=== PATIENT | male | born 1960 | race Caucasian/White ===

== ENCOUNTER 2023-04-22 11:00 | Outpatient (OUT) | payer OTHER, SELFPAY ==
--- NOTE | 2023-04-22 11:12 | XR_ITS ---
[address] [address] Patient Name: DILLON SMILEY MRN: [id number] date: 1960 Sex: M Assigned Patient Location: [facility] Current Patient Location: [facility] Accession/Order Number: [id number] Exam Date: 04/22/2023 11:54 Report Date: 04/22/2023 12:23 At the request of: XIN PARKS Procedure: XR chest 2V EXAM: XR chest 2V HISTORY: PRE OP EXAM COMPARISON: None. TECHNIQUE: PA and lateral views of the chest. FINDINGS: The cardiomediastinal silhouette is normal. No focal consolidation is identified. There is no pneumothorax. No pleural effusion is noted. The osseous structures are intact. IMPRESSION: No acute cardiopulmonary process. Electronically authenticated by: JOCELYN DAMON Date: 04/22/2023 12:23
--- NOTE | 2023-04-22 11:12 | ECG_ITS ---
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
--- NOTE | 2023-04-22 12:01 | P.GSHP_ITS ---
History of Present Illness History of Present Illness Chief complaint: BLADDER MASS Narrative: Patient presents for preadmission testing. Please see HPI from Dr. Garcia dated 04/19/2023. Review of Systems ROS Narrative Please see ROS from Dr. Garcia dated 04/19/2023. 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 Highest level of school completed/degree received: Associate degree: academic program Meds Home Medications and Allergies Home Medications Medication Instructions Recorded Confirmed Type ezetimibe 10 mg tablet 10 mg PO QDAY 04/22/23 04/22/23 History mirabegron 25 mg tablet,extended 25 mg PO QDAY 04/22/23 04/22/23 History release 24 hr (Myrbetriq) tamsulosin 0.4 mg capsule 0.4 mg PO Q24H 04/22/23 04/22/23 History valsartan 160 mg tablet 160 mg PO QDAY 04/22/23 04/22/23 History Allergies Allergy/AdvReac Type Severity Reaction Status Date / Time No Known Drug Allergies Allergy Verified 04/22/23 11:39 Exam Narrative Exam Narrative: Constitutional: Awake, alert, comfortable, well-appearing, nontoxic, in teractive, vital signs as charted Head: Normocephalic, atraumatic Neck: Supple, normal appearance, normal range of motion, no meningeal signs, no lymphadenopathy Respiratory: No respiratory distress, breath sounds clear Cardiovascular: Regular rate, Irregular rhythm, strong heart tones Abdomen: Nontender, normal bowel sounds, soft, no CVA tenderness Musculoskeletal: Normal gait, no swelling or edema Skin: No rashes or induration, no lesions, only visible skin inspected Neuro: No neurological deficits, normal sensation Psychiatric: Oriented ?3, normal affect Assessment and Plan Assessment and Plan (1) Bladder mass: Plan TURBT possible TURP Scheduled with Dr. Garcia 04/19/2023.
[2023-04-22 12:44] LABS: Basophils Percent Auto 0.5 % (0.2-2.0); Eosinophils Absolute Auto 0.2 10^3/uL (0.0-0.7); Eosinophils Percent Auto 2.3 % (0.9-7.0); Hematocrit 41.2 % (42.0-54.0); Immature Granulocytes Abs Auto 0.02 10^3/uL (0.00-0.03); Immature Granulocytes Pct Auto 0.3 % (0.0-0.5); Lymphocytes Absolute Auto 1.2 10^3/uL (1.2-3.8); Lymphocytes Percent Auto 18.4 % (20.5-60.0); Mean Corpuscular Hemoglobin 32.7 pg (25.9-34.0); Mean Corpuscular Volume 96.3 fL (80.0-94.0); Mean Platelet Volume 10.5 fL (9.5-13.5); Monocytes Absolute Auto 0.6 10^3/uL (0.3-0.8); Monocytes Percent Auto 8.4 % (1.7-12.0); Neutrophils Absolute Auto 4.6 10^3/uL (1.4-6.5); Neutrophils Percent Auto 70.1 % (43.0-75.0); Platelet Count 224 10^3/uL (150-450); Red Blood Count 4.28 10^6/uL (4.70-6.10); Red Cell Distribution Width 12.8 % (11.0-15.0); White Blood Count 6.5 10^3/uL (4.0-11.0)
[2023-04-22 12:54] LABS: Anion Gap 8.1; Calcium 8.8 mg/dL (8.5-10.1); Carbon Dioxide 31.3 mmol/L (21.0-32.0); Chloride 103 mmol/L (98-107); Estimated GFR (African America >60 (>=60); Estimated GFR (Non-African Ame >60 (>=60); Glucose 92 mg/dL (74-106); Potassium 4.4 mmol/L (3.5-5.1); Sodium 138 mmol/L (136-145)
[2023-04-22 12:55] LABS: INR 0.93; Partial Thromboplastin Time 25.9 sec (22.3-36.2); Prothrombin Time 9.9 sec (9.0-11.6)
== END 2023-04-22 11:01 | disposition home or self-care (01) ==
PROVIDERS: Urology; PCP Family Medicine
DX: Z01.812 Encounter for preprocedural laboratory examination (principal); Z01.818 Encounter for other preprocedural examination; Z01.810 Encounter for preprocedural cardiovascular examination; Z01.811 Encounter for preprocedural respiratory examination; N32.9 Bladder disorder, unspecified; I10 Essential (primary) hypertension
CPT/HCPCS: 36415; 71046; 80048; 85025; 85610; 85730; 93005; G0463

== ENCOUNTER 2023-04-27 11:32 | Day surgery (SDC) | payer OTHER, SELFPAY ==
[2023-04-22 11:41] VITALS: BP 143/85; PULSE 75; RESP 16; TEMP 36.5; O2SAT 97; BMI 34.4
[2023-04-27] VITALS (14 sets, daily range): BP systolic 121–166; BP diastolic 56–104; PULSE 62–77; RESP 14–17; TEMP 35.8–36.2; O2SAT 94–99; BMI 32.2
[2023-04-27] MEDS: LACTATED RINGER'S SOLUTION 1,000 ML 50 ML IV ×2 (11:56→13:35)
[2023-04-27] MEDS: CEFAZOLIN SODIUM/DEXTROSE,ISO 2 GM/50 ML PIGGYBACK IV (12:38)
[2023-04-27] MEDS: HYDROMORPHONE HCL 0.5 MG/0.5 ML SYRINGE IV ×2 (15:11→15:35)
--- NOTE | 2023-04-27 15:35 | PM.URSON ---
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 Cystoscopy, transurethral resection of bladder tumor ( >5 cm) 2. Bladder neck resection 3. Prostatic urethral biopsy Anesthesia: GETA (LMA, Renetta Ivory, SABRINA) Primary Surgeon: Shazia Garcia Complications: none Estimated blood loss (mL): 3 Findings: -Papillary tumors on right prostatic urethra just next to verumontaneum (biopsied). Mod-severe trilobar hypertrophy with elevated bladder neck. -Anterior/right lateral bladder neck with irregular mucosa, friable (resected). -Diffuse flat, friable papillary tumors circumferentially involving the posterior, lateral, and anterior bladder wall, scattered areas of dome not involved. About 75% of bladder involved. Inferior portion of bladder mostly spared. Trigone/UOs not involved. - 2+ trabeculations. Smaller bladder capacity. Specimens: 1. Bladder tumor 2. Anterior bladder neck 3. Prostatic urethral biopsy Drains: 22Fr 2-way adair catheter Incision: none Indications for Procedures: 62 year old male with history of irritative voiding symptoms underwent diagnostic cystoscopy noting diffuse papillary carpeting throughout bladder. 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 CT Urogram is pending. After discussion of risks and benefits of management options, patient elected to proceed to the OR for cystoscopy, transurethral resection of bladder tumors. Risks were discussed including but not limited to bleeding, pain, infection, damage to surrounding structures, perforation, recurrence, and need for additional procedures. Detailed description of Procedure: Prior to the operating room, informed consent was obtained for the procedures described above. The patient was then taken to the operating suite, transferred to the operating table and received the appropriate dose of preoperative IV antibiotics. Gen. anesthesia LMA was administered and the patient was positioned in the lithotomy position, sterilely prepped and draped in the usual sterile fashion for this procedure. A final timeout was performed confirming the patient's identity, procedure and all present were in agreement to proceed. I began by inserting a 22 Austrian rigid cystoscope into the patient's bladder and performed a thorough cystoscopy with both the 30 and 70 degree lens with the findings as above. Bilateral ureters were seen in orthotopic position effluxing urine. The cystoscope was removed and the meatus was dilated to 30 Austrian with [place] sounds. A 26 Austrian resectoscope was inserted. Bipolar loop electrocautery was used to fully resect the tumor, taking care to obtain muscle in the specimen. Specimens were sent for pathology. Hemostasis was obtained with electrocautery. The anterior bladder neck was also resected, sent for pathology. Careful resection to biopsy the prostatic urethra was also obtained of the irregular area, taking care given the location of the verumontanum. The bladder was drained and inspected. Hemostasis was achieved of any prostatic bleeding. There was no evidence of any bleeding from the resection beds. A 22-Austrian two way Adair catheter (silicone) was inserted without difficulty, irrigated until clear. A bimanual exam was performed which demonstrated normal external genitalia and LIZZIE without firm nodules. The bladder was mobile without palpable mass. The abdomen was soft and nondistended. A belladonna suppository was administered per rectum. The patient tolerated the procedure well without complication. Patient was extubated and sent to PACU for recovery. Plan: He will follow up in 5 days for adair removal and voiding trial. Review pathology and CTU at that time if available, otherwise follow up in 1-2 weeks in the office for pathology review and the next steps. Other Provider present: No Attending Doc Confirm Attending Attestation: Yes
--- NOTE | 2023-04-27 17:01 | PC.NURSE ---
Prior to discharge catheter car and leg bag teaching was provided to patient and spouse. Both voiced understanding.
== END 2023-04-27 16:50 | disposition home or self-care (01) ==
LOC: SURGOUT 04-28 09:53
PROVIDERS: PCP Family Medicine; Visit Provider Urology
PROC: (CPT 52240; principal; 2023-04-27 12:30)
DX: C67.9 Malignant neoplasm of bladder, unspecified (principal); R97.20 Elevated prostate specific antigen [PSA]; N40.1 Benign prostatic hyperplasia with lower urinary tract symptoms; I10 Essential (primary) hypertension; Z87.440 Personal history of urinary (tract) infections; N41.9 Inflammatory disease of prostate, unspecified; E78.2 Mixed hyperlipidemia; Z79.899 Other long term (current) drug therapy; Z87.891 Personal history of nicotine dependence; N32.81 Overactive bladder
CPT/HCPCS: 52240; 36415; 88305; 88307; J1170; J2704

== ENCOUNTER 2024-09-12 14:23 | Outpatient (OUT) | payer MEDICARE, SELFPAY ==
--- NOTE | 2024-09-12 14:32 | ECG_ITS ---
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
--- NOTE | 2024-09-12 15:12 | PM.PRESUREVA ---
History of Present Illness History of Present Illness Chief complaint: elevated PSA Narrative: Presents for presurgical testing. Please see HPI from Dr. Garcia dated September 07, 2024. Review of Systems ROS Narrative Please see ROS from Dr. Garcia dated September 07, 2024. [facility] Medical History (Updated 09/12/24 @ 15:14 by Mulu Maher NP) Prostatitis ?N41.9 - Inflammatory disease of prostate, unspecified (ICD-10) Bladder tumor ?D49.4 - Neoplasm of unspecified behavior of bladder (ICD-10) Bladder cancer ?C67.9 - Malignant neoplasm of bladder, unspecified (ICD-10) Snores ?R06.83 - Snoring (ICD-10) Elevated PSA ?R97.20 - Elevated prostate specific antigen [PSA] (ICD-10) Arthritis ?M19.90 - Unspecified osteoarthritis, unspecified site (ICD-10) Neck pain ?M54.2 - Cervicalgia (ICD-10) High cholesterol ?E78.00 - Pure hypercholesterolemia, unspecified (ICD-10) Hypertension ?I10 - Essential (primary) hypertension (ICD-10) Bladder mass ?N32.89 - Other specified disorders of bladder (ICD-10) Multiple sclerosis ?G35 - Multiple sclerosis (ICD-10) Surgical History (Updated 09/12/24 @ 15:10 by Mulu Maher NP) H/O transurethral resection of bladder tumor (TURBT) (~2023) ?Z98.890 - Other specified postprocedural states (ICD-10) ?Z86.03 - Personal history of neoplasm of uncertain behavior (ICD-10) H/O transurethral resection of bladder tumor (TURBT) (04/27/23) ?Z98.890 - Other specified postprocedural states (ICD-10) ?Z86.03 - Personal history of neoplasm of uncertain behavior (ICD-10) S/P epidural steroid injection ?Z92.241 - Personal history of systemic steroid therapy (ICD-10) History of arthroscopy of knee ?Z98.890 - Other specified postprocedural states (ICD-10) History of colonoscopy ?Z98.890 - Other specified postprocedural states (ICD-10) S/P cystoscopy ?Z98.890 - Other specified postprocedural states (ICD-10) Family History (Updated 04/22/23 @ 11:46 by Mulu Maher NP) Other Family history of hypertension Family history of myocardial infarction Social History (Updated 09/12/24 @ 14:51 by Mulu Maher NP) Within the past year, how often did you have a drink containing alcohol: 4 or more times a week Smoking status: Former smoker Non-prescribed substance use: denies use 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 Highest level of school completed/degree received: Associate degree: academic program Meds Home Medications and Allergies Home Medications ?Medication ?Instructions ?Recorded ?Confirmed ?Type ezetimibe 10 mg tablet 10 mg PO QDAY 04/22/23 09/12/24 History tamsulosin 0.4 mg capsule 0.4 mg PO Q24H 04/22/23 09/12/24 History valsartan 160 mg tablet 160 mg PO QDAY 04/22/23 09/12/24 History isoniazid 300 mg tablet 300 mg PO DAILY 09/12/24 09/12/24 History pyridoxine (vitamin B6) 50 mg 50 mg PO DAILY 09/12/24 09/12/24 History tablet Allergies Allergy/AdvReac Type Severity Reaction Status Date / Time No Known Drug Allergies Allergy Verified 09/12/24 14:47 Exam Narrative Exam Narrative: Constitutional: Awake, alert, comfortable, well-appearing, nontoxic, interactive, vital signs as charted Head: Normocephalic, atraumatic Neck: Supple, normal appearance, normal range of motion, no meningeal signs, no lymphadenopathy Respiratory: No respiratory distress, breath sounds clear Cardiovascular: Regular rate, irregular rhythm, strong heart tones Abdomen: Nontender, normal bowel sounds, soft, no CVA tenderness Musculoskeletal: Normal gait, no swelling or edema Skin: No rashes or induration, no lesions, only visible skin inspected Neuro: No neurological deficits, normal sensation Psychiatric: Oriented ?3, normal affect Assessment and Plan Assessment and Plan (1) Elevated PSA: (2) Bladder tumor: (3) Bladder cancer: Plan Cystoscopy/TURP scheduled with Dr. Garcia 09/19/2024.
[2024-09-12 15:21] LABS: Basophils Absolute Auto 0.1 10^3/uL (0.0-0.1); Basophils Percent Auto 0.5 % (0.2-2.0); Eosinophils Absolute Auto 0.4 10^3/uL (0.0-0.7); Eosinophils Percent Auto 3.7 % (0.9-7.0); Hematocrit 43.8 % (42.0-54.0); Hemoglobin 14.7 g/dL (14.0-18.0); Immature Granulocytes Abs Auto 0.02 10^3/uL (0.00-0.03); Immature Granulocytes Pct Auto 0.2 % (0.0-0.5); Lymphocytes Absolute Auto 1.6 10^3/uL (1.2-3.8); Lymphocytes Percent Auto 16.6 % (20.5-60.0); Mean Corpuscular HGB Conc 33.6 g/dL (29.9-35.2); Mean Corpuscular Hemoglobin 32.7 pg (25.9-34.0); Mean Corpuscular Volume 97.3 fL (80.0-94.0); Mean Platelet Volume 10.7 fL (9.5-13.5); Monocytes Absolute Auto 0.7 10^3/uL (0.3-0.8); Monocytes Percent Auto 7.7 % (1.7-12.0); Neutrophils Absolute Auto 6.7 10^3/uL (1.4-6.5); Neutrophils Percent Auto 71.3 % (43.0-75.0); Platelet Count 195 10^3/uL (150-450); Red Cell Distribution Width 12.8 % (11.0-15.0); White Blood Count 9.4 10^3/uL (4.0-11.0)
[2024-09-12 15:25] LABS: Bilirubin Urine NEGATIVE (NEGATIVE); Blood Urine SMALL (NEGATIVE); Clarity Urine CLEAR (CLEAR); Color Urine LT. YELLOW (YELLOW); Glucose Urine UA NEGATIVE (NEGATIVE); Ketones Urine NEGATIVE (NEGATIVE); Leukocyte Esterase Urine NEGATIVE (NEGATIVE); Nitrite Urine NEGATIVE (NEGATIVE); Protein Urine NEGATIVE (NEG/TRACE); Urobilinogen Urine 0.2 EU/dL (0.2-1.0)
[2024-09-12 15:26] LABS: Urine Microscopic Indicated YES
[2024-09-12 15:27] LABS: Anion Gap 9.9; Calcium 8.9 mg/dL (8.5-10.1); Carbon Dioxide 29.1 mmol/L (21.0-32.0); Chloride 105 mmol/L (98-107); Estimated GFR (African America >60 (>=60 mL/min/1.73m^2); Estimated GFR (Non-African Ame >60 (>=60 mL/min/1.73m^2); Glucose 109 mg/dL (74-106); Sodium 140 mmol/L (136-145)
[2024-09-12 15:37] LABS: INR 0.99; Partial Thromboplastin Time 26.3 sec (22.3-36.2); Prothrombin Time 10.5 sec (9.0-11.6)
[2024-09-12 15:40] LABS: Bacteria Urine TRACE #/HPF (NONE SEEN); Cast Seen? NONE SEEN #/LPF (NONE SEEN); Crystals Seen? None Seen #/HPF (None Seen); Mucus Urine SMALL (NONE SEEN); Squamous Epithelial Cell Urine RARE #/LPF (NONE/RARE); Urine Culture Indicated NO
== END 2024-09-12 14:24 | disposition home or self-care (01) ==
LOC: PST 14:27
PROVIDERS: PCP Family Medicine; Visit Provider Urology
DX: Z01.810 Encounter for preprocedural cardiovascular examination (principal); Z01.812 Encounter for preprocedural laboratory examination; R97.20 Elevated prostate specific antigen [PSA]; C67.9 Malignant neoplasm of bladder, unspecified; I10 Essential (primary) hypertension; E78.5 Hyperlipidemia, unspecified; N40.1 Benign prostatic hyperplasia with lower urinary tract symptoms; D49.4 Neoplasm of unspecified behavior of bladder; R31.9 Hematuria, unspecified
CPT/HCPCS: 36415; 80048; 81001; 85025; 85610; 85730; 93005; G0463

== ENCOUNTER 2024-09-19 12:40 | Day surgery (SDC) | payer MEDICARE, SELFPAY ==
[2024-09-12 15:05] VITALS: BP 143/83; PULSE 76; TEMP 36.3; O2SAT 99; BMI 33.0
[2024-09-19] VITALS (12 sets, daily range): BP systolic 142–176; BP diastolic 80–102; PULSE 60–79; TEMP 36.3–36.8; O2SAT 93–99; BMI 33.0
--- OUTSIDE RECORDS SUMMARY | 2024-09-19 12:51 | XMS_ITS | CCD ---
Author Organization [facility] Care Team Providers Care Manager Fine Name Role Phone Chaz Styles Unavailable Jil Keenan Unavailable DO Isamar Jenkins Primary Care Provider MD Mandeep Andersen Emergency Provider MD Jil Keenan Attending Provider ISAMAR JENKINS Primary Care Physician Unavailable Primary Care Provider Unavailabl e DO Isamar Jenkins Primary Care Provider MD Jil Keenan Attending Provider MD Shazia Garcia Attending Provider DO Isamar Jenkins Primary Care Provider SASKIA Kelly Emergency Provider DO Michael Yadav Admit Provider DO Michael Yadav Attending Provider [phone] Isamar Jenkins DO Primary Care Provid er Fide Hopkins Unavailable Unavailable Isamar Jenkins DO Primary Care Provid er DO Isamar Jenkins Primary Care Provider [phone] MD Chaz Styles Attending Provider [phone] Isamar Jenkins Primary Care Unavailable Chaz Styles Admitting Unavailable Chaz Styles Attending Unavailable Isamar Jenkins Primary Care Unavailable Shazia Garcia Consulting Unavailable Michael Yadav Admitting Unavailable Michael Yadav Attending Unavailable ISAMAR JENKINS Primary Care Unavai lable ALMASSI, RIGO Attending Unavailable LUE, SHAZIA M Referring Unavailable DOMINGO REED Attending Unavailable PETZNICK, ISAMAR JOHNSON Primary Care Unavai lable ALMASSI, RIGO Referring Unavailable PETZNICK, ISAMAR JOHNSON Primary Care Unavai lable ALMASSI, RIGO Attending Unavailable ALMASSI, RIGO Attending Unavailable ALMASSI, RIGO Admitting Unavailable BANDYOPADHYAY, ANASUA Attending Unavailabl e ALMASSI, RIGO Referring Unavailable PETZNICK, ISAMAR JOHNSON Primary Care Unavai lable ALMASSI, RIGO Referring Unavailable PETZNICK, ISAMAR JOHNSON Primary Care Unavai lable PETZNICK, ISAMAR ELIZABETH Primary Care Unavai lable ALMASSI, RIGO Referring Unavailable ALMASSI, RIGO Referring Unavailable PETZNICK, ISAMAR JOHNSON Primary Care Unavai lable PETZNICK, ISAMAR JOHNSON Primary Care Unavai lable PETZNICK, ISAMAR JOHNSON Primary Care Unavai lable ALMASSI, RIGO Attending Unavailable PETZNICK, ISAMAR Britton Attending Unavailable Petznick DO, Isamar Britton Primary Care Provider Shazia Garcia Attending Unavailable OrzeRoslyn carmona Attending Unavailable Lue, Shazia M. Admitting Unavailable Lue, Shazia M. Attending Unavailable Lue, Shazia M. Attending Unavailable Lue, Shazia M. Referring Unavailable Lue, Shazia M. Attending Unavailable Lue, Shazia M. Admitting Unavailable Lue, Shazia M. Attending Unavailable Lue, Shazia M. Admitting Unavailable Lue, Shazia M. Attending Unavailable Lue, Shazia M. Attending Unavailable Allergies Allergy Classification Reported Allergen(s) Allergy Type Date of Onset Reaction(s) Facility (6 sources) Allergic rhinitis due to pollen Propensity to adverse reactions Unknown [employer] Other (6 sources) [facility] [employer] Other (6 sources) Pollen Propensity to adverse reactions Unknown [employer] Other (2 sources) atorvastatin Drug Allergy 1 Hives, Rash [facility] (2 sources) Lisinopril Propensity to adverse reactions 1 Hives, Rash [facility] (2 sources) Pollen Allergy to substance 3 Unknown [facility] (2 sources) No Known Medication Allergies; Translations: [No Known Medication Allergies] Propensity to adverse reactions (disorder) [place] [facility] Medications Current Medications Medication Drug Class(es) Dates Sig (Normalized) Sig (Original) acetaminophen 325 mg oral tablet (20 sources) Start: 06-16-2023 take 2 tablets by mouth every four hours as needed acetaminophen (Tylenol) 325 MG tablet Take 650 mg by mouth every 4 (four) hours if needed. 06/16/2023 Active Comment on above: Take 2 tablets by mo ut every 4 hours as needed for pain. bcg 50 mg in NaCl (PF) 0.9% 50 mL (1 source) Start: 08-01-2024 End: 08-02-2024 bcg 50 mg in NaCl (PF) 0.9% 50 mL cyclobenzaprine hydrochloride 10 mg oral tablet (17 sources) Muscle Relaxant Start: 08-18-2023 take 1 tablet by mouth at bedtime cyclobenzaprine (Flexeril) 10 MG tablet Indications: Cervical arthritis Take 1 tablet (10 mg) by mouth at bedtime. 90 tablet 1 08/18/2023 Active Start: 01-30-2023 End: 11-16-2023 Cyclobenzaprine Discontinued MG TABLET January 30, 2023 12:00am November 16, 2023 2:42am take 1 tablet by beverly every twenty-four hours Cyclobenzaprine HCl 10 MG 1 tablet at bedtime as needed Orally Once a day Active ezetimibe 10 mg oral tablet (20 sources) Dietary Cholesterol Absorption Inhibitor Start: 01-30-2023 Ezetimibe Active MG TABLET January 30, 2023 12:00am Start: 03-20-2020 Start: 03-20-2020 take 10 mg by mouth once daily Ezetimibe Active 10 MG PO Daily January 30, 2023 12:00am Comment on above: q 24 HR. hydrOXYzine hydrochloride 25 mg oral tablet (2 sources) Antihistamine Start: 2023 End: 2023 take 1 tablet by mouth every eight hours hydrOXYzine HCl (Atarax) 25 MG tablet Indications: Plant dermatitis Take 1 tablet (25 mg) by mouth every 8 (eight) hours if needed for itching for up to 10 days 30 tablet 1 08/30/2024 09/09/2024 Active isoniazid 300 mg oral tablet (2 sources) Antimycobacterial Start: 2023 End: 2024 isoniazid 300 mg Tab 300 mg = 1 tab(s), Oral, Daily, Take with 50 mg B6 vitamin daily, X 3 months, # 90 tab(s), Refills(s) 0, Pharmacy: [facility], 179, cm, 09/07/24 7:53:00 EST, Height/Length Dosing, 101, kg, 09/07/24 7:53:00 EST, Weight Dosing Start Date: 09/07/24 Stop Date: 12/06/24 Status: Ordered iv contrast (will be provided with radiology test) (1 source) Start: 2023 End: 2023 iv contrast (will be provided with radiology test) MRI BLADDER Inject, intravenously, once for 1 dose. No IV access, insert saline lock prior to the beginning of sedation, infusion, injection of imaging exam. Discontinue saline lock post exam. If Pt has a central line or IVAD, may access for administration according to line specific nursing protocol. Once exam is complete flush line and de-access according to line specific nursing protocol in the MR contrast administration guidelines link. 1 Each 0 02/15/2024 02/16/2024 Active Comment on above: MRI BLADDER Inject, intravenously, once for 1 dose. No IV access, insert saline lock prior to the beginning of sedation, infusion, injection of imaging exam. Discontinue saline lock post exam. If Pt has a central line or IVAD, may access for administration according to line specific nursing protocol. Once exam is complete flush line and de-access according to line specific nursing protocol in the MR contrast administration guidelines link. oxybutynin chloride 5 mg oral tablet (20 sources) Cholinergic Muscarinic Antagonist Start: 2022 End: 2023 take 1 tablet by mouth three times daily as needed oxybutynin 5 mg Tab 5 mg = 1 tab(s), Oral, TID, PRN for urinary discomfort, # 30 tab(s), Refills(s) 0 Start Date: 05/06/23 Status: Ordered Comment on above: Take 5 mg by mouth. Take 1 tablet by beverly th three times daily. Do not take within 12 hours of catheter removal pantoprazole 40 mg delayed release oral tablet (2 sources) Proton Pump Inhibitor Start: 2019 take 1 tablet by mouth every twenty-four hours phenazopyridine hydrochloride 100 mg oral tablet (20 sources) Start: 2023 End: 2023 take 1 tablet by mouth every eight hours Phenazopyridine (Pyridium) 100 mg tablet Active 100 MG PO Q8H 18 6 November 18, 2023 4:02pm Start: 11-10-2023 take 1 tablet by beverly th every eight hours as needed phenazopyridine (PYRIDIUM) 100 mg tablet Take 1 tablet by mouth three times a day as needed for up to 9 doses. 9 tablet 11/10/2023 Active Start: 05-18-2023 End: 08-30-2023 take 1 tablet by mouth every eight hours as needed phenazopyridine (PYRIDIUM) 200 mg tablet Take 1 tablet by mouth three times daily as needed. 15 tablet 0 06/16/2023 08/30/2023 Discontinued (Course of therapy completed) Comment on above: Take 1 tablet by beverly th three times daily as needed. Take 1 tablet by beverly th three times a day as needed for up to 9 doses. predniSONE 20 mg oral tablet (2 sources) Start: 08-30-2024 End: 09-08-2024 take 2 tablets by mouth once daily, then take 1 tablet by mouth once daily, then take 0.5 tablet by mouth once daily predniSONE (Deltasone) 20 MG tablet Indications: Plant dermatitis Take 2 tablets (40 mg) by mouth Daily for 3 days, THEN 1 tablet (20 mg) Daily for 3 days, THEN 0.5 tablets (10 mg) Daily for 4 days. 11 tablet 08/30/2024 09/08/2024 Active tamsulosin hydrochloride 0.4 mg oral capsule (20 sources) alpha-Adrenergic Christopher Start: 01-30-2023 Tamsulosin Active MG PO January 30, 2023 12:00am Start: 09-30-2022 End: 05-09-2025 take 1 capsule by mouth once daily tamsulosin 0.4 mg Cap 0.4 mg = 1 cap(s), Oral, Daily, X 90 day(s), # 90 cap(s), Refills(s) 3, Pharmacy: [facility], 179, cm, 05/14/24 11:19:00 EDT, Height/Length Dosing, 101, kg, 05/14/24 11:19:00 EDT, Weight Dosing Start Date: 05/14/24 Stop Date: 05/09/25 Status: Ordered take 1 capsule by mo [facility] every twenty-four hours in the morning tamsulosin (Flomax) 0.4 MG 24 hr capsule Take 0.4 mg by mouth in the morning. Active Comment on above: Take 0.4 mg by mouth . Take 1 capsule by mo [facility] every afternoon. triamcinolone acetonide 5 mg/ml topical cream (2 sources) Corticosteroid Start: 08-30-20 End: 09-09-20 triamcinolone (Kenalog) 0.5 % cream Indications: Plant dermatitis Apply topically 2 (two) times a day for 10 days 45 g 1 08/30/2024 09/09/2024 Active valsartan 160 mg oral tablet (20 sources) Angiotensin 2 Receptor Christopher Start: 01-19-20 take 0.5 tablet by mouth once daily Valsartan Active 160 MG PO Daily January 19, 2020 12:00am 1/2 tab for first 4 days, full tab starting tomorrow Start: 01-19-2020 take 0.5 tablet by m out once daily Valsartan Active 80 MG PO Daily January 19, 2020 12:00am 1/2 tab for first 4 days, full tab starting tomorrow Start: 01-15-2020 valsartan 160 mg Tab Oral, Refills(s) 0 Start Date: 09/30/22 Status: Ordered Comment on above: Take by mouth. Vitamin B6 50 mg Tab (2 sources) Start: 09-07-2024 End: 12-06-2024 take 1 tablet by mouth once daily Vitamin B6 50 mg Tab 50 mg = 1 tab(s), Oral, Daily, While taking isoniazid, X 3 months, # 90 tab(s), Refills(s) 0, Pharmacy: [facility], 179, cm, 09/07/24 7:53:00 EST, Height/Length Dosing, 101, kg, 09/07/24 7:53:00 EST, Weight Dosing Start Date: 09/07/24 Stop Date: 12/06/24 Status: Ordered Completed/Discontinued Medications Medication Drug Class(es) Dates Sig (Normalized) Sig (Original) acetaminophen 325 mg / HYDROcodone bitartrate 5 mg oral tablet (20 sources) Opioid Agonist Start: 01-30-2023 End: 11-16-2023 take 1 tablet by mouth every four to six hours Hydrocodone-Acetami nophen Discontinued 1 - 2 TAB PO EVERY 4-6 HOURS 30 4 January 31, 2023 November 16, 2023 2:42am take 1-2 tablets by mouth every four to six hours as needed [place] 5-325 MG 1-2 tablet as needed Orally every 4-6 hrs Active amoxicillin 500 mg oral capsule (9 sources) Penicillin-class Antibacterial Start: 09-27-2018 End: 01-19-2020 take 500 mg by mouth once daily Amoxicillin Discontinued 500 MG PO Daily September 27, 2018 1:00am January 19, 2020 6:57pm bcg 50 mg in NaCl 0.9% 50 mL (6 sources) Start: 12-16-2023 End: 12-16-2023 bcg 50 mg in NaCl 0.9% 50 mL Start: 12-09-2023 End: 12-09-2023 bcg 50 mg in NaCl 0.9% 50 mL Start: 12-02-2023 End: 12-02-2023 bcg 50 mg in NaCl 0.9% 50 mL Start: 08-30-2023 End: 08-30-2023 bcg 50 mg in NaCl 0.9% 50 mL Start: 08-23-2023 End: 08-23-2023 bcg 50 mg in NaCl 0.9% 50 mL Start: 08-16-2023 End: 08-16-2023 bcg 50 mg in NaCl 0.9% 50 mL cephalexin 500 mg oral capsule (13 sources) Cephalosporin Antibacterial Start: 01-30-2023 End: 11-16-2023 take 1000 mg by mouth every twelve hours Cephalexin Discontinued 1000 MG PO Q12H 40 January 30, 2023 12:00am November 16, 2023 2:42am take 1 tablet by mouth every eig ht hours Cephalexin 500 MG 1 tablet Orally TID Active ciprofloxacin 500 mg oral tablet (2 sources) Quinolone Antimicrobial Start: 02-15-2024 End: 02-15-2024 ciprofloxacin HCl 500 mg tab(s) (CIPRO) Start: 06-16-2023 End: 06-24-2023 take 1 tablet by mouth twice daily ciprofloxacin HCl (CIPRO) 500 mg tablet Take 1 tablet by mouth twice daily for 8 days. 16 tablet 0 06/16/2023 06/24/2023 Comment on above: Take 1 tablet by beverly twice daily for 8 days. lidocaine hydrochloride 0.02 mg/mg topical gel (10 sources) Antiarrhythmic, Amide Local Anesthetic Start: 08-01-2024 End: 08-01-2024 lidocaine urojet 2 % 11 mL topical gel (GLYDO) Start: 08-01-2024 End: 08-01-2024 11 mL, OTHER, ONCE, 1 dose, On Tue08/01/24 at 1330, FOR EXTERNAL USE ONLY Intravesical administration, AMB MED ORDERS Start: 05-22-2024 End: 05-23-2024 lidocaine urojet 2 % 11 mL t opical gel (GLYDO) Start: 12-16-2023 End: 12-16-2023 lidocaine urojet 2 % 11 mL t opical gel (GLYDO) Start: 12-09-2023 End: 12-09-2023 lidocaine urojet 2 % 11 mL t opical gel (GLYDO) Start: 12-02-2023 End: 12-02-2023 lidocaine urojet 2 % 11 mL t opical gel (GLYDO) Start: 08-30-2023 End: 08-30-2023 lidocaine urojet 2 % 11 mL t opical gel (GLYDO) Start: 08-23-2023 End: 08-23-2023 lidocaine urojet 2 % 11 mL t opical gel (GLYDO) Start: 08-16-2023 End: 08-16-2023 lidocaine urojet 2 % 11 mL t opical gel (GLYDO) lisinopril 5 mg oral tablet (9 sources) Angiotensin Converting Enzyme Inhibitor Start: 09-27-2018 End: 01-19-2020 take 5 mg by mouth once daily Lisinopril Discontinued 5 MG PO Daily September 27, 2018 1:00am January 19, 2020 6:57pm meloxicam 7.5 mg oral tablet (13 sources) Nonsteroidal Anti-inflammatory Drug Start: 01-30-2023 End: 11-16-2023 Meloxicam Discontinued MG TABLET January 30, 2023 12:00am November 16, 2023 2:42am Start: 01-13-2023 take 1 tablet by beverly th once daily meloxicam 7.5 mg Tab 7.5 mg = 1 tab(s), Oral, Daily, # 30 tab(s), Refills(s) 0, Pharmacy: [facility], 179, cm, 01/13/23 13:46:00 EDT, Height/Length Dosing, 101, kg, 01/13/23 13:46:00 EDT, Weight Dosing Start Date: 01/13/23 Status: Ordered Meloxicam Active 24 hr mirabegron 25 mg extended release oral tablet (20 sources) beta3-Adrenergic Agonist Start: 04-07-2023 End: 08-30-2024 mirabegron ER (Myrbetriq) 25 MG 24 hr tablet Take 25 mg by mouth. 04/07/2023 08/30/2024 Discontinued (Therapy completed) Start: 04-07-2023 End: 05-09-2025 take 1 tablet by mouth once daily Myrbetriq 25 mg oral tablet, extended release 25 mg = 1 tab(s), Oral, Daily, X 90 day(s), # 90 tab(s), Refills(s) 3, Pharmacy: [facility], 179, cm, 05/14/24 11:19:00 EDT, Height/Length Dosing, 101, kg, 05/14/24 11:19:00 EDT, Weight Dosing Start Date: 05/14/24 Stop Date: 05/09/25 Status: Ordered Comment on above: Take 25 mg by mouth. pumpkin seed extract/soy germ (AZO BLADDER CONTROL ORAL) (3 sources) End: 06-15-2023 pumpkin seed extract/soy germ (AZO BLADDER CONTROL ORAL) Take by mouth twice daily. 0 06/15/2023 Discontinued pumpkin seed ext ract/soy germ (AZO BLADDER CONTROL ORAL) Take by mouth twice daily. 0 Active Comment on above: Take by mouth twice daily. sulfamethoxazole 800 mg / trimethoprim 160 mg oral tablet (13 sources) Dihydrofolate Reductase Inhibitor Antibacterial, Sulfonamide Antimicrobial Start: 01-30-2023 End: 11-16-2023 Sulfamethoxazole-Trime thoprim Discontinued TAB TABLET January 30, 2023 12:00am November 16, 2023 2:42am take 1 tablet by beverly th every twelve hours Bactrim DS 800-160 MG 1 tablet Orally Tw ice a day prostatitis Active Problems Active Problems Problem Classification Problem Date Documented Date Episodic/Chronic Allergic reactions (2 sources) Contact dermatitis due to plants; Translations: [Unspecified contact dermatitis due to plants, except food] 08-30-2024 Episodic Cancer of bladder (20 sources) Malignant tumor of urinary bladder; Translations: [Malignant neoplasm of bladder, unspecified] Onset: 05-06-2023 Chronic Complications of surgical procedures or medical care (6 sources) Postprocedural hemorrhage of a genitourinary system organ or structure following a genitourinary system procedure; Translations: [Postoperative hemorrhage after transurethral resection of prostate (TURP)] Onset: 11-18-2023 11-18-2023 Episodic Disorders of lipid metabolism (20 sources) Mixed hyperlipidemia; Translations: [Mixed hyperlipidemia] Onset: 08-18-2023 Resolved: 08-18-2023 09-30-2022 Chronic Esophageal disorders (20 sources) Gastroesophageal reflux disease; Translations: [Gastro-esophageal reflux disease without esophagitis] Onset: 08-18-2023 11-10-2023 Chronic Essential hypertension (20 sources) Essential hypertension; Translations: [Essential (primary) hypertension] Onset: 08-18-2023 Resolved: 08-18-2023 09-30-2022 Chronic Fracture of upper limb (12 sources) Displaced fracture of distal phalanx of left index finger, initial encounter for open fracture; Translations: [Displaced fracture of distal phalanx of left middle finger, initial encounter for open fracture] Episodic Genitourinary symptoms and ill-defined conditions (20 sources) Microscopic hematuria; Translations: [Other microscopic hematuria] Onset: 02-24-2023 Resolved: 08-18-2023 Episodic Hyperplasia of prostate (20 sources) Benign prostatic hypertrophy with outflow obstruction; Translations: [Benign prostatic hyperplasia with lower urinary tract symptoms] Onset: 02-24-2023 Chronic Inflammatory conditions of male genital organs (15 sources) Chronic prostatitis; Translations: [Chronic prostatitis] Onset: 02-24-2023 Resolved: 08-18-2023 Chronic Inflammatory conditions of male genital organs (3 sources) Granulomatous prostatitis; Translations: [Granulomatous prostatitis] Onset: 09-07-2024 Episodic Neoplasms of unspecified nature or uncertain behavior (12 sources) Neoplasm of bladder; Translations: [Neoplasm of unspecified behavior of bladder] Onset: 04-19-2023 Resolved: 08-18-2023 Episodic Nonspecific chest pain (11 sources) Atypical chest pain; Translations: [Other chest pain] Onset: 08-30-2024 01-19-2020 Episodic Open wounds of extremities (15 sources) Laceration without foreign body of unspecified finger with damage to nail, initial encounter; Translations: [Laceration of finger] Onset: 08-30-2024 Episodic Other aftercare (1 source) History of bladder neoplasm; Translations: [Encounter for follow-up examination after completed treatment for malignant neoplasm] 08-30-2023 Episodic Other diseases of bladder and urethra (5 sources) Detrusor overactivity; Translations: [Overactive bladder] Onset: 04-19-2023 Chronic Other diseases of bladder and urethra (11 sources) Overactive bladder; Translations: [Overactive bladder] Onset: 08-18-2023 Resolved: 08-18-2023 04-19-2023 Chronic Other lower respiratory disease (6 sources) H/O: respiratory disease; Translations: [Personal history of other diseases of the respiratory system] Episodic Other male genital disorders (12 sources) Male erectile dysfunction, unspecified; Translations: [Erectile dysfunction] Onset: 02-24-2023 Chronic Other nervous system disorders (20 sources) Chronic pain; Translations: [Other chronic pain] Onset: 11-10-2023 11-10-2023 Chronic Other nervous system disorders (3 sources) Other chronic pain; Translations: [Other chronic pain] Chronic Other nutritional; endocrine; and metabolic disorders (20 sources) Body mass index 30+ - obesity; Translations: [Obesity, unspecified] Onset: 08-18-2023 11-10-2023 Chronic Other screening for suspected conditions (not mental disorders or infectious disease) (20 sources) Raised prostate specific antigen; Translations: [Elevated prostate specific antigen [PSA]] Onset: 02-24-2023 Resolved: 08-18-2023 Episodic Other upper respiratory infections (10 sources) Chronic frontal sinusitis; Translations: [Chronic frontal sinusitis] Onset: 08-18-2023 Resolved: 08-18-2023 08-18-2023 Chronic Residual codes; unclassified (5 sources) History of transurethral resection of bladder tumor; Translations: [Other specified postprocedural states] Onset: 08-30-2024 11-17-2023 Episodic Residual codes; unclassified (2 sources) Contact with and (suspected) exposure to other hazardous substances; Translations: [Contact with and (suspected) exposure to other potentially hazardous substances] Onset: 08-30-2024 08-30-2024 Episodic Spondylosis; intervertebral disc disorders; other back problems (20 sources) Cervical spondylosis; Translations: [Spondylosis without myelopathy or radiculopathy, cervical region] Onset: 08-18-2023 Chronic Spondylosis; intervertebral disc disorders; other back problems (12 sources) Radiculopathy, cervical region; Translations: [Backache] Onset: 05-31-2024 Episodic Unclassified (9 sources) Disorder of digit; Translations: [Open fracture of distal phalanx] 01-30-2023 Urinary tract infections (13 sources) Urinary tract infectious disease; Translations: [Urinary tract infection, site not specified] Onset: 08-18-2023 Resolved: 08-18-2023 09-30-2022 Episodic Past or Other Problems Problem Classification Problem Date Documented Date Episodic/Chronic Cancer; other and unspecified primary (1 source) Personal history of neoplasm of uncertain behavior; Translations: [Personal history of neoplasm of uncertain behavior] Onset: 11-18-2023 Episodic Other circulatory disease (2 sources) Elevated blood-pressure reading without diagnosis of hypertension; Translations: [Elevated blood-pressure reading, without diagnosis of hypertension] Onset: 08-18-2023 Resolved: 08-18-2023 08-18-2023 Episodic Other upper respiratory disease (8 sources) Cyst of maxillary sinus; Translations: [Cyst and mucocele of nose and nasal sinus] Onset: 08-18-2023 Resolved: 08-18-2023 08-18-2023 Episodic Residual codes; unclassified (5 sources) Other specified postprocedural states; Translations: [Personal history of surgery to other organs] Onset: 11-18-2023 Episodic Residual codes; unclassified (2 sources) Uses moist tobacco daily; Translations: [Tobacco use] Onset: 08-18-2023 Resolved: 08-18-2023 3 Episodic Results Test Name Value Interpretation Reference Range Facility Urine Cytology ([facility])on 11-11-2023 Microscopic exam Cytology (U) [Interp] Diagnosis Info Invalid Interpretation Code [facility] Comment on above: Result Comment: A:Ur ine,Urine:Voided Interpretation - Singled and clustered atypical urothelial cells with degenerative changes. As voided urine, suspicious for papillary urothelial neoplasm. CPT 58655 MicroScopic Description - Adequacy - Gross Description Site ID:A color Yellow fixative Alcohol Specimen designated Urine received in alcohol preservative and labeled with the patient???s name, consists of 60ml clear yellow fluid. Electronically signed by : on: 09/11/2024 12:38:55 Performed By: #### 1 [id number] #### [facility] [address] [place] [address] Urine Cytology ([facility])on 11-07-2023 Method of Extraction Voided Normal [facility] Comment on above: Performed By: #### 1 [id number] #### [facility] [address] Number of Jars 1 Invalid Interpretation Code [facility] Comment on above: Performed By: #### 1 [id number] #### [facility] [address] [place], [place] [id number] Specimen Urine Normal [facility] Comment on above: Performed By: #### 1 [id number] #### [facility] [address] [place] [address] Type of Service Technical Only Normal [facility] Comment on above: Performed By: #### 1 [id number] #### [facility] [address] [place] [id number] Urology Office/Clinic Noteon 09-07-2024 Urology Office/Clinic Note Urology Office/Clinic Note Chief Complaint Cysto HPI Staff Pt here for 3 mo surveillance cysto and cytology due to urothelial carcinoma of bladder. Last seen IO 05/14 by AO due to elevated PSA. PSA: 05/28/24 - 10.9 & 15.6% - Last cysto by Dr. Jacobsen [facility] 05/23/24 - Persistent mass in the posterior bladder which was similar in appearance to that seen 11/10/23 which was benign, therefore the residual mass was not resected. - Last onc note 07/23/24 - Arrange for maintenance BCG x 3 doses to start next week then f/u 2 wks after next cysto to arrange additional BCG as indicated. - Pt was scheduled for his first BCG instillation at [facility] on 08/01/24, but the nurses were unable to pass caths through his prostate and were unable to instill BCG. Pt was not interested in returning for BCG txs given this traumatic experience. History of Present Illness Tests reviewed: reviewed PSAs, pathology, cytology I have reviewed the previous health record information and history for this patient from external providers and Rolsyn Meade NP. I have reviewed and verified the staff HPI to be accurate for this encounter. Review of Systems PHQ Score Initial Depression Screen Score: 0 SCORE ROS - Provider Constitutional: denies weight loss, denies hot flashes. Eyes: denies eye problems. Gastrointestinal: denies nausea, denies vomiting. Cardiovascular: denies chest pain or angina. Integumentary: no dryness Musculoskeletal: denies musculoskeletal symptoms. ENMT: denies otolaryngeal symptoms. Respiratory: no shortness of breath. Heme/Lymph: denies easy bleeding tendency, denies easy bruising tendency. Psychiatric: no confusion, no anxiety. Genitourinary: See HPI. Physical Exam Vitals & Measurements HR: 70(Peripheral) RR: 16 BP: 150/88 HT: 70 in HT: 179 cm WT: 101 kg WT: 222.2 lb BMI: 31.52 General Appearance: alert, no distress, well nourished, well developed male. Procedure Operative Information Anesthesia Type: Local Procedure: Local Cystoscopy Complications: None Surgical risks, benefits, details of the procedure have been explained to the patient. Full informed consent has been obtained. Intraoperative Information Prepped: Patient is brought back to the endoscopy suite. Patient is placed in supine position. Patient prepped in the usual fashion with Betadine solution. 2% Xylocaine Jelly is placed per Urethra. After waiting several minutes, the Cystoscope is introduced. The Urethra is: Normal The Prostatic Urethra is: Severe bilobar hyperplasia with fusion of lateral lobes in middle. The Bladder: Mild irritation at posterior bladder wall. No bladder tumors. Well healed resection scars. , Trabeculated: Mild (1) The Ureteral orifices: Show efflux of clear urine Specimens Removed: Voided specimen sent for Cytology Removal: Cystoscope is removed. The patient tolerated it well. Postoperative Information Patient is discharged home with antibiotic coverage. Follow up arranged. 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 Here for surveillance cysto 1. BPH with urinary obstruction (N40.1: Benign prostatic hyperplasia with lower urinary tract symptoms) Cysto 04/19/23 - Moderate to severe trilobar hypertrophy with elevated bladder neck. Few inflammatory papillary projections near the verumontanum. On retroflexion there is irregular mucosal inflammation on the inferior bladder neck/intravesical prostate portion. Global mass effect into bladder [1] Cysto, TURBT (>5 cm), Bladder neck resection, Prostatic urethral bx 04/27/23 - Path showed Prostate; Transurethral bx: Benign prostate tissue with chronic inflammation. Neg for malignancy. [1] 2022 - 72 g prostate volume IPSS (5) - not filled out today, pt had cysto. Taking Tamsulosin 0.4mg qd. Per cysto findings today, pt has severe bilobar hyperplasia with fusion of lateral lobes at middle of prostate. Discussed contribution to urinary sx of intermittent irritation and potentially granulomatous prostatitis. Bridge is preventing catheter placement for BCG, although 14Fr coude tip was inserted without difficulty today. Discussed risks/benefits of mgmt options. Fused prostate lobes would need to be treated surgically, would also help relieve obstruction. 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 Not a candidate for minimally invasive procedures such as Urolift or Rezum at this time. -Will further discuss TURP plan with Dr. Jacobsen given complexity in setting of asx BCG prostatitis and holding [place] [facility] [place] TURP. The procedural risks, benefits, details, and treatment alternatives have been discussed with the patient. These include bleeding, infection, need for blood transfusion, continued urinary difficulties, urinary leakage which could be permanent, need for catheter, retrograde ejaculation, scar tissue formation in t (more content not included)... Normal [facility] Comment on above: Result Comment: Elec tronically Signed By: Jose GARCÍA, Shazia Almaguer\Date and Time Signed: 09/07/24 17:35 EST CHEMISTRYOrdered By: SYSTEM SYSTEM on 08-22-2024 Prostate specific Ag [Mass/Vol] 9.6 ng/mL High 0.1 - 3.5 ng/mL [facility] Comment on above: Interpretive Data: T he concentration of PSA determined by different manufacturers can vary due to differences in assay methods and reagent specificity. Values obtained from different assay methods cannot be used interchangeably. The methodology used for this result was chemiluminescence using [employer]'s Access Hybritech PSA reagent. PSA Totalon 08-22-2024 Prostate specific Ag [Mass/Vol] 9.6 ng/mL High 0.1-3.5 [facility] Comment on above: Result Comment: The concentration of PSA determined by different manufacturers can vary due to differences in assay methods and reagent specificity. Values obtained from different assay methods cannot be used interchangeably. The methodology used for this result was chemiluminescence using [employer]'s Access Hybritech PSA reagent. Performed By: #### 1 [id number] #### [facility] [address] [place] [address] CNOVSPon 07-23-2024 CNOVSP Visit (SP) Office ([place]) ----- DILLON SMILEY ([id number]) 1960 M Date Time Provider Department 07/23/24 11:00 AM DOMINGO REED During your visit today, we recorded the following information about you: Temperature Pulse Respiration Blood pressure 97 degrees 82/minute 18/minute 151/99 Weight 113.5 kg Domingo Reed MD 07/24/2024 8:22 PM Signed PATIENT NAME: Dillon Smiley DATE: 07/23/2024 PRIMARY CARE PHYSICIAN: Isamar Jenkins, OTHER PHYSICIANS: Dr. Shazia Dr. Rigo Garcia, Dr. Styles ([facility] Pain Man) HPI: This is a 64 year old male with a history of nonmuscle invasive bladder cancer, referred for further management. The patient was initially diagnosed with high-grade nonmuscle invasive T1 bladder cancer in March 2023. Initial cystoscopy with TURBT revealed extensive involvement of the bladder (more than 50%). He was referred to [facility] urology (Dr. Jacobsen) and underwent a second TURBT 06/16/2023. Pathology revealed no evidence of residual malignancy. He subsequently received intravesicular BCG x 6 completed 09/08/2023. Repeat cystoscopy 11/10/2023 revealed a recurrent mass which was resected, pathology benign. The patient continued treatment with maintenance BCG weekly x3 12/02/2023 through 12/16/2023. Most recent follow-up cystoscopy per Dr. Jacobsen 05/23/2024 revealed a persistent mass in the posterior bladder. The mass was similar in appearance to that seen 11/10/2023 which was benign, therefore the residual mass was not resected. He was recently seen by his local urologist, and currently is referred to continue maintenance BCG. The patient also has a history of elevated PSA. Apparently his values have been up and down for the past several years. Most recent pelvic MRI suspicious but not diagnostic. He has chronic urinary symptoms including urgency and hesitancy. MEDICATIONS: Current Outpatient Medications Medication Sig oxybutynin (DITROPAN) 5 mg tablet Take 5 mg by mouth. phenazopyridine (PYRIDIUM) 100 mg tablet Take 1 tablet by mouth three times a day as needed for up to 9 doses. (Patient not taking: Reported on 02/15/2024) tamsulosin (FLOMAX) 0.4 mg Take 1 capsule by mouth every afternoon. acetaminophen (TYLENOL) 325 mg tablet Take 2 tablets by mouth every 4 hours as needed for pain. ezetimibe (ZETIA) 10 mg tablet q 24 HR. mirabegron (MYRBETRIQ) 25 mg Tb24 Take 25 mg by mouth. valsartan (DIOVAN) 160 mg tablet Take by mouth. No current facility-administered medications for this visit. ALLERGIES: ALLERGIES No Known Allergies PAST MEDICAL HISTORY: PAST MEDICAL HISTORY Diagnosis Date Benign prostatic hyperplasia Bladder cancer (HCC) BPH with urinary obstruction GERD (gastroesophageal reflux disease) Hyperlipidemia OAB (overactive bladder) PAST SURGICAL HISTORY: PAST SURGICAL HISTORY Procedure Laterality Date COLONOSCOPY SCREENING CYSTOSCOPY 04/19/2023 CYSTOURETHROSCOPY 11/10/2023 KNEE SURGERY HX FAMILY HISTORY: No family history on file. SOCIAL HISTORY: Social History Tobacco Use Smoking status: Former Types: Cigarettes Smokeless tobacco: Never Substance Use Topics Alcohol use: Yes Alcohol/week: 6.0 standard drinks of alcohol Types: 6 Shots of liquor per week Drug use: Never COMPLETE REVIEW OF SYSTEMS: CONSTITUTION: Negative for pain, fatigue, weight loss, or appetite loss. EENT: Negative for mouth soreness, antibiotics use, epistaxis, visual problems, neck or facial swelling, fever/chills, bleeding gums, or hearing loss. CV: Negative for edema, calf swelling, palpitations, or chest pain. RESPIRATORY: Negative for cough, SOB, hemoptysis, or wheezing. GI: Negative for nausea/vomiting, heartburn, vomiting blood, dysphasia, diarrhea, blood in stool, constipation, early satiety, PICA, vegetarian, poor nutrition, abdominal fullness, or abdominal pain. NEUROLOGICAL: Negative for numbness/tingling, dizziness, gait disturbance, headache, speech disturbance, tremor, hemiparesis/sensory loss, or change in mental status. MUSCULOSKELETAL: Negative for joint pain, joint swelling, or proximal muscle weakness. SKIN: Negative for hair loss, bruising, nail changes, rash, itching, pallor, or jaundice. ENDO/URO: Negative for hot flashes, cold or heat intolerance, urinary frequency, urinary hesitancy, menorrhagia, or hematuria. PSYCH: Negative for anxiety, depression, or other. PHYSICAL EXAM: BP 151/99 Pulse 82 Temp 36.1 ?C (97 ?F) (Temporal) Resp 18 Wt 113.5 kg (250 lb 3.6 oz) SpO2 97% BMI 34.90 kg/m? GENERAL EXAM: Well developed/well nourished; in no acute distress. SKIN: Negative for lesions, rashes, or ulcers on the upper and lower extremities and face. Negative for palpations/nodules, purpura, and ecchymosis. EENT: Negative for conjunctiva, mucosal pallor, JVD, LAP, thyromegaly, and glossitis. Supple AN (more content not included)... Normal [facility] CNOVon 05-23-2024 CNOV Office Visit (UROSMN ) ----- DILLON SMILEY ([id number]) 1960 M Date Time Provider Department 05/23/24 9:00 AM RIGO JACOBSEN URON During your visit today, we recorded the following information about you: Meghann Licea RN 05/23/2024 8:58 AM Signed Actual procedure/procedure scheduled: Yes Performing provider/scheduled provider: Yes Patient was roomed in: Q9- 05 Aerial Planting And Cultivation Manager offered:Patient declines Patient arrived in the room at: 0840 Patient ready for procedure: 0850 The procedure started at ( Time Only): 0854 The procedure ended at: 0856 Was the procedure delayed: No The patient left the procedure room at: 0905 Meghann Licea RN PRE PROCEDURE ASSESSMENT- Cysto Procedure Indication: Cystoscopy Latex Allergy: No Allergies reviewed and updated. Yes Heart valve replacement: No Joint replacement: No Back Office UA otained: yes PROCEDURE PREP-Cysto Patient ID with two(2)identifiers verified by: Meghann Licea RN Pre-Procedure Antibiotics: None taken at home nor prior to procedure Patient Prep: Betadine Scrub to perineum and placement of Sterile Drape. COMPLETED Anesthetic Given:10 cc 2% Lidocaine jelly Meghann Licea RN UNIVERSAL PROTOCOL / SAFETY CHECKLIST Procedure to be performed: Cystoscopy Sign in Communication: Completed Time Out: Team Confirms the Correct Patient, Correct Procedure, Correct Site and Site Marking, Correct Position (if applicable). Sign Out Discussion: Completed eMghann Licea RN POST PROCEDURE NURSE ASSESSMENT Present along with physician during procedure exam. Meghann Licea RN Instruction sheet given and reviewed and patient verbalizes understanding: yes Post Procedure Antibiotic: As Prescribed Current pain intensity is 0 on a 0-10 pain scale. Meghann Licea RN AMBULATORY PATIENT EDUCATION THE FOLLOWING WAS EVALUATED Motivation To Learn: Interested Family/Significant Other Support: None - Unavailable/disinterested Cognitive Ability: Alert/Oriented Method of Instruction: Individual instruction Written instruction/Handouts Verbal instruction The Following Influencing Factors Were Barriers To This Education Session: None The Following Physical Limitations Were Barriers To This Education Session: None Instruction Provided To: Patient Assistant Plant Control Operator Present: not applicable Discipline: Nursing Learning Topic: SURVIVAL SKILLS: Complication Prevention Symptom Management Patient Evaluation: Verbalizes understanding: Yes Supplemental Material Given: Written Material Instructed By Meghann Licea RN In Department Urology . Meghann Licea RN 05/23/2024 8:58 AM Signed UNIVERSAL PROTOCOL / SAFETY CHECKLIST Procedure to be Performed: cystoscopy Sign In: A Moment of CARE was completed. Personnel directly involved with the procedure wore the appropriate PPE (Personal Protective Equipment). Patient/Surrogate Stated/Verified: PATIENT VERIFIED(optional for EMERGENT procedures): Patient name, Date of , Relevant allergies, and The intended procedure Time Out Communication: Intended patient and procedure match the source documents. Consent documented and matches the intended procedure. Relevant labs, photos, and/or imaging studies have been reviewed. Correct side/site marked and visible. Medications required for procedure verified. Fire risk assessed and interventions discussed. No implant(s) inserted. Sign Out: SIGN OUT (optional for EMERGENT procedures): All specimen containers correctly labeled. BART Coyne Nima, MD 05/23/2024 9:10 AM Signed [place] [id number] AMBULATORY PROCEDURE NOTE NAME: Dillon Smiley AGE: [age] year old CLINIC #: [id number] DATE: May 23, 2024 SURGEON: Rigo Jacobsen MD PROCEDURE: Cystoscopy ANESTHESIA: Lidocaine gel per urethra DIAGNOSIS: Bladder cancer INDICATION: Surveillance FINDINGS: Number of tumors: 1 Size of largest tumor: 2 - 5 cm Appearance: Sessile Location: Posterior wall Urethral involvement: No Ureteral orifice involvement: No Urethra: Normal Prostate: Moderate lateral lobes Verumontanum: Open Urine cytology: Voided Swelling in the lining PROCEDURE: After informed consent was obtained, the patient was taken to the endoscopy suite. A time out was performed where the patient and the procedure were identified in the presence of the Nursing and Surgical Staff. Patient was placed in supine position, prepped and draped in the standard sterile fashion. Lidocaine gel was placed per urethra for local anesthesia. Cystoscopy was then performed using a 17 F flexible cystoscope. Sterile technique was maintained throughout. Please refer to above for specific findings during this part of the procedure. After carefully and atraumatically inspecting the urethra, prostate, and bladder, the bladder was emptied and the cystoscope was removed. (more content not included)... Normal [facility] CYTOLOGY NON-GYNon CASE REPORT Normal [facility] Comment on above: Order Comment: Speci men Type: URINE SPECIMENOrdering Facility: [facility] Address: [address] [place] [address] Result Comment: [facility] Cytology Report Case: [id number] Authorizing Provider: Rigo Jacobsen MD Collected: 05/23/2024 08:59 AM Ordering Location: Urology Received: 05/23/2024 12:02 PM Pathologist: Danny Higuera MD Specimen: Urine, Midstream Performed By: #### C YTONON ####[facility] LABCLIA [id number] [place] [address] [place] CLINICAL HISTORY h/o bladder cancer Normal [facility] Comment on above: Order Comment: Speci men Type: URINE SPECIMENOrdering Facility: [facility] Address: [address] [place] [address] Performed By: #### C YTONON ####[facility] LABCLIA [id number] [place] [address] [place] FINAL DIAGNOSIS Normal [facility] Comment on above: Order Comment: Speci men Type: URINE SPECIMENOrdering Facility: [facility] Address: [address] [place] [address] Result Comment: A - Urine, Midstream, Urine Negative for high-grade urothelial carcinoma. Acute inflammation. Performed By: #### C YTONON ####[facility] LABCLIA [id number] [place] [address] [place] FINAL PERFORMING LAB Normal [facility] Comment on above: Order Comment: Speci men Type: URINE SPECIMENOrdering Facility: [facility] Address: [address] [place] [address] Result Comment: Tech nical component, screen printing supervisor screening performed at [facility], [address] [place] [address] CLIA# [id number] Diagnostic interpretation performed at [facility], [address] [place] [address] CLIA# [id number] Associate Civil Engineer: Alejandro Mills M.D. Performed By: #### C YTONON ####[facility] LABCLIA [id number] [place] [address] [place] GROSS DESCRIPTION Normal [facility] Comment on above: Order Comment: Speci men Type: URINE SPECIMENOrdering Facility: [facility] Address: [address] [place] [address] Result Comment: A. U rine, Midstream 75 cc hazy asya fluid with scant particles. ThinPrep prepared. Performed By: #### C YTONON ####[facility] LABCLIA [id number] [place] [address] [place] UA DIP, URINE (POC)on 2023 BILIRUBIN UA (POCT) Negative Negative [facility] CLARITY UA (POCT) Clear [facility] COLOR UA (POCT) Yellow [facility] GLUCOSE UA (POCT) Negative Negative mg/dL [facility] Hemoglobin Ql (U) Large Abnormal Negative [facility] Interpretation and review of laboratory results Abnormal [facility] KETONE UA (POCT) Trace Negative mg/dL [facility] LEUKOCYTES UA (POCT) Trace Abnormal Negative [facility] NITRITE UA (POCT) Negative Negative [facility] PH UA (POCT) 5.5 4.5 - 8.0 [facility] Protein Ql (U) Trace Abnormal Negative mg/dL [facility] SPECIFIC GRAVITY UA (POCT) 1.025 1.005 - 1.030 [facility] UROBILINOGEN UA (POCT) 0.2 Ashely l E.U./dL [facility] Location:[facility], [address] [place] [address] POINT OF CARE [facility] Ambulatory Visit Summaryon 0 05-14-2024 Ambulatory Visit Summary Ambulatory Visit Summary DILLON SMILEY :1960 Visit Date:05/14/2024 Ambulatory Visit Instructions Your Diagnosis Urothelial carcinoma of bladder Elevated PSA Benign prostatic hyperplasia with outflow obstruction OAB (overactive bladder) Your Care Team Attending Physician - NATALIIA Meade APRN, Roslyn Banks Primary Care Physician - ISAMAR JENKINS DO This Is Your Medications List mirabegron (Myrbetriq 25 mg oral tablet, extended release) tamsulosin (tamsulosin 0.4 mg Cap) Contact prescribing physician if questions or concerns ezetimibe (ezetimibe 10 mg Tab) oxybutynin (oxybutynin 5 mg Tab) valsartan (valsartan 160 mg Tab) Procedures Performed Cystourethroscopy, with fulguration (including cryosurgery or laser surgery) and/or resection of; MEDIUM bladder tumor(s) (2.0 to 5.0 cm) (11/10/2023), TURBT - Transurethral resection of bladder tumor (06/16/2023), Cystoscopy (04/19/2023), Colonoscopy, Knee. Discharge Vitals Heart Rate (Peripheral) 80 Respiratory Rate 16 Blood Pressure 140/94 Height 70 in Height 179 cm Weight 222.2 lb Weight 101 kg BMI 31.52 Medications What How Much When Instructions New mirabegron (Myrbetriq 25 mg oral tablet, extended release) 1 Tablets By Mouth Every day Duration: 90 Days Refills: 3 Pickup at [facility] New tamsulosin (tamsulosin 0.4 mg Cap) 1 Capsules By Mouth Every day Duration: 90 Days Refills: 3 Pickup at [facility] Unchanged ezetimibe (ezetimibe 10 mg Tab) 10 Unknown, ORAL, 3 Refill(s) Contact prescribing physician if questions or concerns Unchanged oxybutynin (oxybutynin 5 mg Tab) 1 Tablets By Mouth 3 times a day as needed for for urinary discomfort Contact prescribing physician if questions or concerns Unchanged valsartan (valsartan 160 mg Tab) Oral Contact prescribing physician if questions or concerns Pharmacy Information [facility]: [address] [place], [place] [id number] [phone] Allergies No Known Allergies No Known Medication Allergies Problems Ongoing - Any problem that you are currently receiving treatment for. Benign prostatic hyperplasia with outflow obstruction Bladder cancer Bladder tumor BPH with urinary obstruction Elevated PSA Erectile dysfunction Gastroesophageal reflux disease Hyperlipidemia Hypertensive disorder Microscopic hematuria Mixed hyperlipidemia OAB (overactive bladder) Prostatitis Transitional cell carcinoma of urinary bladder Urinary tract infection Urothelial carcinoma of bladder Patient Survey You may receive a survey via text or e-mail asking about your office visit. Please share your experience with us by completing your survey. We appreciate your feedback and thank you for choosing us for your care. Normal [facility] Urology Office/Clinic Noteon 05-14-2024 Urology Office/Clinic Note Urology Office/Clinic Note Chief Complaint follow up HPI Staff 63 year old male patient presents today for a year follow up. Needs refill of Flomax 0.4 mg & Myrbetriq 25qd. Previous DX: BPH w/urinary obstruction, ED, elevated PSA, gross hematuria, prostatitis, UTI. *Tamsulosin 0.4mg qd. S/P TURT/Poss TURP done 04/27/23 Pt was referred to [facility] Dr. Rigo Jacobsen, started BCG 08/02/23 6 treatments. Cysto scheduled 04/23/24 and pt wants to come back to [facility] after the procedure. Has some irritation last week of March was negative [facility]. TURBT done 06/16/23 IPSS 5 Dysuria: denies Incomplete bladder emptying: denies Hematuria: denies visible blood Frequency: denies Urgency: denies Nocturia: denies Stream: denies hesitancy, denies weak stream Leaking: denies Post void dripping: denies Wearing pads/ Depends: denies Urge incontinence: denies Stress incontinence: denies Incontinence without Sensory Awareness: denies Abdominal pain: denies Flank pain: denies Sexual complaints: denies History of Present Illness I have reviewed and verified the staff HPI to be accurate for this encounter. Portions of this record may have been created with voice recognition artificial intelligence software, specifically [employer], [employer] and or [employer]. Substitutions may have occurred due to the inherent limitations of voice recognition and artificial intelligence software. Review of Systems PHQ Score Initial Depression Screen Score: 0 SCORE Physical Exam Vitals & Measurements HR: 80(Peripheral) RR: 16 BP: 140/94 HT: 70 in HT: 179 cm WT: 101 kg WT: 222.2 lb BMI: 31.52 General: Well developed, well nourished, in no acute distress. Genitourinary: Flank Pain: none. Bladder: nonpalpable. Assessment/Plan [facility] pt 1. Elevated PSA (R97.20: Elevated prostate specific antigen [PSA]) PSA: 02/19/19 - 2.80 06/24/20 - 3.10 08/04/22 - 4.49 09/28/22 - 6.30 & 24% 01/03/23 - 5.70 & 19% (post abx course for prostatitis) PSAD 0.09 03/31/23 - 4.9 & 27% (completed abx course) PSAD 0.75 Denies family history of prostate cancer. Father had an enlarged prostate. [facility] 01/13/23 - Very low risk. [1] MRI 05/17/2023 without evidence of prostate malignancy, BPH changes MRI pelvis bladder without/with IV con 04/20/2024 - Right peripheral and transition zones of prostate with changes, differential diagnoses include granulomatous BCG prostatitis or prostate carcinoma medicated prostate MRI in 3 months for further assessment. Unable to find record of PSA in the last 12 months, although patient assumed that one of his providers were checking this. -Patient provided with PSA ordered today. Will call patient with results. If abnormal, will need to further discuss with [facility]/Dr. Jacobsen regarding where patient will be following regarding this. Ordered: PSA Free & Total Urnls Dip Stick Auto w/o Microscopy POC [id number] 2. Urothelial carcinoma of bladder (C67.9: Malignant neoplasm of bladder, unspecified) HG T1 Superficial invasive papillary urothelial carcinoma, high grade, trophoblastic differentiation. Muscle present and uninvolved [2] Smoked for about 5 years in his early 20s in the [employer]. [facility] No microscopic/gross hematuria on UAs after prostatitis treatment. [3] Cysto 04/19/23 - Scattered papillary, erythematous carpeting all along posterior bladder wall concerning for malignancy/CIS, more raised and irregular on superior portion versus inferior portion (more inflammatory appearing inferiorly). Few scattered calcifications within mucosa on posterior wall. At least 50% of bladder appears involved. Trabeculated: Mild to moderate trabeculations. [1] -Urine cytology positive Chest XR 04/22/23 - No acute cardiopulmonary process. 04/22/23 - BUN 26. Crea 1.13. eGFR >60. Cysto, TURBT (>5 cm), Bladder neck resection, Prostatic urethral bx 04/27/23. About 75% bladder involved. Path showed - Superficial invasive papillary urothelial carcinoma, high grade, with trophoblastic differentiation. The tumor superficially invades into lamina propria. Thick muscle (detrusor muscle) is present and not involved by carcinoma. Lymphovascular invasion not found -Prostate: Transurethral bx: Benign prostate tissue with chronic inflammation. Neg for malignancy. -Bladder neck: High grade urothelial carcinoma. Definite tumor invasion is not seen. Thick muscles (detrusor muscle) are present. CTU 04/29/23 - No CT evidence of mets disease. Personal review: Potential pelvic node on the R 8 mm vs inflammation from surgery. [4] Referred to [facility]. s/p TURBT, urethral dilation 06/16/[address] Jacobsen -showed chronic inflammation BCG x 6 completed 09/08/2023 s/p Cystoscopy by Dr. Jacobsen 10/19/2023 for finding of 2 to 5 cm tumor on the posterior wall the bladder [facility] 11/16/2023 after TURBT with gross hematuria with clots after cath removal, clot retention. He was started on CBI and seen by Moses Corado in consult. CBI was weaned. BCG (more content not included)... Normal [place] Comment on above: Result Comment: Elec tronically Signed By: NATALIIA Meade APRN, Roslyn Banks\.br\Date and Time Signed: 05/14/24 14:13 EDT Bacteria Ur Culton 4 Bacteria identified Cx Nom (U) CULTURE, URINE: No growth (<1,000 CFU/ml) Normal [facility] Comment on above: Performed By: #### 6 30-4 ####[facility] LABCLIA [id number] [place] [address] [place] MR Pelvis WO and W contrast IVOrdered By: [facility] Provider on 04-20-2024 Interpretation and review of laboratory results Abnormal [facility] Radiology Result ACTIONABLE Abnormal [facility] Comment on above: This report contains an incidental or actionable finding. This finding may be a new finding separate from the reason your provider ordered the imaging test or it may be an already known finding that needs additional or continued follow-up. Because of this incidental or actionable finding, you may need another test (imaging or a different type of test). Please contact your provider for the next steps. [facility] MR Pelvis WO and W contrast [place] 04-20-2024 IMPRESSION: Marked bladder dome wall thickening with superficial hyperenhancement, mild restricted diffusion. Findings are nonspecific and could tax compliance representative inflammation or neoplastic involvement. RIGHT peripheral and transition zones as described. Differential diagnosis includes granulomatous BCG prostatitis or prostate carcinoma. Recommend a dedicated prostate MRI in 3 months for further assessment. No pelvic metastatic disease. ACTIONABLE RESULT: FOLLOW-UP Acuity: Actionable Findings: Male Reproductive Tract Routing Code: GU_2 Recommendation: Unlisted Recommendation (see report) Time Frame: 3-6 months COMMUNICATION: Results will be communicated with the ordering provider via [employer] staff message or phone message by Imaging Support Services within 2 business days of report finalization. --END OF FINDING-- Fur Joiner: JAIMIE Transcribe Date/Time: Apr 20 2024 12:20P Dictated by : YONATHAN SHELL MD This examination was interpreted and the report reviewed and electronically signed by: ZOEY BARRERA MD on Apr 20 2024 4:19PM [facility] DIVISION OF RADIOLOGY * * *Final Report* * * DATE OF EXAM: Apr 20 2024 10:28AM QBM 0737 - MRI PELVIS BLADDER WO/W IVCON / PROCEDURE REASON: Malignant neoplasm of urinary bladder, unspecified site (HCC) * * * * Physician Interpretation * * * * MRI OF THE PELVIS WITHOUT AND WITH CONTRAST CLINICAL HISTORY: Bladder cancer status post multiple TURBT (most recent 11/10/2023) and BCG (most recent 12/16/2023). Recurrence versus inflammation on 02/15/2024 cystoscopy. TECHNIQUE: Magnet: [employer] 3T scanner. . Multiplanar MRI of the pelvis with multiple sequences, performed before and after IV contrast following bladder protocol. Contrast: IV 20 ml of Dotarem Comparison: CT 04/29/2023 RESULT: Bladder and urinary tract: * Circumferential bladder wall thickening with marked wall thickening of the dome (12:19). Few thin linear T2 hyperintense rents/defects in the dome of the mucosa. There is associated dynamic contrast hyperenhancement superficially along the dome (26:81-86, series 990 and 991) and mild diffuse restricted diffusion * No other areas of nodular enhancement or impeded diffusion. No polypoid bladder lesions/filling defect. * No hydronephrosis. No suspicious cortical renal lesion Prostate: Peripheral zone: Wedge-shaped markedly T2 hypointense right mid peripheral zone lesion with marked restricted diffusion and intrinsic T1 hyperintensity. On DCE, there is peripheral enhancement and central nonenhancement. Location: right mid posteromedial/posterolate ral peripheral zone Greatest dimension: 1.4-cm (series:16; image:24) T2-WI: Circumscribed, homogenous moderate hypointense focus/mass DWI/ADC: Focal markedly hypointense on ADC and markedly hyperintense on high b-value DWI Transition zone: Atypical transition zone hypertrophy. Lesion #2: Location: right base transition/anterior transition zone Greatest dimension: 2.3-cm (series:13; image:None 2) T2-WI: Heterogenous signal intensity with obscured margins DWI/ADC: Focal hypointense on ADC and/or focal hyperintense on high b-value DW Lesion #3: Location: right mid transition zone Greatest dimension: 1.0-cm (series:13; image:24) T2-WI: Heterogenous signal intensity with obscured margins (score 3) DWI/ADC: Focal markedly hypointense on ADC and markedly hyperintense on high b-value DWI Pelvic bowel loops: Sigmoid diverticulosis without inflammatory changes. No dilated bowel. Pelvic lymph nodes: No ascites or collection. Prominent fat in the bilateral inguinal canals. Bones: No suspicious osseous lesion. Degenerative changes is suspected quadrant no areas Vasculature: Patent visualized iliofemoral vasculature DIVISION OF RADIOLOGY Provider, [facility] - 04/20/2024 * * *Final Report* * * DATE OF EXAM: Apr 20 2024 10:28AM QBM 0737 - MRI PELVIS BLADDER WO/W IVCON / PROCEDURE REASON: Malignant neoplasm of urinary bladder, unspecified site (HCC) * * * * Physician Interpretation * * * * MRI OF THE PELVIS WITHOUT AND WITH CONTRAST CLINICAL HISTORY: Bladder cancer status post multiple TURBT (most recent 11/10/2023) and BCG (most recent 12/16/2023). Recurrence versus inflammation on 02/15/2024 cystoscopy. TECHNIQUE: Magnet: [employer] [place] 3T scanner. . Multiplanar MRI of the pelvis with multiple sequences, performed before and after IV contrast following bladder protocol. Contrast: IV 20 ml of Dotarem Comparison: CT 04/29/2023 RESULT: Bladder and urinary tract: * Circumferential bladder wall thickening with marked wall thickening of the dome (12:19). Few thin linear T2 hyperintense rents/defects in the dome of the mucosa. There is associated dynamic contrast hyperenhancement superficially along the dome (26:81-86, series 990 and 991) and mild diffuse restricted diffusion * No other areas of nodular enhancement or impeded diffusion. No polypoid bladder lesions/filling defect. * No hydronephrosis. No suspicious cortical renal lesion Prostate: Peripheral zone: Wedge-shaped markedly T2 hypointense right mid peripheral zone lesion with marked restricted diffusion and intrinsic T1 hyperintensity. On DCE, there is peripheral enhancement and central nonenhancement. Location: right mid posteromedial/posterolate ral peripheral zone Greatest dimension: 1.4-cm (series:16; image:24) T2-WI: Circumscribed, homogenous moderate hypointense focus/mass DWI/ADC: Focal markedly hypointense on ADC and markedly hyperintense on high b-value DWI Transition zone: Atypical transition zone hypertrophy. Lesion #2: Location: right base transition/anterior transition zone Greatest dimension: 2.3-cm (series:13; image:None 2) T2-WI: Heterogenous signal intensity with obscured margins DWI/ADC: Focal hypointense on ADC and/or focal hyperintense on high b-value DW Lesion #3: Location: right mid transition zone Greatest dimension: 1.0-cm (series:13; image:24) T2-WI: Heterogenous signal intensity with obscured margins (score 3) DWI/ADC: Focal markedly hypointense on ADC and markedly hyperintense on high b-value DWI Pelvic bowel loops: Sigmoid diverticulosis without inflammatory changes. No dilated bowel. Pelvic lymph nodes: No ascites or collection. Prominent fat in the bilateral inguinal canals. Bones: No suspicious osseous lesion. Degenerative changes is suspected quadrant no areas Vasculature: Patent visualized iliofemoral vasculature IMPRESSION IMPRESSION: Marked bladder dome wall thickening with superficial hyperenhancement, mild restricted diffusion. Findings are nonspecific and could tax compliance representative inflammation or neoplastic involvement. RIGHT peripheral and transition zones as described. Differential diagnosis includes granulomatous BCG prostatitis or prostate carcinoma. Recommend a dedicated prostate MRI in 3 months for further assessment. No pelvic metastatic disease. ACTIONABLE RESULT: FOLLOW-UP Acuity: Actionable Findings: Male Reproductive Tract Routing Code: GU_2 Recommendation: Unlisted Recommendation (see report) Time Frame: 3-6 months COMMUNICATION: Results will be communicated with the ordering provider via [employer] staff message or phone message by Imaging Support Services within 2 business days of report finalization. --END OF FINDING-- Fur Joiner: JAIMIE Transcribe Date/Time: Apr 20 2024 12:20P Dictated by : YONATHAN SHELL MD This examination was interpreted and the report reviewed and electronically signed by: ZOEY BARRERA MD on Apr 20 2024 4:19PM EST [facility] Radiology Study observation (narrative) [facility] MRI PELVIS BLADDER WO/W IVCO Non 04-20-2024 MRI PELVIS BLADDER WO/W IVCON * * *Final Report* * * DATE OF EXAM: Apr 20 2024 10:28AM QBM 0737 - MRI PELVIS BLADDER WO/W IVCON / PROCEDURE REASON: Malignant neoplasm of urinary bladder, unspecified site (HCC) * * * * Physician Interpretation * * * * MRI OF THE PELVIS WITHOUT AND WITH CONTRAST CLINICAL HISTORY: Bladder cancer status post multiple TURBT (most recent 11/10/2023) and BCG (most recent 12/16/2023). Recurrence versus inflammation on 02/15/2024 cystoscopy. TECHNIQUE: Magnet: Siemens [employer] 3T scanner. . Multiplanar MRI of the pelvis with multiple sequences, performed before and after IV contrast following bladder protocol. Contrast: IV 20 ml of Dotarem Comparison: CT 04/29/2023 RESULT: Bladder and urinary tract: * Circumferential bladder wall thickening with marked wall thickening of the dome (12:19). Few thin linear T2 hyperintense rents/defects in the dome of the mucosa. There is associated dynamic contrast hyperenhancement superficially along the dome (26:81-86, series 990 and 991) and mild diffuse restricted diffusion * No other areas of nodular enhancement or impeded diffusion. No polypoid bladder lesions/filling defect. * No hydronephrosis. No suspicious cortical renal lesion Prostate: Peripheral zone: Wedge-shaped markedly T2 hypointense right mid peripheral zone lesion with marked restricted diffusion and intrinsic T1 hyperintensity. On DCE, there is peripheral enhancement and central nonenhancement. Location: right mid posteromedial/posterolate ral peripheral zone Greatest dimension: 1.4-cm (series:16; image:24) T2-WI: Circumscribed, homogenous moderate hypointense focus/mass DWI/ADC: Focal markedly hypointense on ADC and markedly hyperintense on high b-value DWI Transition zone: Atypical transition zone hypertrophy. Lesion #2: Location: right base transition/anterior transition zone Greatest dimension: 2.3-cm (series:13; image:None 2) T2-WI: Heterogenous signal intensity with obscured margins DWI/ADC: Focal hypointense on ADC and/or focal hyperintense on high b-value DW Lesion #3: Location: right mid transition zone Greatest dimension: 1.0-cm (series:13; image:24) T2-WI: Heterogenous signal intensity with obscured margins (score 3) DWI/ADC: Focal markedly hypointense on ADC and markedly hyperintense on high b-value DWI Pelvic bowel loops: Sigmoid diverticulosis without inflammatory changes. No dilated bowel. Pelvic lymph nodes: No ascites or collection. Prominent fat in the bilateral inguinal canals. Bones: No suspicious osseous lesion. Degenerative changes is suspected quadrant no areas Vasculature: Patent visualized iliofemoral vasculature IMPRESSION: Marked bladder dome wall thickening with superficial hyperenhancement, mild restricted diffusion. Findings are nonspecific and could tax compliance representative inflammation or neoplastic involvement. RIGHT peripheral and transition zones as described. Differential diagnosis includes granulomatous BCG prostatitis or prostate carcinoma. Recommend a dedicated prostate MRI in 3 months for further assessment. No pelvic metastatic disease. ACTIONABLE RESULT: FOLLOW-UP Acuity: Actionable Findings: Male Reproductive Tract Routing Code: GU_2 Recommendation: Unlisted Recommendation (see report) Time Frame: 3-6 months COMMUNICATION: Results will be communicated with the ordering provider via [employer] staff message or phone message by Imaging Support Services within 2 business days of report finalization. --END OF FINDING-- Fur Joiner: JAIMIE Transcribe Date/Time: Apr 20 2024 12:20P Dictated by : YONATHAN SHELL MD This examination was interpreted and the report reviewed and electronically signed by: ZOEY BARRERA MD on Apr 20 2024 4:19PM EST [id number] ACTIONABLE Invalid Interpretation Code [facility] Bacteria Ur Culton 4 Bacteria identified Cx Nom (U) CULTURE, URINE: No growth (<1,000 CFU/ml) Normal [facility] Comment on above: Performed By: #### 6 30-4 ####[facility] LABCLIA [id number] [place] [address] CNOVon 02-15-2024 CNOV Office Visit (UROSMN ) ----- DILLON SMILEY ([id number]) 1960 Date Time Provider Department 02/15/24 11:00 AM RIGO JACOBSEN During your visit today, we recorded the following information about you: Dejah Marshall RN 02/15/2024 11:17 AM Signed Actual procedure/procedure scheduled: Yes Performing provider/scheduled provider: Yes Patient was roomed in: [address] offered:Patient declines Patient arrived in the room at: 10:20 Patient ready for procedure: 10:38 The procedure started at ( Time Only): 11:10 The procedure ended at: 11:14 Was the procedure delayed: Yes: Provider late: Provider with other patient on Q9 The patient left the procedure room at: 11:25 Dejah Marshall RN PRE PROCEDURE ASSESSMENT- Cysto Procedure Indication: Cystoscopy Latex Allergy: No Allergies reviewed and updated. Yes Pre-Procedure Vital Signs: BP: 145/69 Pulse: 80 Heart valve replacement: No Joint replacement: No Back Office UA otained: yes- notified Dr Jacobsen of UA results. Culture ordered and one time dose of Cipro to be given- see MAR PROCEDURE PREP-Cysto Patient ID with two(2)identifiers verified by: Dejah Marshall RN Pre-Procedure Antibiotics: Cipro 500 mg- See MAR Patient Prep: Betadine Scrub to perineum and placement of Sterile Drape. COMPLETED Anesthetic Given: Lidojet given by MD Dejah Marshall RN UNIVERSAL PROTOCOL / SAFETY CHECKLIST Procedure to be performed: Cystoscopy Sign in Communication: Completed Time Out: Team Confirms the Correct Patient, Correct Procedure, Correct Site and Site Marking, Correct Position (if applicable). Sign Out Discussion: Completed Dejah Marshall RN POST PROCEDURE NURSE ASSESSMENT Present along with physician during procedure exam. Dejah Marshall RN Instruction sheet given and reviewed and patient verbalizes understanding: yes Post Procedure Antibiotic: None Current pain intensity is 0 on a 0-10 pain scale. Dejah Marshall RN AMBULATORY PATIENT EDUCATION THE FOLLOWING WAS EVALUATED Motivation To Learn: Interested Family/Significant Other Support: Unable to assess - Family not present Cognitive Ability: Alert/Oriented Method of Instruction: Individual instruction Written instruction - handouts Verbal instruction The Following Influencing Factors Were Barriers To This Education Session: None The Following Physical Limitations Were Barriers To This Education Session: None Instruction Provided To: Patient Assistant Plant Control Operator Present: not applicable Discipline: Nursing Learning Topic: SURVIVAL SKILLS: Complication Prevention Symptom Management Patient Evaluation: Verbalizes understanding: Yes Supplemental Material Given: Written Material Instructed By Dejah Marshall RN In Department Urology. Dejah Marshall RN 02/15/2024 11:18 AM Signed UNIVERSAL PROTOCOL / SAFETY CHECKLIST Procedure to be Performed: Cystoscopy Sign In: A Moment of CARE was completed. Personnel directly involved with the procedure wore the appropriate PPE (Personal Protective Equipment). No special equipment needed. Patient/Surrogate Stated/Verified: PATIENT VERIFIED(optional for EMERGENT procedures): Patient name, Date of , Relevant allergies, and The intended procedure Time Out Communication: Intended patient and procedure match the source documents. Consent documented and matches the intended procedure. Relevant labs, photos, and/or imaging studies have been reviewed. No correct side/site applicable for marking and visibility. Medications required for procedure verified. Fire risk assessed and interventions discussed. No implant(s) inserted. Sign Out: SIGN OUT (optional for EMERGENT procedures): All specimen containers correctly labeled. All instruments, equipment, possible retained foreign bodies accounted for. Post-procedure follow-up management communicated and Plan of Care Visit completed when applicable. BART Schofield Nima, MD 02/15/2024 9:16 PM Signed [place] [id number] AMBULATORY PROCEDURE NOTE NAME: Dillon Smiley AGE: [age] year old CLINIC #: [id number] DATE: February 15, 2024 SURGEON: Rigo Jacobsen MD PROCEDURE: Cystoscopy ANESTHESIA: Lidocaine gel per urethra DIAGNOSIS: Bladder cancer INDICATION: Surveillance FINDINGS: Number of tumors: 1 Size of largest tumor: 2 - 5 cm Appearance: Sessile Location: Posterior wall Urethral involvement: No Ureteral orifice involvement: No Urethra: Normal Prostate: Moderate lateral lobes Verumontanum: Open Urine cytology: Bladder wash PROCEDURE: After informed consent was obtained, the patient was taken to the endoscopy suite. A time out was performed where the patient and the procedure were identified in the presence of the Nursing and Surgical Staff. Patient was placed in supine position, prepped and draped in the sta (more content not included)... Normal [facility] CYTOLOGY NON-GYNon CASE REPORT Normal [facility] Comment on above: Order Comment: Speci men Type: URINE SPECIMENOrdering Facility: [facility] Address: [address] [place] [address] Result Comment: [facility] Cytology Report Case: [id number] Authorizing Provider: Rigo Jacobsen MD Collected: 02/15/2024 11:30 AM Ordering Location: Urology Received: 02/15/2024 04:13 PM Pathologist: Mar Lazaro MD Specimen: Urine, Other (Specify in Comments), urine wash collected during cystoscopy Performed By: #### C YTONON ####[facility] LABCLIA [id number] [place] [address] [place] CLINICAL HISTORY history of bladder cancer Normal [facility] Comment on above: Order Comment: Speci men Type: URINE SPECIMENOrdering Facility: [facility] Address: [address] [place] [address] Performed By: #### C YTONON ####[facility] LABCLIA [id number] [place] [address] [place] DIAGNOSIS COMMENT Dr. Roni Gray has al so reviewed this case and agrees with the diagnosis. Normal [facility] Comment on above: Order Comment: Speci men Type: URINE SPECIMENOrdering Facility: [facility] Address: [address] [place] [address] Performed By: #### C YTONON ####[facility] LABCLIA [id number] [place] [address] [place] FINAL DIAGNOSIS Normal [facility] Comment on above: Order Comment: Speci men Type: URINE SPECIMENOrdering Facility: [facility] Address: [address] [place] [address] Result Comment: A. U rine, Washing, Cystoscopy Collection: Negative for high-grade urothelial carcinoma. Abundant acute inflammation. Blood. Performed By: #### C YTONON ####[facility] LABCLIA [id number] [address] [place] FINAL PERFORMING LAB Normal [facility] Comment on above: Order Comment: Speci men Type: URINE SPECIMENOrdering Facility: [facility] Address: [address] [place] [address] Result Comment: Tech nical component, screen printing supervisor screening performed at [facility], [address] [place] [address] CLIA# [id number] Diagnostic interpretation performed at [facility], [address] [place] [address] CLIA# [id number] Associate Civil Engineer: Alejandro Mills M.D. Performed By: #### C YTONON ####[facility] LABCLIA [id number] [place] [address] [place] GROSS DESCRIPTION Normal [facility] Comment on above: Order Comment: Speci men Type: URINE SPECIMENOrdering Facility: [facility] Address: [address] [place] [address] Result Comment: A. U rine, Other (Specify in Comments) 50 cc cloudy yellow fluid with particles. ThinPrep prepared. Performed By: #### C YTONON ####[facility] LABCLIA [id number] [place] [address] [place] UA DIP, URINE (POC)on 2023 BILIRUBIN UA (POCT) Negative Negative [facility] CLARITY UA (POCT) Turbid [facility] COLOR UA (POCT) Yellow [facility] GLUCOSE UA (POCT) Negative Negative mg/dL [facility] Hemoglobin Ql (U) Large Abnormal [facility] KETONE UA (POCT) Trace Negative mg/dL [facility] LEUKOCYTES UA (POCT) Small Abnormal Negative [facility] NITRITE [facility] (POCT) Negative Negative [facility] PH UA (POCT) 5.5 4.5 - 8.0 [facility] Protein Ql (U) 30 mg/dL Abnormal Negative mg/dL [facility] SPECIFIC GRAVITY UA (POCT) 1.025 1.005 - 1.030 [facility] UROBILINOGEN UA (POCT) 0.2 E.U./dL Ashely l E.U./dL [facility] Bacteria Ur Culton 4 Bacteria identified Cx Nom (U) CULTURE, URINE: No growth (<1,000 CFU/ml) Normal [facility] Comment on above: Performed By: #### 6 30-4 ####[facility] LABCLIA [id number] [address] [place] Jamir 12-06-2023 CNPN Telephone (HEMTSA) ----- DILLON SMILEY ([id number]) 1960 M Date Time Provider Department 12/06/23 ADA MCCRAY During your visit today, we recorded the following information about you: Ada Mccray RN 12/06/2023 9:01 AM Signed Mr Smiley was treated 12/02/23 and stayed for the instill time with first BCG. He would like to forgo the instill time with subsequent treatments and be discharged home after BCG instilled and trevino DC. BART Jara Karlee B, RN 12/09/2023 9:27 AM Signed Per secure chat from Elder Briggs CNP. Ok to DC trevino and be discharged home after BCG instillation today and for all future treatments. No need to keep pt for instillation time. Sammie Rendon RN Allergies As of Date: 12/06/2023 (No Known Allergies) Date Reviewed: 12/02/2023 Reviewed by: Jody Meier RN - Fully Assessed Reason for Visit: Patient Question [9757] Orders [681] Prescriptions as of 01/04/2024 - phenazopyridine (PYRIDIUM) 100 mg tablet Take 1 tablet by mouth three times a day as needed for up to 9 doses. - tamsulosin (FLOMAX) 0.4 mg Take 1 capsule by mouth every afternoon. - acetaminophen (TYLENOL) 325 mg tablet Take 2 tablets by mouth every 4 hours as needed for pain. - ezetimibe (ZETIA) 10 mg tablet q 24 HR. - mirabegron (MYRBETRIQ) 25 mg Tb24 Take 25 mg by mouth. - valsartan (DIOVAN) 160 mg tablet Take by mouth. Problem List As Of Date 12/06/2023 Noted Resolved BPH with urinary obstruction [N40.1, N13.8] 08/18/2023 Chronic pain [G89.29] 11/10/2023 Gastroesophageal reflux disease [K21.9] 08/18/2023 Obesity (BMI 30-39.9) [E66.9] 08/18/2023 Encounter Status:Closed by ADA MCCRAY on 01/04/24 Normal [facility] Consultation Noteon 11-23-19 Consultation Note [id number] Normal [place] CNPGladys 11-22-2023 VASU Telephone (StatsMix) ----- DILLON SMILEY ([id number]) 1960 M Date Time Provider Department 11/22/23 NAKUL JENNINGS During your visit today, we recorded the following information about you: Nakul Jennings, [facility] 11/22/2023 4:[address] orders for BCG so we can get this patient scheduled in [place]. Thank you, Nakul Jennings, [facility] Nakul Jennings [facility] 11/23/2023 8:39 AM Signed PSS: orders placed for weekly BCG x3 - please create a referral and call and schedule. Thank you, Muna Lawson 11/23/2023 9:14 AM Signed Spoke with Jesus and he is scheduled for BCG x 3 doses on 12-02-23, 12-09-23 and 12-16-23. Referral has been made and is attached to all appointments. Allergies As of Date: 11/22/2023 (No Known Allergies) Date Reviewed: 11/10/2023 Reviewed by: Terese Palencia, RN - Fully Assessed Reason for Visit: Future Appointment [256] Prescriptions as of 11/23/2023 - phenazopyridine (PYRIDIUM) 100 mg tablet Take 1 tablet by mouth three times a day as needed for up to 9 doses. - tamsulosin (FLOMAX) 0.4 mg Take 1 capsule by mouth every afternoon. - acetaminophen (TYLENOL) 325 mg tablet Take 2 tablets by mouth every 4 hours as needed for pain. - ezetimibe (ZETIA) 10 mg tablet q 24 HR. - mirabegron (MYRBETRIQ) 25 mg Tb24 Take 25 mg by mouth. - valsartan (DIOVAN) 160 mg tablet Take by mouth. 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, N13.8] 08/18/2023 Chronic pain [G89.29] 11/10/2023 Gastroesophageal reflux disease [K21.9] 08/18/2023 Obesity (BMI 30-39.9) [E66.9] 08/18/2023 Encounter Status:Closed by MUNA COOK on 11/23/23 Normal [facility] Insurance Correspondence Off ice11-22-2023 Insurance Correspondence Office [id number] Normal [place] Complete Blood Count Auto Di ffon 11-18-2023 Basophils (Bld) [#/Vol] 0.0 10*3/uL Normal 0.0-0.2 [facility] Comment on above: Result Comment: PERF ORMED BY: [place] [address] PATHOLOGIST LOGISTICS MANAGER ANGELINE GARIBAY M.D. Performed By: #### C BC #### [address] Basophils/100 WBC (Bld) 0.6 % Normal . [facility] Comment on above: Performed By: #### C BC #### [address] Eosinophils (Bld) [#/Vol] 0.2 10*3/uL Normal 0.0-0.45 [facility] Comment on above: Performed By: #### C BC #### [address] Eosinophils/100 WBC (Bld) 2.9 % Normal . [facility] Comment on above: Performed By: #### C BC #### [address] Erythrocyte distribution width (RBC) [Ratio] 14.3 % Normal 12.0-14.8 [facility] Comment on above: Performed By: #### C BC #### [address] Hematocrit (Bld) [Volume fraction] 39.3 % Normal 38.8-50.0 [facility] Comment on above: Performed By: #### C BC #### [address] Hemoglobin (Bld) [Mass/Vol] 13.5 g/dL Normal 13.0-17.0 [facility] Comment on above: Performed By: #### C BC #### [address] Lymphocytes (Bld) [#/Vol] 1.1 10*3/uL Normal 1.00-4.8 [facility] Comment on above: Performed By: #### C BC #### [address] Lymphocytes/100 WBC (Bld) 12.8 % Normal . [facility] Comment on above: Performed By: #### C BC #### [address] MCH (RBC) [Entitic mass] 32.2 pg Normal 27.5-35.2 [facility] Comment on above: Performed By: #### C BC #### [address] MCV (RBC) [Entitic vol] 93.7 fL Normal 83.5-101 [facility] Comment on above: Performed By: #### C BC #### [address] Mean Corpuscular HGB Conc 34.4 g/dL Normal 32.5-35.6 [facility] Comment on above: Performed By: #### C BC #### [address] Monocytes (Bld) [#/Vol] 0.8 10*3/uL Normal 0.0-0.8 [facility] Comment on above: Performed By: #### C BC #### [address] Monocytes/100 WBC (Bld) 9.3 % Normal . [facility] Comment on above: Performed By: #### C BC #### [address] Neutrophils (Bld) [#/Vol] 6.2 10*3/uL Normal 1.8-7.7 [facility] Comment on above: Performed By: #### C BC #### [place] [address] [place] Neutrophils/100 WBC (Bld) 74.4 % Normal . [facility] Comment on above: Performed By: #### C BC #### [address] NRBC% 0.0 /100{WBC} Normal 0-0.5 [facility] Comment on above: Performed By: #### C BC #### [address] Platelet mean volume (Bld) [Entitic vol] 9.2 fL Normal 6.6-10.1 [facility] Comment on above: Performed By: #### C BC #### [address] Platelets (Bld) [#/Vol] 191 10*3/uL Normal 150-450 [facility] Comment on above: Performed By: #### C BC #### [address] RBC (Bld) [#/Vol] 4.20 10*6/uL Normal 3.90-5.[address] [facility] Comment on above: Performed By: #### C BC #### [address] WBC (Bld) [#/Vol] 8.3 10*3/uL Normal 4.1-10.5 [facility] Comment on above: Performed By: #### C BC #### [address] Comprehensive Metabolic Pane yahaira 11-18-2023 Albumin [Mass/Vol] 3.8 g/dL Normal 3.5-5.7 [facility] Comment on above: Performed By: #### C MP #### [address] Albumin/Globulin [Mass ratio] 1.6 {ratio} Normal [facility] Comment on above: Performed By: #### C MP #### [address] ALP [Catalytic activity/Vol] 51 U/L Normal 34-104 [facility] Comment on above: Performed By: #### C MP #### [address] ALT [Catalytic activity/Vol] 24 U/L Normal 7-52 [facility] Comment on above: Performed By: #### C MP #### [address] Anion gap [Moles/Vol] 10.1 mmol/L Normal 6.0-15.0 [facility] Comment on above: Performed By: #### C MP #### [address] AST [Catalytic activity/Vol] 21 U/L Normal 13-39 [facility] Comment on above: Performed By: #### C MP #### [address] Bilirubin [Mass/Vol] 0.7 mg/dL Normal 0.3-1.0 [facility] Comment on above: Performed By: #### C MP #### [address] Calcium [Mass/Vol] 8.8 mg/dL Normal 8.6-10.3 [facility] Comment on above: Performed By: #### C MP #### [place] [address] [place] Chloride [Moles/Vol] 103 mmol/L Normal 98-107 [facility] Comment on above: Performed By: #### C MP #### [address] CO2 [Moles/Vol] 29.1 mmol/L Normal 21.0-31.0 [facility] Comment on above: Performed By: #### C MP #### [address] [place] [address] [place] Creatinine [Mass/Vol] 1.02 mg/dL Normal 0.70-1.30 [facility] Comment on above: Performed By: #### C MP #### [address] Creatinine Clr Calc Pharmacy 92.29 Normal [facility] Comment on above: Result Comment: PERF ORMED BY: [place] [address] PATHOLOGIST LOGISTICS MANAGER ANGELINE GARIBAY M.D. Performed By: #### C MP #### [address] GFR/1.73 sq M.predicted MDRD (S/P/Bld) [Vol rate/Area] mL/min/{1.73_m2} Normal [facility] Comment on above: Performed By: #### C MP #### [address] Globulin (S) [Mass/Vol] 2.4 g/dL Normal [facility] Comment on above: Performed By: #### C MP #### [address] Glucose [Mass/Vol] 101 mg/dL High 70-100 [facility] Comment on above: Result Comment: [place] Glucose Reference Range is dependent on time and content of last meal. Glucose of more than 200 mg/dL in a nonstressed, ambulatory subject supports the diagnosis of Diabetes Mellitus. ADA recommended reference range Performed By: #### C MP #### [address] Potassium [Moles/Vol] 4.2 mmol/L Normal 3.5-5.1 [facility] Comment on above: Performed By: #### C MP #### [address] Protein [Mass/Vol] 6.2 g/dL Low 6.4-8.9 [facility] Comment on above: Performed By: #### C MP #### [address] Sodium [Moles/Vol] 138 mmol/L Normal 136-145 [facility] Comment on above: Performed By: #### C MP #### [address] Urea nitrogen [Mass/Vol] 18 mg/dL Normal 7-25 [facility] Comment on above: Performed By: #### C MP #### [address] Consultation Noteon 11-18-19 24 Consultation Note [id number] Normal [place] Complete Blood Count Auto Di ffon 11-17-2023 Basophils (Bld) [#/Vol] 0.1 10*3/uL Normal 0.0-0.2 [facility] Comment on above: Result Comment: PERF ORMED BY: [place] [address] PATHOLOGIST LOGISTICS MANAGER ANGELINE GARIBAY M.D. Performed By: #### C BC #### [address] Basophils/100 WBC (Bld) 0.7 % Normal . [facility] Comment on above: Performed By: #### C BC #### [address] Eosinophils (Bld) [#/Vol] 0.3 10*3/uL Normal 0.0-0.45 [facility] Comment on above: Performed By: #### C BC #### [address] Eosinophils/100 WBC (Bld) 3.8 % Normal . [facility] Comment on above: Performed By: #### C BC #### [address] Erythrocyte distribution width (RBC) [Ratio] 14.4 % Normal 12.0-14.8 [facility] Comment on above: Performed By: #### C BC #### [address] Hematocrit (Bld) [Volume fraction] 39.3 % Normal 38.8-50.0 [facility] Comment on above: Performed By: #### C BC #### [address] Hemoglobin (Bld) [Mass/Vol] 13.3 g/dL Normal 13.0-17.0 [facility] Comment on above: Performed By: #### C BC #### [address] Lymphocytes (Bld) [#/Vol] 1.7 10*3/uL Normal 1.00-4.8 [facility] Comment on above: Performed By: #### C BC #### [address] Lymphocytes/100 WBC (Bld) 24.0 % Normal . [facility] Comment on above: Performed By: #### C BC #### [address] MCH (RBC) [Entitic mass] 31.7 pg Normal 27.5-35.2 [facility] Comment on above: Performed By: #### C BC #### [address] MCV (RBC) [Entitic vol] 93.8 fL Normal 83.5-101 [facility] Comment on above: Performed By: #### C BC #### [address] Mean Corpuscular HGB Conc 33.8 g/dL Normal 32.5-35.6 [facility] Comment on above: Performed By: #### C BC #### [address] Monocytes (Bld) [#/Vol] 0.8 10*3/uL Normal 0.0-0.8 [facility] Comment on above: Performed By: #### C BC #### [address] [address] [place] Monocytes/100 WBC (Bld) 11.9 % Normal . [facility] Comment on above: Performed By: #### C BC #### [address] Neutrophils (Bld) [#/Vol] 4.1 10*3/uL Normal 1.8-7.7 [facility] Comment on above: Performed By: #### C BC #### [address] Neutrophils/100 WBC (Bld) 59.6 % Normal . [facility] Comment on above: Performed By: #### C BC #### [address] NRBC% 0.1 /100{WBC} Normal 0-0.5 [facility] Comment on above: Performed By: #### C BC #### [address] Platelet mean volume (Bld) [Entitic vol] 9.1 fL Normal 6.6-10.1 [facility] Comment on above: Performed By: #### C BC #### [place] [address] [place] Platelets (Bld) [#/Vol] 198 10*3/uL Normal 150-450 [facility] Comment on above: Performed By: #### C BC #### [place] [address] [place] RBC (Bld) [#/Vol] 4.19 10*6/uL Normal 3.90-5.[address] [facility] Comment on above: Performed By: #### C BC #### [place] [address] [place] WBC (Bld) [#/Vol] 6.9 10*3/uL Normal 4.1-10.5 [facility] Comment on above: Performed By: #### C BC #### [address] CNPNon 11-16-2023 CNPN Telephone (UROLMN) ----- DILLON SMILEY ([id number]) 1960 M Date Time Provider Department 11/16/23 AD LOUISE During your visit today, we recorded the following information about you: Ad Louise RN 11/16/2023 10:22 AM Signed Called patient to discuss his pathology. Informed patient that TURBT showed inflammation only, no cancer. Dr. Jacobsen has recommended maintenance BCG if he's willing to pursue it, which patient agrees to. Informed him that we will set him up to begin about one month and cysto with Dr. Jacobsen 3 months from now. At this time patient informed me that he agrees with this plan however, he is currently in the ED [facility]. He states that he had been having some blood in his urine since Tuesday. Last night he began noticing large clots then began having difficulty voiding all together. He will be transferred here to [facility] once a bed is available for further management. I informed patient that I will make sure Dr. Jacobsen is aware and will see if there is anything we can do to expedite transfer. Allergies As of Date: 11/16/2023 (No Known Allergies) Date Reviewed: 11/10/2023 Reviewed by: Terese Palencia, BART - Fully Assessed Reason for Visit: Results [95] Prescriptions as of 11/16/2023 - phenazopyridine (PYRIDIUM) 100 mg tablet Take 1 tablet by mouth three times a day as needed for up to 9 doses. - tamsulosin (FLOMAX) 0.4 mg Take 1 capsule by mouth every afternoon. - acetaminophen (TYLENOL) 325 mg tablet Take 2 tablets by mouth every 4 hours as needed for pain. - ezetimibe (ZETIA) 10 mg tablet q 24 HR. - mirabegron (MYRBETRIQ) 25 mg Tb24 Take 25 mg by mouth. - valsartan (DIOVAN) 160 mg tablet Take by mouth. 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, N13.8] 08/18/2023 Chronic pain [G89.29] 11/10/2023 Gastroesophageal reflux disease [K21.9] 08/18/2023 Obesity (BMI 30-39.9) [E66.9] 08/18/2023 Encounter Status:Closed by AD LOUISE on 11/16/23 Normal [facility] Hemogram CBC Without Diffon 11-16-2023 Erythrocyte distribution width (RBC) [Ratio] 14.3 % Normal 12.0-14.8 [facility] Comment on above: Performed By: #### C BCNO #### [address] Hematocrit (Bld) [Volume fraction] 36.2 % Low 38.8-50.0 [facility] Comment on above: Performed By: #### C BCNO #### [address] Hemoglobin (Bld) [Mass/Vol] 12.5 g/dL Low 13.0-17.0 [facility] Comment on above: Performed By: #### C BCNO #### [address] MCH (RBC) [Entitic mass] 32.1 pg Normal 27.5-35.2 [facility] Comment on above: Performed By: #### C BCNO #### [address] MCV (RBC) [Entitic vol] 93.1 fL Normal 83.5-101 [facility] Comment on above: Performed By: #### C BCNO #### [address] Mean Corpuscular HGB Conc 34.5 g/dL Normal 32.5-35.6 [facility] Comment on above: Performed By: #### C BCNO #### [address] Platelet mean volume (Bld) [Entitic vol] 9.1 fL Normal 6.6-10.1 [facility] Comment on above: Result Comment: PERF ORMED BY: [place] [address] PATHOLOGIST LOGISTICS MANAGER ANGELINE GARIBAY M.D. Performed By: #### C BCNO #### [address] Platelets (Bld) [#/Vol] 182 10*3/uL Normal 150-450 [facility] Comment on above: Performed By: #### C BCNO #### [address] RBC (Bld) [#/Vol] 3.89 10*6/uL Low 3.90-5.[address] [facility] Comment on above: Performed By: #### C BCNO #### [address] WBC (Bld) [#/Vol] 6.9 10*3/uL Normal 4.1-10.5 [facility] Comment on above: Performed By: #### C BCNO #### [address] Activated partial thrombopla stin time (aPTT) in platelet poor plasma by coagulation aOrdered By: Ancelmo Kelly on 11-15-2023 aPTT Coag (PPP) [Time] 27.7 s 25.1-36.5 [facility] Comment on above: A hematocrit value g reater than 55% may lead to inaccurate results in coagulation testing. Patients having hematocrit values >55% require a special collection tube for coagulation studies. Please contact the laboratory at [phone] for redraw instructions. Automated basophil %Ordered By: Ancelmo Kelly on 11-15-2023 Basophils/100 WBC (Bld) 0.8 % Normal . [facility] Comment on above: Performed By: #### P TT, PT, BMP, CBC #### [address] Automated basophil countOrde red By: Ancelmo Kelly on 11-15-2023 Basophils (Bld) [#/Vol] 0.1 10*3/uL Normal 0.0-0.2 [facility] Comment on above: Result Comment: PERF ORMED BY: [place] [address] PATHOLOGIST LOGISTICS MANAGER ANGELINE GARIBAY M.D. Performed By: #### P TT, PT, BMP, CBC #### [address] Automated blood monocyte cou ntOrdered By: Ancelmo Kelly on 11-15-2023 Monocytes (Bld) [#/Vol] 0.8 10*3/uL Normal 0.0-0.8 [facility] Comment on above: Performed By: #### P TT, PT, BMP, CBC #### [address] Automated eosinophil %Ordere d By: Ancelmo Kelly on 11-15-2023 Eosinophils/100 WBC (Bld) 0.9 % Normal . [facility] Comment on above: Performed By: #### P TT, PT, BMP, CBC #### [address] Automated eosinophil countOr dered By: Ancelmo Kelly on 11-15-2023 Eosinophils (Bld) [#/Vol] 0.1 10*3/uL Normal 0.0-0.45 [facility] Comment on above: Performed By: #### P TT, PT, BMP, CBC #### [address] Automated epithelial cells c ount in urine sediment (number/area)Ordered By: Ancelmo Kelly on 11-15-2023 Epithelial cells Auto (Urine sed) [#/Area] 3-4 [HPF] 0-2 [facility] Automated erythrocytes count in urine sediment (number/area)Ordered By: Ancelmo Kelly on 11-15-2023 RBC Auto (Urine sed) [#/Area] Innumerable [HPF] 0-4 [facility] Automated leukocytes count i n urine sediment (number/area)Ordered By: Ancelmo Kelly on 11-15-2023 WBC Auto (Urine sed) [#/Area] 20-49 [HPF] 0-4 [facility] Automated monocyte %Ordered By: Ancelmo Kelly on 11-15-2023 Monocytes/100 WBC (Bld) 9.0 % Normal . [facility] Comment on above: Performed By: #### P TT, PT, BMP, CBC #### [facility] [address] Automated neutrophil %Ordere d By: Ancelmo Kelly on 11-15-2023 Neutrophils/100 WBC (Bld) 76.4 % Normal . [facility] Comment on above: Performed By: #### P TT, PT, BMP, CBC #### [facility] [address] Automated urine color determ inationOrdered By: Ancelmo Kelly on 11-15-2023 Color (U) Red Critically abnormal Yellow [facility] Comment on above: Order Comment: Unabl e to obtain accurate result due to color interference.@ Ordering doctor for UA edited from TEMP.PROV to [id number] Name Collection Type:: Clean-Voided Midstream Performed By: #### C UU, ADDONUAPLUS #### [address] Automated urine specific gra vity by refractometryOrdered By: Ancelmo Kelly on 11-15-2023 Specific gravity Refractometry automated (U) [Rel density] 1.033 1.001-1.03 0 [facility] Comment on above: Rechecked by refract ometer Basic Metabolic Panelon 10-31 Creatinine Clr Calc Pharmacy 93.80 Normal [facility] Comment on above: Result Comment: PERF ORMED BY: [place] [address] PATHOLOGIST LOGISTICS MANAGER ANGELINE GARIBAY M.D. Performed By: #### P TT, PT, BMP, CBC #### [address] GFR/1.73 sq M.predicted MDRD (S/P/Bld) [Vol rate/Area] mL/min/{1.73_m2} Normal [facility] Comment on above: Performed By: #### P TT, PT, BMP, CBC #### [facility] [address] Bilirubin Test strip Ql (U)O rdered By: Ancelmo Kelly on 11-15-2023 Bilirubin Ql (U) See comment Negative [facility] Comment on above: Unable to obtain acc urate result due to color interference. Jamir 11-15-2023 YINAN Telephone (UROLMN) ----- DILLON SMILEY ([id number]) 1960 M Date Time Provider Department 11/15/23 ELDER BRIGGS During your visit today, we recorded the following information about you: Elder Briggs APRN.YINA 11/15/2023 9:44 AM Signed Returned call to office. Patient reports 1st episode of gross hematuria yesterday, with some clots, stream was weaker throughout the day. He was up every hour, eventually passed a good sized clot in the middle of the night, and repots stream has been stronger since. He is able to empty his bladder completely. Urine is clearing. He will contact us if his stream worsens or if he is unable to urinate. Elder Briggs APRN.YINA Allergies As of Date: 11/15/2023 (No Known Allergies) Date Reviewed: 11/10/2023 Reviewed by: Terese Palencia, RN - Fully Assessed Reason for Visit: Returning Patient's Call [[id number]] Prescriptions as of 11/15/2023 - docusate sodium (COLACE) 100 mg capsule Take 1 capsule by mouth two times a day for 5 days. - phenazopyridine (PYRIDIUM) 100 mg tablet Take 1 tablet by mouth three times a day as needed for up to 9 doses. - tamsulosin (FLOMAX) 0.4 mg Take 1 capsule by mouth every afternoon. - acetaminophen (TYLENOL) 325 mg tablet Take 2 tablets by mouth every 4 hours as needed for pain. - ezetimibe (ZETIA) 10 mg tablet q 24 HR. - mirabegron (MYRBETRIQ) 25 mg Tb24 Take 25 mg by mouth. - valsartan (DIOVAN) 160 mg tablet Take by mouth. 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5 mmol/L Normal 21.0-31.0 [facility] Comment on above: Performed By: #### P TT, PT, BMP, CBC #### [facility] [address] [place] [address] [place] Chloride [Moles/volume] in S lucas or PlasmaOrdered By: Ancelmo Kelly on 11-15-2023 Chloride [Moles/Vol] 103 mmol/L Normal 98-107 [facility] Comment on above: Performed By: #### P TT, PT, BMP, CBC #### [facility] [address] [place], [place] [id number] [place] Complete Blood Count Auto Di ffon 11-15-2023 Mean Corpuscular HGB Conc 34.6 g/dL Normal 32.5-35.6 [facility] Comment on above: Performed By: #### P TT, PT, BMP, CBC #### [address] Monocytes/100 WBC (Bld) 17.84 % Normal 0.00-20.00 [facility] Comment on above: Performed By: #### P TT, PT, BMP, CBC #### [address] NRBC% 0.1 /100{WBC} Normal 0-0.5 [facility] Comment on above: Performed By: #### P TT, PT, BMP, CBC #### [address] Creatinine [Mass/volume] in Serum or PlasmaOrdered By: Ancelmo Kelly on 11-15-2023 Creatinine [Mass/Vol] 1.00 mg/dL Normal 0.70-1.30 [facility] Comment on above: Performed By: #### P TT, PT, BMP, CBC #### [address] Dipstick and Microscopicon 0 11-15-2023 Appearance (U) Cloudy Critically abnormal Clear [facility] Comment on above: Order Comment: Unabl e to obtain accurate result due to color interference.@ Ordering doctor for UA edited from TEMP.PROV to [id number] Name Collection Type:: Clean-Voided Midstream Performed By: #### C UU, ADDONUAPLUS #### [address] Bacteria,Urine 1+ High None Seen [facility] Comment on above: Order Comment: Unabl e to obtain accurate result due to color interference.@ Ordering doctor for UA edited from TEMP.PROV to [id number] Name Collection Type:: Clean-Voided Midstream Result Comment: PERF ORMED BY: [place] [address] PATHOLOGIST LOGISTICS MANAGER ANGELINE GARIBAY M.D. Performed By: #### C UU, ADDONUAPLUS #### [address] Bilirubin,Urine Normal Negative [facility] Comment on above: Order Comment: Unabl e to obtain accurate result due to color interference.@ Ordering doctor for UA edited from TEMP.PROV to [id number] Name Collection Type:: Clean-Voided Midstream Result Comment: Unab le to obtain accurate result due to color interference. Performed By: #### C UU, ADDONUAPLUS #### [facility] [address] Glucose Ql (U) Normal Normal [facility] Comment on above: Order Comment: Unabl e to obtain accurate result due to color interference.@ Ordering doctor for UA edited from TEMP.PROV to [id number] Name Collection Type:: Clean-Voided Midstream Result Comment: Unab le to obtain accurate result due to color interference. Performed By: #### C UU, ADDONUAPLUS #### [address] Ketones Ql (U) Normal Negative [facility] Comment on above: Order Comment: Unabl e to obtain accurate result due to color interference.@ Ordering doctor for UA edited from TEMP.PROV to [id number] Name Collection Type:: Clean-Voided Midstream Result Comment: Unab le to obtain accurate result due to color interference. Performed By: #### C UU, ADDONUAPLUS #### [address] Leukocyte esterase Test strip Ql (U) Normal Negative [facility] Comment on above: Order Comment: Unabl e to obtain accurate result due to color interference.@ Ordering doctor for UA edited from TEMP.PROV to [id number] Name Collection Type:: Clean-Voided Midstream Result Comment: Unab le to obtain accurate result due to color interference. Performed By: #### C UU, ADDONUAPLUS #### [facility] [address] [place] [id number] [place] Nitrite,Urine Normal Negative [facility] Comment on above: Order Comment: Unabl e to obtain accurate result due to color interference.@ Ordering doctor for UA edited from TEMP.PROV to [id number] Name Collection Type:: Clean-Voided Midstream Result Comment: Unab le to obtain accurate result due to color interference. Performed By: #### C UU, ADDONUAPLUS #### [place] [address] [place] Occult Blood,Urine Normal Negative [facility] Comment on above: Order Comment: Unabl e to obtain accurate result due to color interference.@ Ordering doctor for UA edited from TEMP.PROV to [id number] Name Collection Type:: Clean-Voided Midstream Result Comment: Unab le to obtain accurate result due to color interference. Performed By: #### C UU, ADDONUAPLUS #### [place] [address] [place] pH,Urine Normal 5.0-9.0 [facility] Comment on above: Order Comment: Unabl e to obtain accurate result due to color interference.@ Ordering doctor for UA edited from TEMP.PROV to [id number] Name Collection Type:: Clean-Voided Midstream Result Comment: Unab le to obtain accurate result due to color interference. Performed By: #### C UU, ADDONUAPLUS #### [address] Protein,Urine Normal Negative [facility] Comment on above: Order Comment: Unabl e to obtain accurate result due to color interference.@ Ordering doctor for UA edited from TEMP.PROV to [id number] Name Collection Type:: Clean-Voided Midstream Result Comment: Unab le to obtain accurate result due to color interference. Performed By: #### C UU, ADDONUAPLUS #### [address] RBC,Urine Innumerable High 0-4 [facility] Comment on above: Order Comment: Unabl e to obtain accurate result due to color interference.@ Ordering doctor for UA edited from TEMP.PROV to [id number] Name Collection Type:: Clean-Voided Midstream Performed By: #### C UU, ADDONUAPLUS #### [place] [id number] [facility] Specificy [place],Urine 1.033 High 1.001-1.03 0 [facility] Comment on above: Order Comment: Unabl e to obtain accurate result due to color interference.@ Ordering doctor for UA edited from TEMP.PROV to [id number] Name Collection Type:: Clean-Voided Midstream Result Comment: Rech ecked by refractometer Performed By: #### C UU, ADDONUAPLUS #### [address] Squamous Epithelial Cell,Urine 3-4 High 0-2 [facility] Comment on above: Order Comment: Unabl e to obtain accurate result due to color interference.@ Ordering doctor for UA edited from TEMP.PROV to [id number] Name Collection Type:: Clean-Voided Midstream Performed By: #### C UU, ADDONUAPLUS #### [address] Urobilinogen,Urine Normal Normal [facility] Comment on above: Order Comment: Unabl e to obtain accurate result due to color interference.@ Ordering doctor for UA edited from TEMP.PROV to [id number] Name Collection Type:: Clean-Voided Midstream Result Comment: Unab le to obtain accurate result due to color interference. Performed By: #### C UU, ADDONUAPLUS #### [address] WBC,Urine 20-49 High 0-4 [facility] Comment on above: Order Comment: Unabl e to obtain accurate result due to color interference.@ Ordering doctor for UA edited from TEMP.PROV to [id number] Name Collection Type:: Clean-Voided Midstream Performed By: #### C UU, ADDONUAPLUS #### [address] Erythrocyte distribution wid th [Ratio] by Automated countOrdered By: Ancelmo Kelly on 11-15-2023 Erythrocyte distribution width (RBC) [Ratio] 14.3 % Normal 12.0-14.8 [facility] Comment on above: Performed By: #### P TT, PT, BMP, CBC #### [address] Erythrocytes [#/volume] in B lood by Automated countOrdered By: Ancelmo Kelly on 11-15-2023 RBC (Bld) [#/Vol] 4.30 10*6/uL Normal 3.90-5.60 [facility] Comment on above: Performed By: #### P TT, PT, BMP, CBC #### [facility] [address] [place] [address] [place] Glucose [Mass/volume] in Ser um or PlasmaOrdered By: Ancelmo Kelly on 11-15-2023 Glucose [Mass/Vol] 111 mg/dL High 70-100 [facility] Comment on above: ADA recommended refe rence rangeRandom Glucose Reference Range is dependent on time and content of last meal. Glucose of more than 200 mg/dL in a nonstressed, ambulatory subject supports the diagnosis of Diabetes Mellitus. Result Comment: [place] om Glucose Reference Range is dependent on time and content of last meal. Glucose of more than 200 mg/dL in a nonstressed, ambulatory subject supports the diagnosis of Diabetes Mellitus. ADA recommended reference range Performed By: #### P TT, PT, BMP, CBC #### [place] [address] [place] Hematocrit [Volume Fraction] of Blood by Automated countOrdered By: Ancelmo Kelly on 11-15-2023 Hematocrit (Bld) [Volume fraction] 39.9 % Normal 38.8-50.0 [facility] Comment on above: Performed By: #### P TT, PT, BMP, CBC #### [place] [address] [place] Hemoglobin [Mass/volume] in BloodOrdered By: Ancelmo Kelly on 11-15-2023 Hemoglobin (Bld) [Mass/Vol] 13.8 g/dL Normal 13.0-17.0 [facility] Comment on above: Performed By: #### P TT, PT, BMP, CBC #### [facility] [address] [place] [address] [place] INR in Platelet poor plasma by Coagulation assayOrdered By: Ancelmo Kelly on 11-15-2023 INR Coag (PPP) [Relative time] 1.0 {INR} Normal [facility] Comment on above: INR Therapeutic Rang e A) Pre- and Peroperative OAT started two weeks before surgery. NOT HIP SURGERY: 1.5 - 2.5 HIP SURGERY: 2 - 3B) Primary and secondary prevention of venous THROMBOSIS: 2 - 3C) Active venous thrombosis, pulmonary embolismand prevention of recurrent venous thrombosis: 2 - 3D) Prevention of arterial thromboembolismincluding patients with mechanical heart valves: 3 - 4.5 Result Comment: INR Therapeutic Range A) Pre- and Peroperative OAT started two weeks before surgery. NOT HIP SURGERY: 1.5 - 2.5 HIP SURGERY: 2 - 3 B) Primary and secondary prevention of venous THROMBOSIS: 2 - 3 C) Active venous thrombosis, pulmonary embolism and prevention of recurrent venous thrombosis: 2 - 3 D) Prevention of arterial thromboembolism including patients with mechanical heart valves: 3 - 4.5 Performed By: #### P TT, PT, BMP, CBC #### [facility] [address] Ketones Auto test strip (U) [Mass/Vol]Ordered By: Ancelmo Kelly on 11-15-2023 Ketones (U) [Mass/Vol] See comment Negative [facility] Comment on above: Unable to obtain acc urate result due to color interference. Leukocytes [#/volume] correc juju for nucleated erythrocytes in Blood by Automated counOrdered By: Ancelmo Kelly on 11-15-2023 WBC corrected for nucl RBC Auto (Bld) [#/Vol] 9.3 10*3/uL 4.1-10.5 [facility] Leukocytes [#/volume] in Blo od by Automated countOrdered By: Ancelmo Kelly on 11-15-2023 WBC (Bld) [#/Vol] 9.3 10*3/uL Normal 4.1-10.5 [facility] Comment on above: Performed By: #### P TT, PT, BMP, CBC #### [facility] [address] [place] [address] Lymphocytes [#/volume] in Bl ood by Automated countOrdered By: Ancelmo Kelly on 11-15-2023 Lymphocytes (Bld) [#/Vol] 1.2 10*3/uL Normal 1.00-4.8 [facility] Comment on above: Performed By: #### P TT, PT, BMP, CBC #### [facility] [address] Lymphocytes/100 leukocytes i n Blood by Automated countOrdered By: Ancelmo Kelly on 11-15-2023 Lymphocytes/100 WBC (Bld) 12.9 % Normal . [facility] Comment on above: Performed By: #### P TT, PT, BMP, CBC #### [address] MCH [Entitic mass] by Automa juju countOrdered By: Ancelmo Kelly on 11-15-2023 MCH (RBC) [Entitic mass] 32.0 pg Normal 27.5-35.2 [facility] Comment on above: Performed By: #### P TT, PT, BMP, CBC #### [address] MCHC Auto (RBC) [Mass/Vol]Or dered By: nAcelmo Kelly on 11-15-2023 MCHC (RBC) [Mass/Vol] 34.6 g/dL 32.5-35.6 [facility] MCV [Entitic volume] by Auto mated countOrdered By: Ancelmo Kelly on 11-15-2023 MCV (RBC) [Entitic vol] 92.7 fL Normal 83.5-101 [facility] Comment on above: Performed By: #### P TT, PT, BMP, CBC #### [address] Monocyte distribution width [Entitic volume] in Blood by AutomatedOrdered By: Ancelmo Kelly on 11-15-2023 Monocyte distribution width Auto (Bld) [Entitic vol] 17.84 % 0.00-20.00 [facility] Neutrophils [#/volume] in Bl ood by Automated countOrdered By: Ancelmo Kelly on 11-15-2023 Neutrophils (Bld) [#/Vol] 7.1 10*3/uL Normal 1.8-7.7 [facility] Comment on above: Performed By: #### P TT, PT, BMP, CBC #### [address] Nitrite Test strip Ql (U)Ord ered By: Ancelmo Kelly on 11-15-2023 Nitrite Ql (U) See comment Negative [facility] Comment on above: Unable to obtain acc urate result due to color interference. No Panel InformationOrdered By: Ancelmo Kelly on 11-15-2023 Estimated GFR (CKD-EPI) > 60.0 mL/Min [facility] Creatinine Clearance (Chem 93.80 [facility] Nucleated erythrocytes [Pres ence] in Blood by Automated countOrdered By: Ancelmo Kelly on 11-15-2023 Nucleated RBC Auto Ql (Bld) 0.1 /100{WBC} 0-0.5 [facility] Partial Thromboplastin Timeo n 11-15-2023 aPTT Coag (Bld) [Time] 27.7 s Normal 25.1-36.5 [facility] Comment on above: Result Comment: A he matocrit value greater than 55% may lead to inaccurate results in coagulation testing. Patients having hematocrit values >55% require a special collection tube for coagulation studies. Please contact the laboratory at [phone] for redraw instructions. PERFORMED BY: [place] [address] PATHOLOGIST LOGISTICS MANAGER ANGELINE GARIBAY M.D. Performed By: #### P TT, PT, BMP, CBC #### [address] Platelet mean volume [Entiti c volume] in Blood by Automated countOrdered By: Ancelmo Kelly on 11-15-2023 Platelet mean volume (Bld) [Entitic vol] 9.0 fL Normal 6.6-10.1 [facility] Comment on above: Performed By: #### P TT, PT, BMP, CBC #### [facility] [address] [place] [address] Platelets [#/volume] in Bloo d by Automated countOrdered By: Ancelmo Kelly on 11-15-2023 Platelets (Bld) [#/Vol] 219 10*3/uL Normal 150-450 [facility] Comment on above: Performed By: #### P TT, PT, BMP, CBC #### [facility] [address] [place] [address] Potassium [Moles/volume] in Serum or PlasmaOrdered By: Ancelmo Kelly on 11-15-2023 Potassium [Moles/Vol] 4.1 mmol/L Normal 3.5-5.1 [facility] Comment on above: Performed By: #### P TT, PT, BMP, CBC #### [facility] [address] Protein Auto test strip (U) [Mass/Vol]Ordered By: Ancelmo Klely on 11-15-2023 Protein (U) [Mass/Vol] See comment Negative [facility] Comment on above: Unable to obtain acc urate result due to color interference. Prothrombin time (PT)Ordered By: Ancelmo Kelly on 11-15-2023 PT Coag (PPP) [Time] 11.9 s Normal 9.0-12.9 [facility] Comment on above: A hematocrit value g reater than 55% may lead to inaccurate results in coagulation testing. Patients having hematocrit values >55% require a special collection tube for coagulation studies. Please contact the laboratory at [phone] for redraw instructions. Result Comment: A he matocrit value greater than 55% may lead to inaccurate results in coagulation testing. Patients having hematocrit values >55% require a special collection tube for coagulation studies. Please contact the laboratory at [phone] for redraw instructions. Performed By: #### P TT, PT, BMP, CBC #### [facility] [address] Serum or plasma anion gap de terminationOrdered By: Ancelmo Kelly on 11-15-2023 Anion gap [Moles/Vol] 12.6 mmol/L Normal 6.0-15.0 [facility] Comment on above: Performed By: #### P TT, PT, BMP, CBC #### [facility] [address] [place] [address] [place] Sodium [Moles/volume] in Ser um or PlasmaOrdered By: Ancelmo Kelly on 11-15-2023 Sodium [Moles/Vol] 135 mmol/L Low 136-145 [facility] Comment on above: Performed By: #### P TT, PT, BMP, CBC #### [facility] [address] [place] [address] [place] Urea nitrogen [Mass/volume] in Serum or PlasmaOrdered By: Ancelmo Kelly on 11-15-2023 Urea nitrogen [Mass/Vol] 20 mg/dL Normal 7-25 [facility] Comment on above: Performed By: #### P TT, PT, BMP, CBC #### [facility] [address] [place] [address] Urine Cultureon 11-15-2023 Bacteria identified Cx Nom (U) 20,000 colonies/ml mixed bacterial skin contaminants 2 Days PERFORMED BY: [place] [address] PATHOLOGIST LOGISTICS MANAGER ANGELINE GARIBAY M.D. Normal [facility] Comment on above: Performed By: #### C UU, ADDONUAPLUS #### [facility] [address] [place] [address] Urine bacteria detection by automated methodOrdered By: Ancelmo Kelly on 11-15-2023 Bacteria Auto Ql (U) 1+ None Seen [facility] Urine clarity by refractomet ry automatedOrdered By: Ancelmo Kelly on 11-15-2023 Clarity Refractometry automated (U) Cloudy Clear [facility] Urine glucose measurement by automated test strip (mass/volume)Ordered By: Ancelmo Kelly on 11-15-2023 Glucose Auto test strip (U) [Mass/Vol] See comment Normal [facility] Comment on above: Unable to obtain acc urate result due to color interference. Urine hemoglobin detection b y automated test stripOrdered By: Ancelmo Kelly on 11-15-2023 Hemoglobin Auto test strip Ql (U) See comment Negative [facility] Comment on above: Unable to obtain acc urate result due to color interference. Urine leukocyte esterase det ection by automated test stripOrdered By: Ancelmo Kelly on 11-15-2023 Leukocyte esterase Auto test strip Ql (U) See comment Negative [facility] Comment on above: Unable to obtain acc urate result due to color interference. Urobilinogen Auto test strip (U) [Mass/Vol]Ordered By: Ancelmo Kelly on 11-15-2023 Urobilinogen (U) [Mass/Vol] See comment Normal [facility] Comment on above: Unable to obtain acc urate result due to color interference. pH Auto test strip (U)Ordere d By: Ancelmo Kelly on 11-15-2023 pH (U) See comment 5.0-9.0 [facility] Comment on above: Unable to obtain acc urate result due to color interference. ANES POSTPROC EVALon 024 ANES POSTPROC EVAL HNO ID: [id number] Author: YING CABRERA MD Service: ? Author Type: Anesthesiologist Type: Anesthesia Postprocedure Evaluation Filed: 11/10/2023 18:57 Note Text: POST ANESTHESIA EVALUATION NOTE : 1960 Procedure Summary Date: 11/10/23 Room / Location: [address] [facility] Anesthesia Start: 1731 Anesthesia Stop: 1831 Procedure: RESECTION BLADDER TUMOR TRANSURETHRAL (Bladder) Diagnosis: Malignant neoplasm of urinary bladder, unspecified site (HCC) (Malignant neoplasm of urinary bladder, unspecified site (HCC) [C67.9]) Surgeons: Rigo Jacobsen MD Responsible Provider: Ying Cabrera MD Anesthesia Type: general ASA Status: 4 Anesthesia Type: general Airway Type: ETT Last Vitals Vitals Value Taken Time BP 170/91 11/10/23 1847 Temp 36 ?C (96.8 ?F) 11/10/23 1832 Pulse 55 11/10/23 1855 Resp 17 11/10/23 1855 SpO2 99 % 11/10/23 1855 Vitals shown include unfiled device data. Post Anesthesia Patient Status Patient Evaluation: PACU. PACU/ICU Patient Condition: stable. Anticipated Disposition: phase 2 then home. Neurological Status: aware and responsive. Pulmonary Status: breathing comfortably on supplemental oxygen Airway Control: returned to baseline unsupported. Cardiovascular Status: stable. Pain Management: clinically adequate - multimodal analgesia pain management approach Postoperative Hydration: acceptable. Intraoperative Events: no significant anesthesia events Post Operative Nausea/Vomiting Status: no significant post operative nausea or vomiting Recommendation: continue current plan of care. Anesthesia Observations No Documentation SIGNATURE: Ying Cabrera MD PATIENT NAME: Dillon Smiley DATE: November 10, 2023 TIME: 6:57 PM CSN: [id number] Normal [facility] ANES PRE-OPon 11-10-2023 ANES PRE-OP HNO ID: [id number] Author: YING CABRERA MD Service: ? Author Type: Anesthesiologist Type: Anesthesia Preprocedure Evaluation Filed: 11/10/2023 17:39 Note Text: ANESTHESIOLOGY DAY OF SURGERY NOTE : 1960 Procedure Information Anesthesia Start Date/Time: 11/10/231731 Procedure: RESECTION BLADDER TUMOR TRANSURETHRAL (Bladder) Location: MAIN [address] [facility] Surgeons: Rigo Jacobsen MD Estimated body mass index is 33.67 kg/m? as calculated from the following: Height as of 11/02/23: 180.3 cm (5' 11 ). Weight as of 11/02/23: 109.5 kg (241 lb 6.5 oz). Most recent hematocrit and potassium results: Hematocrit 44.7 11/02/2023 Potassium 4.6 11/02/2023 Relevant Problems GI (+) Gastroesophageal reflux disease I - PHYSICAL EVALUATION AIRWAY Patient intubated: No. Tracheostomy tube not present Mallampati: III. TM distance: <3 FB. Neck ROM: full ROM without neurological symptoms. Mouth opening: adequate. Short neck: no. Thick neck: no Kelly present: yes II - ANESTHESIA PLAN ASA Score: 4 Anesthetic Plan: general Airway type: ETT NPO Status: adequate Anesthetic plan additional comments: snoring, ? OLAYINKA. Beta Christopher Monitoring Plan Monitoring plan: standard ASA. Post Procedure Analgesic Plan Postoperative analgesic plan: multimodal analgesia. Informed Consent Anesthetic risks, benefits, alternatives, personnel and consent discussed: yes. Patient / Responsible [employer] agrees to proceed: yes Patient / Surrogate agrees to blood products: Yes Significant changes in the patient condition since the History and Physical, not otherwise documented in primary service progress note: no. Potential Anesthesia issues that may suggest increased risk of complications or contraindication to planned procedure: other. Vitals Value Taken Time BP 170/92 11/10/23 1320 Pulse Resp 18 11/10/23 1320 Temp 36.4 ?C (97.5 ?F) 11/10/23 1320 SpO2 97 % 11/10/23 1320 No current facility-administered medications on file as of 11/10/2023. Outpatient Medications as of 11/10/2023 Medication Sig - tamsulosin (FLOMAX) 0.4 mg Take 1 capsule by mouth every afternoon. - ezetimibe (ZETIA) 10 mg tablet q 24 HR. - mirabegron (MYRBETRIQ) 25 mg Tb24 Take 25 mg by mouth. - valsartan (DIOVAN) 160 mg tablet Take by mouth. - acetaminophen (TYLENOL) 325 mg tablet Take 2 tablets by mouth every 4 hours as needed for pain. I have interviewed and examined the patient. I have reviewed the medical record and/or the pre-anesthesia evaluation, pertinent labs, and test results. This contains updated information obtained within 48 hours of Surgery/Procedure. SIGNATURE: Ying Cabrera MD PATIENT NAME: Dillon Smiley DATE: November 10, 2023 TIME: 5:38 PM CSN: [id number] Normal [facility] OPERATIVE NOon 11-10-2023 OPERATIVE NO HNO ID: [id number] Author: RIGO JACOBSEN MD Service: Urology Author Type: Physician Type: Operative Report Filed: 11/10/2023 18:10 Note Text: OPERATIVE/PROCEDURE REPORT Name: Dillon Smiley LOG ID: [id number] Surgery/Procedure Date: 11/10/2023 Incision/Procedure Start Time: 5:53 PM Incision Close/Procedure End Time: 6:10 PM Surgeon(s)/Proceduralist( s) and Manager Paid(s): Surgeon(s) and Role: * Rigo Jacobsen MD - Primary * Jose Yanez MD - Resident - Assisting Procedure(s): Transurethral resection of bladder tumor - medium (4 cm) Anesthesia: General Operative Indication: Dillon Smiley is a 63 year old male with history of ttm-flejsx-whoszcum bladder cancer who on surveillance cystoscopy was found to have findings concerning for disease recurrence. Transurethral resection of bladder tumor was recommended. After discussion of management options, including risks, benefits, and alternatives, Dillon Smiley opted and consented to proceed with the above procedure. Operative Findings: Examination under anesthesia: Unremarkable. Number of Tumors: 1 Location: Posterior wall. Tumor size: 4 cm. Morphology: flat. Procedure Details: Dillon Smiley was brought to OR 8 at [facility] where a surgical huddle was performed with all operating room personnel. The patient was then placed on the operating room table, perioperative antibiotics administered, and general anesthesia induced. Patient was placed in lithotomy position with all pressure points padded and was prepped and draped in the usual sterile manner. A surgical timeout was performed. The 24F rigid resectoscope was inserted with the visual obturator and complete cystourethroscopy was performed using the 30-degree and 70-degree lens revealing the above-mentioned findings. Using the loop electrocautery, a complete resection of all visible lesions was performed down to the deep layers of the muscularis propria. Hemostasis of all resection sites was performed using electrocautery. After confirming excellent hemostasis and evacuation of all specimen, the resectoscope was removed and a Trevino catheter was placed with return return of clear urine. The patient was then emerged from anesthesia and transferred to PACU in stable condition. Pre-Op/Pre-Procedure Diagnosis: Bladder cancer Post-Op/Post-Procedure Diagnosis: Same Estimated Blood Loss: 0 ml Specimens: ID Type Source Tests Collected by Time Destination A : Posterior Wall Tumor Tissue BLADDER BIOPSY SURGICAL PATHOLOGY Rigo Jacobsen MD 11/10/2023 6:00 PM Implantable Devices: None Drains: 18Fr Trevino catheter Complications: None Incidental Lacerations/Perforations: None I performed the procedure with the assistance of Dr. Yanez. Anatomic Site: Bladder, Laterality: N/A Approach: Endoscopic Device: None Qualifier: None SIGNATURE: Rigo Jacobsen MD PATIENT NAME: Dillon Smiley DATE: November 10, 2023 Normal [facility] SURGICAL PATHOLOGYon CASE REPORT Normal [facility] Comment on above: Order Comment: Speci men Type: TISSUE SPECIMENOrdering Facility: [facility] Address: [address] [place] [address] Result Comment: Surg [facility] Pathology Report Case: [id number] Authorizing Provider: Rigo Jacobsen MD Collected: 11/10/2023 06:00 PM Ordering Location: Admitting Received: 11/11/2023 07:37 AM Pathologist: Ron Treadwell MD Specimen: BLADDER BIOPSY, Posterior Wall Tumor Performed By: #### S ####[facility] LABCLIA [id number] [place] [address] [place] CLINICAL HISTORY Normal [facility] Comment on above: Order Comment: Speci men Type: TISSUE SPECIMENOrdering Facility: [facility] Address: [address] [place] [address] Result Comment: Pre- op diagnosis: Malignant neoplasm of urinary bladder, unspecified site (HCC) [C67.9] Performed By: #### S ####[facility] LABCLIA [id number] [place] [address] [place] FINAL DIAGNOSIS Normal [facility] Comment on above: Order Comment: Speci men Type: TISSUE SPECIMENOrdering Facility: [facility] Address: [address] [place] [address] Result Comment: A. U rinary bladder, posterior wall, biopsy: - Denuded urothelial mucosa with prior biopsy site changes, negative for neoplasm. - No definitive muscularis propria is present. JPEYTON 11/15/2023 Performed By: #### S ####[facility] LABCLIA [id number] [address] [place] FINAL PERFORMING LAB Normal [facility] Comment on above: Order Comment: Speci men Type: TISSUE SPECIMENOrdering Facility: [facility] Address: [address] [place] [address] Result Comment: Diag nostic interpretation performed at [facility], [address] [address] CLIA# [id number] Associate Civil Engineer: Alejandro Mills M.D. Performed By: #### S ####[facility] LABCLIA [id number] [place] [address] [place] GROSS DESCRIPTION Normal [facility] Comment on above: Order Comment: Speci men Type: TISSUE SPECIMENOrdering Facility: [facility] Address: [address], [place] [address] Result Comment: A. B LADDER BIOPSY Received in formalin are multiple mendoza-brown, soft and rubbery segments of tissue aggregating to 1.5 x 1.2 x 0.3 cm. Totally submitted in one cassette. EJL November 11, 2023 12:07 PM Gross examination performed at [facility], [address] [place] [address] Performed By: #### S ####[facility] LABIA [id number] [address] [place] Consultation Noteon 11-04-19 Consultation Note [id number]#1.00TIFF Normal [place] Lab Reportson 11-04-2023 Lab Reports [id number]#1.00TIFF Normal [place] Lab Reports [id number]#1.00TIFF Normal [place] Operative Reporton Operative Report [id number]#1.00TIFF Normal [place] Pathology Noteon 11-04-2023 Pathology Note [id number]#1.00TIFF Normal [place] Bacteria Ur Culton Bacteria identified Cx Nom (U) CULTURE, URINE: No growth (<1,000 CFU/ml) Normal [facility] Comment on above: Performed By: #### 6 30-4 ####[facility] LABIA [id number] [place] [id number] [place] Basic metabolic 2000 panelon 11-02-2023 Anion gap [Moles/Vol] 13 mmol/L Normal 9-18 [facility] Comment on above: Order Comment: Speci men Type: BLOOD SPECIMENOrdering Facility: [facility] Address: [address] [place] [address] Performed By: #### 2 4321-2 ####[facility] LABCLIA [id number] [place] [address] [place] Calcium [Mass/Vol] 9.6 mg/dL Normal 8.5-10.2 [facility] Comment on above: Order Comment: Speci men Type: BLOOD SPECIMENOrdering Facility: [facility] Address: [address] [place] [address] Performed By: #### 2 4321-2 ####[facility] LABCLIA [id number] [place] [address] [place] Chloride [Moles/Vol] 105 mmol/L Normal 97-105 [facility] Comment on above: Order Comment: Speci men Type: BLOOD SPECIMENOrdering Facility: [facility] Address: [address] [place] [address] Performed By: #### 2 4321-2 ####[facility] LABCLIA [id number] [place] [address] [place] CO2 [Moles/Vol] 25 mmol/L Normal 22-30 [facility] Comment on above: Order Comment: Speci men Type: BLOOD SPECIMENOrdering Facility: [facility] Address: [address] [place] [address] Performed By: #### 2 4321-2 ####[facility] LABCLIA [id number] [place] [address] [place] Creatinine [Mass/Vol] 0.98 mg/dL Normal 0.73-1.22 [facility] Comment on above: Order Comment: Speci men Type: BLOOD SPECIMENOrdering Facility: [facility] Address: [address] [place] [address] Performed By: #### 2 4321-2 ####[facility] LABCLIA [id number] [place] [address] [place] Creatinine and Glomerular filtration rate.predicted panel (S/P/Bld) 86 mL/min/1.73m??? Normal >=60 [facility] Comment on above: Order Comment: Misti hollingsworth Type: BLOOD SPECIMENOrdering Facility: [facility] Address: [address] [place] [address] Result Comment: [place] mated Glomerular Filtration Rate (eGFR) is calculated using the 2020 CKD-EPI creatinine equation. This equation utilizes serum creatinine, sex, and age as parameters. The creatinine assay has traceable calibration to isotope dilution-mass spectrometry. Refer to KDIGO guidelines for clinical interpretation. In patients with unstable renal function, e.g. those with acute kidney injury, the eGFR may not accurately reflect actual GFR. Performed By: #### 2 4321-2 ####[facility] [id number] [place] [address] [place] Glucose [Mass/Vol] 104 mg/dL High 74-99 [facility] Comment on above: Order Comment: Misti hollingsworth Type: BLOOD SPECIMENOrdering Facility: [facility] Address: [address] [place] [address] Result Comment: The [place] [employer] (ADA) provides guidance for cutoff values for fasting glucose and random glucose. The ADA defines fasting as no caloric intake for at least 8 hours. Fasting plasma glucose results between 100 to 125 mg/dL indicate increased risk for diabetes (prediabetes). Fasting plasma glucose results greater than or equal to 126 mg/dL meet the criteria for diagnosis of diabetes. In the absence of unequivocal hyperglycemia, results should be confirmed by repeat testing. In a patient with classic symptoms of hyperglycemia or hyperglycemic crisis, random plasma glucose results greater than or equal to 200 mg/dL meet the criteria for diagnosis of diabetes. Reference: Standards of Medical Care in Diabetes 2016, [place] [employer]. Diabetes Care. 2016.39(Suppl 1). Performed By: #### 2 4321-2 ####[facility] [id number] [place] [address] [place] Potassium [Moles/Vol] 4.6 mmol/L Normal 3.7-5.1 [facility] Comment on above: Order Comment: Misti hollingsworth Type: BLOOD SPECIMENOrdering Facility: [facility] Address: [address] [place] [address] Performed By: #### 2 4321-2 ####[facility] LABCLIA [id number] [place] [address] [place] Sodium [Moles/Vol] 143 mmol/L Normal 136-144 [facility] Comment on above: Order Comment: Speci men Type: BLOOD SPECIMENOrdering Facility: [facility] Address: [address] [place] [address] Performed By: #### 2 4321-2 ####[facility] LABCLIA [id number] [place] [address] [place] Urea nitrogen [Mass/Vol] 22 mg/dL Normal 9-24 [facility] Comment on above: Order Comment: Speci men Type: BLOOD SPECIMENOrdering Facility: [facility] Address: [address] [place] [address] Performed By: #### 2 4321-2 ####[facility] LABIA [id number] [place] [address] [place] CBC panel Auto (Bld)on 11-02 Erythrocyte distribution width (RBC) [Ratio] 13.0 % Normal 11.5-15.0 [facility] Comment on above: Order Comment: Speci men Type: BLOOD SPECIMENOrdering Facility: [facility] Address: [address] [place] [address] Performed By: #### 5 8410-2 ####[facility] LABIA [id number] [place] [id number] [place] Hematocrit (Bld) [Volume fraction] 44.7 % Normal 39.0-51.0 [facility] Comment on above: Order Comment: Speci men Type: BLOOD SPECIMENOrdering Facility: [facility] Address: [address] [place] [address] Performed By: #### 5 8410-2 ####[facility] LABCLIA [id number] [place] [address] [place] Hemoglobin (Bld) [Mass/Vol] 15.4 g/dL Normal 13.0-17.0 [facility] Comment on above: Order Comment: Speci men Type: BLOOD SPECIMENOrdering Facility: [facility] Address: [address] [place] [address] Performed By: #### 5 8410-2 ####[facility] LABCLIA [id number] [place] [address] [place] MCH (RBC) [Entitic mass] 32.2 pg Normal 26.0-34.0 [facility] Comment on above: Order Comment: Speci men Type: BLOOD SPECIMENOrdering Facility: [facility] Address: [address] [place] [address] Performed By: #### 5 8410-2 ####[facility] LABCLIA [id number] [place] [address] [place] MCHC (RBC) [Mass/Vol] 34.5 g/dL Normal 30.5-36.0 [facility] Comment on above: Order Comment: Speci men Type: BLOOD SPECIMENOrdering Facility: [facility] Address: [address] [place] [address] Performed By: #### 5 8410-2 ####[facility] LABIA [id number] [place] [address] [place] MCV (RBC) [Entitic vol] 93.5 fL Normal 80.0-100.0 [facility] Comment on above: Order Comment: Speci men Type: BLOOD SPECIMENOrdering Facility: [facility] Address: [address] [place] [address] Performed By: #### 5 8410-2 ####[facility] LABCLIA [id number] [place] [address] [place] Nucleated RBC (Bld) [#/Vol] 10*3/uL Normal <0.01 [facility] Comment on above: Order Comment: Speci men Type: BLOOD SPECIMENOrdering Facility: [facility] Address: [address] [place] [address] Performed By: #### 5 8410-2 ####[facility] LABIA [id number] [place] [address] [place] Platelet mean volume (Bld) [Entitic vol] 10.7 fL Normal 9.0-12.7 [facility] Comment on above: Order Comment: Speci men Type: BLOOD SPECIMENOrdering Facility: [facility] Address: [address] [place] [address] Performed By: #### 5 8410-2 ####[facility] LABIA [id number] [place] [address] [place] Platelets (Bld) [#/Vol] 224 10*3/uL Normal 150-400 [facility] Comment on above: Order Comment: Speci men Type: BLOOD SPECIMENOrdering Facility: [facility] Address: [address] [place] [address] Performed By: #### 5 8410-2 ####[facility] LABIA [id number] [place] [address] [place] RBC (Bld) [#/Vol] 4.78 10*6/uL Normal 4.20-6.00 [facility] Comment on above: Order Comment: Speci men Type: BLOOD SPECIMENOrdering Facility: [facility] Address: [address] [place] [address] Performed By: #### 5 8410-2 ####[facility] LABCLIA [id number] [place] [address] [place] WBC (Bld) [#/Vol] 6.69 10*3/uL Normal 3.70-11.00 [facility] Comment on above: Order Comment: Speci men Type: BLOOD SPECIMENOrdering Facility: [facility] Address: [address] [place] [address] Performed By: #### 5 8410-2 ####[facility] TONY [id number] [address] OF [facility] CNOVon 11-02-2023 CNOV Office Visit (UROLMN ) ----- DILLON SMILEY ([id number]) 1960 M Date Time Provider Department 11/02/23 2:00 PM HUI VELA During your visit today, we recorded the following information about you: Pulse Blood pressure Weight Height 79/minute 157/87 109.5 kg 1.803 m Hui Vela PA 11/02/2023 4:53 PM Signed UROLOGY SURGICAL HANDP SERVICE DATE: 11/02/2023 SERVICE TIME: 1:31 PM REFERRING PROVIDER: No referring provider defined for this encounter. PCP: No primary care provider on file. GENDER: SUBJECTIVE CHIEF COMPLAINT: Pre-op exam HISTORY OF PRESENT ILLNESS: Mr. Smiley is a 63 year old male who presents for pre-op HANDP. He is scheduled for TURBT with Dr. Jcaobsen on 11/10/2023 FUNCTIONAL STATUS: Do moderate work around the house such as vacuuming, sweeping floors, or carrying in groceries (3.50 METs) Do yardwork, such as raking leaves, weeding,or pushing a power mower (4.50 METs) Climb a flight of stairs or walk up a hill (5.50 METs) Participate in moderate recreational activities, such as golf, bowling, dancing, doubles tennis, or throwing a baseball or football (6.00 METs) Participate in strenuous sport, such as swimming, singles tennis, football, basketball, or skiing (7.50 METs) Do heavy work around the house, such as scrubbing floors, lifting or moving heavy furniture (8.00 METs) Run a short distance (8.00 METs) Denies chest pain and SOB with above activities No past medical history on file. No past surgical history on file. No family history on file. Social History Tobacco Use Smoking status: Never Smokeless tobacco: Never Substance Use Topics Alcohol use: Yes Alcohol/week: 6.0 standard drinks of alcohol Types: 6 Shots of liquor per week Drug use: Never REVIEW OF SYSTEMS: General: General: Well developed, well nourished. No acute distress HEENT: Negative for sore throat, difficulty swallowing. Negative for frequent or significant headaches, changes in vision or hearing. Cardiovascular: No history of cardiovascular symptoms or problems. No history of angina, CHF, AR, cardiac surgery of stents. Respiratory: Negative for current cough, dyspnea. No hx of pneumonia in the past six weeks Gastrointestinal: No history of GERD, PUD, abd pain, difficulty swallowing, GI bleed. Renal: Negative for renal failure and No history of dialysis Musculoskeletal: Negative for joint pain or swelling, back pain or muscle pain. Skin: Negative for lesions, rash and itching. Psychological: No history of psychiatric symptoms or problems. Neurologic: No history of TIA's, stroke, CHILD SPECIALIST tumor, impaired sensorium, hemiplegia or paraplegia No neurological symptoms or problems. Hematology/Oncology: No history of bleeding or clotting disorder. Pt is not taking anti-coagulation or platelet medications. No history of hematological symptoms or problems. Endocrine: No history of endocrinological symptoms or problems No history of DM; has not taken steroids w/in past 30 days. Negative for excessive sweating, thirst or hunger PHYSICAL EXAM: General Appearance/ Constitutional: Well developed, well nourished, and in no apparent distress Head and Neck normal, no jugular venous extension, no thyromegaly, and no palpable mass Eyes: Pupils are equally round and reactive to light. Extraocular movements are intact. Respiratory: Clear to auscultation AND percussion Cardiovascular: Normal, Regular rate and rhythm, and No murmurs GI: Soft, Non-tender, No masses, hepatosplenomegaly, and No lymphadenopathy Extremities: Radial and pedal pulses +2, no edema, extremities WNL Back: Normal back and mobility Neurological: Normal cognition and motor skills. Skin: Color, texture, turgor normal. VITALS: There were no vitals taken for this visit. ALLERGIES: ALLERGIES No Known Allergies LABS: BUN (mg/dL) Date Value 06/15/2023 24 Creatinine (mg/dL) Date Value 06/15/2023 1.01 No results found for: PSA Glucose, Urine (no units) Date Value 06/15/2023 Negative Bilirubin, Urine (no units) Date Value 06/15/2023 Negative Ketones, Urine (no units) Date Value 06/15/2023 Negative Specific [place], Ur (no units) Date Value 06/15/2023 1.028 Hemoglobin/Blood,Ur (no units) Date Value 06/15/2023 3+ (A) pH, Urine (no units) Date Value 06/15/2023 5.5 Protein, Urine (no units) Date Value 06/15/2023 1+ (A) Nitrites (no units) Date Value 06/15/2023 Negative WBC, Urine (no units) Date Value 06/15/2023 >25 /HPF (A) Color (no units) Date Value 06/15/2023 Yellow Clarity (no units) Date Value 06/15/2023 Cloudy (A) MEDICATIONS: (Not in a hospital admission) Current Outpatient Medications Medication Sig tamsulosin (FLOMAX) 0.4 mg Take 1 capsule by mouth every afternoon. acetaminophen (TYLENOL) 325 mg tablet Take 2 tablets by mouth every 4 ho (more content not included)... Normal [facility] PT panel Coag (PPP)on 2023 INR Coag (PPP) [Relative time] 1.0 {INR} Normal 0.9-1.3 [facility] Comment on above: Order Comment: Speci men Type: BLOOD SPECIMENOrdering Facility: [facility] Address: [address] [place] [address] Result Comment: Kelli min K Antagonist (VKA) Therapeutic Range: INR 2 to 3 (Target INR of 2.5) Note: For patients treated with VKA drugs, such as warfarin, the [place] [employer] 2012 Guideline recommends a therapeutic INR range of 2 to 3 (target INR of 2.5). This recommendation includes high-risk patients with antiphospholipid syndrome with previous arterial or venous thromboembolism, current-generation mechanical or bioprosthetic aortic heart valve replacement. Note: Patients with mechanical aortic valve replacement and additional risk factors for thromboembolic events (atrial fibrillation, previous thromboembolism, LV dysfunction, hypercoagulable conditions) or an older generation mechanical AVR (i.e., ball in-Cage) or any mechanical MVR should have a INR therapeutic range of 2.5 to 3.5 (target INR of 3). Alysa GH, et al. Chest 2012, 141:7S-47S Francois CAMPOS et al. [facility] 2017, 70: 252-289 Performed By: #### 3 4528-0, 17153-3 ####[facility] LABCLIA [id number] [place] [address] [place] PT Coag (PPP) [Time] 10.6 s Normal 9.7-13.0 [facility] Comment on above: Order Comment: Speci men Type: BLOOD SPECIMENOrdering Facility: [facility] Address: [address] [place] [address] Performed By: #### 3 4528-0, 97616-6 ####[facility] LABIA [id number] [place] [address] [place] Urinalysis complete panel (U )on 11-02-2023 Bacteria LM.HPF (Urine sed) [#/Area] Negative Normal Negative [facility] Comment on above: Order Comment: Speci men Type: URINE SPECIMENOrdering Facility: [facility] Address: [address] [place] [address] Performed By: #### 2 4356-8 ####[facility] LABIA [id number] [place] [address] [place] Bilirubin Ql (U) Negative Normal Negative [facility] Comment on above: Order Comment: Speci men Type: URINE SPECIMENOrdering Facility: [facility] Address: [address] [place] [address] Performed By: #### 2 4356-8 ####[facility] LABIA [id number] [place] [address] [place] Clarity (Unsp spec) Clear Normal Clear [facility] Comment on above: Order Comment: Speci men Type: URINE SPECIMENOrdering Facility: [facility] Address: [address] [place] [address] Performed By: #### 2 4356-8 ####[facility] LABCLIA [id number] [place] [address] [place] Color (U) Yellow Normal Yellow [facility] Comment on above: Order Comment: Speci men Type: URINE SPECIMENOrdering Facility: [facility] Address: [address] [place] [address] Performed By: #### 2 4356-8 ####[facility] LABCLIA [id number] [place] [address] [place] Epithelial cells LM.HPF (Urine sed) [#/Area] None Seen Normal [facility] Comment on above: Order Comment: Speci men Type: URINE SPECIMENOrdering Facility: [facility] Address: [address] [place] [address] Performed By: #### 2 4356-8 ####[facility] LABCLIA [id number] [place] [address] [place] Glucose Test strip (U) [Mass/Vol] Negative Normal Negative [facility] Comment on above: Order Comment: Speci men Type: URINE SPECIMENOrdering Facility: [facility] Address: [address] [place] [address] Performed By: #### 2 4356-8 ####[facility] LABCLIA [id number] [place] [address] [place] Hemoglobin Ql (U) 2+ Abnormal Negative [facility] Comment on above: Order Comment: Speci men Type: URINE SPECIMENOrdering Facility: [facility] Address: [address] [place] [address] Performed By: #### 2 4356-8 ####[facility] LABCLIA [id number] [place] [address] [place] Hyaline casts (Urine sed) [#/Area] 0 /[LPF] Normal 0 /LPF [facility] Comment on above: Order Comment: Speci men Type: URINE SPECIMENOrdering Facility: [facility] Address: [address] [place] [address] Performed By: #### 2 4356-8 ####[facility] LABCLIA [id number] [place] [address] [place] Ketones Ql (U) Negative Normal Negative [facility] Comment on above: Order Comment: Speci men Type: URINE SPECIMENOrdering Facility: [facility] Address: [address] [place] [address] Performed By: #### 2 4356-8 ####[facility] LABCLIA [id number] [place] [address] [place] Leukocyte esterase Test strip Ql (U) Negative Normal Negative [facility] Comment on above: Order Comment: Speci men Type: URINE SPECIMENOrdering Facility: [facility] Address: [address] [place] [address] Performed By: #### 2 4356-8 ####[facility] LABCLIA [id number] [place] [address] [place] Nitrite Ql (U) Negative Normal Negative [facility] Comment on above: Order Comment: Speci men Type: URINE SPECIMENOrdering Facility: [facility] Address: [address] [place] [address] Performed By: #### 2 4356-8 ####[facility] LABCLIA [id number] [place] [address] [place] pH (U) 5.5 [pH] Normal <8.5 [facility] Comment on above: Order Comment: Speci men Type: URINE SPECIMENOrdering Facility: [facility] Address: [address] [place] [address] Performed By: #### 2 4356-8 ####[facility] LABCLIA [id number] [place] [address] [place] Protein (U) [Mass/Vol] 2+ Abnormal Negative Cl [facility] Comment on above: Order Comment: Speci men Type: URINE SPECIMENOrdering Facility: [facility] Address: [address] [place] [address] Performed By: #### 2 4356-8 ####[facility] LABIA [id number] [place] [address] [place] RBC LM.HPF (Urine sed) [#/Area] 0-2 /HPF Normal 0-2 /HPF [facility] Comment on above: Order Comment: Speci men Type: URINE SPECIMENOrdering Facility: [facility] Address: [address] [place] [address] Performed By: #### 2 4356-8 ####[facility] LABIA [id number] [place] [address] [place] Specific gravity (U) [Rel density] 1.025 Normal 1.005-1.03 0 [facility] Comment on above: Order Comment: Speci men Type: URINE SPECIMENOrdering Facility: [facility] Address: [address] [place] [address] Performed By: #### 2 4356-8 ####[facility] LABIA [id number] [place] [address] [place] Urobilinogen Ql (U) 0.2 EU/dL Normal 0.2-1.0 EU/dL [facility] Comment on above: Order Comment: Speci men Type: URINE SPECIMENOrdering Facility: [facility] Address: [address] [place] [address] Performed By: #### 2 4356-8 ####[facility] LABIA [id number] [place] [address] [place] WBC LM.HPF (Urine sed) [#/Area] 11-20 /HPF Abnormal 0-5 /HPF [facility] Comment on above: Order Comment: Speci men Type: URINE SPECIMENOrdering Facility: [facility] Address: [address] [place] [address] Performed By: #### 2 4356-8 ####[facility] LABIA [id number] [place] [address] [place] aPTT PPPon 11-02-2023 aPTT Coag (PPP) [Time] 27.4 s Normal 23.0-32.4 Cl [facility] Comment on above: Order Comment: Speci men Type: BLOOD SPECIMENOrdering Facility: [facility] Address: [address] [place] [address] Performed By: #### 3 4528-0, 21235-4 ####[facility] LABIA [id number] [place] [address] [place] Bacteria Ur Culton 3 Bacteria identified Cx Nom (U) CULTURE, URINE: No growth (<1,000 CFU/ml) Normal [facility] Comment on above: Performed By: #### 6 30-4 ####[facility] LABIA [id number] [address] [place] CNOVon 10-19-2023 CNOV Office Visit (UROSMN ) ----- DILLON SMILEY ([id number]) 1960 M Date Time Provider Department 10/19/23 2:45 PM RIGO JACOBSEN UROSOFIA During your visit today, we recorded the following information about you: Chiara Martinez Ma 10/20/2023 8:07 AM Signed Actual procedure/procedure scheduled: Yes Performing provider/scheduled provider: Yes Patient was roomed in: 9- 11 Aerial Planting And Cultivation Manager offered:Patient declines Patient arrived in the room at: 1415 Patient ready for procedure: 1426 The procedure started at ( Time Only): 1500 The procedure ended at: 1509 Was the procedure delayed: Yes: Provider late: Provider in clinic The patient left the procedure room at: 1520 Chiara Martinez Ma PRE PROCEDURE ASSESSMENT- Cysto Procedure Indication: Cystoscopy Latex Allergy: No Allergies reviewed and updated. Yes Heart valve replacement: No Joint replacement: No Back Office UA otained: yes PROCEDURE PREP-Cysto Patient ID with two(2)identifiers verified by: Chiara Martinez Ma Pre-Procedure Antibiotics: None taken at home nor prior to procedure Patient Prep: Betadine Scrub to perineum and placement of Sterile Drape. COMPLETED Anesthetic Given:Administered by MD - see Procedure Physician Note. Chiara Martinez Ma UNIVERSAL PROTOCOL / SAFETY CHECKLIST Procedure to be performed: Cystoscopy Sign in Communication: Completed Time Out: Team Confirms the Correct Patient, Correct Procedure, Correct Site and Site Marking, Correct Position (if applicable). Sign Out Discussion: Completed Chiara Martinez Ma POST PROCEDURE NURSE ASSESSMENT Present along with physician during procedure exam. Chiara Martinez Ma Instruction sheet given and reviewed and patient verbalizes understanding: yes Post Procedure Antibiotic: none Current pain intensity is 0 on a 0-10 pain scale. Chiara Martinez Ma AMBULATORY PATIENT EDUCATION THE FOLLOWING WAS EVALUATED Motivation To Learn: Interested Family/Significant Other Support: Unable to assess - Family not present Cognitive Ability: Alert/Oriented Method of Instruction: Individual instruction The Following Influencing Factors Were Barriers To This Education Session: None The Following Physical Limitations Were Barriers To This Education Session: None Instruction Provided To: Patient Assistant Plant Control Operator Present: not applicable Discipline: Nursing Learning Topic: SURVIVAL SKILLS: Symptom Management Patient Evaluation: Verbalizes understanding: Yes Supplemental Material Given: Written Material Instructed By Chiara Martinez Ma In Department Urology . Rigo Jacobsen MD 10/20/2023 8:07 AM Signed [place] [id number] AMBULATORY PROCEDURE NOTE NAME: Dillon Smiley AGE: [age] year old CLINIC #: [id number] DATE: October 19, 2023 SURGEON: Rigo Jacobsen MD PROCEDURE: Cystoscopy ANESTHESIA: Lidocaine gel per urethra DIAGNOSIS: Bladder cancer INDICATION: Surveillance FINDINGS: Number of tumors: 1 Size of largest tumor: 2 - 5 cm Appearance: CIS Location: Posterior wall Urethral involvement: No Ureteral orifice involvement: No Urethra: Normal Prostate: Moderate lateral lobes Verumontanum: Open Urine cytology: Voided PROCEDURE: After informed consent was obtained, the patient was taken to the endoscopy suite. A time out was performed where the patient and the procedure were identified in the presence of the Nursing and Surgical Staff. Patient was placed in supine position, prepped and draped in the standard sterile fashion. Lidocaine gel was placed per urethra for local anesthesia. Cystoscopy was then performed using a 17 F flexible cystoscope. Sterile technique was maintained throughout. Please refer to above for specific findings during this part of the procedure. After carefully and atraumatically inspecting the urethra, prostate, and bladder, the bladder was emptied and the cystoscope was removed. The patient tolerated the procedure well and there were no complications. 10/19/23 Cysto: recurrence; cytology: pending 09/08/23 BCG x 6 completed 06/16/23 TURBT: chronic inflammation 04/22/23 TURBT: cT1HG ASSESSMENT/PLAN: Findings concerning for recurrence, recommend TURBT. Discussed r/b/a and expectations for post-op recovery. He is in agreement and wishes to proceed, will schedule. By signing my name below, I, Arnoldo Avila, attest that this documentation has been prepared under the direction and in the presence of Dr. Jacobsen Electronically signed, Remy Phanibjose cruz STAFF PHYSICIAN NOTE OF PERSONAL INVOLVEMENT IN CARE The above noted history, physical, assessment and plan were reviewed with the provider and critical portions of the HANDP were confirmed. I evaluated and examined the patient and agree with the plan above and provided direct supervision of the above provider during this patient's care. MD Juan White Ma, Ma (more content not included)... Normal [facility] CYTOLOGY NON-GYNon 3 CASE REPORT Normal [facility] Comment on above: Order Comment: Speci men Type: FLUID SPECIMENOrdering Facility: [facility] Address: [address] [place] [address] Result Comment: [facility] Cytology Report Case: [id number] Authorizing Provider: Rigo Jaocbsen MD Collected: 10/19/2023 03:26 PM Ordering Location: Urology Received: 10/19/2023 06:26 PM Pathologist: Roni Gray MD Specimen: URINE VOIDED Performed By: #### C YTONON ####[facility] LABCLIA [id number] [place] [address] [place] CLINICAL HISTORY bladder cancer Normal [facility] Comment on above: Order Comment: Speci men Type: FLUID SPECIMENOrdering Facility: [facility] Address: [address] [place] [address] Performed By: #### C YTONON ####[facility] LABCLIA [id number] [place] [address] [place] FINAL DIAGNOSIS Normal [facility] Comment on above: Order Comment: Speci men Type: FLUID SPECIMENOrdering Facility: [facility] Address: [address] [place] [address] Result Comment: A - URINE, VOIDED: Atypical urothelial cells. Acute inflammation and red blood cells. Performed By: #### C YTONON ####[facility] LABCLIA [id number] [place] [address] [place] FINAL PERFORMING LAB Normal [facility] Comment on above: Order Comment: Speci men Type: FLUID SPECIMENOrdering Facility: [facility] Address: [address] [place] [address] Result Comment: Tech nical component, screen printing supervisor screening performed at [facility], [facility] [place] [id number] CLIA# [id number] Diagnostic interpretation performed at [facility], [address] [facility] [place] [address] CLIA# [id number] Associate Civil Engineer: Alejandro Mills M.D. Performed By: #### C YTONON ####[facility] LABCLIA [id number] [place] [address] [place] GROSS DESCRIPTION A. URINE VOIDED Normal [facility] Comment on above: Order Comment: Speci men Type: FLUID SPECIMENOrdering Facility: [facility] Address: [address] [place] [address] [place] [address] Result Comment: 80 c c clear yellow fluid. ThinPrep prepared. Performed By: #### C SUDHAKAR ####[facility] LABCLIA [id number] [id number] [id number] [place] CNNURSEon 09-08-2023 CNNURSE Nurse Visit (UROLLN) ----- DILLON SMILEY ([id number]) 1960 M Date Time Provider Department 09/08/23 12:00 PM NURSE UROL [facility] MAKEDA DACOSTA During your visit today, we recorded the following information about you: Elder Corona LPN 09/08/2023 12:08 PM Signed BLADDER INSTILLATION Malignant neoplasm of urinary bladder, unspecified site (hcc) Patient ID with two (2) identifiers verified by: Name and . Allergies reviewed and updated: Yes Medication ordered for bladder instillation: BCG Current pain intensity is: 0 on a 0-10 pain scale. Have you seen any blood in the last 24 hours: No Have you had a temperature greater than 101F in the last 24 hours: No Do you have foul smelling urine or severe burning/urgency that has worsened since the last bladder instillation treatment: No No, Proceed with BCG Any concerns about safety in the home/falls: Not at risk for falls Start Date: 08/02/2023 Treatment number: 6 of 6 Retention Time Last RX: 2 hours Symptoms Post Last RX: None Catheter Used: 14 fr. red karel BCG instilled at: 1158 Drained at: 1155 with 65 ml urine residual Residual TX: No 0 cc. Return to Clinic on : TBD by Dr. Jacobsen. Patient tolerated treatment well. Instructed patient to hold urine for 2 hours after bladder instillation. Patient stated understanding. Carried out orders of Dr. Jacobsen, under the supervision of Dr. Robertson. Elder Corona LPN Allergies As of Date: 09/08/2023 (No Known Allergies) Date Reviewed: 09/08/2023 Reviewed by: Elder Corona LPN - Fully Assessed Reason for Visit: Bladder Instillation Treatment [348] Cmt: BCG 04/05 Visit Diagnosis:Malignant neoplasm of urinary bladder, unspecified site (HCC) [C67.9] Order(s):[] bcg 50 mg in NaCl 0.9% 50 mLDisp: Rfl: [] lidocaine urojet 2 % 11 mL topical gel (GLYDO)Disp: Rfl: Prescriptions as of 09/08/2023 - tamsulosin (FLOMAX) 0.4 mg Take 1 capsule by mouth every afternoon. - acetaminophen (TYLENOL) 325 mg tablet Take 2 tablets by mouth every 4 hours as needed for pain. - ezetimibe (ZETIA) 10 mg tablet q 24 HR. - mirabegron (MYRBETRIQ) 25 mg Tb24 Take 25 mg by mouth. - valsartan (DIOVAN) 160 mg tablet Take by mouth. Problem List As Of Date: 09/08/2023 (None) Visit Notes: >> Elder Corona LPN [place] Sep 08, 2023 11:53 AM Status: Signed BLADDER INSTILLATION Malignant neoplasm of urinary bladder, unspecified site (hcc) Patient ID with two (2) identifiers verified by: Name and . Allergies reviewed and updated: Yes Medication ordered for bladder instillation: BCG Current pain intensity is: 0 on a 0-10 pain scale. Have you seen any blood in the last 24 hours: No Have you had a temperature greater than 101F in the last 24 hours: No Do you have foul smelling urine or severe burning/urgency that has worsened since the last bladder instillation treatment: No No, Proceed with BCG Any concerns about safety in the home/falls: Not at risk for falls Start Date: 08/02/2023 Treatment number: 6 of 6 Retention Time Last RX: 2 hours Symptoms Post Last RX: None Catheter Used: 14 fr. red karel BCG instilled at: 1158 Drained at: 1155 with 65 ml urine residual Residual TX: No 0 cc. Return to Clinic on : TBD by Dr. Jacobsen. Patient tolerated treatment well. Instructed patient to hold urine for 2 hours after bladder instillation. Patient stated understanding. Carried out orders of Dr. Jacobsen, under the supervision of Dr. Robertson. Elder Corona LPN Prescriptions ordered this encounter Disp Refills Start End BCG FOR BLADDER IRRIGATION 09/08/2023 09/08/2023 Route: INTRAVESIC LIDOCAINE 2 % MUCOSAL JELLY IN APPLI* 09/08/2023 09/08/2023 Route: OTHER Encounter Status:Closed by ELDER CORONA on 09/08/23 [facility] Nurse Visit (UROKRIS) ----- DILLON SMILEY ([id number]) 1960 M Date Time Provider Department 08/30/23 9:30 AM NURSE UROL [facility] MAKEDA DACOSTA During your visit today, we recorded the following information about you: Temperature Pulse Blood pressure Weight 97.9 degrees 77/minute 150/86 105.7 kg Elder Corona LPN 09/19/2023 8:24 AM Addendum BLADDER INSTILLATION Malignant neoplasm of urinary bladder, unspecified site (hcc) (primary encounter diagnosis) Patient ID with two (2) identifiers verified by: name and . Allergies reviewed and updated: Yes Medication ordered for bladder instillation: BCG Current pain intensity is: 0 on a 0-10 pain scale. Have you seen any blood in the last 24 hours: No Have you had a temperature greater than 101F in the last 24 hours: No Do you have foul smelling urine or severe burning/urgency that has worsened since the last bladder instillation treatment: No No, Proceed with BCG Any concerns about safety in the home/falls: Not at risk for falls Start Date: 08/02/2023 Treatment number: 5 of 6 Retention Time Last RX: 2 hours Symptoms Post Last RX: Fatigue for 24 hours. Catheter Used: 14 fr. red karel BCG instilled at: 0945 with 10ml residual. Drained at: 0944 Residual TX: No 0 cc. Return to Clinic on : 09/08/2023. Patient tolerated treatment well. Instructed patient to hold urine for 2 hours after instillation. Patient stated understanding. Carried out orders of Dr. Jacobsen, under the supervision of Dr. Whittaker. Elder Everett LPN Allergies As of Date: 08/30/2023 (No Known Allergies) Date Reviewed: 08/30/2023 Reviewed by: Elder Everett LPN - Fully Assessed Reason for Visit: Bladder Instillation Treatment [348] Cmt: BCG 03/05 Primary Visit Diagnosis:Malignant neoplasm of urinary bladder, unspecified site (HCC) [C67.9] Order(s):[] bcg 50 mg in NaCl 0.9% 50 mLDisp: Rfl: [] lidocaine urojet 2 % 11 mL topical gel (GLYDO)Disp: Rfl: Prescriptions as of 09/19/2023 - tamsulosin (FLOMAX) 0.4 mg Take 1 capsule by mouth every afternoon. - acetaminophen (TYLENOL) 325 mg tablet Take 2 tablets by mouth every 4 hours as needed for pain. - ezetimibe (ZETIA) 10 mg tablet q 24 HR. - mirabegron (MYRBETRIQ) 25 mg Tb24 Take 25 mg by mouth. - valsartan (DIOVAN) 160 mg tablet Take by mouth. Problem List As Of Date: 08/30/2023 (None) Visit Notes: >> Elder Corona LPN Tue Aug 30, 2023 9:24 AM Status: Addendum BLADDER INSTILLATION Malignant neoplasm of urinary bladder, unspecified site (hcc) (primary encounter diagnosis) Patient ID with two (2) identifiers verified by: name and . Allergies reviewed and updated: Yes Medication ordered for bladder instillation: BCG Current pain intensity is: 0 on a 0-10 pain scale. Have you seen any blood in the last 24 hours: No Have you had a temperature greater than 101F in the last 24 hours: No Do you have foul smelling urine or severe burning/urgency that has worsened since the last bladder instillation treatment: No No, Proceed with BCG Any concerns about safety in the home/falls: Not at risk for falls Start Date: 08/02/2023 Treatment number: 5 of 6 Retention Time Last RX: 2 hours Symptoms Post Last RX: Fatigue for 24 hours. Catheter Used: 14 fr. red karel BCG instilled at: 0945 with 10ml residual. Drained at: 0944 Residual TX: No 0 cc. Return to Clinic on : 09/08/2023. Patient tolerated treatment well. Instructed patient to hold urine for 2 hours after instillation. Patient stated understanding. Carried out orders of Dr. Jacobsen, under the supervision of Dr. Whittaker. Elder Everett LPN Prescriptions ordered this encounter Disp Refills Start End BCG FOR BLADDER IRRIGATION 08/30/2023 08/30/2023 Route: INTRAVESIC LIDOCAINE 2 % MUCOSAL JELLY IN APPLI* 08/30/2023 08/30/2023 Route: OTHER Medications Discontinued During This Encounter Prescriptions - oxybutynin (DITROPAN) 5 mg tablet (Discontinued) Take 1 tablet by mouth three times daily. Do not take within 12 hours of catheter removal - phenazopyridine (PYRIDIUM) 200 mg tablet (Discontinued) Take 1 tablet by mouth three times daily as needed. Encounter Status:Closed by ELDER CORONA on 08/30/23 [facility] Nurse Visit (UROLLN) ----- DILLON SMILEY ([id number]) 1960 M Date Time Provider Department 08/23/23 9:30 AM NURSE UROL [facility] MAKEDA DACOSTA During your visit today, we recorded the following information about you: Pulse Blood pressure Weight 75/minute 151/91 105.7 kg Enrrique Peacock LPN 08/23/2023 9:27 AM Signed Malignant neoplasm of urinary bladder, unspecified site (hcc) BLADDER INSTILLATION Patient ID with two (2) identifiers verified by: Enrrique Peacock LPN Allergies reviewed and updated: Yes Medication ordered for bladder instillation: BCG Current pain intensity is: 0 on a 0-10 pain scale. Have you seen any blood in the last 24 hours: No Have you had a temperature greater than 101F in the last 24 hours: No Do you have foul smelling urine or severe burning/urgency that has worsened since the last bladder instillation treatment: No No, Proceed with BCG Any concerns about safety in the home/falls: Not at risk for falls Start Date: 08/02/2023 Treatment number: 4 of 6 Retention Time Last RX: 2 hours Symptoms Post Last RX: None Catheter Used: 14 fr. red karel BCG instilled at: 0925 Drained at: 0923 Residual TX: No 0 cc. Return to Clinic on : 08/30/2023 Patient tolerated treatment well. Enrrique Peacock LPN Allergies As of Date: 08/23/2023 (No Known Allergies) Date Reviewed: 08/23/2023 Reviewed by: Enrrique Peacock LPN - Fully Assessed Reason for Visit: Bladder Instillation Treatment [348] Visit Diagnosis:Malignant neoplasm of urinary bladder, unspecified site (HCC) [C67.9] Order(s):[] bcg 50 mg in NaCl 0.9% 50 mLDisp: Rfl: [] lidocaine urojet 2 % 11 mL topical gel (GLYDO)Disp: Rfl: Prescriptions as of 08/23/2023 - oxybutynin (DITROPAN) 5 mg tablet Take 1 tablet by mouth three times daily. Do not take within 12 hours of catheter removal - phenazopyridine (PYRIDIUM) 200 mg tablet Take 1 tablet by mouth three times daily as needed. - acetaminophen (TYLENOL) 325 mg tablet Take 2 tablets by mouth every 4 hours as needed for pain. - ezetimibe (ZETIA) 10 mg tablet q 24 HR. - mirabegron (MYRBETRIQ) 25 mg Tb24 Take 25 mg by mouth. - valsartan (DIOVAN) 160 mg tablet Take by mouth. Problem List As Of Date: 08/23/2023 (None) Visit Notes: >> Enrrique Peacock LPN Tujose cruz Aug 23, 2023 9:20 AM Status: Signed Malignant neoplasm of urinary bladder, unspecified site (hcc) BLADDER INSTILLATION Patient ID with two (2) identifiers verified by: Enrrique Peacock LPN Allergies reviewed and updated: Yes Medication ordered for bladder instillation: BCG Current pain intensity is: 0 on a 0-10 pain scale. Have you seen any blood in the last 24 hours: No Have you had a temperature greater than 101F in the last 24 hours: No Do you have foul smelling urine or severe burning/urgency that has worsened since the last bladder instillation treatment: No No, Proceed with BCG Any concerns about safety in the home/falls: Not at risk for falls Start Date: 08/02/2023 Treatment number: 4 of 6 Retention Time Last RX: 2 hours Symptoms Post Last RX: None Catheter Used: 14 fr. red karel BCG instilled at: 0925 Drained at: 0923 Residual TX: No 0 cc. Return to Clinic on : 08/30/2023 Patient tolerated treatment well. Enrrique Peacock LPN Prescriptions ordered this encounter Disp Refills Start End BCG FOR BLADDER IRRIGATION 08/23/2023 08/23/2023 Route: INTRAVESIC LIDOCAINE 2 % MUCOSAL JELLY IN APPLI* 08/23/2023 08/23/2023 Route: OTHER Encounter Status:Closed by ENRRIQUE PEACOCK on 08/23/23 [facility] CNNURSEon 08-16-2023 [facility] Nurse Visit (UROLLN) ----- DILLON SMILEY ([id number]) 1960 M Date Time Provider Department 08/16/23 9:00 AM NURSE UROL [facility] MAKEDA DACOSTA During your visit today, we recorded the following information about you: Temperature Pulse Blood pressure Weight 97.8 degrees 81/minute 139/82 105.7 kg Kasia Lugo RN 08/16/2023 3:18 PM Signed BLADDER INSTILLATION Patient ID with two (2) identifiers verified by: name and Allergies reviewed and updated: Yes Medication ordered for bladder instillation: BCG Current pain intensity is: 0 on a 0-10 pain scale. Have you seen any blood in the last 24 hours: No Have you had a temperature greater than 101F in the last 24 hours: No Do you have foul smelling urine or severe burning/urgency that has worsened since the last bladder instillation treatment: No No, Proceed with BCG Any concerns about safety in the home/falls: Not at risk for falls Start Date: 08/02/23 Treatment number: 3 of 6 Retention Time Last RX: 2 hours Symptoms Post Last RX: None Catheter Used: 14 fr. red karel BCG instilled at: 0920 Drained at: 0918 Residual TX: No 0 cc. Return to Clinic on : 08/23/23 Patient tolerated treatment well. Kasia Lugo RN Malignant neoplasm of urinary bladder, unspecified site (hcc) Allergies As of Date: 08/16/2023 (No Known Allergies) Date Reviewed: 08/09/2023 Reviewed by: Enrrique Peacock LPN - Fully Assessed Visit Diagnosis:Malignant neoplasm of urinary bladder, unspecified site (HCC) [C67.9] Order(s):[] bcg 50 mg in NaCl 0.9% 50 mLDisp: Rfl: [] lidocaine urojet 2 % 11 mL topical gel (GLYDO)Disp: Rfl: Prescriptions as of 08/16/2023 - oxybutynin (DITROPAN) 5 mg tablet Take 1 tablet by mouth three times daily. Do not take within 12 hours of catheter removal - phenazopyridine (PYRIDIUM) 200 mg tablet Take 1 tablet by mouth three times daily as needed. - acetaminophen (TYLENOL) 325 mg tablet Take 2 tablets by mouth every 4 hours as needed for pain. - ezetimibe (ZETIA) 10 mg tablet q 24 HR. - mirabegron (MYRBETRIQ) 25 mg Tb24 Take 25 mg by mouth. - valsartan (DIOVAN) 160 mg tablet Take by mouth. Problem List As Of Date: 08/16/2023 (None) Visit Notes: >> Kasia Lugo RN Tue Aug 16, 2023 8:57 AM Status: Signed BLADDER INSTILLATION Patient ID with two (2) identifiers verified by: name and Allergies reviewed and updated: Yes Medication ordered for bladder instillation: BCG Current pain intensity is: 0 on a 0-10 pain scale. Have you seen any blood in the last 24 hours: No Have you had a temperature greater than 101F in the last 24 hours: No Do you have foul smelling urine or severe burning/urgency that has worsened since the last bladder instillation treatment: No No, Proceed with BCG Any concerns about safety in the home/falls: Not at risk for falls Start Date: 08/02/23 Treatment number: 3 of 6 Retention Time Last RX: 2 hours Symptoms Post Last RX: None Catheter Used: 14 fr. benigno vinson BCG instilled at: 0920 Drained at: 0918 Residual TX: No 0 cc. Return to Clinic on : 08/23/23 Patient tolerated treatment well. Kasia Lugo RN Malignant neoplasm of urinary bladder, unspecified site (hcc) Prescriptions ordered this encounter Disp Refills Start End BCG FOR BLADDER IRRIGATION 08/16/2023 08/16/2023 Route: INTRAVESIC LIDOCAINE 2 % MUCOSAL JELLY IN APPLI* 08/16/2023 08/16/2023 Route: OTHER Encounter Status:Closed by KASIA LUGO on 08/16/23 [facility] CNNURSEon 08-09-2023 [facility] ([facility]OLLN) ----- DILLON SMILEY ([id number]) 1960 M Date Time Provider Department 08/09/23 9:30 AM NURSE UROL [facility] MAKEDA DACOSTA During your visit today, we recorded the following information about you: Temperature Pulse Blood pressure 98 degrees 76/minute 154/93 Enrrique Peacock LPN 08/09/2023 9:33 AM Signed Malignant neoplasm of urinary bladder, unspecified site (hcc) BLADDER INSTILLATION Patient ID with two (2) identifiers verified by: Enrrique Peacock LPN Allergies reviewed and updated: Yes Medication ordered for bladder instillation: BCG Current pain intensity is: 0 on a 0-10 pain scale. Have you seen any blood in the last 24 hours: No Have you had a temperature greater than 101F in the last 24 hours: No Do you have foul smelling urine or severe burning/urgency that has worsened since the last bladder instillation treatment: No No, Proceed with BCG Any concerns about safety in the home/falls: Not at risk for falls Start Date: 08/02/2023 Treatment number: 2 of 6 Retention Time Last RX: 2 hours Symptoms Post Last RX: None Catheter Used: 14 fr. benigno vinson BCG instilled at: 0931 Drained at: 0928 Residual TX: No 0 cc. Return to Clinic on : 08/16/2023 Patient tolerated treatment well. Enrrique Peacock LPN Allergies As of Date: 08/09/2023 (No Known Allergies) Date Reviewed: 08/09/2023 Reviewed by: Enrrique Peacock LPN - Fully Assessed Reason for Visit: Bladder Instillation Treatment [348] Visit Diagnosis:Malignant neoplasm of urinary bladder, unspecified site (HCC) [C67.9] Order(s):[] bcg 50 mg in NaCl 0.9% 50 mLDisp: Rfl: [] lidocaine urojet 2 % 11 mL topical gel (GLYDO)Disp: Rfl: Prescriptions as of 08/09/2023 - oxybutynin (DITROPAN) 5 mg tablet Take 1 tablet by mouth three times daily. Do not take within 12 hours of catheter removal - phenazopyridine (PYRIDIUM) 200 mg tablet Take 1 tablet by mouth three times daily as needed. - acetaminophen (TYLENOL) 325 mg tablet Take 2 tablets by mouth every 4 hours as needed for pain. - ezetimibe (ZETIA) 10 mg tablet q 24 HR. - mirabegron (MYRBETRIQ) 25 mg Tb24 Take 25 mg by mouth. - valsartan (DIOVAN) 160 mg tablet Take by mouth. Problem List As Of Date: 08/09/2023 (None) Visit Notes: >> Enrrique Peacock LPN Tujose cruz Aug 09, 2023 9:25 AM Status: Signed Malignant neoplasm of urinary bladder, unspecified site (hcc) BLADDER INSTILLATION Patient ID with two (2) identifiers verified by: Enrrique Peacock LPN Allergies reviewed and updated: Yes Medication ordered for bladder instillation: BCG Current pain intensity is: 0 on a 0-10 pain scale. Have you seen any blood in the last 24 hours: No Have you had a temperature greater than 101F in the last 24 hours: No Do you have foul smelling urine or severe burning/urgency that has worsened since the last bladder instillation treatment: No No, Proceed with BCG Any concerns about safety in the home/falls: Not at risk for falls Start Date: 08/02/2023 Treatment number: 2 of 6 Retention Time Last RX: 2 hours Symptoms Post Last RX: None Catheter Used: 14 fr. red karel BCG instilled at: 0931 Drained at: 0928 Residual TX: No 0 cc. Return to Clinic on : 08/16/2023 Patient tolerated treatment well. Enrrique Peacock LPN Prescriptions ordered this encounter Disp Refills Start End BCG FOR BLADDER IRRIGATION 08/09/2023 08/09/2023 Route: INTRAVESIC LIDOCAINE 2 % MUCOSAL JELLY IN APPLI* 08/09/2023 08/09/2023 Route: OTHER Encounter Status:Closed by ENRRIQUE PEACOCK on 08/09/23 Normal [facility] URINALYSIS, REFLEX MICROSCOP ICon 06-15-2023 Bacteria LM.HPF (Urine sed) [#/Area] Few Abnormal None Seen /HPF [facility] Bilirubin Ql (U) Negative Negative [facility] Clarity (Unsp spec) Clear Clear [facility] Color (U) Yellow Yellow [facility] Epithelial cells LM.HPF (Urine sed) [#/Area] Few [facility] Glucose Test strip (U) [Mass/Vol] Negative Trace, Negative [facility] Hemoglobin Ql (U) 3+ Abnormal Negative, Trace [facility] Ketones Ql (U) Negative Negative, Trace [facility] Leukocyte esterase Test strip Ql (U) 250 Camille/uL Abnormal Negative, 25 Camille/uL [facility] Nitrite Ql (U) Negative Negative [facility] pH (U) 5.5 [pH] 5.0 - 8.0 [facility] Protein (U) [Mass/Vol] 1+ Abnormal Trace , Negative [facility] RBC LM.HPF (Urine sed) [#/Area] /[HPF] Abnormal 0-3 /HPF [facility] Specific gravity (U) [Rel density] 1.022 1.005 - 1.030 [facility] Urobilinogen Ql (U) Negative Negative [facility] WBC LM.HPF (Urine sed) [#/Area] /[HPF] Abnormal 0-5 /HPF [facility] Yeast.budding LM.HPF (Urine sed) [#/Area] Few Abnormal None Seen /HPF [facility] Creatinine (Bld) [Mass/Vol]O rdered By: Shazia Garcia on 04-29-2023 Creatinine [Mass/Vol] 1.3 mg/dL 0.6-1.3 [facility] Comment on above: ER/ESD physician is notified/shown all ISTAT results.Critical values may be confirmed by laboratory testing ifdeemed necessary by ER attending doctor. XR hand LT min 3V*on 023 XR hand LT min 3V* [facility] [employer] Other XR hand LT min 3V* [facility] [employer] Other XR hand LT min 3V* [address] [place] [address] [employer] Other XR hand LT min 3V* [place] [address] [employer] Other XR hand LT min 3V* XRay Report [employer] Other XR hand LT min 3V* Signed [employer] Other XR hand LT min 3V* Patient: Shaila Smiley MR#: [id number] [employer] Other XR hand LT min 3V* [id number] [employer] Other XR hand LT min 3V* : 1960 Acct:[id number] [employer] Other XR hand LT min 3V* Age/Sex: 62 / M ADM Date: 03/30/23 [employer] Other XR hand LT min 3V* Loc: SOXD Room: Type : [facility] [employer] Other XR hand LT min 3V* Attending Dr: Divya Keenan MD [employer] Other XR hand LT min 3V* Copies to: Jil Keenan MD [employer] Other XR hand LT min 3V* Ordering Provider: Jil Keenan MD [employer] Other XR hand LT min 3V* Date of Service: 03/30/23 [employer] Other XR hand LT min 3V* XR/XR hand LT min 3V*: Open displaced fracture of distal phalanx of left [employer] Other XR hand LT min 3V* index fing [employer] Other XR hand LT min 3V* [address] ain film [employer] Other XR hand LT min 3V* COMPARISON: 02/22/2023 [employer] Other XR hand LT min 3V* HISTORY: Status post left second and fourth digit open fractures [employer] Other XR hand LT min 3V* ACUTE FINDINGS: Heal ing fractures of the second, third and fourth the distal phalanges present. [employer] Other XR hand LT min 3V* DEGENERATIVE CHANGE: Unremarkable [employer] Other XR hand LT min 3V* SOFT TISSUE FINDINGS : Unremarkable [employer] Other XR hand LT min 3V* JOINT EFFUSION: None [employer] Other XR hand LT min 3V* POSTOP CHANGES: None [employer] Other XR hand LT min 3V* BONY MINERALIZATION: Adequate [employer] Other XR hand LT min 3V* X R/XR hand LT min 3V* [employer] Other XR hand LT min 3V* IMPRESSION: Healing fractures [employer] Other XR hand LT min 3V* Impression dictated by: Maxim Meeks M.D.03/30/2023 1:57 PM [employer] Other XR hand LT min 3V* Dictation Location: [place] [address] [employer] Other XR hand LT min 3V* Transcribed By: NATALIIA 03/30/23 1359 [facility] [employer] Other XR hand LT min 3V* Dictated By: Apolinar Meeks DO 03/30/23 1358 [facility] [employer] Other XR hand LT min 3V* Signed By: [facility] [employer] Other XR hand LT min 3V* 03/30/23 1352 [facility] [employer] Other URINALYSISOrdered By: Thomas peterson on 02-24-2023 Bacteria LM Ql (Urine sed) Trace /HPF Normal Trace/HPF [facility] UA Auto SS Bilirubin Ql (U) Negative (02/24/23 11:20 AM) Normal Negative [facility] UA Auto SS Clarity (U) Cloudy *ABN* (02/24/23 11:20 AM) Invalid Interpretation Code Clear [facility] UA Auto SS Color (U) Yellow (02/24/23 11:20 AM) Normal Yellow [facility] UA Auto SS Crystals LM Ql (Urine sed) Present (02/24/23 11:20 AM) Normal [facility] UA Auto SS Epithelial cells.squamous LM.HPF (Urine sed) [#/Area] 0-2 /HPF Normal 0-2/HPF [facility] UA Aut o SS Glucose Test strip (U) [Mass/Vol] Negative (02/24/23 11:20 AM) Normal Negative [facility] UA Auto SS Hemoglobin Ql (U) Trace *ABN* (02/24/23 11:20 AM) Invalid Interpretation Code Negative [facility] UA Auto SS Ketones (U) [Mass/Vol] Negative (02/24/23 11:20 AM) Normal Negative [facility] UA Auto SS Bailey.plasma/Bailey .RBC (Bld) [Mass ratio] 0-3 /HPF Normal 0-3/HPF [facility] UA Auto SS Nitrite Ql (U) Negative (02/24/23 11:20 AM) Normal Negative [facility] UA Auto SS pH (U) 6.0 *NA* (02/24/23 11:20 AM) Invalid Interpretation Code 5.0 - 9.0 [facility] UA Auto SS Protein (U) [Mass/Vol] Negative (02/24/23 11:20 AM) Normal Negative [facility] UA Auto SS Specific gravity (U) [Rel density] >=1.030 *NA* (02/24/23 11:20 AM) Invalid Interpretation Code 1.005 - 1.030 [facility] UA Auto SS UA Spec Desc Random Urine (02/24/23 11:20 AM) Normal [facility] UA Auto SS Urobilinogen Qn (U) [id number] {Blanca'U}/dL Normal 0.0 - 1.0 EU/dL [facility] UA Auto SS WBC Auto Ql (U) Negative (02/24/23 11:20 AM) Normal Negative [facility] UA Auto SS WBC LM.HPF (Urine sed) [#/Area] 0-5 /HPF Normal 0-5/HPF [facility] UA Auto SS CT Abdomen/Pelvis w/o Contra ston 09-13-2022 CT Abdomen/Pelvis w/o Contrast HISTORY: Microscopic hematuria. Dysuria. Decrease in stream. Symptoms present for 1 month. COMPARISON: date TECHNIQUE: Multiple contiguous axial images were obtained of the abdomen and pelvis. Multiplanar reformats were acquired at the CT console. No oral and no intravenous contrast medium administered. All CT scans at this facility use dose modulation, iterative reconstruction, and/or weight based dosing when appropriate to reduce radiation dose to as low as reasonably achievable. FINDINGS: Lungs: Lung bases are clear. Liver: Normal in size, shape, and attenuation. Bile ducts: Normal in caliber. Gallbladder: No stones or wall thickening. Pancreas: Normal, without masses, cysts, ductal dilatation, or calcification. Spleen: Normal in size without masses or calcifications. No splenules. Kidneys: Normal in size. No hydronephrosis, masses, or stones. Adrenals: Normal. Small bowel: Normal in caliber. Appendix: Not visualized. Colon: Normal in caliber. Peritoneum: No ascites, free air, or fluid collections. Vessels: Aorta normal in course and caliber. Lymph nodes: Retroperitoneal: No enlarged retroperitoneal lymph nodes. Mesenteric: No enlarged mesenteric lymph nodes. Pelvic: No enlarged pelvic lymph nodes. Ureters: Normal in course and caliber. No calcifications. Bladder: Partially decompressed. Wall thickening measuring up to 6 mm. Prostate: Enlarged in transverse diameter 6 cm. Prostate extends into the base urinary bladder. Abdominal wall: Identified within bilateral inguinal canals. 9 mm fat-containing periumbilical anterior abdominal wall defect. Bones: No bone lesions. 11 mm anterolisthesis L5 on S1. No postoperative changes. IMPRESSION: Diffuse urinary bladder wall thickening. While finding in part may be secondary to deep rest state urinary bladder, other findings including postobstructive secondary to enlarged prostate diagnostic consideration. Inflammatory and infectious etiologies secondary considerations. No renal/ureteral calculi. No hydronephrosis/hydrourete r. Grade 1 L5 spondylolisthesis. Report reported and signed by Drake Amos on 09/14/2022 1008 [facility] Vital Signs Date Time Vital Sign Value Performing Clinician Maranda serra 09-07-2024 07:50-0500 Blood Pressure Location Shazia Lue [facility] 09-07-2024 07:50-0500 Diastolic blood pressure 88 mm[Hg] Shazia Lue [facility] 09-07-2024 07:50-0500 Heart rate 70 /min Shazia Lue [facility] 09-07-2024 07:50-0500 Respiratory rate 16 /min Shazia Lue [facility] 09-07-2024 07:50-0500 Systolic blood pressure 150 mm[Hg] Shazia Lue [facility] 08-30-2024 14:37-0400 Body height 177.8 cm Isamar Jenkins DO Work Phone: [facility] 08-30-2024 14:37-0400 Body mass index (BMI) [Ratio] 34.44 kg/m2 Isamar Jenkins DO Work Phone: [facility] 08-30-2024 14:37-0400 Body temperature 98.2 [degF] Isamar Jenkins DO Work Phone: [facility] 08-30-2024 14:37-0400 Body weight 108.86 kg Isamar Jenkins DO Work Phone: [facility] 08-30-2024 14:37-0400 Diastolic blood pressure 78 mm[Hg] Isamar Jenkins DO Work Phone: [facility] 08-30-2024 14:37-0400 Heart rate 66 /min Isamar Jenkins DO Work Phone: [facility] 08-30-2024 14:37-0400 SaO2% (BldA) [Mass fraction] 98 % Isamar Jenkins DO Work Phone: [facility] 08-30-2024 14:37-0400 Systolic blood pressure 126 mm[Hg] Isamar Jenkins DO Work Phone: [facility] 08-01-2024 13:00-0400 Body temperature 98.01 [degF] Chair [place] Work Phone: [facility] 08-01-2024 13:00-0400 Diastolic blood pressure 76 mm[Hg] Chair [place] Work Phone: [facility] 08-01-2024 13:00-0400 Heart rate 54 /min Chair [place] Work Phone: [facility] 08-01-2024 13:00-0400 Respiratory rate 18 /min Chair [place] Work Phone: [facility] 08-01-2024 13:00-0400 SaO2% (BldA) [Mass fraction] 98 % Chair [place] Work Phone: [facility] 08-01-2024 13:00-0400 Systolic blood pressure 120 mm[Hg] Chair [place] Work Phone: [facility] 07-23-2024 11:04-0400 Body mass index (BMI) [Ratio] 34.9 kg/m2 Domingo Reed MD Work Phone: [facility] 07-23-2024 11:04-0400 Body temperature 97 [degF] Domingo Reed MD Work Phone: [facility] 07-23-2024 11:04-0400 Body weight 113.5 kg Domingo Reed MD Work Phone: [facility] 07-23-2024 11:04-0400 Diastolic blood pressure 99 mm[Hg] Domingo Reed MD Work Phone: [facility] 07-23-2024 11:04-0400 Heart rate 82 /min Domingo Reed MD Work Phone: [facility] 07-23-2024 11:04-0400 Respiratory rate 18 /min Domingo Reed MD Work Phone: [facility] 07-23-2024 11:04-0400 SaO2% (BldA) [Mass fraction] 97 % Domingo Reed MD Work Phone: [facility] 07-23-2024 11:04-0400 Systolic blood pressure 151 mm[Hg] Domingo Reed MD Work Phone: [facility] 05-17-2024 16:25-0400 Diastolic blood pressure 78 mm[Hg] [facility] 05-17-2024 16:25-0400 Heart rate 64 /min [facility] 05-17-2024 16:25-0400 SaO2% (BldA) [Mass fraction] 97 % [facility] 05-17-2024 16:25-0400 Systolic blood pressure 126 mm[Hg] [facility] 05-14-2024 11:17-0400 Diastolic blood pressure 94 mm[Hg] Roslyn Orzech [facility] 05-14-2024 11:17-0400 Mean blood pressure 109 mm[Hg] Roslyn Orzech [facility] 05-14-2024 11:17-0400 Systolic blood pressure 140 mm[Hg] Roslyn Orzech [facility] 05-14-2024 11:05-0400 Blood Pressure Location Roslyn Orzech [facility] 05-14-2024 11:05-0400 Diastolic blood pressure 100 mm[Hg] Roslyn Orzech [facility] 05-14-2024 11:05-0400 Heart rate 80 /min Roslyn Orzech [facility] 05-14-2024 11:05-0400 Respiratory rate 16 /min Roslyn Orzech [facility] 05-14-2024 11:05-0400 Systolic blood pressure 144 mm[Hg] Roslyn Orzech [facility] 12-16-2023 09:25-0500 Body temperature 98.2 [degF] Chair [place] Work Phone: [facility] 12-16-2023 09:25-0500 Diastolic blood pressure 86 mm[Hg] Chair [place] Work Phone: [facility] 12-16-2023 09:25-0500 Heart rate 77 /min Chair [place] Work Phone: [facility] 12-16-2023 09:25-0500 Respiratory rate 18 /min Chair [place] Work Phone: [facility] 12-16-2023 09:25-0500 SaO2% (BldA) [Mass fraction] 96 % Chair [place] Work Phone: [facility] 12-16-2023 09:25-0500 Systolic blood pressure 163 mm[Hg] Chair [place] Work Phone: [facility] 12-09-2023 08:45-0500 Body temperature 97.7 [degF] Chair [place] Work Phone: [facility] 12-09-2023 08:45-0500 Diastolic blood pressure 106 mm[Hg] Chair [place] Work Phone: [facility] 12-09-2023 08:45-0500 Heart rate 76 /min Chair [place] Work Phone: [facility] 12-09-2023 08:45-0500 Respiratory rate 18 /min Chair [place] Work Phone: [facility] 12-09-2023 08:45-0500 SaO2% (BldA) [Mass fraction] 96 % Chair [place] Work Phone: [facility] 12-09-2023 08:45-0500 Systolic blood pressure 171 mm[Hg] Chair [place] Work Phone: [facility] 12-02-2023 08:40-0500 Body temperature 97.81 [degF] Chair [place] Work Phone: [facility] 12-02-2023 08:40-0500 Diastolic blood pressure 109 mm[Hg] Chair [place] Work Phone: [facility] 12-02-2023 08:40-0500 Heart rate 77 /min Chair [place] Work Phone: [facility] 12-02-2023 08:40-0500 Respiratory rate 18 /min Chair [place] Work Phone: [facility] 12-02-2023 08:40-0500 SaO2% (BldA) [Mass fraction] 97 % Chair [place] Work Phone: [facility] 12-02-2023 08:40-0500 Systolic blood pressure 156 mm[Hg] Chair [place] Work Phone: [facility] 11-18-2023 12:00-0500 Body temperature 98.1 [degF] [facility] 11-18-2023 12:00-0500 Diastolic blood pressure 97 mm[Hg] [facility] 11-18-2023 12:00-0500 Heart rate 70 /min [facility] 11-18-2023 12:00-0500 Respiratory rate 16 /min [facility] 11-18-2023 12:00-0500 SaO2% (BldA) [Mass fraction] 100 % [facility] 11-18-2023 12:00-0500 Systolic blood pressure 149 mm[Hg] [facility] 11-18-2023 06:00-0500 Body weight 110 kg [facility] 11-17-2023 14:41-0500 Body height 180.34 cm [facility] 11-16-2023 01:58-0500 Diastolic blood pressure 93 mm[Hg] DO Isamar Petznick Work Phone: 6(168)322-858926 [place] [address] 11-16-2023 01:58-0500 Heart rate 68 /min DO Isamar Petznick Work Phone: 5(415)673-020080 [address] 11-16-2023 01:58-0500 Respiratory rate 18 /min DO Isamar Petznick Work Phone: 8(208)096-003480 [address] 11-16-2023 01:58-0500 SaO2% (BldA) [Mass fraction] 95 % DO Isamar Petznick Work Phone: 5(238)941-608126 [place] [address] 11-16-2023 01:58-0500 Systolic blood pressure 149 mm[Hg] DO Isamar Petznick Work Phone: 8(656)388-134726 [place] [address] 11-15-2023 20:06-0500 Body height 180.34 cm DO Isamar Petznick Work Phone: 3(100)991-178526 [place] [address] 11-15-2023 20:06-0500 Body temperature 97.6 [degF] DO Isamar Petznick Work Phone: [facility] 11-15-2023 20:06-0500 Body weight 109.2 kg DO Isamar Petznick Work Phone: [facility] 08-30-2023 09:26-0400 Body temperature 97.9 [degF] Nurse Makeda Work Phone: [facility] 08-30-2023 09:26-0400 Body weight 105.69 kg Nurse Makeda Work Phone: [facility] 08-30-2023 09:26-0400 Diastolic blood pressure 86 mm[Hg] Nurse Makeda Work Phone: [facility] 08-30-2023 09:26-0400 Heart rate 77 /min Nurse Makeda Work Phone: [facility] 08-30-2023 09:26-0400 Systolic blood pressure 150 mm[Hg] Nurse Makeda Work Phone: [facility] 08-23-2023 09:20-0400 Body weight 105.69 kg Nurse Makeda Work Phone: [facility] 08-23-2023 09:20-0400 Diastolic blood pressure 91 mm[Hg] Nurse Makeda Work Phone: [facility] 08-23-2023 09:20-0400 Heart rate 75 /min Nurse Makeda Work Phone: [facility] 08-23-2023 09:20-0400 Systolic blood pressure 151 mm[Hg] Nurse Makeda Work Phone: [facility] 08-16-2023 08:56-0400 Body temperature 97.81 [degF] Nurse Makeda Work Phone: [facility] 08-16-2023 08:56-0400 Body weight 105.69 kg Nurse Makeda Work Phone: [facility] 08-16-2023 08:56-0400 Diastolic blood pressure 82 mm[Hg] Nurse Makeda Work Phone: [facility] 08-16-2023 08:56-0400 Heart rate 81 /min Nurse Makeda Work Phone: [facility] 08-16-2023 08:56-0400 Systolic blood pressure 139 mm[Hg] Nurse Makeda Work Phone: [facility] 06-15-2023 10:41-0400 Body weight 107.64 kg Anasua Bandyopadhyay PA Work Phone: [facility] 06-15-2023 10:41-0400 Diastolic blood pressure 90 mm[Hg] Anasua Bandyopadhyay PA Work Phone: [facility] 06-15-2023 10:41-0400 Heart rate 73 /min Hui Davilapadhumphreyay PA Work Phone: [facility] 06-15-2023 10:41-0400 Systolic blood pressure 138 mm[Hg] Anasua Bandyopadhyay PA Work Phone: [facility] 05-18-2023 13:41-0400 Body height 177.8 cm Rigo Jacobsen MD Work Phone: [facility] 05-18-2023 13:41-0400 Body weight 105.92 kg Rigo Jacobsen MD Work Phone: [facility] 05-18-2023 13:41-0400 Diastolic blood pressure 71 mm[Hg] Rigo Jacobsen MD Work Phone: [facility] 05-18-2023 13:41-0400 Heart rate 80 /min Rigo Jacobsen MD Work Phone: [facility] 05-18-2023 13:41-0400 Systolic blood pressure 111 mm[Hg] Rigo Jacobsen MD Work Phone: [facility] 05-17-2023 16:45-0400 Body weight 106.59 kg Isamar Jenkins Work Phone: [facility] 05-06-2023 08:55-0400 Blood Pressure Location Shazia Lue [facility] 05-06-2023 08:55-0400 Diastolic blood pressure 88 mm[Hg] Shazia Lue [facility] 05-06-2023 08:55-0400 Heart rate 80 /min Shazia Lue [facility] 05-06-2023 08:55-0400 Systolic blood pressure 159 mm[Hg] Shazia Lue [facility] 04-19-2023 09:21-0400 Blood Pressure Location Shazia Lue [facility] 04-19-2023 09:21-0400 Diastolic blood pressure 97 mm[Hg] Shazia Lue [facility] 04-19-2023 09:21-0400 Heart rate 75 /min Shazia Lue [facility] 04-19-2023 09:21-0400 Systolic blood pressure 171 mm[Hg] Shazia Lue [facility] 02-24-2023 09:20-0400 Blood Pressure Location Shazia Lue [facility] 02-24-2023 09:20-0400 Diastolic blood pressure 83 mm[Hg] Shazia Lue [facility] 02-24-2023 09:20-0400 Heart rate 82 /min Shazia Lue [facility] 02-24-2023 09:20-0400 Systolic blood pressure 134 mm[Hg] Shazia Lue [facility] 01-31-2023 14:33-0400 Diastolic blood pressure 89 mm[Hg] DO Isamar Petznick Work Phone: [facility] 01-31-2023 14:33-0400 Heart rate 78 /min DO Isamar Petznick Work Phone: [facility] 01-31-2023 14:33-0400 Respiratory rate 16 /min DO Isamar Petznick Work Phone: [facility] 01-31-2023 14:33-0400 SaO2% (BldA) [Mass fraction] 100 % DO Isamar Petznick Work Phone: [facility] 01-31-2023 14:33-0400 Systolic blood pressure 158 mm[Hg] DO Isamar Petznick Work Phone: [facility] 01-31-2023 11:58-0400 Body height 177.8 cm DO Isamar Petznick Work Phone: [facility] 01-31-2023 11:58-0400 Body temperature 98.5 [degF] DO Isamar Petznick Work Phone: [facility] 01-31-2023 11:58-0400 Body weight 102.05 kg DO Isamar Petznick Work Phone: [facility] 01-31-2023 11:30-0400 Body height 177.8 cm Jil SAMI [employer] Other [employer] Other 01-31-2023 11:30-0400 Body mass index (BMI) [Ratio] 33.72 kg/m2 [employer] Other [employer] Other 01-31-2023 11:30-0400 Body weight 106.6 kg Jil SAMI [employer] Other [employer] Other 01-30-2023 14:50-0400 Body temperature 97.8 [degF] DO Isamar Petznick Work Phone: [facility] 01-30-2023 14:50-0400 Diastolic blood pressure 76 mm[Hg] DO Isamar Petznick Work Phone: [facility] 01-30-2023 14:50-0400 Heart rate 81 /min DO Isamar Petznick Work Phone: [facility] 01-30-2023 14:50-0400 Respiratory rate 16 /min DO Isamar Petznick Work Phone: [facility] 01-30-2023 14:50-0400 SaO2% (BldA) [Mass fraction] 99 % DO Isamar Garciaick Work Phone: [facility] 01-30-2023 14:50-0400 Systolic blood pressure 164 mm[Hg] DO Isamar Petznick Work Phone: [facility] 01-30-2023 12:31-0400 Body height 177.8 cm DO Isamar Petznick Work Phone: [facility] 01-30-2023 12:31-0400 Body weight 107 kg DO Isamar Petbarronick Work Phone: [facility] 09-13-2022 10:45-0500 Body height 177.8 cm Chaz Styles Other [employer] Other 09-13-2022 10:45-0500 Body mass index (BMI) [Ratio] 33.03 kg/m2 Chaz Styles Other [employer] Other 09-13-2022 10:45-0500 Body weight 104.42 kg Chaz Styles Other [employer] Other 09-13-2022 10:45-0500 Diastolic blood pressure 98 mm[Hg] Chaz Styles Other [employer] Other 09-13-2022 10:45-0500 SaO2% (BldA) [Mass fraction] 98 % Chaz Styels Other [employer] Other 09-13-2022 10:45-0500 Systolic blood pressure 150 mm[Hg] Chaz Styles Other [employer] Other Encounters Encounter Date Encounter Type Care Provider Facility Start: 09-07-2024 End: 09-07-2024 ambulatory Shazia Garcia Facility:[facility] Start: 09-07-2024 End: 09-07-2024 Lab Drop off Shazia [facility] Start: 09-07-2024 End: 09-07-2024 ambulatory Shazia Garcia Facility:[facility] Start: 09-07-2024 End: 09-07-2024 Patient encounter procedure Shazia Garcia [facility] Start: 08-30-2024 End: 08-30-2024 Office outpatient visit 15 minutes Isamar Jenkins DO Work Phone: [facility] [phone] Comment on above: Plant dermatitis (Pr imary Dx); Obesity (BMI 30-39.9) Start: 08-30-2024 End: 08-30-2024 ambulatory ISAMAR JENKINS Not Available Start: 08-22-2024 End: 08-22-2024 Lab Drop off Shazia Garcia [facility] Start: 08-22-2024 End: 08-22-2024 ambulatory Shazia Garcia Facility:[facility] Start: 08-22-2024 End: 08-22-2024 Patient encounter procedure Shazia Garcia [facility] Start: 08-01-2024 End: 08-01-2024 ambulatory ISAMAR JENKINS Facility:[facility] Comment on above: Malignant neoplasm o f overlapping sites of bladder (HCC) Start: 07-23-2024 End: 07-23-2024 ambulatory Domingo Reed MD Work Phone: Hematology/Oncology Comment on above: Malignant neoplasm o f overlapping sites of bladder (HCC) (Primary Dx); Elevated prostate specific antigen (PSA) Start: 07-23-2024 End: 07-23-2024 Patient encounter procedure Domingo Reed MD Work Phone: Hematology/Oncology Start: 07-19-2024 End: 07-19-2024 Chart abstracting Holli Meraz MA Hematology/Oncology Start: 05-31-2024 End: 05-31-2024 ambulatory DO Isamar Jenkins Work Phone: [facility] Work Phone: Start: 05-31-2024 End: 05-31-2024 Discharged Recurring DO Isamar Jenkins Work Phone: [facility] [facility] Start: 05-23-2024 End: 05-23-2024 Patient encounter procedure Rigo Jacobsen MD Work Phone: Urology Comment on above: Malignant neoplasm o f urinary bladder, unspecified site (HCC) (Primary Dx) Start: 05-23-2024 End: 05-23-2024 ambulatory ISAMAR JENKINS Facility:[facility] Start: 05-17-2024 End: 05-17-2024 ambulatory [facility] Work Phone: Start: 05-17-2024 End: 05-17-2024 Patient encounter procedure [facility] Work Phone: Start: 05-14-2024 End: 05-14-2024 ambulatory Roslyn Meade Facility:[facility] Start: 05-14-2024 End: 05-14-2024 Patient encounter procedure Roslyn Meade [facility] Start: 04-27-2024 End: 04-27-2024 ambulatory ISAMAR ELIZABETH GARCIAALINA Facility:[facility] Start: 04-24-2024 Orders Only Ad Louise RN Urology Comment on above: Dysuria (Primary Dx) Start: 04-20-2024 End: 04-20-2024 ambulatory RIGO JACOBSEN Facility:[facility] Start: 04-20-2024 End: 04-20-2024 Subsequent hospital visit by physician Mri 4 Radio Main Q (I-Stat/1.5t/3t) Work Phone: MRI Q Comment on above: Malignant neoplasm o f urinary bladder, unspecified site (HCC) [C67.9] Start: 02-15-2024 End: 02-15-2024 Patient encounter procedure Rigo Jacobsen MD Work Phone: Urology Comment on above: Dysuria (Primary Dx) ; Malignant neoplasm of urinary bladder, unspecified site (HCC) Start: 02-15-2024 End: 02-15-2024 ambulatory RIGO JACOBSEN Facility:[facility] Start: 12-16-2023 End: 12-16-2023 ambulatory Chair 23 Eliot Work Phone: Hematology/Oncology Comment on above: Malignant neoplasm o f urinary bladder, unspecified site (HCC) Start: 12-09-2023 End: 12-09-2023 Orders Only Elder Briggs APRN.CNP Work Phone: Urology Comment on above: Malignant neoplasm o f urinary bladder, unspecified site (HCC) (Primary Dx) Malignant neoplasm o f urinary bladder, unspecified site (HCC) Start: 12-06-2023 Telephone encounter Ada Mccray RN Hematology/Oncology Comment on above: Patient Question; Or ders Start: 12-02-2023 End: 12-05-2023 ambulatory Chair 23 Eliot Work Phone: Hematology/Oncology Comment on above: Malignant neoplasm o f urinary bladder, unspecified site (HCC) Start: 11-18-2023 End: 11-18-2023 Evaluation and management of inpatient Isamar Jenkins Facility:[facility] Start: 11-18-2023 Non-patient / Non-visit [facility] Work Phone: Start: 11-17-2023 End: 11-18-2023 ambulatory Shazia Garcia Facility:[id number] Start: 11-16-2023 Evaluation and management of inpatient DO Isamar Jenkins Work Phone: [facility] Work Phone: Start: 11-16-2023 observation encounter DO Nikita Jenkins Work Phone: [facility] Work Phone: Start: 11-10-2023 End: 11-10-2023 ambulatory RIGO ALMASSI Facility:[facility] Start: 11-02-2023 End: 11-02-2023 ambulatory Hui Vela PA Work Phone: Urology Start: 11-02-2023 Encounter for other preprocedural examination HUI VELA [facility] Start: 10-26-2023 End: 10-26-2023 ambulatory ISAMAR JENKINS Facility:[facility] Start: 10-19-2023 End: 10-19-2023 ambulatory RIGO ALMZORAIDAI Facility:[facility] Start: 09-08-2023 End: 09-08-2023 ambulatory ISAMAR JENKINS Facility:[facility] Start: 08-30-2023 End: 08-30-2023 ambulatory ISAMAR JENKINS Facility:[facility] Start: 08-30-2023 End: 08-30-2023 Nursing evaluation of patient and report Nurse [facility]rol [facility] Makeda Work Phone: Urology Comment on above: Encounter for follow -up surveillance of bladder cancer (Primary Dx); Malignant neoplasm of urinary bladder, unspecified site (HCC) Start: 08-23-2023 End: 08-23-2023 ambulatory ISAMAR JENKINS Facility:[facility] Start: 08-23-2023 End: 08-23-2023 Nursing evaluation of patient and report Nurse Urol c Makeda Work Phone: Urology Comment on above: Malignant neoplasm o f urinary bladder, unspecified site (HCC) Start: 08-16-2023 End: 08-16-2023 ambulatory ISAMAR JENKINS Facility:[facility] Start: 08-16-2023 End: 08-16-2023 Nursing evaluation of patient and report Nurse Urol c Makeda Work Phone: Urology Comment on above: Malignant neoplasm o f urinary bladder, unspecified site (HCC) Start: 08-09-2023 End: 08-09-2023 ambulatory ISAMAR JENKINS Facility:[facility] Start: 08-02-2023 Orders Only Rigo Kerns Work Phone: Urology Comment on above: Malignant neoplasm o f urinary bladder, unspecified site (HCC) (Primary Dx) Start: 07-29-2023 Telephone encounter Terese BRITO Hematology/Oncology Comment on above: Social Work Services Start: 07-22-2023 End: 07-22-2023 Patient encounter procedure Shazia Garcia [facility] Start: 06-24-2023 Telephone encounter Elder Briggs APRN.CNP Work Phone: Urology Comment on above: Results Start: 06-15-2023 ambulatory Anasua Banddagmarp shilay PA Work Phone: Urology Start: 06-15-2023 End: 06-15-2023 Patient encounter procedure Anasua Bandyopadhyay PA Work Phone: Urology Comment on above: Pre-op exam (Primary Dx); Malignant neoplasm of urinary bladder, unspecified site (HCC) Start: 06-15-2023 End: 06-15-2023 Preprocedural examination done Anasua Bandyopadhyay PA Work Phone: [facility] Work Phone: Start: 05-18-2023 End: 05-18-2023 Refill Miladys Brooks MD Work Phone: Urology Comment on above: Malignant neoplasm o f urinary bladder, unspecified site (HCC) [C67.9] (Primary Dx) Start: 05-17-2023 End: 05-17-2023 ambulatory DO Isamar Garciaalina Work Phone: [facility] Work Phone: Start: 05-17-2023 End: 05-17-2023 Patient encounter procedure DO Isamar Jenkins Work Phone: [facility] [place] Work Phone: Start: 05-06-2023 End: 05-06-2023 Patient encounter procedure Shazia Garcia [facility] Start: 04-29-2023 End: 04-29-2023 Patient encounter procedure DO Isamar Jenkins Work Phone: [facility] [place] Work Phone: Start: 04-19-2023 End: 04-19-2023 Lab Drop off Shazia Garcia [facility] Start: 04-19-2023 End: 04-19-2023 Patient encounter procedure [facility]azia Garcia [facility] Start: 03-30-2023 Postop follow up vis it related to original px [facility] Start: 03-30-2023 End: 03-30-2023 ambulatory DO Isamar Jenkins Work Phone: [facility] Work Phone: Start: 03-30-2023 End: 03-30-2023 Patient encounter procedure DO Isamar Jenkins Work Phone: [facility] Start: 02-24-2023 End: 02-24-2023 Lab Drop off Shazia [facility] Start: 02-24-2023 End: 02-24-2023 Patient encounter procedure Shazia Garcia [facility] Start: 02-22-2023 End: 02-22-2023 Patient encounter procedure DO Isamar Jenkins Work Phone: [facility] Start: 02-22-2023 End: 02-22-2023 ambulatory DO Isamar Jenkins Work Phone: [facility] Work Phone: Start: 02-22-2023 Postop follow up vis it related to original px Jil Calvey [facility] Start: 02-08-2023 End: 02-08-2023 ambulatory Jilolga Keenan Other [employer] Other Start: 02-08-2023 Postop follow up vis it related to original px Jil Calvey [facility] Start: 01-31-2023 Encounter for other preprocedural examination Jil Shandraey [facility] Start: 01-31-2023 Office outpatient ne w 45 minutes Jil Yue [facility] Start: 01-31-2023 End: 01-31-2023 Admission to same day surgery center DO Isamar Jenkins Work Phone: [facility] [place] Start: 01-31-2023 End: 01-31-2023 ambulatory DO Isamar Jenkins Work Phone: [facility] Work Phone: Start: 01-30-2023 End: 01-30-2023 Emergency department patient visit DO Isamar Jenkins Work Phone: [facility]Emergency Room Work Phone: Start: 09-21-2022 (Procedure) Short Chaz Styles [facility] Start: 09-21-2022 End: 09-21-2022 ambulatory Chaz Styles Other [employer] Other Start: 09-13-2022 End: 09-13-2022 ambulatory Chaz Styles Other [facility] [employer] Other Start: 09-13-2022 Office outpatient vi sit 25 minutes Chaz Styles [facility] Procedures Date Procedure Procedure Detail Performing Clinician Start: 09-07-2024 Flexible cystoscopy Kelly hy Lue Start: 05-23-2024 Urnls dip stick/tabl et rgnt auto w/o microscopy Rigo Jacobsen MD Work Phone: Start: 04-20-2024 Mri pelvis w/o & w/c ontrast material Rigo Jacobsen MD Work Phone: Start: 02-15-2024 Urnls dip stick/tabl et rgnt auto w/o microscopy Rigo Jacobsen MD Work Phone: Start: 11-10-2023 Cystourethroscopy w/ dest &/rmvl med bladder prince Roslyn Meade Start: 08-18-2023 Lipid 1996 panel - S lucas or Plasma Nurse Makeda Work Phone: Start: 06-16-2023 Transurethral resect ion of bladder neoplasm Roslyn Meade Start: 06-15-2023 Urnls dip stick/tabl et reagent auto microscopy Bulk Order Provider Start: 04-29-2023 CT of urinary tract DO Isamar Petznick Work Phone: Start: 04-19-2023 Cystoscopy Shazia Lue Start: 03-30-2023 Plain X-ray of left hand DO Isamar Petznick Work Phone: Start: 02-22-2023 Plain X-ray of left hand DO Isamar Petznick Work Phone: Start: 01-31-2023 Procedure on lower extremity DO Isamar Petznick Work Phone: Start: 01-30-2023 Plain X-ray of left hand DO Isamar Petznick Work Phone: Colonoscopy Shazia Garcia Knee region structur e (body structure) Shazia Garcia Plan of Treatment Date Care Activity Detail Author Start: 01-30-2033 Urine microalbumin profile DTaP,Tdap,Td Vaccine (4 - Td or Tdap) [facility] Start: 08-18-2028 Lipid 1996 panel - S lucas or Plasma Lipid Screening [facility] Start: 08-18-2028 Lipid panel Lipid Screening [facility] Start: 12-19-2026 Screening for malign ant neoplasm of colon [facility] Start: 11-02-2026 [facility] Start: 06-15-2026 DIABETES SCREEN DIABETES SCREEN [facility] Start: 06-15-2026 Diabetes Screening Diabetes Screenin g [facility] Start: 09-24-2024 End: 09-24-2024 Follow-up encounter 09/24/2024 1:45 PM EST Visit (SP) Office Hematology/Oncology [address] [place] [address] Domingo Reed MD [address] [place] [address] follow up with lab Hematology/Oncology Comment on above: follow up with lab Start: 09-24-2024 End: 09-24-2024 Patient encounter procedure 09/24/2024 1:30 PM EST Office Visit [facility] [address] [place] [address] follow up with lab [facility] Comment on above: follow up with lab Start: 09-19-2024 ambulatory Ambulatory Facility:C [id number] Start: 09-12-2024 End: 09-12-2024 Patient encounter procedure 09/12/2024 10:15 AM EST Office Visit Urology [address] [address] Rigo Jacobsen MD [address] [place] [address] 3 month cysto Urology Comment on above: 3 month cysto Start: 08-18-2024 Medicare Annual Well ness (AWV) Medicare Annual Wellness (AWV) [facility] Start: 08-15-2024 End: 08-15-2024 ambulatory 08/15/2024 1:00 PM EDT Infusion Center Hematology/Oncology [address] [place] [address] BCG x 3 doses Hematology/Oncology Comment on above: BCG x 3 doses Start: 08-08-2024 End: 08-08-2024 ambulatory 08/08/2024 1:00 PM EDT Infusion Center Hematology/Oncology [address] [place] [address] BCG x 3 doses Hematology/Oncology Comment on above: BCG x 3 doses Start: 08-01-2024 End: 08-01-2024 ambulatory 08/01/2024 1:00 PM EDT Infusion Center Hematology/Oncology [address] [place] [address] BCG x 3 doses Hematology/Oncology Comment on above: BCG x 3 doses Start: 07-23-2024 End: 07-23-2024 ambulatory 07/23/2024 11:00 AM EDT Visit (SP) Office Hematology/Oncology [address] [place] [address] Domingo Reed MD [address] [place] [address] Shazia Garcia DX: Bladder CANEEDS 3 WEEKS OF BCG TX 2 WEEKS PRIOR TO CYSTO ON 09/06/24 Hematology/Oncology Comment on above: Ref by Dr Shazia Garcia DX: Bladder CANEEDS 3 WEEKS OF BCG TX 2 WEEKS PRIOR TO CYSTO ON 09/06/24 Start: 07-01-2024 Covid-19 Vaccine ( season) Covid-19 Vaccine ( season) [facility] Start: 07-01-2024 Covid-19 Vaccine () Covid-19 Vaccine () [facility] Start: 07-01-2024 Influenza vaccination Influenza Vacc ine (#1) [facility] Start: 2024 Advance Directive Discussion Advance Directive Discussion [facility] Start: 04-24-2024 End: 07-24-2024 Bacteria identified in Urine by Culture URINE CULTURE Microbiology Routine Dysuria Expected: 04/24/2024 (Approximate), Expires: 07/24/2024 [facility] Work Phone: Comment on above: Expected: 04/24/2024 (Approximate), Expires: 07/24/2024 Start: 11-18-2023 [facility] Start: 11-17-2023 Referral to urologist [facility] Start: 11-16-2023 Sleep disorder assessment [facility] Start: 11-16-2023 Hospital admission [facility] Start: 11-16-2023 [facility] Start: 11-15-2023 Bacteria identified in Urine by Culture [facility] Start: 10-31-2023 Behavioral Health Screening Behavioral Health Screening [facility] Start: 10-31-2023 Depression Assessment Depression Ass essment [facility] Start: 07-01-2023 Covid-19 Vaccine ( season) Covid-19 Vaccine ( season) [facility] Start: 07-01-2023 Influenza vaccination [facility] Start: 05-17-2023 MR Prostate WO and W contrast IV [facility] Start: 05-17-2023 MR prostate wo/w con MR prostate wo/ w con [facility] Start: 01-31-2023 [facility] Start: 10-31-2022 DEPRESSION ASSESSMENT DEPRESSION ASS ESSMENT [facility] Start: 01-12-2022 Screening for malign ant neoplasm of colon [facility] Start: 2019 RSV Vaccine (1 - 1-d ose 60+ series) RSV Vaccine (1 - 1-dose 60+ series) [facility] Start: 2019 RSV Vaccine (1 - Ris k 60-74 years 1-dose series) RSV Vaccine (1 - Risk 60-74 years 1-dose series) [facility] Start: 2014 PROSTATE CANCER SCREENING DISCUSSION PROSTATE CANCER SCREENING DISCUSSION [facility] Start: 08-22-2014 Prostate specific antigen measurement Prostate Cancer Screening Discussion [facility] Start: 2009 SHINGRIX VACCINE (1 of 2) SHINGRIX VACCINE (1 of 2) [facility] Start: 2004 COLOGUARD (FIT-DNA) COLOGUARD (FIT-D NA) [facility] Start: 2004 Colonoscopy COLONOSCOPY [facility] Start: 2004 COLORECTAL CANCER SCREENING COLORECTAL CANCER SCREENING [facility] Start: [address] COLONOGRAPHY [facility] Start: 2004 DIABETES SCREEN DIABETES SCREEN [facility] Start: 2004 FECAL OCCULT BLOOD FECAL OCCULT BLOO D [facility] Start: 2004 Screening for malign ant neoplasm of colon [facility] Start: 2004 SIGMOIDOSCOPY SIGMOIDOSCOPY [facility] Start: 1994 Lipid 1996 panel - S lucas or Plasma Lipid Screening [facility] Start: 1994 LIPID SCREEN LIPID SCREEN [facility] Start: 1978 Urine microalbumin profile [facility] Start: 1977 Anxiety Screening Anxiety Screening [facility] Start: 1977 Depression Screening Depression Scre ening [facility] Start: 1977 HEPATITIS C SCREENING HEPATITIS C [facility] Start: 1977 Hepatitis C screening Hepatitis C [facility] Start: 1977 HIV SCREENING HIV SCREENING [facility] Start: 1977 HIV screening HIV Screening [facility] Start: 1959 Abdominal aortic aneurysm screening Abdominal Aortic Aneurysm Screening [facility] Start: 1959 Screening for malign ant neoplasm of colon [facility] Bacteria identified in Urine by Culture URINE CULTURE Microbiology Routine Malignant neoplasm of urinary bladder, unspecified site (HCC) Ordered: 06/15/2023 [facility] Work Phone: Comment on above: Ordered: 06/15/2023 Bacteria identified in Urine by Culture URINE CULTURE Microbiology Routine Malignant neoplasm of urinary bladder, unspecified site (HCC) 12/09/2023 10:01 AM EST [facility] Work Phone: Bacteria identified in Urine by Culture URINE CULTURE Microbiology Routine Dysuria 02/15/2024 10:41 AM EDT [facility] Work Phone: CYTOLOGY NON-POWDER GUARD CYTOLOGY NON-GY N Lab Routine Malignant neoplasm of urinary bladder, unspecified site (HCC) 02/15/2024 11:30 AM EDT [facility] Work Phone: CYTOLOGY NON-POWDER GUARD CYTOLOGY NON-GY N Lab Routine Malignant neoplasm of urinary bladder, unspecified site (HCC) 05/23/2024 8:59 AM EDT [facility] Work Phone: Erythrocyte distribu tion width [Ratio] by Automated count [facility] Erythrocytes [#/volu me] in Blood [facility] Hematocrit [Volume Fraction] of Blood [facility] Hemoglobin [Mass/vol ume] in Blood [facility] Leukocytes [#/volume ] corrected for nucleated erythrocytes in Blood by Automated coun [facility] MCH [Entitic mass] b y Automated count [facility] MCHC [Mass/volume] b y Automated count [facility] MCV [Entitic volume] by Automated count [facility] MR Cervical spine WO contrast [facility] End: 03-16-2025 MR Pelvis WO and W contrast IV MRI PELVIS BLADDER WO/W IVCON Radiology Routine Malignant neoplasm of urinary bladder, unspecified site (HCC) 1 Occurrences starting 02/15/2024 until 03/16/2025 [facility] Work Phone: Comment on above: 1 Occurrences starti ng 02/15/2024 until 03/16/2025 Patient Education Common Finger Injuries ED Laceration Repair With Stitches ED Wound Care ED [facility] Work Phone: Patient referral [facility] Work Phone: Platelet mean volume [Entitic volume] in Blood by Automated count [facility] Platelets [#/volume] in Blood [facility] URINALYSIS, REFLEX MICROSCOPIC URINALYSIS, REFLEX MICROSCOPIC Lab Routine Screening for genitourinary condition Ordered: 11/02/2023 [facility] Work Phone: Comment on above: Ordered: 11/02/2023 XR Cervical spine Vi ews W flexion and W extension [facility] XR Thoracic spine 3 Views [facility] MARIA ESTHERO [facility] Immunizations Immunization Date Immunization Notes Care Provider Saul valencia 09-07-2023 influenza virus vacc ine, unspecified formulation Rigo Jacobsen MD Work Phone: [facility] 07-13-2023 influenza, injectabl e, quadrivalent, contains preservative [facility] 07-13-2023 pneumococcal conjuga te vaccine, 13 valent [facility] 01-30-2023 tetanus toxoid, redu anuj diphtheria toxoid, and acellular pertussis vaccine, adsorbed DO Isamar Jenkins Work Phone: [facility] 08-05-2022 influenza virus vacc ine, unspecified formulation Shazia Garcia [facility] 08-05-2022 influenza, injectabl e, quadrivalent, contains preservative [facility] 08-04-2022 COVID-19 Comirnaty (Pfizer) Tri-Sucrose 12+ [facility] [facility] 08-04-2022 influenza, injectabl e, quadrivalent, preservative free Isamar Jenkins DO Work Phone: [facility] 08-04-2022 SARS-COV-2 (COVID-19 ) vaccine, mRNA, spike protein, LNP, bivalent, preservative free, 30 mcg/0.3 mL dose, cristo-sucrose formulation Isamar Jenkins DO Work Phone: [facility] 08-04-2022 SARS-CoV-2 mRNA (cjawtfwebut-kuzo-zznuse e) vaccine Shazia Garcia [facility] 08-04-2022 SARS-CoV-2, Unspecified Sam mone Jenkins DO Work Phone: [facility] 10-22-2021 Moderna SARS-CoV-2 Vaccination Isamar Jenkins DO Work Phone: [facility] 10-22-2021 SARS-CoV-2 (COVID-19 ) [id number] Shazia Garcia [facility] 10-22-2021 SARS-CoV-2, Unspecified Sam mone Garciaick DO Work Phone: [facility] 07-28-2021 influenza, injectabl e, quadrivalent, preservative free Isamar Jenkins DO Work Phone: [facility] 01-10-2021 SARS-CoV-2 (COVID-19 ) mRNA-1273 vaccine Shazia Lue [facility] 12-15-2020 SARS-CoV-2 (COVID-19 ) mRNA-1273 vaccine Shazia Garcia [facility] 05-11-2019 tetanus toxoid, redu anuj diphtheria toxoid, and acellular pertussis vaccine, adsorbed Isamar Petznick DO Work Phone: [facility] 05-11-2019 zoster vaccine recombinant Isamar Petznick DO Work Phone: [facility] 04-30-2019 tetanus toxoid, redu anuj diphtheria toxoid, and acellular pertussis vaccine, adsorbed Chaz Jensen Other [facility] 04-30-2019 zoster vaccine recombinant Chaz Jensen Other [facility] 02-23-2019 pneumococcal polysaccharide vaccine, 23 valent Isamar Jenkins DO Work Phone: [facility] 02-23-2019 zoster vaccine recombinant Isamar Petznick DO Work Phone: [facility] 01-29-2019 zoster vaccine recombinant Chaz Jensen Other [facility] Payers Date Payer Category Payer Medicare (Managed Care) [employer] [id number] 2024 Medicare [id number] 2023 Self-pay [id number] 2022 Unknown [id number] 2022 Unknown [id number] 1959 Unknown [id number] 1959 Unknown [id number] 1959 Unknown [id number] 727 1959 Unknown [id number] 727 1959 Unknown [id number] 727 1959 Unknown [id number] 727 1959 Unknown [id number] 727 Unknown [id number] 531 Social History Date Type Detail Facility Unknown if ever smoked [employer] Other Start: 05-18-2023 End: 08-30-2024 Sex Assigned At [facility] Start: 01-30-2023 End: 09-07-2024 Tobacco smoking status NHIS Ex-smoker (finding) [facility] Start: 1960 Sex Assigned At Male F [facility] Tobacco smoking status Former smokeless tobacco user, quit more than 30 days ago [facility] Start: 05-18-2023 End: 08-11-2023 Tobacco smoking status NHIS Never smoked tobacco [facility] Start: 05-18-2023 End: 08-11-2023 Tobacco use and exposure Smokeless tobacco non-user [facility] Start: 05-18-2023 End: 08-30-2024 Alcohol intake Current drinker of alcohol (finding) [facility] Start: 05-18-2023 End: 08-30-2024 Alcohol intake [facility] Start: 1960 Sex Assigned At Not on file [facility] History of tobacco use Current smoker [facility] History of tobacco use Cigarette Smoker [facility] Start: 08-11-2023 Alcohol Comment 2-4 times a month NO [facility] Goals Date Patient Goal Desired Activity /State Functional Status Date Assessment Result Facility 09-07-2024 Functional Status N/A [facility] 05-14-2024 Functional Status N/A [facility] 05-06-2023 Functional Status N/A [facility] 04-19-2023 Functional Status N/A [facility] 02-24-2023 Functional Status N/A [facility] Clinical Notes 09-13-2022 to 09-07-2024 Isamar Jenkins DO - 08/30/2024 2:30 PM Sammie Booth RN - 08/01/2024 1:37 PM Domingo Mahoney MD - 07/21/2024 11:49 AM Rigo Kinney MD - 05/23/2024 9:00 AM EDTPatient Instructions Note Date & Type Note Facility 09-07-2024 Evaluation + Plan note Diagnostic Tests PendingUrine Cytology ([facility]) 09/07/24 [facility] 09-07-2024 Hospital Discharge instructions Patient Education 09/07/2024 08:42:32 Transurethral Resection of the Prostate, Care After Transurethral Resection of the Prostate, Care After The following information offers guidance on how to care for yourself after your procedure. Your health care provider may also give you more specific instructions. If you have problems or questions, contact your health care provider. What can I expect after the procedure? After the procedure, it is common to have: Mild pain in your lower abdomen. Soreness or mild discomfort in your penis or when you urinate. This is from having the catheter inserted during the procedure. A sudden urge to urinate (urgency). A need to urinate often. A small amount of blood in your urine. You may notice some small blood clots in your urine. These are normal. Follow these instructions at home: Medicines Take snhx-jvj-dirccfb and prescription medicines only as told by your health care provider. If you were prescribed an antibiotic medicine, take it as told by your health care provider. Do not stop taking the antibiotic even if you start to feel better. Activity Rest as told by your health care provider. Avoid sitting for a long time without moving. Get up to take short walks every 1 2 hours. This is important to improve blood flow and breathing. Ask for help if you feel weak or unsteady. You may increase your physical activity gradually as you start to feel better. Do not drive or operate machinery until your health care provider says that it is safe. Do not ride in a car for long periods of time, or as told by your health care provider. Avoid intense physical activity for as long as told by your health care provider. Do not lift anything that is heavier than 10 lb (4.5 kg), or the limit that you are told, until your health care provider says that it is safe. Do not have sex until your health care provider approves. Return to your normal activities as told by your health care provider. Ask your health care provider what activities are safe for you. Preventing constipation You may need to take these actions to prevent or treat constipation: Drink enough fluid to keep your urine pale yellow. Take ivnq-bfd-cvscnls or prescription medicines. Eat foods that are high in fiber, such as beans, whole grains, and fresh fruits and vegetables. Limit foods that are high in fat and processed sugars, such as fried or sweet foods. General instructions Do not strain when you have a bowel movement. Straining may lead to bleeding from the prostate. This may cause blood clots and trouble urinating. Do not use any products that contain nicotine or tobacco. These products include cigarettes, chewing tobacco, and vaping devices, such as e-cigarettes. If you need help quitting, ask your health care provider. If you go home with a tube draining your urine (urinary catheter), care for the catheter as told by your health care provider. Wear compression stockings as told by your health care provider. These stockings help to prevent blood clots and reduce swelling in your legs. Keep all follow-up visits. This is important. Contact a health care provider if: You have signs of infection, such as: ?Fever or chills. ?Urine that smells very bad. ?Swelling around your urethra that is getting worse. ?Swelling in your penis or testicles. You have difficulty urinating. You have pain that gets worse or does not improve with medicine. You have blood in your urine that does not go away after 1 week of resting and drinking more fluids. You have trouble having a bowel movement. You have trouble having or keeping an erection. No semen comes out during orgasm (dry ejaculation). You have a urinary catheter in place, and you have: ?Spasms or pain. ?Problems with your catheter or your catheter is blocked. Get help right away if: You are unable to urinate. You are having more blood clots in your urine instead of fewer. You have: ?Large blood clots. ?A lot of blood in your urine. ?Pain in your back or lower abdomen. You have difficulty breathing or shortness of breath. You develop swelling or pain in your leg. These symptoms may be an emergency. Get help right away. Call 911. Do not wait to see if the symptoms will go away. Do not drive yourself to the hospital. Summary After the procedure, it is common to have a small amount of blood in your urine. Follow restrictions about lifting and sexual activity as told by your health care provider. Ask what activities are safe for you. Keep all follow-up visits. This is important. This information is not intended to replace advice given to you by your health care provider. Make sure you discuss any questions you have with your health care provider. Document Revised: 07/13/2022 Document Reviewed: 07/13/2022 [employer] Patient Education 2023 [employer]. 09/07/2024 08:42:31 Transurethral Resection of the Prostate Transurethral Resection of the Prostate Transurethral resection of the prostate (TURP) is the removal, or resection, of part of the prostate tissue. This procedure is done to treat an enlarged prostate gland (benign prostatic hyperplasia). The goal of TURP is to remove enough prostate tissue to allow for a normal flow of urine. The procedure will allow you to empty your bladder more completely when you urinate so that you can urinate less often. In a transurethral resection, a thin telescope with a light, a camera, and an electric cutting edge (resectoscope) is passed through the urethra and into the prostate. The opening of the urethra is at the end of the penis. Tell a health care provider about: Any allergies you have. All medicines you are taking, including vitamins, herbs, eye drops, creams, and tqtq-dkw-mbmzuvi medicines. Any problems you or family members have had with anesthetic medicines. Any bleeding problems you have. Any surgeries you have had. Any medical conditions you have. Any prostate infections you have had. What are the risks? Generally, this is a safe procedure. However, problems may occur, including: Infection. Bleeding. Allergic reactions to medicines. Blood in the urine (hematuria). Damage to nearby structures or organs. Other problems may occur, but they are rare. They include: Dry ejaculation, or having no semen come out during orgasm. Erectile dysfunction, or being unable to have or keep an erection. Scarring that leads to narrowing of the urethra. This narrowing may block the flow of urine. Inability to control when you urinate (incontinence). Deep vein thrombosis. This is a blood clot that can develop in your leg. TURP syndrome. This can happen when you lose too much sodium during or after the procedure. Some signs and symptoms of this condition include: ?Weakness. ?Headaches. ?Nausea or vomiting. ?Muscle cramping. What happens before the procedure? When to stop eating and drinking Follow instructions from your health care provider about what you may eat and drink before your procedure. These may include: 8 hours before your procedure ?Stop eating most foods. Do not eat meat, fried foods, or fatty foods. ?Eat only light foods, such as toast or crackers. ?All liquids are okay except energy drinks and alcohol. 6 hours before your procedure ?Stop eating. ?Drink only clear liquids, such as water, clear fruit juice, black coffee, plain tea, and sports drinks. ?Do not drink energy drinks or alcohol. 2 hours before your procedure ?Stop drinking all liquids. ?You may be allowed to take medicines with small sips of water. If you do not follow your health care provider's instructions, your procedure may be delayed or canceled. Medicines Ask your health care provider about: Changing or stopping your regular medicines. This is especially important if you are taking diabetes medicines or blood thinners. Taking medicines such as aspirin and ibuprofen. These medicines can thin your blood. Do not take these medicines unless your health care provider tells you to take them. Taking nmcr-wge-uwnrpdi medicines, vitamins, herbs, and supplements. Surgery safety Ask your health care provider what steps will be taken to help prevent infection. These steps may include: Removing hair at the surgery site. Washing skin with a germ-killing soap. Taking antibiotic medicine. General instructions Do not use any products that contain nicotine or tobacco for at least 4 weeks before the procedure. These products include cigarettes, chewing tobacco, and vaping devices, such as e-cigarettes. If you need help quitting, ask your health care provider. If you will be going home right after the procedure, plan to have a responsible adult: ?Take you home from the hospital or clinic. You will not be allowed to drive. ?Care for you for the time you are told. What happens during the procedure? An IV will be inserted into one of your veins. You will be given one or more of the following: ?A medicine to help you relax (sedative). ?A medicine to make you fall asleep (general anesthetic). ?A medicine that is injected into your spine to numb the area below and slightly above the injection site (spinal anesthetic). Your legs will be placed in foot rests (stirrups) so that your legs are apart and your knees are bent. The resectoscope will be passed through your urethra to your prostate. Parts of your prostate will be resected using the cutting edge of the resectoscope. Fluid will be passed to rinse out the cut tissues (irrigation). The resectoscope will be removed. A small, thin tube (catheter) will be passed through your urethra and into your bladder. The catheter will drain urine into a bag outside of your body. The procedure may vary among health care providers and hospitals. What happens after the procedure? Your blood pressure, heart rate, breathing rate, and blood oxygen level will be monitored until you leave the hospital or clinic. You will be given fluids through the IV. The IV will be removed when you start eating and drinking normally. You may have some pain. Pain medicine will be available to help you. You will have a catheter draining your urine. ?You may have blood in your urine. Your catheter may be kept in until your urine is clear. ?Your urinary drainage will be monitored. If necessary, your bladder may be rinsed out (irrigated) through your catheter. You will be encouraged to walk around as soon as possible. You may have to wear compression stockings. These stockings help to prevent blood clots and reduce swelling in your legs. If you were given a sedative during the procedure, it can affect you for several hours. Do not drive or operate machinery until your health care provider says that it is safe. Summary Transurethral resection of the prostate (TURP) is the removal (resection) of part of the prostate tissue. The goal of this procedure is to remove enough prostate tissue to allow for a normal flow of urine. Follow instructions from your health care provider about taking medicines and about eating and drinking before the procedure. This information is not intended to replace advice given to you by your health care provider. Make sure you discuss any questions you have with your health care provider. Document Revised: 07/13/2022 Document Reviewed: 07/13/2022 [employer] Patient Education 2023 [employer] 09/07/2024 08:31:23 Bladder Cancer Bladder Cancer Bladder cancer is a condition where abnormal tissue (a tumor) grows in the bladder. The bladder is the organ that holds urine. Two tubes (ureters) carry urine from the kidneys to the bladder. The bladder wall is made of layers of tissue. Cancer that spreads through these layers of the bladder wall becomes more difficult to treat. What increases the risk? The following factors may make you more likely to develop this condition: Smoking. Working where there are risks (occupational exposures), such as working with rubber, leather, clothing fabric, dyes, chemicals, or paint. Being 55 years of age or older. Being male. Having long-term bladder inflammation. Having a history of cancer. This includes: ?A family history of bladder cancer. ?Having had bladder cancer before. ?Having had certain treatments for cancer before, such as: ?Medicines to kill cancer cells (chemotherapy). ?Strong X-ray beams or high-energy capsules to kill cancer cells and shrink tumors (radiation therapy). Having been exposed to arsenic. This is a poisonous substance. What are the signs or symptoms? Early symptoms of this condition include: Blood in your urine. Pain when urinating. Infections of your urinary system (urinary tract infections or UTIs) that happen often. Having to urinate sooner or more often than normal. Late symptoms of this condition include: Not being able to urinate. Pain on one side of your lower back. Loss of appetite. Weight loss. Tiredness (fatigue). Swelling in your feet. Bone pain. How is this diagnosed? This condition is diagnosed based on: Your medical history. A physical exam. Lab tests, such as urine tests. Imaging tests. Your symptoms. You may also have other tests or procedures, such as: A cystoscopy. This involves putting a narrow tube into your urethra. The urethra is the organ that carries urine from your bladder to the outside of your body. This procedure is done to view the lining of your bladder for tumors. A biopsy. This involves removing a tissue sample to look at under a microscope to check for cancer. Blood tests or imaging tests may be needed. These show how far into the bladder wall cancer has grown, and if cancer has spread to any other parts of your body. Tests may include: CT scan. MRI. Bone scan. X-ray. How is this treated? Your health care provider may recommend one or more types of treatment based on the stage of your cancer. The most common treatments are: Surgery to remove the cancer. Types of surgeries include: ?Removing a tumor on the inside wall of the bladder (transurethral resection). ?Removing the bladder (cystectomy). Radiation therapy. This is often combined with chemotherapy. Chemotherapy. Immunotherapy. This uses medicines to help your body's disease-fighting system (immune system) destroy cancer cells. Follow these instructions at home: Take rdqk-num-ngdgplq and prescription medicines only as told by your health care provider. If you were prescribed an antibiotic medicine, take it as told by your health care provider. Do not stop using the antibiotic even if you start to feel better. Eat a healthy diet. Some treatments might affect your appetite. Do not use any products that contain nicotine or tobacco. These products include cigarettes, chewing tobacco, and vaping devices, such as e-cigarettes. If you need help quitting, ask your health care provider. Consider joining a support group. This may help you learn to deal with the stress of having bladder cancer. Tell your cancer care team if you develop side effects. Your team may be able to recommend ways to get relief. Keep all follow-up visits. This is important. Where to find more information [place] [employer] (ACS): cancer.org National Cancer [place] (NCI): cancer.gov Contact a health care provider if: You have symptoms of a UTI. These include: ?Fever. ?Chills. ?Weakness. ?Muscle aches. ?Pain in your abdomen. ?Urge to urinate that is stronger and happens more often than normal. ?Burning in the bladder or urethra when you urinate. Get help right away if: There is blood in your urine. You cannot urinate. You have severe pain or other symptoms that do not go away. Summary Bladder cancer is a condition where tumors grow in the bladder. Diagnosis is based on your medical history, a physical exam, lab tests, imaging tests, and your symptoms. Your health care provider may recommend one or more types of treatment based on the stage of your cancer. Consider joining a support group. This may help you learn to deal with the stress of having bladder cancer. This information is not intended to replace advice given to you by your health care provider. Make sure you discuss any questions you have with your health care provider. Document Revised: 09/27/2022 Document Reviewed: 09/27/2022 [employer] Patient Education 2023 [employer]. Follow Up Care 06/12/2024 15:45:57 With:Jose GARCÍA, TATI Llanes, [facility] Address: [address], [place] [phone] When: Unknown Comments:sched TYSON [facility] 09-07-2024 Note Patient Education Oncology Bladder Cancer Bladder cancer is a condition where abnormal tissue (a tumor) grows in the bladder. The bladder is the organ that holds urine. Two tubes (ureters) carry urine from the kidneys to the bladder. The bladder wall is made of layers of tissue. Cancer that spreads through these layers of the bladder wall becomes more difficult to treat. What increases the risk? The following factors may make you more likely to develop this condition: ??? Smoking. ??? Working where there are risks (occupational exposures), such as working with rubber, leather, clothing fabric, dyes, chemicals, or paint. ??? Being 55 years of age or older. ??? Being male. ??? Having long-term bladder inflammation. ??? Having a history of cancer. This includes: ? A family history of bladder cancer. ? Having had bladder cancer before. ? Having had certain treatments for cancer before, such as: ? Medicines to kill cancer cells (chemotherapy). ? Strong X-ray beams or high-energy capsules to kill cancer cells and shrink tumors (radiation therapy). ??? Having been exposed to arsenic. This is a poisonous substance. What are the signs or symptoms? Early symptoms of this condition include: ??? Blood in your urine. ??? Pain when urinating. ??? Infections of your urinary system (urinary tract infections or UTIs) that happen often. ??? Having to urinate sooner or more often than normal. Late symptoms of this condition include: ??? Not being able to urinate. ??? Pain on one side of your lower back. ??? Loss of appetite. ??? Weight loss. ??? Tiredness (fatigue). ??? Swelling in your feet. ??? Bone pain. How is this diagnosed? This condition is diagnosed based on: ??? Your medical history. ??? A physical exam. ??? Lab tests, such as urine tests. ??? Imaging tests. ??? Your symptoms. You may also have other tests or procedures, such as: ??? A cystoscopy. This involves putting a narrow tube into your urethra. The urethra is the organ that carries urine from your bladder to the outside of your body. This procedure is done to view the lining of your bladder for tumors. ??? A biopsy. This involves removing a tissue sample to look at under a microscope to check for cancer. Blood tests or imaging tests may be needed. These show how far into the bladder wall cancer has grown, and if cancer has spread to any other parts of your body. Tests may include: ??? CT scan. ??? MRI. ??? Bone scan. ??? X-ray. How is this treated? Your health care provider may recommend one or more types of treatment based on the stage of your cancer. The most common treatments are: ??? Surgery to remove the cancer. Types of surgeries include: ? Removing a tumor on the inside wall of the bladder (transurethral resection). ? Removing the bladder (cystectomy). ??? Radiation therapy. This is often combined with chemotherapy. ??? Chemotherapy. ??? Immunotherapy. This uses medicines to help your body's disease-fighting system (immune system) destroy cancer cells. Follow these instructions at home: ??? Take [id number] and prescription medicines only as told by your health care provider. ??? If you were prescribed an antibiotic medicine, take it as told by your health care provider. Do not stop using the antibiotic even if you start to feel better. ??? Eat a healthy diet. Some treatments might affect your appetite. ??? Do not use any products that contain nicotine or tobacco. These products include cigarettes, chewing tobacco, and vaping devices, such as e-cigarettes. If you need help quitting, ask your health care provider. ??? Consider joining a support group. This may help you learn to deal with the stress of having bladder cancer. ??? Tell your cancer care team if you develop side effects. Your team may be able to recommend ways to get relief. ??? Keep all follow-up visits. This is important. Where to find more information ??? [place] [employer] (ACS): cancer.org ??? [employer] [place] (NCI): cancer.gov Contact a health care provider if: ??? You have symptoms of a UTI. These include: ? Fever. ? Chills. ? Weakness. ? Muscle aches. ? Pain in your abdomen. ? Urge to urinate that is stronger and happens more often than normal. ? Burning in the bladder or urethra when you urinate. Get help right away if: ??? There is blood in your urine. ??? You cannot urinate. ??? You have severe pain or other symptoms that do not go away. Summary ??? Bladder cancer is a condition where tumors grow in the bladder. ??? Diagnosis is based on your medical history, a physical exam, lab tests, imaging tests, and your symptoms. ??? Your health care provider may recommend one or more types of treatment based on the stage of your cancer. ??? Consider joining a support group. This may help you learn to deal with the stress of having bladder cancer. This information is n (more content not included)... [place] 08-30-2024 History of Present illness Narrative Images from the original note were not included. Dillon Smiley is a 64 y.o. male presents with chief complaint of Chief Complaint Patient presents with Rash ASSESSMENT AND PLAN: Dillon was seen today for rash. Diagnoses and all orders for this visit: Plant dermatitis - predniSONE (Deltasone) 20 MG tablet; Take 2 tablets (40 mg) by mouth Daily for 3 days, THEN 1 tablet (20 mg) Daily for 3 days, THEN 0.5 tablets (10 mg) Daily for 4 days. - triamcinolone (Kenalog) 0.5 % cream; Apply topically 2 (two) times a day for 10 days - hydrOXYzine HCl (Atarax) 25 MG tablet; Take 1 tablet (25 mg) by mouth every 8 (eight) hours if needed for itching for up to 10 days The patient presents with a large patch of erythematous weeping rash with flaking on the left arm and scattered erythematous papules with mild serosanguineous drainage on the right arm. There is subcutaneous swelling on the proximal forearm. The rash is non-tender to touch but causes significant itching. Oral steroids and topical steroids were recommended to manage the inflammation. Hydroxyzine, a strong antihistamine, was prescribed to be taken three times a day to help with the itching and to calm the condition. A cream was also prescribed for application twice daily. The medications will be sent to [facility]. If the condition recurs after the completion of the steroid course, he is advised to inform the office so that additional medication can be provided. ISAMAR JENKINS D.O. This note was entered using [employer] copilot. Grammatical and dictation errors maybe present in translation *I have reviewed and reconciled the history and medication list with the patient today* History of Present Illness Was prepping a goose blind a week ago and thinks he got into poison april or sumac. Rash is on bilateral arms and on left side. Has been using calamine and cortaid cream which has helped some. Still itchy and burning some. Not spreading. SUBJECTIVE: Current Medications: Allergies/DC Medication Depression Screen/Social History Current Outpatient Medications: acetaminophen (Tylenol) 325 MG tablet, Take 650 mg by mouth every 4 (four) hours if needed., Disp: , Rfl: ezetimibe (Zetia) 10 MG tablet, 10 Unknown, ORAL, 3 Refill(s), Refills(s) 0, Disp: , Rfl: tamsulosin (Flomax) 0.4 MG 24 hr capsule, Take 0.4 mg by mouth in the morning., Disp: , Rfl: valsartan (Diovan) 160 MG tablet, Oral, Refills(s) 0, Disp: , Rfl: cyclobenzaprine (Flexeril) 10 MG tablet, Take 1 tablet (10 mg) by mouth at bedtime., Disp: 90 tablet, Rfl: 1 hydrOXYzine HCl (Atarax) 25 MG tablet, Take 1 tablet (25 mg) by mouth every 8 (eight) hours if needed for itching for up to 10 days, Disp: 30 tablet, Rfl: 1 predniSONE (Deltasone) 20 MG tablet, Take 2 tablets (40 mg) by mouth Daily for 3 days, THEN 1 tablet (20 mg) Daily for 3 days, THEN 0.5 tablets (10 mg) Daily for 4 days., Disp: 11 tablet, Rfl: 0 triamcinolone (Kenalog) 0.5 % cream, Apply topically 2 (two) times a day for 10 days, Disp: 45 g, Rfl: 1 Allergies Allergen Reactions Pollen Extract Unknown Atorvastatin Hives and Rash Lisinopril Hives and Rash Medications Discontinued During This Encounter Medication Reason mirabegron ER (Myrbetriq) 25 MG 24 hr tablet Therapy completed oxybutynin (Ditropan) 5 MG tablet Therapy completed phenazopyridine (Pyridium) 100 MG tablet Therapy completed Depression: Not at risk (08/30/2024) PHQ-2 PHQ-2 Score: 0 Social History Tobacco Use Smoking status: Never Smokeless tobacco: Never Vaping Use Vaping status: Never Used Substance Use Topics Alcohol use: Yes Comment: 2-4 times a month PAST MEDICAL HISTORY: SURGICAL/SOCIAL/FAMILY HISTORY Past Medical History: Diagnosis Date Allergic Arthritis Bladder cancer (CMS/HCC) DDD (degenerative disc disease), cervical Hyperlipidemia (CMS/HCC) Hypertension (CMS/HCC) Past Surgical History: Procedure Laterality Date COLONOSCOPY 2008 EPIDURAL BLOCK INJECTION 07/2017 [id number] KNEE ARTHROSCOPY W/ ACL RECONSTRUCTION Right 1998 TRANSURETHRAL RESECTION OF BLADDER TUMOR 03/2023 x2 Family History Problem Relation Name Age of Onset Multiple sclerosis Mother Thyroid disease Father Depression Father Heart attack Brother REVIEW OF SYMPTOMS: Review of Systems Constitutional: Negative for fatigue and fever. Skin: Positive for rash. Neurological: Negative. Negative for weakness and numbness. Psychiatric/Behavioral: Negative. All other systems reviewed and are negative. Hematological: Does not bruise/bleed easily. OBJECTIVE: 08/30/2024 2:37 PM 08/18/2023 10:15 AM 09/09/2022 12:00 PM Vitals BMI 34.44 kg/m2 34.72 kg/m2 32.69 kg/m2 BSA (m2) 2.32 m2 2.33 m2 2.26 m2 Systolic 126 138 132 Diastolic 78 86 84 Heart Rate 66 78 SpO2 98 % 98 % Temp 98.2 F 98.1 F Height (in) 5' 10 5' 10 5' 10 Weight (lb) 240 242 227.8 Visit Report Report Report GENERAL EXAM: Physical Exam Vitals and nursing note reviewed. Constitutional: General: He is not in acute distress. Appearance: Normal appearance. He is not ill-appearing. HENT: Head: Normocephalic and atraumatic. Nose: Nose normal. Eyes: General: No scleral icterus. Right eye: No discharge. Left eye: No discharge. Extraocular Movements: Extraocular movements intact. Musculoskeletal: Cervical back: Neck supple. Skin: General: Skin is warm and dry. Neurological: General: No focal deficit present. Mental Status: He is alert and oriented to person, place, and time. Mental status is at baseline. Psychiatric: Mood and Affect: Mood normal. Behavior: Behavior normal. Thought Content: Thought content normal. Judgment: Judgment normal. ADDITIONAL EXAM: Physical Exam Large patch of erythematous weeping rash with flaking noted on the left arm. Proximal forearm exhibits subcutaneous swelling. No purulent drainage. Nontender to touch. Right arm presents scattered erythematous papules, some with mild serosanguineous drainage. documented in this encounter [facility] 08-01-2024 Note HNO ID: [id number] Author: SAMMIE RENDON RN Service: ? Author Type: Registered Nurse Type: Progress Notes Filed: 08/01/2024 13:49 Note Text: Pt here for BCG tx x [address] catheter after multiple attempts with 16 togolese trevino and 16 togolese coude. Pt became very uncomfortable and sore and was not willing to try any more attempts at placing a catheter. Pt would like us to contact Dr. Garcia at [facility] to notify her and states he would like a plan B. Lead nurse notified. Sammie Rendon RN [facility] 08-01-2024 History of Present illness Narrative Pt here for BCG tx x [address]. [address] catheter after multiple attempts with 16 togolese trevino and 16 togolese coude. Pt became very uncomfortable and sore and was not willing to try any more attempts at placing a catheter. Pt would like us to contact Dr. Garcia at [facility] to notify her and states he would like a plan B. Lead nurse notified. Sammie Rendon RN documented in this encounter [facility] 07-21-2024 Note HNO ID: [id number] Author: DOMINGO REED MD Service: ? Author Type: Physician Type: Progress Notes Filed: 07/24/2024 20:22 Note Text: PATIENT NAME: Dillon Smiley DATE: 07/23/2024 PRIMARY CARE PHYSICIAN: Isamar Jenkins DO OTHER PHYSICIANS: Dr. Shazia Garcia, Dr. Dr. Jensen White ([facility] Pain Man) HPI: This is a 64 year old male with a history of nonmuscle invasive bladder cancer, referred for further management. The patient was initially diagnosed with high-grade nonmuscle invasive T1 bladder cancer in March 2023. Initial cystoscopy with TURBT revealed extensive involvement of the bladder (more than 50%). He was referred to [facility] urology (Dr. Jacobsen) and underwent a second TURBT 06/16/2023. Pathology revealed no evidence of residual malignancy. He subsequently received intravesicular BCG x 6 completed 09/08/2023. Repeat cystoscopy 11/10/2023 revealed a recurrent mass which was resected, pathology benign. The patient continued treatment with maintenance BCG weekly x3 12/02/2023 through 12/16/2023. Most recent follow-up cystoscopy per Dr. Jacobsen 05/23/2024 revealed a persistent mass in the posterior bladder. The mass was similar in appearance to that seen 11/10/2023 which was benign, therefore the residual mass was not resected. He was recently seen by his local urologist, and currently is referred to continue maintenance BCG. The patient also has a history of elevated PSA. Apparently his values have been up and down for the past several years. Most recent pelvic MRI suspicious but not diagnostic. He has chronic urinary symptoms including urgency and hesitancy. MEDICATIONS: Current Outpatient Medications Medication Sig oxybutynin (DITROPAN) 5 mg tablet Take 5 mg by mouth. phenazopyridine (PYRIDIUM) 100 mg tablet Take 1 tablet by mouth three times a day as needed for up to 9 doses. (Patient not taking: Reported on 02/15/2024) tamsulosin (FLOMAX) 0.4 mg Take 1 capsule by mouth every afternoon. acetaminophen (TYLENOL) 325 mg tablet Take 2 tablets by mouth every 4 hours as needed for pain. ezetimibe (ZETIA) 10 mg tablet q 24 HR. mirabegron (MYRBETRIQ) 25 mg Tb24 Take 25 mg by mouth. valsartan (DIOVAN) 160 mg tablet Take by mouth. No current facility-administered medications for this visit. ALLERGIES: ALLERGIES No Known Allergies PAST MEDICAL HISTORY: PAST MEDICAL HISTORY Diagnosis Date Benign prostatic hyperplasia Bladder cancer (HCC) BPH with urinary obstruction GERD (gastroesophageal reflux disease) Hyperlipidemia OAB (overactive bladder) PAST SURGICAL HISTORY: PAST SURGICAL HISTORY Procedure Laterality Date COLONOSCOPY SCREENING CYSTOSCOPY 04/19/2023 CYSTOURETHROSCOPY 11/10/2023 KNEE SURGERY HX FAMILY HISTORY: No family history on file. SOCIAL HISTORY: Social History Tobacco Use Smoking status: Former Types: Cigarettes Smokeless tobacco: Never Substance Use Topics Alcohol use: Yes Alcohol/week: 6.0 standard drinks of alcohol Types: 6 Shots of liquor per week Drug use: Never COMPLETE REVIEW OF SYSTEMS: CONSTITUTION: Negative for pain, fatigue, weight loss, or appetite loss. EENT: Negative for mouth soreness, antibiotics use, epistaxis, visual problems, neck or facial swelling, fever/chills, bleeding gums, or hearing loss. CV: Negative for edema, calf swelling, palpitations, or chest pain. RESPIRATORY: Negative for cough, SOB, hemoptysis, or wheezing. GI: Negative for nausea/vomiting, heartburn, vomiting blood, dysphasia, diarrhea, blood in stool, constipation, early satiety, PICA, vegetarian, poor nutrition, abdominal fullness, or abdominal pain. NEUROLOGICAL: Negative for numbness/tingling, dizziness, gait disturbance, headache, speech disturbance, tremor, hemiparesis/sensory loss, or change in mental status. MUSCULOSKELETAL: Negative for joint pain, joint swelling, or proximal muscle weakness. SKIN: Negative for hair loss, bruising, nail changes, rash, itching, pallor, or jaundice. ENDO/URO: Negative for hot flashes, cold or heat intolerance, urinary frequency, urinary hesitancy, menorrhagia, or hematuria. PSYCH: Negative for anxiety, depression, or other. PHYSICAL EXAM: BP 151/99 Pulse 82 Temp 36.1 ?C (97 ?F) (Temporal) Resp 18 Wt 113.5 kg (250 lb 3.6 oz) SpO2 97% BMI 34.90 kg/m? GENERAL EXAM: Well developed/well nourished; in no acute distress. SKIN: Negative for lesions, rashes, or ulcers on the upper and lower extremities and face. Negative for palpations/nodules, purpura, and ecchymosis. EENT: Negative for conjunctiva, mucosal pallor, JVD, LAP, thyromegaly, and glossitis. Supple AND PERRL. EXTREMITIES: Negative for cyanosis, clubbing, and crepitus. LUNGS: Negative to auscultation, respiratory effort, and percussion. CARDIOVASCULAR: Regular rate. Negative for murmurs/S3S4/abnormal sounds, edema, and carotid bruits. ABDOMEN: Negative for masses, hernia, and spleen/liver abnorma (more content not included)... [facility] 07-21-2024 History of Present illness Narrative PATIENT NAME: Dillon Smiley DATE: 07/23/2024 PRIMARY CARE PHYSICIAN: Isamar Jenkins DO OTHER PHYSICIANS: Dr. Shazia Garcia, Dr. Rigo Jacobsen, Dr. Styles ([facility] Pain Man) HPI: This is a 64 year old male with a history of nonmuscle invasive bladder cancer, referred for further management. The patient was initially diagnosed with high-grade nonmuscle invasive T1 bladder cancer in March 2023. Initial cystoscopy with TURBT revealed extensive involvement of the bladder (more than 50%). He was referred to [facility] urology (Dr. Jacobsen) and underwent a second TURBT 06/16/2023. Pathology revealed no evidence of residual malignancy. He subsequently received intravesicular BCG x 6 completed 09/08/2023. Repeat cystoscopy 11/10/2023 revealed a recurrent mass which was resected, pathology benign. The patient continued treatment with maintenance BCG weekly x3 12/02/2023 through 12/16/2023. Most recent follow-up cystoscopy per Dr. Jacobsen 05/23/2024 revealed a persistent mass in the posterior bladder. The mass was similar in appearance to that seen 11/10/2023 which was benign, therefore the residual mass was not resected. He was recently seen by his local urologist, and currently is referred to continue maintenance BCG. The patient also has a history of elevated PSA. Apparently his values have been up and down for the past several years. Most recent pelvic MRI suspicious but not diagnostic. He has chronic urinary symptoms including urgency and hesitancy. MEDICATIONS: Current Outpatient Medications Medication Sig oxybutynin (DITROPAN) 5 mg tablet Take 5 mg by mouth. phenazopyridine (PYRIDIUM) 100 mg tablet Take 1 tablet by mouth three times a day as needed for up to 9 doses. (Patient not taking: Reported on 02/15/2024) tamsulosin (FLOMAX) 0.4 mg Take 1 capsule by mouth every afternoon. acetaminophen (TYLENOL) 325 mg tablet Take 2 tablets by mouth every 4 hours as needed for pain. ezetimibe (ZETIA) 10 mg tablet q 24 HR. mirabegron (MYRBETRIQ) 25 mg Tb24 Take 25 mg by mouth. valsartan (DIOVAN) 160 mg tablet Take by mouth. No current facility-administered medications for this visit. ALLERGIES: ALLERGIES No Known Allergies PAST MEDICAL HISTORY: PAST MEDICAL HISTORY Diagnosis Date Benign prostatic hyperplasia Bladder cancer (HCC) BPH with urinary obstruction GERD (gastroesophageal reflux disease) Hyperlipidemia OAB (overactive bladder) PAST SURGICAL HISTORY: PAST SURGICAL HISTORY Procedure Laterality Date COLONOSCOPY SCREENING CYSTOSCOPY 04/19/2023 CYSTOURETHROSCOPY 11/10/2023 KNEE SURGERY HX FAMILY HISTORY: No family history on file. SOCIAL HISTORY: Social History Tobacco Use Smoking status: Former Types: Cigarettes Smokeless tobacco: Never Substance Use Topics Alcohol use: Yes Alcohol/week: 6.0 standard drinks of alcohol Types: 6 Shots of liquor per week Drug use: Never COMPLETE REVIEW OF SYSTEMS: CONSTITUTION: Negative for pain, fatigue, weight loss, or appetite loss. EENT: Negative for mouth soreness, antibiotics use, epistaxis, visual problems, neck or facial swelling, fever/chills, bleeding gums, or hearing loss. CV: Negative for edema, calf swelling, palpitations, or chest pain. RESPIRATORY: Negative for cough, SOB, hemoptysis, or wheezing. GI: Negative for nausea/vomiting, heartburn, vomiting blood, dysphasia, diarrhea, blood in stool, constipation, early satiety, PICA, vegetarian, poor nutrition, abdominal fullness, or abdominal pain. NEUROLOGICAL: Negative for numbness/tingling, dizziness, gait disturbance, headache, speech disturbance, tremor, hemiparesis/sensory loss, or change in mental status. MUSCULOSKELETAL: Negative for joint pain, joint swelling, or proximal muscle weakness. SKIN: Negative for hair loss, bruising, nail changes, rash, itching, pallor, or jaundice. ENDO/URO: Negative for hot flashes, cold or heat intolerance, urinary frequency, urinary hesitancy, menorrhagia, or hematuria. PSYCH: Negative for anxiety, depression, or other. PHYSICAL EXAM: BP 151/99 Pulse 82 Temp 36.1 C (97 F) (Temporal) Resp 18 Wt 113.5 kg (250 lb 3.6 oz) SpO2 97% BMI 34.90 kg/m GENERAL EXAM: Well developed/well nourished; in no acute distress. SKIN: Negative for lesions, rashes, or ulcers on the upper and lower extremities and face. Negative for palpations/nodules, purpura, and ecchymosis. EENT: Negative for conjunctiva, mucosal pallor, JVD, LAP, thyromegaly, and glossitis. Supple & PERRL. EXTREMITIES: Negative for cyanosis, clubbing, and crepitus. LUNGS: Negative to auscultation, respiratory effort, and percussion. CARDIOVASCULAR: Regular rate. Negative for murmurs/S3S4/abnormal sounds, edema, and carotid bruits. ABDOMEN: Negative for masses, hernia, and spleen/liver abnormalities. RECTAL: Not done PSYCHIATRIC: Negative for mood/affect changes, recent & remote memory changes, and judgement and insight. NEUROLOGICAL: Alert, oriented x person, place, time. Cranial nerves 2-12 intact. Sensory for pain, light touch, vibration intact on all 4 extremities. Reflexes symmetric for biceps/brachioradial/patella/achi lles. MUSCULOSKELETAL: Negative examination of joints, bones, muscles/tendons of all four extremities for inspection, percussion, and palpation. Negative for misallignment, asymmetry, crepitation, tenderness, mass, effusions. Range of motion normal. Negative for joint instability, laxity, dislocation. Gait steady. Negative for swelling, erythema, tenderness, soft tissue swelling, and atrophy. PATHOLOGY: 11/10/2023 cystoscopy with TURBT-urinary bladder, posterior wall, biopsy: - Denuded urothelial mucosa with prior biopsy site changes, negative for neoplasm. - No definitive muscularis propria is present. 06/16/2023 Cystoscopy with TURBT A. Bladder, posterior wall, tumor superficial, transurethral resection: - Urothelial atypia. - Chronic inflammation and granulation tissue. - Muscularis propria is present for evaluation and is unremarkable. B. Bladder, posterior wall, tumor deep, transurethral resection: - Detached fragment of atypical urothelium. - Chronic inflammation and granulation tissue. - Muscularis propria is present for evaluation and is unremarkable. C. Bladder neck, transurethral resection: - Chronic inflammation and granulation tissue. - Muscularis propria is present for evaluation and is unremarkable. 04/27/2023 Cystoscopy with TURBT ([facility]) A. Urinary bladder, tumor, transurethral resection: - Invasive high-grade papillary urothelial carcinoma. - Tumor superficially invades the lamina propria. - No definitive muscularis propria present for assessment. B. Prostate, transurethral biopsy: - Benign prostatic tissue. C. Bladder neck , biopsy: - Non-invasive high-grade urothelial carcinoma. - Bladder neck musculature present and free of neoplasm. RADIOLOGY/OTHER STUDIES: 05/23/2024 Cystoscopy (Dr. Jacobsen) 1 tumor, 2 to 5 cm. Sessile. Posterior wall. Biopsies not obtained 04/20/2024 MRI pelvis IMPRESSION: Marked bladder dome wall thickening with superficial hyperenhancement, mild restricted diffusion. Findings are nonspecific and could tax compliance representative inflammation or neoplastic involvement. RIGHT peripheral and transition zones as described. Differential diagnosis includes granulomatous BCG prostatitis or prostate carcinoma. Recommend a dedicated prostate MRI in 3 months for further assessment. No pelvic metastatic disease. 02/15/2024 cystoscopy (Dr. Jacobsen) 1 tumor, 2 to 5 cm. Sessile. Posterior wall. Biopsies not obtained. 11/10/2023 cystoscopy (Dr. Jacobsen) 1 tumor, 4 cm. Flat. Posterior wall. Pathology benign. 09/09/2022 CT abdomen/pelvis Diffuse urinary bladder wall thickening. While finding in part may be secondary to deep rest state urinary bladder, other findings including postobstructive secondary to enlarged prostate diagnostic consideration. Inflammatory and infectious etiologies secondary considerations. No renal/ureteral calculi. No hydronephrosis/hydroureter. Grade 1 L5 spondylolisthesis. LABS: Hemoglobin (g/dL) Date Value 11/02/2023 15.4 Hematocrit (%) Date Value 11/02/2023 44.7 WBC (k/uL) Date Value 11/02/2023 6.69 Platelet Count (k/uL) Date Value 11/02/2023 224 PSA 05/28/2024 10.9 ASSESSMENT/PLAN: 1. Malignant neoplasm of overlapping sites of bladder (HCC) - ICD9: 188.8, ICD10: C67.8 (primary diagnosis) The patient was initially diagnosed with high-grade nonmuscle invasive T1 bladder cancer in March 2023. Initial cystoscopy with TURBT revealed extensive involvement of the bladder (more than 50%). He was referred to [facility] urology (Dr. Jacobsen) and underwent a second TURBT 06/16/2023. Pathology revealed no evidence of residual malignancy. He subsequently received intravesicular BCG x 6 completed 09/08/2023. Repeat cystoscopy 11/10/2023 revealed a recurrent mass which was resected, pathology benign. Apparently his procedure was complicated by gross hematuria and clot retention. The patient continued treatment with maintenance BCG weekly x 3 12/02/2023 through 12/16/2023. Most recent follow-up cystoscopy per Dr. Jacobsen 05/23/2024 revealed a persistent mass in the posterior bladder. The mass was similar in appearance to that seen 11/10/2023 which was benign, therefore the residual mass was not resected. He was seen by his local urologist, and currently is referred to continue maintenance BCG. Options were discussed, and per SWOG protocol we will arrange for maintenance BCG x 3 to start next week. He anticipates undergoing follow-up cystoscopy per Dr. Garcia on 09/07/2024. I will see him back 2 weeks after his next cystoscopy to arrange additional intravesicular BCG as indicated. 2. Elevated prostate specific antigen (PSA) - ICD9: 790.93, ICD10: R97.20 History of elevated PSA since 2021. Most recent MRI 04/20/2024 revealed suspicious abnormalities in the right peripheral and transitional zones. Follow-up closely with urology to include repeat MRI. Based on results biopsy will be considered. 3. Degenerative disc disease The patient has chronic upper back pain and left shoulder pain from degenerative disc disease. Improved with intermittent steroid injections. Continue treatment per pain management. Domingo Reed MD CC: Dr. Shazia Garcia, [facility] urology documented in this encounter [facility] 05-23-2024 History of Present illness Narrative [place] [id number] AMBULATORY PROCEDURE NOTE NAME: Dillon Smiley AGE: [age] year old CLINIC #: [id number] DATE: May 23, 2024 SURGEON: Rigo Jacobsen MD PROCEDURE: Cystoscopy ANESTHESIA: Lidocaine gel per urethra DIAGNOSIS: Bladder cancer INDICATION: Surveillance FINDINGS: Number of tumors: 1 Size of largest tumor: 2 - 5 cm Appearance: Sessile Location: Posterior wall Urethral involvement: No Ureteral orifice involvement: No Urethra: Normal Prostate: Moderate lateral lobes Verumontanum: Open Urine cytology: Voided Swelling in the lining PROCEDURE: After informed consent was obtained, the patient was taken to the endoscopy suite. A time out was performed where the patient and the procedure were identified in the presence of the Nursing and Surgical Staff. Patient was placed in supine position, prepped and draped in the standard sterile fashion. Lidocaine gel was placed per urethra for local anesthesia. Cystoscopy was then performed using a 17 F flexible cystoscope. Sterile technique was maintained throughout. Please refer to above for specific findings during this part of the procedure. After carefully and atraumatically inspecting the urethra, prostate, and bladder, the bladder was emptied and the cystoscope was removed. The patient tolerated the procedure well and there were no complications. 05/23/24 Cysto: Swelling in the lining; cytology: pending 02/15/24 Cysto: Concerning for recurrence; cytology: neg, acute inflammation, blood 12/16/23 BCG x 3 completed 11/10/23 TURBT: benign (complicated by gross hematuria and clot retention) 10/19/23 Cysto: recurrence; cytology: atypical 09/08/23 BCG x 6 completed 06/16/23 TURBT: chronic inflammation 04/22/23 TURBT: cT1HG Decided to proceed with MRI bladder and send pathology as similar findings seen last time before benign TURBT. MRI Bladder 04/20/24- IMPRESSION: Marked bladder dome wall thickening with superficial hyperenhancement, mild restricted diffusion. Findings are nonspecific and could tax compliance representative inflammation or neoplastic involvement. RIGHT peripheral and transition zones as described. Differential diagnosis includes granulomatous BCG prostatitis or prostate carcinoma. Recommend a dedicated prostate MRI in 3 months for further assessment. No pelvic metastatic disease. ASSESSMENT/PLAN: Stable erythema, MRI equivocal, he prefers close surveillance over re-TURBT. I reviewed r/b/a of both approaches. Repeat cystoscopy in 3 months with plans for repeat MRI within 6 months of last one. Reports elevated PSA, will obtain results for review. By signing my name below, I, Bernardo Alvares, attest that this documentation has been prepared under the direction and in the presence of Dr. Jacobsen. Electronically signed, Shaina Valencia STAFF PHYSICIAN NOTE OF PERSONAL INVOLVEMENT IN CARE The above noted history, physical, assessment and plan were reviewed with the provider and critical portions of the H&P were confirmed. I evaluated and examined the patient and agree with the plan above and provided direct supervision of the above provider during this patient's care. Rigo Jacobsen MD UNIVERSAL PROTOCOL / SAFETY CHECKLIST Procedure to be Performed: cystoscopy Sign In: A Moment of CARE was completed. Personnel directly involved with the procedure wore the appropriate PPE (Personal Protective Equipment). Patient/Surrogate Stated/Verified: PATIENT VERIFIED(optional for EMERGENT procedures): Patient name, Date of , Relevant allergies, and The intended procedure Time Out Communication: Intended patient and procedure match the source documents. Consent documented and matches the intended procedure. Relevant labs, photos, and/or imaging studies have been reviewed. Correct side/site marked and visible. Medications required for procedure verified. Fire risk assessed and interventions discussed. No implant(s) inserted. Sign Out: SIGN OUT (optional for EMERGENT procedures): All specimen containers correctly labeled. Meghann Licea RN documented in this encounter [facility] 05-23-2024 Note HNO ID: [id number] Author: RIGO JACOBSEN MD Service: ? Author Type: Physician Type: Progress Notes Filed: 05/23/2024 09:10 Note Text: [place] [address] AMBULATORY PROCEDURE NOTE NAME: Dillon Smiley AGE: [age] year old CLINIC #: [id number] DATE: May 23, 2024 SURGEON: Rigo Jacobsen MD PROCEDURE: Cystoscopy ANESTHESIA: Lidocaine gel per urethra DIAGNOSIS: Bladder cancer INDICATION: Surveillance FINDINGS: Number of tumors: 1 Size of largest tumor: 2 - 5 cm Appearance: Sessile Location: Posterior wall Urethral involvement: No Ureteral orifice involvement: No Urethra: Normal Prostate: Moderate lateral lobes Verumontanum: Open Urine cytology: Voided Swelling in the lining PROCEDURE: After informed consent was obtained, the patient was taken to the endoscopy suite. A time out was performed where the patient and the procedure were identified in the presence of the Nursing and Surgical Staff. Patient was placed in supine position, prepped and draped in the standard sterile fashion. Lidocaine gel was placed per urethra for local anesthesia. Cystoscopy was then performed using a 17 F flexible cystoscope. Sterile technique was maintained throughout. Please refer to above for specific findings during this part of the procedure. After carefully and atraumatically inspecting the urethra, prostate, and bladder, the bladder was emptied and the cystoscope was removed. The patient tolerated the procedure well and there were no complications. 05/23/24 Cysto: Swelling in the lining; cytology: pending 02/15/24 Cysto: Concerning for recurrence; cytology: neg, acute inflammation, blood 12/16/23 BCG x 3 completed 11/10/23 TURBT: benign (complicated by gross hematuria and clot retention) 10/19/23 Cysto: recurrence; cytology: atypical 09/08/23 BCG x 6 completed 06/16/23 TURBT: chronic inflammation 04/22/23 TURBT: cT1HG Decided to proceed with MRI bladder and send pathology as similar findings seen last time before benign TURBT. MRI Bladder 04/20/24- IMPRESSION: Marked bladder dome wall thickening with superficial hyperenhancement, mild restricted diffusion. Findings are nonspecific and could tax compliance representative inflammation or neoplastic involvement. RIGHT peripheral and transition zones as described. Differential diagnosis includes granulomatous BCG prostatitis or prostate carcinoma. Recommend a dedicated prostate MRI in 3 months for further assessment. No pelvic metastatic disease. ASSESSMENT/PLAN: Stable erythema, MRI equivocal, he prefers close surveillance over re-TURBT. I reviewed r/b/a of both approaches. Repeat cystoscopy in 3 months with plans for repeat MRI within 6 months of last one. Reports elevated PSA, will obtain results for review. By signing my name below, I, Bernardo Alvares, attest that this documentation has been prepared under the direction and in the presence of Dr. Jacobsen. Electronically signed, Shaina Valencia STAFF PHYSICIAN NOTE OF PERSONAL INVOLVEMENT IN CARE The above noted history, physical, assessment and plan were reviewed with the provider and critical portions of the HANDP were confirmed. I evaluated and examined the patient and agree with the plan above and provided direct supervision of the above provider during this patient's care. Rigo Jacobsen MD [facility] 05-23-2024 Note HNO ID: [id number] Author: MEGHANN LICEA RN Service: ? Author Type: Registered Nurse Type: Progress Notes Filed: 05/23/2024 08:58 Note Text: UNIVERSAL PROTOCOL / SAFETY CHECKLIST Procedure to be Performed: cystoscopy Sign In: A Moment of CARE was completed. Personnel directly involved with the procedure wore the appropriate PPE (Personal Protective Equipment). Patient/Surrogate Stated/Verified: PATIENT VERIFIED(optional for EMERGENT procedures): Patient name, Date of , Relevant allergies, and The intended procedure Time Out Communication: Intended patient and procedure match the source documents. Consent documented and matches the intended procedure. Relevant labs, photos, and/or imaging studies have been reviewed. Correct side/site marked and visible. Medications required for procedure verified. Fire risk assessed and interventions discussed. No implant(s) inserted. Sign Out: SIGN OUT (optional for EMERGENT procedures): All specimen containers correctly labeled. Meghann Licea RN [facility] 05-23-2024 Nurse Note Actual procedure/procedure scheduled: Yes Performing provider/scheduled provider: Yes Patient was roomed in: Q9- 05 [employer] Manager offered:Patient declines Patient arrived in the room at: 0840 Patient ready for procedure: 0850 The procedure started at ( Time Only): 0854 The procedure ended at: 0856 Was the procedure delayed: No The patient left the procedure room at: 0905 Meghann Licea RN PRE PROCEDURE ASSESSMENT- Cysto Procedure Indication: Cystoscopy Latex Allergy: No Allergies reviewed and updated. Yes Heart valve replacement: No Joint replacement: No Back Office UA otained: yes PROCEDURE PREP-Cysto Patient ID with two(2)identifiers verified by: Meghann Licea RN Pre-Procedure Antibiotics: None taken at home nor prior to procedure Patient Prep: Betadine Scrub to perineum and placement of Sterile Drape. COMPLETED Anesthetic Given:10 cc 2% Lidocaine jelly Meghann Licea RN UNIVERSAL PROTOCOL / SAFETY CHECKLIST Procedure to be performed: Cystoscopy Sign in Communication: Completed Time Out: Team Confirms the Correct Patient, Correct Procedure, Correct Site and Site Marking, Correct Position (if applicable). Sign Out Discussion: Completed Meghann Licea RN POST PROCEDURE NURSE ASSESSMENT Present along with physician during procedure exam. Meghann Licea RN Instruction sheet given and reviewed and patient verbalizes understanding: yes Post Procedure Antibiotic: As Prescribed Current pain intensity is 0 on a 0-10 pain scale. Meghann Licea RN AMBULATORY PATIENT EDUCATION THE FOLLOWING WAS EVALUATED Motivation To Learn: Interested Family/Significant Other Support: None - Unavailable/disinterested Cognitive Ability: Alert/Oriented Method of Instruction: Individual instruction Written instruction/Handouts Verbal instruction The Following Influencing Factors Were Barriers To This Education Session: None The Following Physical Limitations Were Barriers To This Education Session: None Instruction Provided To: Patient Assistant Plant Control Operator Present: not applicable Discipline: Nursing Learning Topic: SURVIVAL SKILLS: Complication Prevention Symptom Management Patient Evaluation: Verbalizes understanding: Yes Supplemental Material Given: Written Material Instructed By Meghann Licea RN In Department Urology . [facility] 05-23-2024 Nurse Note Actual procedure/procedure scheduled: Yes Performing provider/scheduled provider: Yes Patient was roomed in: Q9 05 [employer] Manager offered:Patient declines Patient arrived in the room at: 0840 Patient ready for procedure: 0850 The procedure started at ( Time Only): 0854 The procedure ended at: 0856 Was the procedure delayed: No The patient left the procedure room at: 0905 Meghann Licea RN PRE PROCEDURE ASSESSMENT- Cysto Procedure Indication: Cystoscopy Latex Allergy: No Allergies reviewed and updated. Yes Heart valve replacement: No Joint replacement: No Back Office UA otained: yes PROCEDURE PREP-Cysto Patient ID with two(2)identifiers verified by: Meghann Licea RN Pre-Procedure Antibiotics: None taken at home nor prior to procedure Patient Prep: Betadine Scrub to perineum and placement of Sterile Drape. COMPLETED Anesthetic Given:10 cc 2% Lidocaine jelly Meghann Licea RN UNIVERSAL PROTOCOL / SAFETY CHECKLIST Procedure to be performed: Cystoscopy Sign in Communication: Completed Time Out: Team Confirms the Correct Patient, Correct Procedure, Correct Site and Site Marking, Correct Position (if applicable). Sign Out Discussion: Completed Meghann Licea RN POST PROCEDURE NURSE ASSESSMENT Present along with physician during procedure exam. Meghann Licea RN Instruction sheet given and reviewed and patient verbalizes understanding: yes Post Procedure Antibiotic: As Prescribed Current pain intensity is 0 on a 0-10 pain scale. Meghann Licea RN AMBULATORY PATIENT EDUCATION THE FOLLOWING WAS EVALUATED Motivation To Learn: Interested Family/Significant Other Support: None - Unavailable/disinterested Cognitive Ability: Alert/Oriented Method of Instruction: Individual instruction Written instruction/Handouts Verbal instruction The Following Influencing Factors Were Barriers To This Education Session: None The Following Physical Limitations Were Barriers To This Education Session: None Instruction Provided To: Patient Assistant Plant Control Operator Present: not applicable Discipline: Nursing Learning Topic: SURVIVAL SKILLS: Complication Prevention Symptom Management Patient Evaluation: Verbalizes understanding: Yes Supplemental Material Given: Written Material Instructed By Meghann Licea RN In Department Urology . documented in this encounter [facility] 05-14-2024 Hospital Discharge instructions Patient Education 05/14/2024 14:11:50 Overactive Bladder, Adult Overactive Bladder, Adult Overactive bladder is a condition in which a person has a sudden and frequent need to urinate. A person might also leak urine if he or she cannot get to the bathroom fast enough (urinary incontinence). Sometimes, symptoms can interfere with work or social activities. What are the causes? Overactive bladder is associated with poor nerve signals between your bladder and your brain. Your bladder may get the signal to empty before it is full. You may also have very sensitive muscles that make your bladder squeeze too soon. This condition may also be caused by other factors, such as: Medical conditions: ?Urinary tract infection. ?Infection of nearby tissues. ?Prostate enlargement. ?Bladder stones, inflammation, or tumors. ?Diabetes. ?Muscle or nerve weakness, especially from these conditions: ?A spinal cord injury. ?Stroke. ?Multiple sclerosis. ?Parkinson's disease. Other causes: ?Surgery on the uterus or urethra. ?Drinking too much caffeine or alcohol. ?Certain medicines, especially those that eliminate extra fluid in the body (diuretics). ?Constipation. What increases the risk? You may be at greater risk for overactive bladder if you: Are an older adult. Smoke. Are going through menopause. Have prostate problems. Have a neurological disease, such as stroke, dementia, Parkinson's disease, or multiple sclerosis (MS). Eat or drink alcohol, spicy food, caffeine, and other things that irritate the bladder. Are overweight or obese. What are the signs or symptoms? Symptoms of this condition include a sudden, strong urge to urinate. Other symptoms include: Leaking urine. Urinating 8 or more times a day. Waking up to urinate 2 or more times overnight. How is this diagnosed? This condition may be diagnosed based on: Your symptoms and medical history. A physical exam. Blood or urine tests to check for possible causes, such as infection. You may also need to see a health care provider who specializes in urinary tract problems. This is called a urologist. How is this treated? Treatment for overactive bladder depends on the cause of your condition and whether it is mild or severe. Treatment may include: Bladder training, such as: ?Learning to control the urge to urinate by following a schedule to urinate at regular intervals. ?Doing Kegel exercises to strengthen the pelvic floor muscles that support your bladder. Special devices, such as: ?Biofeedback. This uses sensors to help you become aware of your body's signals. ?Electrical stimulation. This uses electrodes placed inside the body (implanted) or outside the body. These electrodes send gentle pulses of electricity to strengthen the nerves or muscles that control the bladder. ?Women may use a plastic device, called a pessary, that fits into the vagina and supports the bladder. Medicines, such as: ?Antibiotics to treat bladder infection. ?Antispasmodics to stop the bladder from releasing urine at the wrong time. ?Tricyclic antidepressants to relax bladder muscles. ?Injections of botulinum toxin type A directly into the bladder tissue to relax bladder muscles. Surgery, such as: ?A device may be implanted to help manage the nerve signals that control urination. ?An electrode may be implanted to stimulate electrical signals in the bladder. ?A procedure may be done to change the shape of the bladder. This is done only in very severe cases. Follow these instructions at home: Eating and drinking Make diet or lifestyle changes recommended by your health care provider. These may include: ?Drinking fluids throughout the day and not only with meals. ?Cutting down on caffeine or alcohol. ?Eating a healthy and balanced diet to prevent constipation. This may include: ?Choosing foods that are high in fiber, such as beans, whole grains, and fresh fruits and vegetables. ?Limiting foods that are high in fat and processed sugars, such as fried and sweet foods. Lifestyle Lose weight if needed. Do not use any products that contain nicotine or tobacco. These include cigarettes, chewing tobacco, and vaping devices, such as e-cigarettes. If you need help quitting, ask your health care provider. General instructions Take vynz-znb-achuucd and prescription medicines only as told by your health care provider. If you were prescribed an antibiotic medicine, take it as told by your health care provider. Do not stop taking the antibiotic even if you start to feel better. Use any implants or pessary as told by your health care provider. If needed, wear pads to absorb urine leakage. Keep a log to track how much and when you drink, and when you need to urinate. This will help your health care provider monitor your condition. Keep all follow-up visits. This is important. Contact a health care provider if: You have a fever or chills. Your symptoms do not get better with treatment. Your pain and discomfort get worse. You have more frequent urges to urinate. Get help right away if: You are not able to control your bladder. Summary Overactive bladder refers to a condition in which a person has a sudden and frequent need to urinate. Several conditions may lead to an overactive bladder. Treatment for overactive bladder depends on the cause and severity of your condition. Making lifestyle changes, doing Kegel exercises, keeping a log, and taking medicines can help with this condition. This information is not intended to replace advice given to you by your health care provider. Make sure you discuss any questions you have with your health care provider. Document Revised: 07/06/2021 Document Reviewed: 07/06/2021 [employer] Patient Education 2022 [employer]. 05/14/2024 14:11:45 Benign Prostatic Hyperplasia Benign Prostatic Hyperplasia Benign prostatic hyperplasia (BPH) is an enlarged prostate gland that is caused by the normal aging process. The prostate may get bigger as a man gets older. The condition is not caused by cancer. The prostate is a walnut-sized gland that is involved in the production of semen. It is located in front of the rectum and below the bladder. The bladder stores urine. The urethra carries stored urine out of the body. An enlarged prostate can press on the urethra. This can make it harder to pass urine. The buildup of urine in the bladder can cause infection. Back pressure and infection may progress to bladder damage and kidney (renal) failure. What are the causes? This condition is part of the normal aging process. However, not all men develop problems from this condition. If the prostate enlarges away from the urethra, urine flow will not be blocked. If it enlarges toward the urethra and compresses it, there will be problems passing urine. What increases the risk? This condition is more likely to develop in men older than 50 years. What are the signs or symptoms? Symptoms of this condition include: Getting up often during the night to urinate. Needing to urinate frequently during the day. Difficulty starting urine flow. Decrease in size and strength of your urine stream. Leaking (dribbling) after urinating. Inability to pass urine. This needs immediate treatment. Inability to completely empty your bladder. Pain when you pass urine. This is more common if there is also an infection. Urinary tract infection (UTI). How is this diagnosed? This condition is diagnosed based on your medical history, a physical exam, and your symptoms. Tests will also be done, such as: A post-void bladder scan. This measures any amount of urine that may remain in your bladder after you finish urinating. A digital rectal exam. In a rectal exam, your health care provider checks your prostate by putting a lubricated, gloved finger into your rectum to feel the back of your prostate gland. This exam detects the size of your gland and any abnormal lumps or growths. An exam of your urine (urinalysis). A prostate specific antigen (PSA) screening. This is a blood test used to screen for prostate cancer. An ultrasound. This test uses sound waves to electronically produce a picture of your prostate gland. Your health care provider may refer you to a specialist in kidney and prostate diseases (urologist). How is this treated? Once symptoms begin, your health care provider will monitor your condition (active surveillance or watchful waiting). Treatment for this condition will depend on the severity of your condition. Treatment may include: Observation and yearly exams. This may be the only treatment needed if your condition and symptoms are mild. Medicines to relieve your symptoms, including: ?Medicines to shrink the prostate. ?Medicines to relax the muscle of the prostate. Surgery in severe cases. Surgery may include: ?Prostatectomy. In this procedure, the prostate tissue is removed completely through an open incision or with a laparoscope or robotics. ?Transurethral resection of the prostate (TURP). In this procedure, a tool is inserted through the opening at the tip of the penis (urethra). It is used to cut away tissue of the inner core of the prostate. The pieces are removed through the same opening of the penis. This removes the blockage. ?Transurethral incision (TUIP). In this procedure, small cuts are made in the prostate. This lessens the prostate's pressure on the urethra. ?Transurethral microwave thermotherapy (TUMT). This procedure uses microwaves to create heat. The heat destroys and removes a small amount of prostate tissue. ?Transurethral needle ablation (TUNA). This procedure uses radio frequencies to destroy and remove a small amount of prostate tissue. ?Interstitial laser coagulation (ILC). This procedure uses a laser to destroy and remove a small amount of prostate tissue. ?Transurethral electrovaporization (TUVP). This procedure uses electrodes to destroy and remove a small amount of prostate tissue. ?Prostatic urethral lift. This procedure inserts an implant to push the lobes of the prostate away from the urethra. Follow these instructions at home: Take jzct-thl-kfkecck and prescription medicines only as told by your health care provider. Monitor your symptoms for any changes. Contact your health care provider with any changes. Avoid drinking large amounts of liquid before going to bed or out in public. Avoid or reduce how much caffeine or alcohol you drink. Give yourself time when you urinate. Keep all follow-up visits. This is important. Contact a health care provider if: You have unexplained back pain. Your symptoms do not get better with treatment. You develop side effects from the medicine you are taking. Your urine becomes very dark or has a bad smell. Your lower abdomen becomes distended and you have trouble passing urine. Get help right away if: You have a fever or chills. You suddenly cannot urinate. You feel light-headed or very dizzy, or you faint. There are large amounts of blood or clots in your urine. Your urinary problems become hard to manage. You develop moderate to severe low back or flank pain. The flank is the side of your body between the ribs and the hip. These symptoms may be an emergency. Get help right away. Call 911. Do not wait to see if the symptoms will go away. Do not drive yourself to the hospital. Summary Benign prostatic hyperplasia (BPH) is an enlarged prostate that is caused by the normal aging process. It is not caused by cancer. An enlarged prostate can press on the urethra. This can make it hard to pass urine. This condition is more likely to develop in men older than 50 years. Get help right away if you suddenly cannot urinate. This information is not intended to replace advice given to you by your health care provider. Make sure you discuss any questions you have with your health care provider. Document Revised: 05/05/2022 Document Reviewed: 05/05/2022 [employer] Patient Education 2022 [employer]. Follow Up Care 05/07/2024 11:17:23 With:Jose GARCÍA, Shazia Hart URJane, URO Address: When: Unknown Comments:Pending upcoming cystoscopy with Dr. Jacobsen [facility] 05-14-2024 Note Patient Education Obstetrics and Gynecology Overactive Bladder, Adult Overactive bladder is a condition in which a person has a sudden and frequent need to urinate. A person might also leak urine if he or she cannot get to the bathroom fast enough (urinary incontinence). Sometimes, symptoms can interfere with work or social activities. What are the causes? Overactive bladder is associated with poor nerve signals between your bladder and your brain. Your bladder may get the signal to empty before it is full. You may also have very sensitive muscles that make your bladder squeeze too soon. This condition may also be caused by other factors, such as: ? Medical conditions: ? Urinary tract infection. ? Infection of nearby tissues. ? Prostate enlargement. ? Bladder stones, inflammation, or tumors. ? Diabetes. ? Muscle or nerve weakness, especially from these conditions: ? A spinal cord injury. ? Stroke. ? Multiple sclerosis. ? Parkinson's disease. ? Other causes: ? Surgery on the uterus or urethra. ? Drinking too much caffeine or alcohol. ? Certain medicines, especially those that eliminate extra fluid in the body (diuretics). ? Constipation. What increases the risk? You may be at greater risk for overactive bladder if you: ? Are an older adult. ? Smoke. ? Are going through menopause. ? Have prostate problems. ? Have a neurological disease, such as stroke, dementia, Parkinson's disease, or multiple sclerosis (MS). ? Eat or drink alcohol, spicy food, caffeine, and other things that irritate the bladder. ? Are overweight or obese. What are the signs or symptoms? Symptoms of this condition include a sudden, strong urge to urinate. Other symptoms include: ? Leaking urine. ? Urinating 8 or more times a day. ? Waking up to urinate 2 or more times overnight. How is this diagnosed? This condition may be diagnosed based on: ? Your symptoms and medical history. ? A physical exam. ? Blood or urine tests to check for possible causes, such as infection. You may also need to see a health care provider who specializes in urinary tract problems. This is called a urologist. How is this treated? Treatment for overactive bladder depends on the cause of your condition and whether it is mild or severe. Treatment may include: ? Bladder training, such as: ? Learning to control the urge to urinate by following a schedule to urinate at regular intervals. ? Doing Kegel exercises to strengthen the pelvic floor muscles that support your bladder. ? Special devices, such as: ? Biofeedback. This uses sensors to help you become aware of your body's signals. ? Electrical stimulation. This uses electrodes placed inside the body (implanted) or outside the body. These electrodes send gentle pulses of electricity to strengthen the nerves or muscles that control the bladder. ? Women may use a plastic device, called a pessary, that fits into the vagina and supports the bladder. ? Medicines, such as: ? Antibiotics to treat bladder infection. ? Antispasmodics to stop the bladder from releasing urine at the wrong time. ? Tricyclic antidepressants to relax bladder muscles. ? Injections of botulinum toxin type A directly into the bladder tissue to relax bladder muscles. ? Surgery, such as: ? A device may be implanted to help manage the nerve signals that control urination. ? An electrode may be implanted to stimulate electrical signals in the bladder. ? A procedure may be done to change the shape of the bladder. This is done only in very severe cases. Follow these instructions at home: Eating and drinking ? Make diet or lifestyle changes recommended by your health care provider. These may include: ? Drinking fluids throughout the day and not only with meals. ? Cutting down on caffeine or alcohol. ? Eating a healthy and balanced diet to prevent constipation. This may include: ? Choosing foods that are high in fiber, such as beans, whole grains, and fresh fruits and vegetables. ? Limiting foods that are high in fat and processed sugars, such as fried and sweet foods. Lifestyle ? Lose weight if needed. ? Do not use any products that contain nicotine or tobacco. These include cigarettes, chewing tobacco, and vaping devices, such as e-cigarettes. If you need help quitting, ask your health care provider. General instructions ? Take ldwo-mum-bameeyq and prescription medicines only as told by your health care provider. ? If you were prescribed an antibiotic medicine, take it as told by your health care provider. Do not stop taking the antibiotic even if you start to feel better. ? Use any implants or pessary as told by your health care provider. ? If needed, wear pads to absorb urine leakage. ? Keep a log to track how much and when you drink, and when you need to urinate. This will help your health care (more content not included)... [place] 05-14-2024 Evaluation + Plan note Diagnostic Tests PendingPSA Free & Total 05/14/24 [facility] [place] 04-20-2024 History of Present illness Narrative Radiology Service Progress Note DATE OF SERVICE: April 20, 2024 TIME: 9:03 AM PATIENT WEIGHT: 235 LBS PATIENT IDENTITY VERIFICATION COMPLETED USING TWO (2) STANDARD IDENTIFIERS: Name and Date of confirmed by patient verbally and Name and Date of confirmed by identification band. FALL SCREENING: Has the patient had 2 falls in the last year or 1 fall with injury or currently using an Ambulatory Assistive Device (Walker, Cane, Wheelchair, Crutches, etc.)? No PATIENT GENDER DATA: Male ALLERGIES: Reviewed and unchanged CONTRAST ALLERGY: No EXAM: MRI - CONTRAST TYPE: GROUP II IV SITE: Ambulatory: A peripheral IV was started in the Left antecubital site with a Angio cath: 22 gauge. and A Saline lock was inserted per protocol IV SITE APPEARANCE: Clean,Dry and Intact SIGNATURE: Fazal Tafoya RN PATIENT NAME: Dillon Smiley DATE: April 20, 2024 TIME: 9:03 AM Radiology Service Progress Note PATIENT NAME: Dillon Smiley DATE OF SERVICE: April 20, 2024 TIME: 10:15 AM PATIENT IDENTITY VERIFICATION COMPLETED USING TWO (2) IDENTIFIERS: Name and Date of confirmed by patient verbally and Name and Date of confirmed by identification band. FALL SCREENING: Has the patient had 2 falls in the last year or 1 fall with injury or currently using an Ambulatory Assistive Device (Walker, Cane, Wheelchair, Crutches, etc.)? No PATIENT GENDER DATA: Male PATIENT RELEVANT IMPLANT DATA REVIEWED: Yes PATIENT PRESENTS WITH AN IMPLANTABLE OR ATTACHED POLYMERIZATION KETTLE OPERATOR: No RADIOLOGY DEPARTMENT: MR; Exam(s) Completed: Body: Bladder protocol PERIPHERAL IV DATA: Site assessment: Clean,Dry and Intact, Site disposition Discontinued SIGNED BY: RT Moises(Inez) April 20, 2024 10:15 AM documented in this encounter [facility] 04-20-2024 Note HNO ID: [id number] Author: FAZAL TAFOYA RN Service: Radiology Author Type: Registered Nurse Type: Progress Notes Filed: 04/20/2024 09:07 Note Text: Radiology Service Progress Note DATE OF SERVICE: April 20, 2024 TIME: 9:03 AM PATIENT WEIGHT: 235 LBS PATIENT IDENTITY VERIFICATION COMPLETED USING TWO (2) STANDARD IDENTIFIERS: Name and Date of confirmed by patient verbally and Name and Date of confirmed by identification band. FALL SCREENING: Has the patient had 2 falls in the last year or 1 fall with injury or currently using an Ambulatory Assistive Device (Walker, Cane, Wheelchair, Crutches, etc.)? No PATIENT GENDER DATA: Male ALLERGIES: Reviewed and unchanged CONTRAST ALLERGY: No EXAM: MRI - CONTRAST TYPE: GROUP II IV SITE: Ambulatory: A peripheral IV was started in the Left antecubital site with a Angio cath: 22 gauge. and A Saline lock was inserted per protocol IV SITE APPEARANCE: Clean,Dry and Intact SIGNATURE: Fazal Tafoya RN PATIENT NAME: Dillon Smiley DATE: April 20, 2024 TIME: 9:03 AM [facility] 04-20-2024 Note HNO ID: [id number] Author: LAWANDA, IFRAH, RT(R) Service: Radiology Author Type: Technologist Type: Progress Notes Filed: 04/20/2024 10:16 Note Text: Radiology Service Progress Note PATIENT NAME: Dillon Smiley DATE OF SERVICE: April 20, 2024 TIME: 10:15 AM PATIENT IDENTITY VERIFICATION COMPLETED USING TWO (2) IDENTIFIERS: Name and Date of confirmed by patient verbally and Name and Date of confirmed by identification band. FALL SCREENING: Has the patient had 2 falls in the last year or 1 fall with injury or currently using an Ambulatory Assistive Device (Walker, Cane, Wheelchair, Crutches, etc.)? No PATIENT GENDER DATA: Male PATIENT RELEVANT IMPLANT DATA REVIEWED: Yes PATIENT PRESENTS WITH AN IMPLANTABLE OR ATTACHED POLYMERIZATION KETTLE OPERATOR: No RADIOLOGY DEPARTMENT: MR; Exam(s) Completed: Body: Bladder protocol PERIPHERAL IV DATA: Site assessment: Clean,Dry and Intact, Site disposition Discontinued SIGNED BY: RT Moises(R) April 20, 2024 10:15 AM [facility] 02-15-2024 History of Present illness Narrative [place] [id number] AMBULATORY PROCEDURE NOTE NAME: Dillon Smiley AGE: [age] year old CLINIC #: [id number] DATE: February 15, 2024 SURGEON: Rigo Jacobsen MD PROCEDURE: Cystoscopy ANESTHESIA: Lidocaine gel per urethra DIAGNOSIS: Bladder cancer INDICATION: Surveillance FINDINGS: Number of tumors: 1 Size of largest tumor: 2 - 5 cm Appearance: Sessile Location: Posterior wall Urethral involvement: No Ureteral orifice involvement: No Urethra: Normal Prostate: Moderate lateral lobes Verumontanum: Open Urine cytology: Bladder wash PROCEDURE: After informed consent was obtained, the patient was taken to the endoscopy suite. A time out was performed where the patient and the procedure were identified in the presence of the Nursing and Surgical Staff. Patient was placed in supine position, prepped and draped in the standard sterile fashion. Lidocaine gel was placed per urethra for local anesthesia. Cystoscopy was then performed using a 17 F flexible cystoscope. Sterile technique was maintained throughout. Please refer to above for specific findings during this part of the procedure. After carefully and atraumatically inspecting the urethra, prostate, and bladder, the bladder was emptied and the cystoscope was removed. The patient tolerated the procedure well and there were no complications. 02/15/24 Cysto: Concerning for recurrence; cytology: pending 12/16/23 BCG x 3 completed 11/10/23 TURBT: benign (complicated by gross hematuria and clot retention) 10/19/23 Cysto: recurrence; cytology: atypical 09/08/23 BCG x 6 completed 06/16/23 TURBT: chronic inflammation 04/22/23 TURBT: cT1HG ASSESSMENT/PLAN: Findings concerning for recurrence vs possible inflammation, we saw similar findings last time with TURBT showing inflammation and that was complicated by bleeding. In reviewing options, we decided to proceed with MRI bladder and send cytology, based on results will decide on whether to pursue resection or monitor closely. By signing my name below, I, Arnoldo Avila, attest that this documentation has been prepared under the direction and in the presence of Dr. Jacobsen Electronically signed, Arnoldo Avila Scribe STAFF PHYSICIAN NOTE OF PERSONAL INVOLVEMENT IN CARE The above noted history, physical, assessment and plan were reviewed with the provider and critical portions of the H&P were confirmed. I evaluated and examined the patient and agree with the plan above and provided direct supervision of the above provider during this patient's care. Rigo Jacobsen MD UNIVERSAL PROTOCOL / SAFETY CHECKLIST Procedure to be Performed: Cystoscopy Sign In: A Moment of CARE was completed. Personnel directly involved with the procedure wore the appropriate PPE (Personal Protective Equipment). No special equipment needed. Patient/Surrogate Stated/Verified: PATIENT VERIFIED(optional for EMERGENT procedures): Patient name, Date of , Relevant allergies, and The intended procedure Time Out Communication: Intended patient and procedure match the source documents. Consent documented and matches the intended procedure. Relevant labs, photos, and/or imaging studies have been reviewed. No correct side/site applicable for marking and visibility. Medications required for procedure verified. Fire risk assessed and interventions discussed. No implant(s) inserted. Sign Out: SIGN OUT (optional for EMERGENT procedures): All specimen containers correctly labeled. All instruments, equipment, possible retained foreign bodies accounted for. Post-procedure follow-up management communicated and Plan of Care Visit completed when applicable. Dejah Marshall RN documented in this encounter [facility] 02-15-2024 Note HNO ID: [id number] Author: RIGO JACOBSEN MD Service: ? Author Type: Physician Type: Progress Notes Filed: 02/15/2024 21:16 Note Text: [place] [address] AMBULATORY PROCEDURE NOTE NAME: Dillon Smiley AGE: [age] year old CLINIC #: [id number] DATE: February 15, 2024 SURGEON: Rigo Jacobsen MD PROCEDURE: Cystoscopy ANESTHESIA: Lidocaine gel per urethra DIAGNOSIS: Bladder cancer INDICATION: Surveillance FINDINGS: Number of tumors: 1 Size of largest tumor: 2 - 5 cm Appearance: Sessile Location: Posterior wall Urethral involvement: No Ureteral orifice involvement: No Urethra: Normal Prostate: Moderate lateral lobes Verumontanum: Open Urine cytology: Bladder wash PROCEDURE: After informed consent was obtained, the patient was taken to the endoscopy suite. A time out was performed where the patient and the procedure were identified in the presence of the Nursing and Surgical Staff. Patient was placed in supine position, prepped and draped in the standard sterile fashion. Lidocaine gel was placed per urethra for local anesthesia. Cystoscopy was then performed using a 17 F flexible cystoscope. Sterile technique was maintained throughout. Please refer to above for specific findings during this part of the procedure. After carefully and atraumatically inspecting the urethra, prostate, and bladder, the bladder was emptied and the cystoscope was removed. The patient tolerated the procedure well and there were no complications. 02/15/24 Cysto: Concerning for recurrence; cytology: pending 12/16/23 BCG x 3 completed 11/10/23 TURBT: benign (complicated by gross hematuria and clot retention) 10/19/23 Cysto: recurrence; cytology: atypical 09/08/23 BCG x 6 completed 06/16/23 TURBT: chronic inflammation 04/22/23 TURBT: cT1HG ASSESSMENT/PLAN: Findings concerning for recurrence vs possible inflammation, we saw similar findings last time with TURBT showing inflammation and that was complicated by bleeding. In reviewing options, we decided to proceed with MRI bladder and send cytology, based on results will decide on whether to pursue resection or monitor closely. By signing my name below, I, Arnoldo Avila, attest that this documentation has been prepared under the direction and in the presence of Dr. Jacobsen Electronically signed, Shaina Phan STAFF PHYSICIAN NOTE OF PERSONAL INVOLVEMENT IN CARE The above noted history, physical, assessment and plan were reviewed with the provider and critical portions of the HANDP were confirmed. I evaluated and examined the patient and agree with the plan above and provided direct supervision of the above provider during this patient's care. Rigo Jacobsen MD [facility] 02-15-2024 Note HNO ID: [id number] Author: DEJAH MARSHALL RN Service: ? Author Type: Registered Nurse Type: Progress Notes Filed: 02/15/2024 11:18 Note Text: UNIVERSAL PROTOCOL / SAFETY CHECKLIST Procedure to be Performed: Cystoscopy Sign In: A Moment of CARE was completed. Personnel directly involved with the procedure wore the appropriate PPE (Personal Protective Equipment). No special equipment needed. Patient/Surrogate Stated/Verified: PATIENT VERIFIED(optional for EMERGENT procedures): Patient name, Date of , Relevant allergies, and The intended procedure Time Out Communication: Intended patient and procedure match the source documents. Consent documented and matches the intended procedure. Relevant labs, photos, and/or imaging studies have been reviewed. No correct side/site applicable for marking and visibility. Medications required for procedure verified. Fire risk assessed and interventions discussed. No implant(s) inserted. Sign Out: SIGN OUT (optional for EMERGENT procedures): All specimen containers correctly labeled. All instruments, equipment, possible retained foreign bodies accounted for. Post-procedure follow-up management communicated and Plan of Care Visit completed when applicable. Dejah Marshall RN [facility] 02-15-2024 Nurse Note Actual procedure/procedure scheduled: Yes Performing provider/scheduled provider: Yes Patient was roomed in: Q9- 05 Aerial Planting And Cultivation Manager offered:Patient declines Patient arrived in the room at: 10:20 Patient ready for procedure: 10:38 The procedure started at ( Time Only): 11:10 The procedure ended at: 11:14 Was the procedure delayed: Yes: Provider late: Provider with other patient on Q9 The patient left the procedure room at: 11:25 Dejah Marshall RN PRE PROCEDURE ASSESSMENT- Cysto Procedure Indication: Cystoscopy Latex Allergy: No Allergies reviewed and updated. Yes Pre-Procedure Vital Signs: BP: 145/69 Pulse: 80 Heart valve replacement: No Joint replacement: No Back Office UA otained: yes- notified Dr Jacobsen of UA results. Culture ordered and one time dose of Cipro to be given- see MAR PROCEDURE PREP-Cysto Patient ID with two(2)identifiers verified by: Dejah Marshall RN Pre-Procedure Antibiotics: Cipro 500 mg- See MAR Patient Prep: Betadine Scrub to perineum and placement of Sterile Drape. COMPLETED Anesthetic Given: Lidojet given by MD Dejah Marshall RN UNIVERSAL PROTOCOL / SAFETY CHECKLIST Procedure to be performed: Cystoscopy Sign in Communication: Completed Time Out: Team Confirms the Correct Patient, Correct Procedure, Correct Site and Site Marking, Correct Position (if applicable). Sign Out Discussion: Completed Dejah Marshall RN POST PROCEDURE NURSE ASSESSMENT Present along with physician during procedure exam. Dejah Marshall RN Instruction sheet given and reviewed and patient verbalizes understanding: yes Post Procedure Antibiotic: None Current pain intensity is 0 on a 0-10 pain scale. Dejah Marshall RN AMBULATORY PATIENT EDUCATION THE FOLLOWING WAS EVALUATED Motivation To Learn: Interested Family/Significant Other Support: Unable to assess - Family not present Cognitive Ability: Alert/Oriented Method of Instruction: Individual instruction Written instruction - handouts Verbal instruction The Following Influencing Factors Were Barriers To This Education Session: None The Following Physical Limitations Were Barriers To This Education Session: None Instruction Provided To: Patient Assistant Plant Control Operator Present: not applicable Discipline: Nursing Learning Topic: SURVIVAL SKILLS: Complication Prevention Symptom Management Patient Evaluation: Verbalizes understanding: Yes Supplemental Material Given: Written Material Instructed By Dejah Marshall RN In Department Urology. documented in this encounter [facility] 12-16-2023 Note HNO ID: [id number] Author: DENISE KELLEY RN Service: ? Author Type: Registered Nurse Type: Progress Notes Filed: 12/16/2023 09:28 Note Text: 0850 trevino catheter placed via sterile technique pt gisela well 75 ml clear yellow urine noted in trevino 0910 BCG instilled without issues. Trevino d/c without issues pt instructed to urinate at 1115 pt stated understanding. [facility] 12-16-2023 History of Present illness Narrative 0850 trevino catheter placed via sterile technique pt gisela well 75 ml clear yellow urine noted in trevino 0910 BCG instilled without issues. Trevino d/c without issues pt instructed to urinate at 1115 pt stated understanding. documented in this encounter [facility] 12-09-2023 Note HNO ID: [id number] Author: FIDE ROYAL LSW Service: ? Author Type: Clinical Staff Rn Type: Progress Notes Filed: 12/09/2023 11:02 Note Text: SOCIAL WORK FOLLOW UP NOTE: [facility] Date of service:12/09/23 PLAN: Continue follow up as needed Assigned SW listed in Care Team tab: Yes Patient appears on the [facility] First Time Treatment List. Patient was in today for his treatment and this SW had hoped to visit with him, but he had left before this SW was able to get to the Infusion Room. SW will try again at the next treatment to visit with this Patient. JONAH Zambrano [facility] 12-09-2023 History of Present illness Narrative SOCIAL WORK FOLLOW UP NOTE: [facility] Date of service:12/09/23 PLAN: Continue follow up as needed Assigned SW listed in Care Team tab: Yes Patient appears on the [facility] First Time Treatment List. Patient was in today for his treatment and this SW had hoped to visit with him, but he had left before this SW was able to get to the Infusion Room. SW will try again at the next treatment to visit with this Patient. JONAH Zambrano documented in this encounter [facility] 12-09-2023 Note HNO ID: [id number] Author: JODY MEIER RN Service: ? Author Type: Registered Nurse Type: Progress Notes Filed: 12/09/2023 10:22 Note Text: 0850 16Fr trevino cath inserted following urojet. Sl peachy yellow colored urine. Will observe urine as more collects. 0908 trevino clamped and BCG instilled. 0928. Orders received for patient to go home to finish treatment. Trevino cath removed. Upon examination of urine, small clot and shreds noted in drainage bag. Amount 100cc. Overall color is yellow. Instructed pt to hold urine until 1108. And water intake encouraged after treatment. 35 Nurse practioner notified of urine color, clot , and shreds. Aware that pt is discharged. Orders for urine collection from trevino bag. Sterile specimen sent. [facility] 12-09-2023 History of Present illness Narrative 0850 16Fr trevino cath inserted following urojet. Sl peachy yellow colored urine. Will observe urine as more collects. 0908 trevino clamped and BCG instilled. 927. Orders received for patient to go home to finish treatment. Trevino cath removed. Upon examination of urine, small clot and shreds noted in drainage bag. Amount 100cc. Overall color is yellow. Instructed pt to hold urine until 1108. And water intake encouraged after treatment. 35 Nurse practioner notified of urine color, clot , and shreds. Aware that pt is discharged. Orders for urine collection from trevino bag. Sterile specimen sent. documented in this encounter [facility] 12-09-2023 Miscellaneous Notes Per secure chat from Elder Briggs CNP. Ok to DC trevino and be discharged home after BCG instillation today and for all future treatments. No need to keep pt for instillation time. Sammie Rendon RN Mr Smiley was treated 12/02/23 and stayed for the instill time with first BCG. He would like to forgo the instill time with subsequent treatments and be discharged home after BCG instilled and trevino DC. Ada Mccray RN documented in this encounter [facility] 12-02-2023 Note HNO ID: [id number] Author: JODY MEIER RN Service: ? Author Type: Registered Nurse Type: Progress Notes Filed: 12/02/2023 11:46 Note Text: 0907 16Fr trevino cath inserted following urojet. Tolerated without difficulty. Urine is cloudy yellow with sediment. 0923 trevino clamped. 150cc urine in bag. BCG instilled. Pt will set timer to turn from side to side every 15 min to coat bladder. Voices understanding. Call light in reach. 0948 tolerating treatment well. Turning self. No complaints. 1044. Tolerating treatment well. Turning self. No complaints. 1123 trevino clamp released and bladder allowed to drain. 1133 400cc total in bag; trevino dc'd. [facility] 12-02-2023 History of Present illness Narrative 0907 16Fr trevino cath inserted following urojet. Tolerated without difficulty. Urine is cloudy yellow with sediment. 0923 trevino clamped. 150cc urine in bag. BCG instilled. Pt will set timer to turn from side to side every 15 min to coat bladder. Voices understanding. Call light in reach. 0948 tolerating treatment well. Turning self. No complaints. 1044. Tolerating treatment well. Turning self. No complaints. 1123 trevino clamp released and bladder allowed to drain. 1133 400cc total in bag; trevino dc'd. Patient had arrived for first maintenance treatment. He notes that last treatments were instilled and he was sent home. Discussed our protocol [email or web address] with BCG/maintain catheter for duration of instil time and DC cath/patient after. He agreeable to stay today but would like a message sent to Dr Jacobsen to find out if he can leave after instill for subsequent doses. Will send phone encounter after treatment today. Ada Mccray RN documented in this encounter [facility] 12-02-2023 Note HNO ID: [id number] Author: ADA MCCRAY RN Service: ? Author Type: Registered Nurse Type: Progress Notes Filed: 12/02/2023 11:46 Note Text: Patient had arrived for first maintenance treatment. He notes that last treatments were instilled and he was sent home. Discussed our protocol [email or web address] with BCG/maintain catheter for duration of instil time and DC cath/patient after. He agreeable to stay today but would like a message sent to Dr Jacobsen to find out if he can leave after instill for subsequent doses. Will send phone encounter after treatment today. Ada Mccray RN [facility] 11-10-2023 Note HNO ID: [id number] Author: TANIA KELSEY APRN.PURIFICATION OPERATOR Service: ? Author Type: Nurse [employer] Receiver [employer] Type: Anesthesia Procedure Notes Filed: 11/10/2023 17:56 Note Text: ANESTHESIOLOGY PROCEDURE NOTE Airway General Information Procedure Start Time/Medication Administration: 11/10/2023 5:43 PM Patient location during procedure: OR Timeout Performed Pre-procedure: timeout performed Consent Obtained: Yes Patient identity confirmed: arm band, patient and care produce team lead Staffing PURIFICATION OPERATOR: Tania Kelsey APRN.PURIFICATION OPERATOR Indications and Patient Condition Indications for airway management: anesthesia Preoxygenated: yes anesthesia circuit Patient position: sniffing Method: asleep Cricoid Pressure: No Manual In-Line Stabilization: No Difficult Mask: No Final Airway Details Final airway type: endotracheal airway Final Endotracheal Airway: ETT Cuffed: yes Successful intubation technique: video laryngoscopy Devices used: López Endotracheal tube insertion site: oral Blade size: #4 ETT size (mm): 7.5 Measured from: lips Measurement (cm): 23 Placement verified by: capnometry Cormack-Lehane Classification: grade IIa - partial view of glottis Number of attempts at approach: 1 Failed airway: no Unrecognized esophageal intubation: no Airway not difficult SIGNATURE: Tania Kelsey APRN.PURIFICATION OPERATOR PATIENT NAME: Dillon Smiley DATE: November 10, 2023 TIME: 5:55 PM CSN: [id number] [facility] 11-02-2023 Note HNO ID: [id number] Author: Hui Vela PA Service: ? Author Type: Physician Manager Paid Type: Progress Notes Filed: 11/02/2023 4:53 PM Note Text: UROLOGY SURGICAL HANDP SERVICE DATE: 11/02/2023 SERVICE TIME: 1:31 PM REFERRING PROVIDER: No referring provider defined for this encounter. PCP: No primary care provider on file. GENDER: SUBJECTIVE CHIEF COMPLAINT: Pre-op exam HISTORY OF PRESENT ILLNESS: Mr. Smiley is a 63 year old male who presents for pre-op HANDP. He is scheduled for TURBT with Dr. Jacobsen on 11/10/2023 FUNCTIONAL STATUS: Do moderate work around the house such as vacuuming, sweeping floors, or carrying in groceries (3.50 METs) Do yardwork, such as raking leaves, weeding,or pushing a power mower (4.50 METs) Climb a flight of stairs or walk up a hill (5.50 METs) Participate in moderate recreational activities, such as golf, bowling, dancing, doubles tennis, or throwing a baseball or football (6.00 METs) Participate in strenuous sport, such as swimming, singles tennis, football, basketball, or skiing (7.50 METs) Do heavy work around the house, such as scrubbing floors, lifting or moving heavy furniture (8.00 METs) Run a short distance (8.00 METs) Denies chest pain and SOB with above activities No past medical history on file. No past surgical history on file. No family history on file. Social History Tobacco Use Smoking status: Never Smokeless tobacco: Never Substance Use Topics Alcohol use: Yes Alcohol/week: 6.0 standard drinks of alcohol Types: 6 Shots of liquor per week Drug use: Never REVIEW OF SYSTEMS: General: General: Well developed, well nourished. No acute distress HEENT: Negative for sore throat, difficulty swallowing. Negative for frequent or significant headaches, changes in vision or hearing. Cardiovascular: No history of cardiovascular symptoms or problems. No history of angina, CHF, AR, cardiac surgery of stents. Respiratory: Negative for current cough, dyspnea. No hx of pneumonia in the past six weeks Gastrointestinal: No history of GERD, PUD, abd pain, difficulty swallowing, GI bleed. Renal: Negative for renal failure and No history of dialysis Musculoskeletal: Negative for joint pain or swelling, back pain or muscle pain. Skin: Negative for lesions, rash and itching. Psychological: No history of psychiatric symptoms or problems. Neurologic: No history of TIA's, stroke, CHILD SPECIALIST tumor, impaired sensorium, hemiplegia or paraplegia No neurological symptoms or problems. Hematology/Oncology: No history of bleeding or clotting disorder. Pt is not taking anti-coagulation or platelet medications. No history of hematological symptoms or problems. Endocrine: No history of endocrinological symptoms or problems No history of DM; has not taken steroids w/in past 30 days. Negative for excessive sweating, thirst or hunger PHYSICAL EXAM: General Appearance/ Constitutional: Well developed, well nourished, and in no apparent distress Head and Neck normal, no jugular venous extension, no thyromegaly, and no palpable mass Eyes: Pupils are equally round and reactive to light. Extraocular movements are intact. Respiratory: Clear to auscultation AND percussion Cardiovascular: Normal, Regular rate and rhythm, and No murmurs GI: Soft, Non-tender, No masses, hepatosplenomegaly, and No lymphadenopathy Extremities: Radial and pedal pulses +2, no edema, extremities WNL Back: Normal back and mobility Neurological: Normal cognition and motor skills. Skin: Color, texture, turgor normal. VITALS: There were no vitals taken for this visit. ALLERGIES: ALLERGIES No Known Allergies LABS: BUN (mg/dL) Date Value 06/15/2023 24 Creatinine (mg/dL) Date Value 06/15/2023 1.01 No results found for: PSA Glucose, Urine (no units) Date Value 06/15/2023 Negative Bilirubin, Urine (no units) Date Value 06/15/2023 Negative Ketones, Urine (no units) Date Value 06/15/2023 Negative Specific Aiken, Ur (no units) Date Value 06/15/2023 1.028 Hemoglobin/Blood,Ur (no units) Date Value 06/15/2023 3+ (A) pH, Urine (no units) Date Value 06/15/2023 5.5 Protein, Urine (no units) Date Value 06/15/2023 1+ (A) Nitrites (no units) Date Value 06/15/2023 Negative WBC, Urine (no units) Date Value 06/15/2023 >25 /HPF (A) Color (no units) Date Value 06/15/2023 Yellow Clarity (no units) Date Value 06/15/2023 Cloudy (A) MEDICATIONS: (Not in a hospital admission) Current Outpatient Medications Medication Sig tamsulosin (FLOMAX) 0.4 mg Take 1 capsule by mouth every afternoon. acetaminophen (TYLENOL) 325 mg tablet Take 2 tablets by mouth every 4 hours as needed for pain. ezetimibe (ZETIA) 10 mg tablet q 24 HR. mirabegron (MYRBETRIQ) 25 mg Tb24 Take 25 mg by mouth. valsartan (DIOVAN) 160 mg tablet Take by mouth. No current facility-administered medications for this visit. DIAGNOSIS, (more content not included)... [facility] 11-02-2023 Note Patient Outreach (UR OLMN) DILLON SMILEY ([id number]) 1960 M Date Time Provider Department 11/02/23 HUI VELA During your visit today, we recorded the following information about you: Allergies As of Date: 11/02/2023 (No Known Allergies) Date Reviewed: 11/02/2023 Reviewed by: Hui Vela PA - Fully Assessed Visit Diagnosis:Screening for genitourinary condition [Z13.89] Order(s):URINALYSIS, REFLEX MICROSCOPIC [[id number]] Order #: [id number] Prescriptions as of 11/07/2023 - tamsulosin (FLOMAX) 0.4 mg Take 1 capsule by mouth every afternoon. - acetaminophen (TYLENOL) 325 mg tablet Take 2 tablets by mouth every 4 hours as needed for pain. - ezetimibe (ZETIA) 10 mg tablet q 24 HR. - mirabegron (MYRBETRIQ) 25 mg Tb24 Take 25 mg by mouth. - valsartan (DIOVAN) 160 mg tablet Take by mouth. Problem List As Of Date: 11/02/2023 (None) Encounter Status:Closed by BRYSON RODGERS on 11/07/23 [facility] 10-19-2023 Note HNO ID: [id number] Author: Chiara Martinez Ma Service: ? Author Type: ? Type: Progress Notes Filed: 10/20/2023 8:07 AM Note Text: UNIVERSAL PROTOCOL / SAFETY CHECKLIST Procedure to be Performed: cysto Sign In: A Moment of CARE was completed. Personnel directly involved with the procedure wore the appropriate PPE (Personal Protective Equipment). No special equipment needed. Patient/Surrogate Stated/Verified: PATIENT VERIFIED(optional for EMERGENT procedures): Patient name, Date of , Relevant allergies, and The intended procedure Time Out Communication: Intended patient and procedure match the source documents. Consent documented and matches the intended procedure. No relevant labs, photos, and/or imaging studies were applicable for review. No correct side/site applicable for marking and visibility. No medications required for procedure. Fire risk assessed and interventions discussed. No implant(s) inserted. Sign Out: SIGN OUT (optional for EMERGENT procedures): All specimen containers correctly labeled. All instruments, equipment, possible retained foreign bodies accounted for. Post-procedure follow-up management communicated and Plan of Care Visit completed when applicable. Chiara Martinez Ma [facility] 10-19-2023 Note HNO ID: [id number] Author: Rigo Jacobsen MD Service: ? Author Type: Physician Type: Progress Notes Filed: 10/20/2023 8:07 AM Note Text: [place] [id number] AMBULATORY PROCEDURE NOTE NAME: Dillon Smiley AGE: [age] year old CLINIC #: [id number] DATE: October 19, 2023 SURGEON: Rigo Jacobsen MD PROCEDURE: Cystoscopy ANESTHESIA: Lidocaine gel per urethra DIAGNOSIS: Bladder cancer INDICATION: Surveillance FINDINGS: Number of tumors: 1 Size of largest tumor: 2 - 5 cm Appearance: CIS Location: Posterior wall Urethral involvement: No Ureteral orifice involvement: No Urethra: Normal Prostate: Moderate lateral lobes Verumontanum: Open Urine cytology: Voided PROCEDURE: After informed consent was obtained, the patient was taken to the endoscopy suite. A time out was performed where the patient and the procedure were identified in the presence of the Nursing and Surgical Staff. Patient was placed in supine position, prepped and draped in the standard sterile fashion. Lidocaine gel was placed per urethra for local anesthesia. Cystoscopy was then performed using a 17 F flexible cystoscope. Sterile technique was maintained throughout. Please refer to above for specific findings during this part of the procedure. After carefully and atraumatically inspecting the urethra, prostate, and bladder, the bladder was emptied and the cystoscope was removed. The patient tolerated the procedure well and there were no complications. 10/19/23 Cysto: recurrence; cytology: pending 09/08/23 BCG x 6 completed 06/16/23 TURBT: chronic inflammation 04/22/23 TURBT: cT1HG ASSESSMENT/PLAN: Findings concerning for recurrence, recommend TURBT. Discussed r/b/a and expectations for post-op recovery. He is in agreement and wishes to proceed, will schedule. By signing my name below, I, Arnoldo Avila, attest that this documentation has been prepared under the direction and in the presence of Dr. Jacobsen Electronically signed, Arnoldo Avila Scribe STAFF PHYSICIAN NOTE OF PERSONAL INVOLVEMENT IN CARE The above noted history, physical, assessment and plan were reviewed with the provider and critical portions of the HANDP were confirmed. I evaluated and examined the patient and agree with the plan above and provided direct supervision of the above provider during this patient's care. Rigo Jacobsen MD [facility] 08-30-2023 Nurse Note BLADDER INSTILLATION Malignant neoplasm of urinary bladder, unspecified site (hcc) Malignant neoplasm of urinary bladder, unspecified site (hcc) Encounter for follow-up surveillance of bladder cancer (primary encounter diagnosis) Patient ID with two (2) identifiers verified by: name and . Allergies reviewed and updated: Yes Medication ordered for bladder instillation: BCG Current pain intensity is: 0 on a 0-10 pain scale. Have you seen any blood in the last 24 hours: No Have you had a temperature greater than 101F in the last 24 hours: No Do you have foul smelling urine or severe burning/urgency that has worsened since the last bladder instillation treatment: No No, Proceed with BCG Any concerns about safety in the home/falls: Not at risk for falls Start Date: 08/02/2023 Treatment number: 5 of 6 Retention Time Last RX: 2 hours Symptoms Post Last RX: Fatigue for 24 hours. Catheter Used: 14 fr. red karel BCG instilled at: 0945 with 10ml residual. Drained at: 0944 Residual TX: No 0 cc. Return to Clinic on : 09/08/2023. Patient tolerated treatment well. Instructed patient to hold urine for 2 hours after instillation. Patient stated understanding. Carried out orders of Dr. Jacobsen, under the supervision of Dr. Whittaker. Elder Everett LPN documented in this encounter [facility] 08-23-2023 Nurse Note Malignant neoplasm of urinary bladder, unspecified site (hcc) BLADDER INSTILLATION Patient ID with two (2) identifiers verified by: Enrrique Peacock LPN Allergies reviewed and updated: Yes Medication ordered for bladder instillation: BCG Current pain intensity is: 0 on a 0-10 pain scale. Have you seen any blood in the last 24 hours: No Have you had a temperature greater than 101F in the last 24 hours: No Do you have foul smelling urine or severe burning/urgency that has worsened since the last bladder instillation treatment: No No, Proceed with BCG Any concerns about safety in the home/falls: Not at risk for falls Start Date: 08/02/2023 Treatment number: 4 of 6 Retention Time Last RX: 2 hours Symptoms Post Last RX: None Catheter Used: 14 fr. red karel BCG instilled at: 0925 Drained at: 0923 Residual TX: No 0 cc. Return to Clinic on : 08/30/2023 Patient tolerated treatment well. Enrrique Peacock LPN documented in this encounter [facility] 08-16-2023 Nurse Note BLADDER INSTILLATION Patient ID with two (2) identifiers verified by: name and Allergies reviewed and updated: Yes Medication ordered for bladder instillation: BCG Current pain intensity is: 0 on a 0-10 pain scale. Have you seen any blood in the last 24 hours: No Have you had a temperature greater than 101F in the last 24 hours: No Do you have foul smelling urine or severe burning/urgency that has worsened since the last bladder instillation treatment: No No, Proceed with BCG Any concerns about safety in the home/falls: Not at risk for falls Start Date: 08/02/23 Treatment number: 3 of 6 Retention Time Last RX: 2 hours Symptoms Post Last RX: None Catheter Used: 14 fr. red karel BCG instilled at: 09 Drained at: 0918 Residual TX: No 0 cc. Return to Clinic on : 08/23/23 Patient tolerated treatment well. Kasia Lugo RN Malignant neoplasm of urinary bladder, unspecified site (hcc) documented in this encounter [facility] 07-29-2023 Miscellaneous Notes SOCIAL WORK NOTE: [facility] Pt noted on [facility] 1st time treatment report. Pt has a non-oncology regimen. No social work follow up indicated. DARYL Weaver documented in this encounter [facility] 06-24-2023 Miscellaneous Notes I spoke with Dillon Smiley to review results from TURBT. Discussed with Dr. Jacobsen who recommends BCG induction starting in 4-6 weeks, followed by cysto 4 weeks after last instillation. Patient is agreeable with this plan. He would like to call his local urologist to see if BCG is available. He will contact us next week to let us know if he will be getting treatments locally and when his last treatment is. I sent a message to to assist him with scheduling, if needed. Elder Briggs APRN.YINA documented in this encounter [facility] 06-15-2023 Instructions Hui Vela PA - 06/15/2023 11:24 AM EDT Medications: -Hold valsartan morning of surgery -can take all other prescription medications normally -avoid aspirin, ibuprofen, advil, naproxen, aleve before surgery -stop all supplements and vitamins 7 days before surgery documented in this encounter [facility] 06-15-2023 History of Present illness Narrative UROLOGY SURGICAL H&P SERVICE DATE: 06/15/2023 SERVICE TIME: 11:08 AM REFERRING PROVIDER: No referring provider defined for this encounter. PCP: No primary care provider on file. GENDER: SUBJECTIVE CHIEF COMPLAINT: Pre-op exam HISTORY OF PRESENT ILLNESS: Mr. Smiley is a 62 year old male with malignant neoplasm of urinary bladder who presents for pre-op H&P. He is scheduled for TURBT with Dr. Jacobsen in the OR on 06/16/2023 FUNCTIONAL STATUS: Do yardwork, such as raking leaves, weeding,or pushing a power mower (4.50 METs) Climb a flight of stairs or walk up a hill (5.50 METs) Participate in moderate recreational activities, such as golf, bowling, dancing, doubles tennis, or throwing a baseball or football (6.00 METs) Do heavy work around the house, such as scrubbing floors, lifting or moving heavy furniture (8.00 METs) Run a short distance (8.00 METs) Denies SOB During above activities No past medical history on file. No past surgical history on file. No family history on file. Social History Tobacco Use Smoking status: Never Smokeless tobacco: Never Substance Use Topics Alcohol use: Yes Alcohol/week: 6.0 standard drinks of alcohol Types: 6 Shots of liquor per week Drug use: Never REVIEW OF SYSTEMS: General: General: Well developed, well nourished. No acute distress HEENT: Negative for sore throat, difficulty swallowing. Negative for frequent or significant headaches, changes in vision or hearing. Cardiovascular: No history of cardiovascular symptoms or problems. No history of angina, CHF, AR, cardiac surgery of stents. Respiratory: Negative for current cough, dyspnea. No hx of pneumonia in the past six weeks Gastrointestinal: No history of GERD, PUD, abd pain, difficulty swallowing, GI bleed. Renal: Negative for renal failure and No history of dialysis Musculoskeletal: Negative for joint pain or swelling, back pain or muscle pain. Skin: Negative for lesions, rash and itching. Psychological: No history of psychiatric symptoms or problems. Neurologic: No history of TIA's, stroke, CHILD SPECIALIST tumor, impaired sensorium, hemiplegia or paraplegia No neurological symptoms or problems. Hematology/Oncology: No history of bleeding or clotting disorder. Pt is not taking anti-coagulation or platelet medications. No history of hematological symptoms or problems. Endocrine: No history of endocrinological symptoms or problems No history of DM; has not taken steroids w/in past 30 days. Negative for excessive sweating, thirst or hunger PHYSICAL EXAM: General Appearance/ Constitutional: Well developed, well nourished, and in no apparent distress Head and Neck normal, no jugular venous extension, no thyromegaly, and no palpable mass Eyes: Pupils are equally round and reactive to light. Extraocular movements are intact. Respiratory: Clear to auscultation & percussion Cardiovascular: Normal, Regular rate and rhythm, and No murmurs GI: Soft, Non-tender, No masses, hepatosplenomegaly, and No lymphadenopathy Extremities: Radial and pedal pulses +2, no edema, extremities WNL Back: Normal back and mobility Neurological: Normal cognition and motor skills. Skin: Color, texture, turgor normal. VITALS: BP 138/90 (BP Site: Left Arm, BP Position: Sitting, BP Cuff Size: Large Adult) Pulse 73 Wt 107.6 kg (237 lb 4.8 oz) BMI 34.05 kg/m ALLERGIES: ALLERGIES No Known Allergies LABS: No results found for: BUN No results found for: CREAT No results found for: PSA Glucose, Urine (no units) Date Value 05/18/2023 Negative Bilirubin, Urine (no units) Date Value 05/18/2023 Negative Ketones, Urine (no units) Date Value 05/18/2023 Negative Specific [place], Ur (no units) Date Value 05/18/2023 1.022 Hemoglobin/Blood,Ur (no units) Date Value 05/18/2023 3+ (A) pH, Urine (no units) Date Value 05/18/2023 5.5 Protein, Urine (no units) Date Value 05/18/2023 1+ (A) Nitrites (no units) Date Value 05/18/2023 Negative WBC, Urine (no units) Date Value 05/18/2023 >25 /HPF (A) Color (no units) Date Value 05/18/2023 Yellow Clarity (no units) Date Value 05/18/2023 Cloudy (A) MEDICATIONS: (Not in a hospital admission) Current Outpatient Medications Medication Sig ezetimibe (ZETIA) 10 mg tablet q 24 HR. mirabegron (MYRBETRIQ) 25 mg Tb24 Take 25 mg by mouth. oxybutynin (DITROPAN) 5 mg tablet Take 5 mg by mouth. valsartan (DIOVAN) 160 mg tablet Take by mouth. No current facility-administered medications for this visit. DIAGNOSIS, ASSESSMENT AND PLAN There are no active hospital problems to display for this patient. Medication and Non-Pharmacologic VTE Prophylaxis/Anticoagulants VTE Prophylaxis: N/A Assessment & Plan: Dillon Smiley is a 62 year old male with malignant neoplasm of bladder who presents for pre-op H&P. Plan for TURBT with Dr. Jacobsen in the OR on 06/16/2023 SIGNATURE: ACMELIA Collins PATIENT NAME: Dillon Smiley DATE: June 15, 2023 TIME: 11:30 AM PAGER/CONTACT #: [facility] PRE-OP NOTE Dillon Smiley is a 62 year old male. Pre-op Date: June 15, 2023 Date of Procedure: 06/16/2023 Does the patient have an active COVID-19 test in Epic? N/A Procedure/Surgery: TURBT Diagnosis: malignant neoplasm of bladder Primary Surgeon: Rigo Jacobsen MD BP 138/90 (BP Site: Left Arm, BP Position: Sitting, BP Cuff Size: Large Adult) Pulse 73 Wt 107.6 kg (237 lb 4.8 oz) BMI 34.05 kg/m Pain Assessment: Are you currently having pain? Yes 3/10, irritation with urination after catheter was placed with first TURBT Surgical Guide Book Status: Patient given book today. Dialysis Guide Book Status: N/A Allergies Reviewed: Yes Medications Reviewed: Yes Is patient currently on oral steroids?: No Has the patient had a UTI in the past month?: Yes. Antibiotic taken: amoxicillin Does the patient have any artificial joints (last 2 years), metal parts, pacemakers or cardiac/ureteral stents in place?: No Does the patient have diabetes?: No Is the patient routinely taking anticoagulants?: No. Can the patient have an IV put in either arm?: Yes Urine Dip Complete?: Yes URINE CULTURE COMPLETE?: Ordered - results pending Ostomy/Stoma Nurse appointment made/completed: N/A [facility]/Medical Clearance: Cleared per [facility] - N/A [facility]: Cleared per [facility] - N/A All testing on cureform has been scheduled: Yes Consent Signed: Consent not in Epic. Surgeon notified via staff message. DOS Orders Placed and Signed: Yes. Pre-op H&P Done by Physician Manager Paid: Yes. PATIENT INSTRUCTIONS FOR SURGERY 1.) DO NOT HAVE ANYTHING TO EAT AFTER MIDNIGHT THE DAY BEFORE SURGERY except for certain morning medications as instructed by the doctor. Candy, mints, gum, and smoking are NOT permitted. You may drink clear liquids (Sprite, water, catrina ronnie) up to two hours before your arrival time on the day of surgery. 2.) Medications to be taken on the morning of surgery with a few sips of water: per IMPACT 3.) Please bring all your prescribed inhalers (if you have any you normally take) to the hospital. 4.) Arrival time: Given. 5.) Prep given: No 6.) Lovenox instructions given: N/A 7.) Patient reminded that surgery time provided day before surgery is tentative based on potential changes with transplants. Recommendations: This patient is optimally prepared for surgery pending LABS. Hui Vela PA-C documented in this encounter [facility] 05-18-2023 History of Present illness Narrative Images from the original note were not included. [facility] NEW PATIENT HISTORY AND PHYSICAL EXAM PATIENT INFO: Dillon Smiley 62 year old REFERRING M.D.: Self PCP: No primary care provider on file. Consultation requested by self for an opinion regarding bladder cancer and my final recommendations will be communicated back to the requesting physician by way of shared medical record or letter via US mail. HPI 62 year old male w/h/o HTN, HLD referred for evaluation of bladder cancer. Per OSH urologist note 04/19/2023, cytoscopy demonstrated bladder tumor. Former smoker (5 years). Was seeing local urologist for irritation at end of urinary stream. PSA elevation that was treated with 2, 6 week courses of antibiotics, per patient PSA did come down some. He was discussing BPH procedures and a cystoscopy was part of the workup. He was first started on Flomax, than Mirabegron and oxybutynin. TURBT 04/27/2023 - cT1HG CT A/P 04/29/2023 - abnormal bladder wall thickening/inflammation Endorses discomfort in his bladder, light pink urinary stream. Empties his bladder well. Denies weak stream, intermittent stream, or dysuria. MRI prostate in process locally. Reports that urologist told him 75% of bladder was covered. Was stationed at [employer] and smoked occasionally. PATHOLOGY: 04/27/2023 TURBT ([facility] pathologists report) FINAL DIAGNOSIS ([id number], 04/27/2023) A. Urinary bladder, tumor, transurethral resection: - Invasive high-grade papillary urothelial carcinoma. - Tumor superficially invades the lamina propria. - No definitive muscularis propria present for assessment. B. Prostate, transurethral biopsy: - Benign prostatic tissue. C. Bladder neck , biopsy: - Non-invasive high-grade urothelial carcinoma. - Bladder neck musculature present and free of neoplasm. LAB: No results found for: CREAT No results found for: PSA No results found for: COLOR , CLARITY , UGLUC , UBILI , UKET , SPGR , UHB , UPH , UPROT , UROBILINOGEN , NITRITES , LEUKEST IMAGING: As above ALLERGIES: ALLERGIES Not on File MEDICATIONS: No prescriptions on file. HISTORIES No past medical history on file. No family history on file. No past surgical history on file. SOCIAL HISTORY REVIEW OF SYSTEMS General: No weight loss, malaise or fevers. Gastrointestinal: Negative for abdominal discomfort, blood in stools or black stools or change in bowel habits Genitourinary: See HPI The remainder of the ROS was reviewed and was negative. PHYSICAL EXAMINATION There were no vitals taken for this visit. Constitutional: Well appearing, alert, in no acute distress, and well-hydrated, well nourished Gastrointestinal: non-distended Genitourinary: MALE EXAM: Exam NOT Indicated Elder Briggs APRN.SERVICE STATION EQUIPMENT MECHANIC ASSESSMENT & PLAN: cT1HG NMIBC s/p TURBT 04/27/2023 Reviewed staging for bladder cancer and role of restaging TURBT for cT1 disease given high risk of understaging. Reviewed r/b/a including bleeding, infection, perforation, pelvic pain, LUTS. Discussed need for catheter post-op. I discussed treatment paradigm for NMIBC and MIBC during today's visit. He had opportunity to ask questions which were answered to his satisfaction and wishes to proceed with restaging TURBT. Will schedule. I spent a total of 45 minutes on the date of the service which included preparing to see the patient, jxou-[id number] patient care, and completing clinical documentation. By signing my name below, I, Arnoldo Avila, attest that this documentation has been prepared under the direction and in the presence of Dr. Jacobsen Electronically signed, Shaina Phan STAFF PHYSICIAN NOTE OF PERSONAL INVOLVEMENT IN CARE The above noted history, physical, assessment and plan were reviewed with the provider and critical portions of the H&P were confirmed. I evaluated and examined the patient and agree with the plan above and provided direct supervision of the above provider during this patient's care. Rigo Jacobsen MD May 18, 2023 documented in this encounter [facility] 05-06-2023 Hospital Discharge instructions Patient Education 05/06/2023 10:00:38 Bladder Cancer Bladder Cancer Bladder cancer is a condition where abnormal tissue (a tumor) grows in the bladder. The bladder is the organ that holds urine. Two tubes (ureters) carry urine from the kidneys to the bladder. The bladder wall is made of layers of tissue. Cancer that spreads through these layers of the bladder wall becomes more difficult to treat. What increases the risk? The following factors may make you more likely to develop this condition: Smoking. Working where there are risks (occupational exposures), such as working with rubber, leather, clothing fabric, dyes, chemicals, or paint. Being 55 years of age or older. Being male. Having long-term bladder inflammation. Having a history of cancer. This includes: ?A family history of bladder cancer. ?Having had bladder cancer before. ?Having had certain treatments for cancer before, such as: ?Medicines to kill cancer cells (chemotherapy). ?Strong X-ray beams or high-energy capsules to kill cancer cells and shrink tumors (radiation therapy). Having been exposed to arsenic. This is a poisonous substance. What are the signs or symptoms? Early symptoms of this condition include: Blood in your urine. Pain when urinating. Infections of your urinary system (urinary tract infections or UTIs) that happen often. Having to urinate sooner or more often than normal. Late symptoms of this condition include: Not being able to urinate. Pain on one side of your lower back. Loss of appetite. Weight loss. Tiredness (fatigue). Swelling in your feet. Bone pain. How is this diagnosed? This condition is diagnosed based on: Your medical history. A physical exam. Lab tests, such as urine tests. Imaging tests. Your symptoms. You may also have other tests or procedures, such as: A cystoscopy. This involves putting a narrow tube into your urethra. The urethra is the organ that carries urine from your bladder to the outside of your body. This procedure is done to view the lining of your bladder for tumors. A biopsy. This involves removing a tissue sample to look at under a microscope to check for cancer. Blood tests or imaging tests may be needed. These show how far into the bladder wall cancer has grown, and if cancer has spread to any other parts of your body. Tests may include: CT scan. MRI. Bone scan. X-ray. How is this treated? Your health care provider may recommend one or more types of treatment based on the stage of your cancer. The most common treatments are: Surgery to remove the cancer. Types of surgeries include: ?Removing a tumor on the inside wall of the bladder (transurethral resection). ?Removing the bladder (cystectomy). Radiation therapy. This is often combined with chemotherapy. Chemotherapy. Immunotherapy. This uses medicines to help your body's disease-fighting system (immune system) destroy cancer cells. Follow these instructions at home: Take bfen-xzk-ifwltch and prescription medicines only as told by your health care provider. If you were prescribed an antibiotic medicine, take it as told by your health care provider. Do not stop using the antibiotic even if you start to feel better. Eat a healthy diet. Some treatments might affect your appetite. Do not use any products that contain nicotine or tobacco. These products include cigarettes, chewing tobacco, and vaping devices, such as e-cigarettes. If you need help quitting, ask your health care provider. Consider joining a support group. This may help you learn to deal with the stress of having bladder cancer. Tell your cancer care team if you develop side effects. Your team may be able to recommend ways to get relief. Keep all follow-up visits. This is important. Where to find more information [place] [employer] (ACS): cancer.org National Cancer [place] (NCI): cancer.gov Contact a health care provider if: You have symptoms of a UTI. These include: ?Fever. ?Chills. ?Weakness. ?Muscle aches. ?Pain in your abdomen. ?Urge to urinate that is stronger and happens more often than normal. ?Burning in the bladder or urethra when you urinate. Get help right away if: There is blood in your urine. You cannot urinate. You have severe pain or other symptoms that do not go away. Summary Bladder cancer is a condition where tumors grow in the bladder. Diagnosis is based on your medical history, a physical exam, lab tests, imaging tests, and your symptoms. Your health care provider may recommend one or more types of treatment based on the stage of your cancer. Consider joining a support group. This may help you learn to deal with the stress of having bladder cancer. This information is not intended to replace advice given to you by your health care provider. Make sure you discuss any questions you have with your health care provider. Document Revised: 09/27/2022 Document Reviewed: 09/27/2022 [employer] Patient Education 2022 [employer]. Follow Up Care 04/19/2023 11:51:00 With:Jose GARCÍA, TATI Llanes, URO Address: When: Unknown [facility] [place] 04-19-2023 Hospital Discharge instructions Patient Education 04/19/2023 10:49:20 Transurethral Resection of Bladder Tumor Transurethral Resection of Bladder Tumor Transurethral resection of a bladder tumor is the removal (resection) of cancerous tissue (tumor) from the inside wall of the bladder. The bladder is the organ that holds urine. The tumor is removed through the tube that carries urine out of the body (urethra). In a transurethral resection, a thin telescope with a light, a tiny camera, and an electric cutting edge (resectoscope) is passed through the urethra. In men, the opening of the urethra is at the end of the penis. In women, it is just above the opening of the vagina. Tell a health care provider about: Any allergies you have. All medicines you are taking, including vitamins, herbs, eye drops, creams, and bbzn-pow-knyamvw medicines. Any problems you or family members have had with anesthetic medicines. Any bleeding problems you have. Any surgeries you have had. Any medical conditions you have, including recent urinary tract infections. Whether you are or may be . What are the risks? Generally, this is a safe procedure. However, problems may occur, including: Infection. Bleeding. Allergic reactions to medicines. Damage to nearby structures or organs. Difficulty urinating from blockage of the urethra or not being able to urinate (urinary retention). Deep vein thrombosis. This is a blood clot that can develop in your leg. Recurring cancer. What happens before the procedure? When to stop eating and drinking Follow instructions from your health care provider about what you may eat and drink before your procedure. These may include: 8 hours before your procedure ?Stop eating most foods. Do not eat meat, fried foods, or fatty foods. ?Eat only light foods, such as toast or crackers. ?All liquids are okay except energy drinks and alcohol. 6 hours before your procedure ?Stop eating. ?Drink only clear liquids, such as water, clear fruit juice, black coffee, plain tea, and sports drinks. ?Do not drink energy drinks or alcohol. 2 hours before your procedure ?Stop drinking all liquids. ?You may be allowed to take medicines with small sips of water. Medicines Ask your health care provider about: Changing or stopping your regular medicines. This is especially important if you are taking diabetes medicines or blood thinners. Taking medicines such as aspirin and ibuprofen. These medicines can thin your blood. Do not take these medicines unless your health care provider tells you to take them. Taking uxne-olc-eouffji medicines, vitamins, herbs, and supplements. General instructions If you will be going home right after the procedure, plan to have a responsible adult: ?Take you home from the hospital or clinic. You will not be allowed to drive. ?Care for you for the time you are told. Ask your health care provider what steps will be taken to help prevent infection. These steps may include: ? Washing skin with a germ-killing soap. ? Taking antibiotic medicine. Do not use any products that contain nicotine or tobacco for at least 4 weeks before the procedure. These products include cigarettes, chewing tobacco, and vaping devices, such as e-cigarettes. If you need help quitting, ask your health care provider. What happens during the procedure? An IV will be inserted into one of your veins. You will be given one or more of the following: ?A medicine to help you relax (sedative). ?A medicine that is injected into your spine to numb the area below and slightly above the injection site (spinal anesthetic). ?A medicine that is injected into an area of your body to numb everything below the injection site (regional anesthetic). ?A medicine to make you fall asleep (general anesthetic). Your legs will be placed in foot rests (stirrups) to open your legs and bend your knees. The resectoscope will be passed through your urethra and into your bladder. The part of your bladder with the tumor will be resected by the cutting edge of the resectoscope. Fluid will be passed to rinse out the cut tissues (irrigation). The resectoscope will then be taken out. A small, thin tube (catheter) will be passed through your urethra and into your bladder. The catheter will drain urine into a bag outside of your body. The procedure may vary among health care providers and hospitals. What happens after the procedure? Your blood pressure, heart rate, breathing rate, and blood oxygen level will be monitored until you leave the hospital or clinic. You may continue to receive fluids and medicines through an IV. You will be given pain medicine to relieve pain. You will have a catheter to drain your urine. ?The amount of urine will be measured. If you have blood in your urine, your bladder may be rinsed out by passing fluid through your catheter. You will be encouraged to walk as soon as you can. You may have to wear compression stockings. These stockings help to prevent blood clots and reduce swelling in your legs. If you were given a sedative during the procedure, it can affect you for several hours. Do not drive or operate machinery until your health care provider says that it is safe. Summary Transurethral resection of a bladder tumor is the removal (resection) of a cancerous growth (tumor) on the inside wall of the bladder. To do this procedure, your health care provider uses a thin telescope with a light, a tiny camera, and an electric cutting edge (resectoscope) that is guided to your bladder through your urethra. The part of your bladder that is affected by the tumor will be resected by the cutting edge of the resectoscope. A catheter will be passed through your urethra and into your bladder. The catheter will drain urine into a bag outside of your body. If you will be going home right after the procedure, plan to have a responsible adult take you home from the hospital or clinic. You will not be allowed to drive. This information is not intended to replace advice given to you by your health care provider. Make sure you discuss any questions you have with your health care provider. Document Revised: 10/22/2022 Document Reviewed: 10/22/2022 [employer] Patient Education 2022 [employer]. Follow Up Care 04/07/2023 10:17:58 With:Jose GARCÍA, Shazia Hart, URL, URO Address: [address], [place] [phone] When: Unknown Comments:lola LIMON [facility] 03-30-2023 Evaluation note Encounter Date Diagnosis Assessment Notes February, Open displaced fracture of distal phalanx of left index finger with routine healing, subsequent encounter (ICD-10 - S62.631D) X-rays of the left hand was reviewed with the patient today, along with a physical examination. Patient is progressing well. He is to continue to progress with the hand as tolerated. Patient will f/u in 4 weeks with X-rays. February, Open displaced fracture of distal phalanx of left middle finger with routine healing, subsequent encounter (ICD-10 - S62.633D) February, Open displaced fracture of distal phalanx of left ring finger with routine healing, subsequent encounter (ICD-10 - S62.635D) February, Laceration of nail bed of finger, subsequent encounter (ICD-10 - S61.319D) February, Other specified postprocedural states (ICD-10 - Z98.890) [employer] Other 04-27-2023 Hospital Discharge instructions Patient Education 02/24/2023 10:47:14 Prostate Cancer Screening Prostate Cancer Screening Prostate cancer screening is testing that is done to check for the presence of prostate cancer in men. The prostate gland is a walnut-sized gland that is located below the bladder and in front of therectum in males. The function of the prostate is to add fluid to semen during ejaculation. Prostatecancer is one of the most common types of cancer in men. Who should have prostate cancer screening? Screening recommendations vary based on age and other risk factors, as well as between the professional organizations who make the recommendations. In general, screening is recommended if: You are age 50 to 70 and have an average risk for prostate cancer. You should talk with your healthcare provider about your need for screening and how often screening should be done. Because most prostate cancers are slow growing and will not cause , screening in this age group is generally reserved for men who have a 10- to 15-year life expectancy. You are younger than age 50, and you have these risk factors: ?Having a father, brother, or uncle who has been diagnosed with prostate cancer. The risk is higherif your family member's cancer occurred at an early age or if you have multiple family members withprostate cancer at an early age. ?Being a male who is Black or is of [place] or sub-Saharan descent. In general, screening is not recommended if: You are younger than age 40. You are between the ages of 40 and 49 and you have no risk factors. You are 70 years of age or older. At this age, the risks that screening can cause are greater than the benefits that it may provide. If you are at high risk for prostate cancer, your health care provider may recommend that you have screenings more often or that you start screening at a younger age. How is screening for prostate cancer done? The recommended prostate cancer screening test is a blood test called the prostate-specific antigen(PSA) test. PSA is a protein that is made in the prostate. As you age, your prostate naturally produces more PSA. Abnormally high PSA levels may be caused by: Prostate cancer. An enlarged prostate that is not caused by cancer (benign prostatic hyperplasia, or BPH). This condition is very common in older men. A prostate gland infection (prostatitis) or urinary tract infection. Certain medicines such as male hormones (like testosterone) or other medicines that raise testosterone levels. A rectal exam may be done as part of prostate cancer screening to help provide information about the size of your prostate gland. When a rectal exam is performed, it should be done after the PSA level is drawn to avoid any effect on the results. Depending on the PSA results, you may need more tests, such as: A physical exam to check the size of your prostate gland, if not done as part of screening. Blood and imaging tests. A procedure to remove tissue samples from your prostate gland for testing (biopsy). This is the only way to know for certain if you have prostate cancer. What are the benefits of prostate cancer screening? Screening can help to identify cancer at an early stage, before symptoms start and when the cancer can be treated more easily. There is a small chance that screening may lower your risk of dying from prostate cancer. The chance is small because prostate cancer is a slow-growing cancer, and most men with prostate cancer from a different cause. What are the risks of prostate cancer screening? The main risk of prostate cancer screening is diagnosing and treating prostate cancer that would never have caused any symptoms or problems. This is called overdiagnosisand overtreatment. PSA screening cannot tell you if your PSA is high due to cancer or a different cause. A prostate biopsy is the only procedure to diagnose prostate cancer. Even the results of a biopsy may not tell you if your cancer needs to be treated. Slow-growing prostate cancer may not need any treatment other than monitoring, so diagnosing and treating it may cause unnecessary stress or other side effects. Questions to ask your health care provider When should I start prostate cancer screening? What is my risk for prostate cancer? How often do I need screening? What type of screening tests do I need? How do I get my test results? What do my results mean? Do I need treatment? Where to find more information The [place] [employer]: www.cancer.org [place] [employer]: www.auanet.org Contact a health care provider if: You have difficulty urinating. You have pain when you urinate or ejaculate. You have blood in your urine or semen. You have pain in your back or in the area of your prostate. Summary Prostate cancer is a common type of cancer in men. The prostate gland is located below the bladder and in front of the rectum. This gland adds fluid to semen during ejaculation. Prostate cancer screening may identify cancer at an early stage, when the cancer can be treated more easily and is less likely to have spread to other areas of the body. The prostate-specific antigen (PSA) test is the recommended screening test for prostate cancer, butit has associated risks. Discuss the risks and benefits of prostate cancer screening with your health care provider. If you are age 70 or older, the risks that screening can cause are greater than the benefits that it may provide. This information is not intended to replace advice given to you by your health care provider. Make sure you discuss any questions you have with your health care provider. Document Revised: 04/12/2022 Document Reviewed: 04/12/2022 [employer] Patient Education 2022 [employer]. Follow Up Care 01/13/2023 15:32:35 With:Jose GARCÍA, TATI Llanes, URO Address: When: Unknown [facility] [place] 04-25-2023 Evaluation note* Encounter Date Diagnosis Assessment Notes Treatment Notes Treatment Clinical Notes Jan, Open displaced fracture of distal phalanx of left index finger with routine healing, subsequent encounter (ICD-10 - S62.631D) Jan, Open displaced fracture of distal phalanx of left middle finger with routine healing, subsequent encounter (ICD-10 - S62.633D) Jan, Open displaced fracture of distal phalanx of left ring finger with routine healing, subsequent encounter (ICD-10 - S62.635D) Jan, Laceration of nail bed of finger, subsequent encounter (ICD-10 - S61.319D) Jan, Other specified postprocedural states (ICD-10 - Z98.890) Patient returns 3 week s/p Irrigation and debridement open fracture distal phalanx Left Index/ Long/ and Ring fingers, Nail bed laceration repair Left Index and Long fingers,Repair of ulnar collateral ligament distal interphalangeal joint Left Ring finger. Updated radiographs obtained, reviewed, and discussed with patient. He is progressing and healing routinely. Patient advised to continue with finger splint and finger sleeves. He may use ice, elevation, and anti-inflammatory medication as needed for any pain or swelling. Patient advised to work on gentle motion and strengthening exercises at home. Patient voices understanding and states no further questions at this time. [employer] Other 04-11-2023 Evaluation note* Encounter Date Diagnosis Assessment Notes Treatment Notes Treatment Clinical Notes Jan, Open displaced fracture of distal phalanx of left index finger, initial encounter (ICD-10 - S62.631B) Jan, Open displaced fracture of distal phalanx of left middle finger, initial encounter (ICD-10 - S62.633B) Jan, Open displaced fracture of distal phalanx of left ring finger, initial encounter (ICD-10 - S62.635B) Discussed with patient he is progressing well from surgery. Instructed patient to continue to wear stax splint on the ring finger to help with the droop. Discussed with patient when at home he can leave the fingers open to air, continue to cover when at work to avoid infection. Dressing applied to fingers. Jan, Laceration of nail bed of finger, initial encounter (ICD-10 - S61.319A) Jan, Other specified postprocedural states (ICD-10 - Z98.890) [employer] Other 04-03-2023 Evaluation note* Encounter Date Diagnosis Assessment Notes Treatment Notes Treatment Clinical Notes Jan, Open displaced fracture of distal phalanx of left index finger, initial encounter (ICD-10 - S62.631B) Radiographs reviewed with patient and . Discussed treatment as allowing to heal as is with current sutures intact and soaking protocol, versus surgical revision laceration repairs. Surgical procedure, risks, recovery and restrictions discussed in detail. Patient was in understanding and wishes to proceed with revision laceration repairs this afternoon under local anesthesia. Jan, Open displaced fracture of distal phalanx of left middle finger, initial encounter (ICD-10 - S62.633B) Jan, Open displaced fracture of distal phalanx of left ring finger, initial encounter (ICD-10 - S62.635B) Jan, Pre-op exam (ICD-10 - Z01.818) Jan, Laceration of nail bed of finger, initial encounter (ICD-10 - S61.319A) [employer] Other 11-14-2022 Evaluation note* Encounter Date Diagnosis Assessment Notes Treatment Notes Treatment Clinical Notes Aug, Cervical radiculopathy (ICD-10 - M54.12) 62 year old male here for follow up to discuss chronic pain. He was last seen December 2019. He voices complaints of neck and left shoulder pain with radiation down the left upper extremity to the elbow and numbness in the pointer finger on the left. He also complains of low back pain. He feels pain can negatively impact his daily activities and sleeping pattern. Anatomy of spine as well as different treatment options were discussed in detail with patient in regards to patients condition. I recommend we proceed with a cervical epidural steroid injection under fluoroscopic guidance. Risks and benefits of procedure explained to patient; patient verbalizes understanding. In the meantime, Patient is encouraged [facility] 14 Aug, 2022 Cervical spondylosis (ICD-10 - M47.812) Continue with current treatment plan. Aug, Chronic pain (ICD-10 - G89.29) Follow up after procedure. [employer] Other Evaluation + Plan note Future Appointments Appointment Date:04/07/2023 09:15:00 AM Scheduled Provider:Shazia Garcia MD Location:[facility] Appointment Type:URO Office Visit Diagnostic Tests Pending * PSA Free & Total 02/24/23 [facility] Evaluation + Plan note Future Appointments Appointment Date:04/07/2023 09:15:00 AM Scheduled Provider:Shazia Garcia MD Location:[facility]ments Appointment Date:05/06/2023 09:15:00 AM Scheduled Provider:Shazia Garcia MD Location:[facility] Appointment Type:URO Office Visit [facility] Evaluation + Plan note Future Appointments Appointment Date:05/06/2023 09:15:00 AM Scheduled Provider:Shazia Garcia MD Location:[facility] Appointment Type:URO Office Visit Diagnostic Tests Pending * UroVysion Fish and Urine Cyto ([facility]) [facility]23 [facility] Plan [facility] Future Appointments Appointment Date:09/07/2024 07:45:00 AM Scheduled Provider:Shazia Garcia MD Location:[facility] [place] Appointment Type:URO Procedure 15 min [facility] [place] evaluation noteNo InformationNort AddressHealth Other evaluation noteNo assessment information available [facility] Work Phone: evaluation note* Diagnosis Malignant neoplasm of urinary bladder, unspecified site (HCC) [C67.9]- Primary [facility] Diagnosis Pre-op exam- Primary Preoperative examination, unspecified Malignant neoplasm of urinary bladder, unspecified site (HCC) [facility]* Diagnosis Screening for genitourinary condition Screening for other and unspecified genitourinary condition documented [facility]* Diagnosis Malignant neoplasm of urinary bladder, unspecified site (HCC)- Primary [facility]* Diagnosis Malignant neoplasm of urinary bladder, unspecified site (HCC) [facility]* Diagnosis Malignant neoplasm of urinary bladder, unspecified site (HCC) documented in this encounter [facility] note* Diagnosis Encounter for follow-up surveillance of bladder cancer- Primary Unspecified follow-up examination Malignant neoplasm of urinary bladder, unspecified site (HCC) documented in this encounter [facility] note* Diagnosis Screening for genitourinary condition Screening for other and unspecified genitourinary condition Malignant neoplasm of urinary bladder, unspecified site (HCC) [facility]* Diagnosis Onset Date Resolution Status Acute urinary retention acut e Gross hematuria acute [facility] Work Phone: evaluation note* Diagnosis Onset Date Resolution Status Acute urinary retention acut e Bladder cancer acute Clot retention of urine acut e Gross hematuria acute H/O transurethral resection of bladder tumor (TURBT) acute [facility] Work Phone: evaluation note* Diagnosis Malignant neoplasm of urinary bladder, unspecified site (HCC) [facility] Malignant neoplasm of urinary bladder, unspecified site (HCC)- Primary documented in this encounter [facility] note* Diagnosis Malignant neoplasm of urinary bladder, unspecified site (HCC) documented in this encounter [facility] note* Diagnosis Malignant neoplasm of urinary bladder, unspecified site (HCC) documented in this encounter [facility] note* Diagnosis Dysuria- Primary Malignant neoplasm of urinary bladder, unspecified site (HCC) documented in this encounter [facility] note* Diagnosis Malignant neoplasm of urinary bladder, unspecified site (HCC) documented in this encounter [facility] note* Diagnosis Dysuria- Primary documented in this encounter [facility] note* Diagnosis Onset Date Resolution Status Cervical spondylosis acute Mid back pain acute Other chronic pain acute [facility] Work Phone: Evaluation note* Diagnosis Malignant neoplasm of urinary bladder, unspecified site (HCC)- Primary documented in this encounter [facility] note* Diagnosis Malignant neoplasm of overlapping sites of bladder (HCC)- Primary Malignant neoplasm of other specified sites of bladder Elevated prostate specific antigen (PSA) documented in this encounter [facility] note* Diagnosis Malignant neoplasm of overlapping sites of bladder (HCC) Malignant neoplasm of other specified sites of bladder documented in this encounter [facility] note* Diagnosis Plant dermatitis- Primary Obesity (BMI 30-39.9) [facility] - [facility]* Type Description Date Medical History LOW BACK PAIN Medical History HTN Surgical History knee scope right knee 1999 Surgical History Procedure:Arthroscopy knee;Dise ase:R 1998 Surgical History Procedure:Colonoscopy;normal;Dr Arroyo 2008 Surgical History Procedure:Interlamin ar epidural steroid injection c7-t1 07/2017 Hospitalization History see above [employer] Other History general Narrative - Reported* Type Description Date Medical History LOW BACK PAIN Medical History HTN Medical History prostatitis Surgical History knee scope right knee 1999 Surgical History Procedure:Arthroscopy knee;Dise ase:R 1998 Surgical History Procedure:Colonoscopy;normal;Dr Dina Adams Surgical History Procedure:Interlamin ar epidural steroid injection c7-t1 07/2017 Hospitalization History see above [employer] Other Hospital course Narrative No data available for this section [facility] [place] [facility] Discharge instructions Additional Instructions Sutures out 10 to 14 days Follow-up with Dr. Valenzuela in 2 to 3 days Return if symptoms are worse [facility]: Hospital Discharge instructions Additional Instructions DR. KEENAN'S POST OP INSTRUCTIONS Take prescribed pain medication as directed and as needed to control your post- operative pain. -In addition to the prescribed medication, you may take ibuprofen (Advil, Motrin) or naproxen (Aleve/Naprosyn) to help control pain and decrease swelling. -DO NOT TAKE ibuprofen/Naprosyn/naproxen if you have a history of bleeding ulcer, are taking anticoagulation medication (Coumadin/warfarin, Eliquis, Xarelto, Plavix, Lovenox), if you have had a history of gastric bypass surgery, or if you have a history of kidney disease. Elevate the operative area as much as possible, using at least 2-3 pillows, keeping the hand higher than the elbow. Keep ice at the operative area as much as possible. It takes longer than 20 minutes for the cold to penetrate the bandages, so leave the ice bag or cold pack in place until the ice melts, then it is time to change to a fresh ice bag or cold pack. -Elevation and ice help to lessen the swelling post-operatively which helps to lessen pain so that you will need to take less pain medication, as well as maintaining better range of motion and function of your hand (more swelling, less movement). You may wiggle your fingers, bending, flexing, and move them to decrease stiffness. You may use your hands for light activities of 2-5 lbs. This is lifting your coffee cup, using your silverware, and typing on a computer or tablet. -Do NOT perform strenuous lifting or lift greater than 10 lbs until 4-6 weeks after surgery to minimize exacerbation of pain at the surgery site. You may remove your dressing on the third day after surgery, and get your surgical incision wet in the shower or when washing your hands with soap and water. -DO NOT soak your incision or submerge it under standing water such as dishwater or bathtub. -DO NOT apply perfumed moisturizers or ointments unless otherwise instructed by your physician. -Washing your incision gently with soap and water on a daily basis, helps to rid your skin of bacteria and decrease the risk of wound infections. -After showering or washing your hands, pat the incision dry, and keep covered with a clean dry gauze bandage. -You may apply Bacitracin, Neosporin, or generic triple antibiotic ointment to incision if you would like -Please use the removable plastic finger splints as needed during activities and when sleeping at nighttime to decrease risk of pain and injury to your hands and fingers - Patient was counseled on bone healing protocol including smoking cessation/ avoidance of nicotine products, appropriate weight bearing restrictions and limitations, and vitamin supplementation to aid in bone and fracture healing/ strengthening. Patient was counseled to take: 1) Vitamin C 500 mg PO Q daily 2) Calcium 500-600 mg/ Vitamin D 200-400 Units PO Q TID Take antibiotics as directed to decrease risk of infection after surgery [facility] Work Phone: Hospital Discharge instructions No data available for this section [facility] No data available for this section [facility] [place] Summary Purpose Family History No Family History Records Found Relationship Condition Age at Onset Recorded Date/T ulises Not Specified Multiple sclerosis Unknown father Dementia Unknown History of thyroidectomy Unknown Relationship Condition Age at Onset Recorded Date/T ulises mother Multiple sclerosis Unknown father Dementia Unknown History of thyroidectomy Unknown mother Unknown Advance Directives No Advanced Directives Records Found Advance Directive Response Recorded Date/ Time Advance Directives No August 05, 2017 12:06pm Advance Directive Response Recorded Date/ Time Advance Directives No August 05, 2017 11:06am Chief Complaint and Reason for Visit Chief Complaint left hand cut on saw Chief Complaint left hand cut on saw surgery Chief Complaint left hand cut on saw surgery S62.631D S62.633D S62.635D Chief Complaint S62.631D S62.633D S6 2.635D S62.631D D49.4 r97.20 Chief Complaint Urogenital Reason for Visit Acute urinary retent ion Gross hematuria Chief Complaint Urogenital Reason for Visit Acute urinary retent ion Bladder cancer Clot retention of urine Gross hematuria H/O transurethral resection of bladder tumor (TURBT) Chief Complaint Neck/back pain Reason for Visit Cervical spondylosis Mid back pain Other chronic pain Chief Complaint Neck/back pain V neck and back pain Reason for Visit Cervical spondylosis Mid back pain Other chronic pain Reason for Referral Specialty Diagnoses / Procedures Referred By Naomi gonsalez Referred To Contact [facility] Diagnoses Malignant neoplasm of urinary bladder, unspecified site (HCC) Procedures MRI PELVIS BLADDER WO/W IVCON MRI PELVIS W/O & W/CONTRAST MATERIAL Rigo Jacobsen MD [address] [place] [address] [place] [id number] Referral ID Status Reason Start Date Expiration Date Visits Requested Visits Authorized [id number] Pending Review Auto-Generat ed Referral 02/15/2024 03/16/2025 1 1 Referred by: Jose GARCÍA, Shazia Hart Medications Administered Section Inactive Administered Medications - up to 3 most recent administrations Medication Order MAR Action Action Date Dose Rate Site bcg 50 mg in NaCl 0.9% 50 mL 50 mg, INTRAVESICAL, ONCE, 1 dose, On Tue08/16/23 at 0900, Instill into bladder via catheter and retain for 120 minutes, followed by bladder drainage Hazardous Chemotherapy Drug: Use appropriate PPE. Protect from Light., AMB MED ORDERS Given 08/16/2023 9:20 AM EDT 50 mg lidocaine urojet 2 % 11 mL topical gel (GLYDO) 11 mL, OTHER, ONCE, 1 dose, On Tue08/16/23 at 0900, FOR EXTERNAL USE ONLY Intravesical administration, AMB MED ORDERS Given 08/16/2023 9:18 AM EDT 11 mL Inactive Administered Medications - up to 3 most recent administrations Medication Order MAR Action Action Date Dose Rate Site bcg 50 mg in NaCl 0.9% 50 mL 50 mg, INTRAVESICAL, ONCE, 1 dose, On Tue08/23/23 at 0930, Instill into bladder via catheter and retain for 120 minutes, followed by bladder drainage Hazardous Chemotherapy Drug: Use appropriate PPE. Protect from Light., AMB MED ORDERS Given 08/23/2023 9:25 AM EDT 50 mg lidocaine urojet 2 % 11 mL topical gel (GLYDO) 11 mL, OTHER, ONCE, 1 dose, On Tue08/23/23 at 0930, FOR EXTERNAL USE ONLY Intravesical administration, AMB MED ORDERS Given 08/23/2023 9:23 AM EDT 11 mL Inactive Administered Medications - up to 3 most recent administrations Medication Order MAR Action Action Date Dose Rate Site bcg 50 mg in NaCl 0.9% 50 mL 50 mg, INTRAVESICAL, ONCE, 1 dose, On Tue08/30/23 at 0930, Instill into bladder via catheter and retain for 120 minutes, followed by bladder drainage Hazardous Chemotherapy Drug: Use appropriate PPE. Protect from Light., AMB MED ORDERS Given 08/30/2023 9:45 AM EDT 50 mg lidocaine urojet 2 % 11 mL topical gel (GLYDO) 11 mL, OTHER, ONCE, 1 dose, On Tue08/30/23 at 0930, FOR EXTERNAL USE ONLY Intravesical administration, AMB MED ORDERS Given 08/30/2023 9:40 AM EDT 11 mL Additional Source Comments REASON FOR VISIT (unrecogniz ed section and content) Reason Comments Pre-Op Exam Reason Comments Results Reason Comments Social Work Services Reason Comments Bladder Instillation Treatment Reason Comments Bladder Instillation Treatment BCG 03/05 Specialty Diagnoses / Procedures [facility]erred To Contact [facility] Diagnoses Bladder cancer (HCC) Procedures FOLLOW-UP/REASSESSMENT Rigo Jacobsen MD [address] [place] [address] [facility] [address] [place] [address] Referral ID Status Reason Start Date Expiration Date V isits Requested Visits Authorized [id number] Authorized 11/23/2023 04/29/2024 99 99 Reason Comments Patient Question Orders Reason Comments Cystoscopy-1 Reason Comments Radiology MRI Specialty Diagnoses / Procedures [facility] Referred To Contact [facility] Diagnoses Malignant neoplasm of urinary bladder, unspecified site (HCC) Procedures MRI PELVIS BLADDER WO/W IVCON MRI PELVIS W/O & W/CONTRAST MATERIAL Rigo Jacobsen MD [address] [place] [address] [facility] [place] [address] Referral ID Status Reason Start Date Expiration Date V isits Requested Visits Authorized [id number] Closed Auto-Generate d Referral 02/15/2024 03/16/2025 1 1 Reason Comments Consult Bladder Cancer Reason Comments Rash (unrecognized sect ion and content) No Status Records FoundNo Status Records FoundNo Status Records FoundNo Status Records FoundNo Status Records FoundNo Status Records FoundNo Status Records Found INFORMATION SOURCE (unrecogn ized section and content) DATE CREATED AUTHOR 09/14/2022 [facility] dical Specialist DATE CREATED AUTHOR AUTHOR'S ORGANIZ ATION 06/07/2024 [facility] DATE CREATED AUTHOR AUTHOR'S ORGANIZ ATION 08/03/2024 [facility] DATE CREATED AUTHOR AUTHOR'S ORGANIZ ATION 09/01/2024 [facility] EPIC DATE CREATED AUTHOR AUTHOR'S ORGANIZ ATION 09/09/2024 [facility] DATE CREATED AUTHOR AUTHOR'S ORGANIZ ATION 09/16/2024 [facility] Care Teams (unrecognized sec tion and content) Team Status: Active Member Role Status Dates Isamar Jenkins DO Primary Care Provider Active Team Status: Inactive Member Role Status Dates Isamar Jenkins DO Primary Care Provider Active Start: May 17, 2024 End: May 17, 2024 Chaz Styles MD Attending Provider Active Sta rt: May 17, 2024 End: May 17, 2024 Team Status: Active Member Role Status Dates Isamar Jenkins DO Primary Care Provider Active Start: November 16, 2023 Ancelmo Kelly PA-C Emergency Provider Active Start: November 16, 2023 Michael Yadav DO Admit Provider, Atte nding Provider Active Start: November 16, 2023 Team Status: Inactive Member Role Status Dates Isamar Jenkins DO Primary Care Provider Active Mandeep Andersen MD Emergency Provider Active Team Status: Inactive Member Role Status Dates Isamar Jenkins DO Primary Care Provider Active Jil Keenan MD Attending Provider Active Team Status: Inactive Member Role Status Dates Isamar Jenkins DO Primary Care Provider Active Shazia Garcia MD Attending Provider Active Team Status: Active Member Role Status Dates Isamar Jenkins DO Primary Care Provider Active Start: November 18, 2023 Ancelmo Kelly PA-C Emergency Provider Active Start: November 18, 2023 Michael Yadav DO Admit Provider, Atte nding Provider, Other Provider Active Start: November 18, 2023 Shazia Garcia MD Other Provider Active Start: Raffi leon 2023 Manager Fine Relationship Specialty Start Date End Date Isamar Jenkins DO [address] [place] [address] PCP - General Family Medicine 12/02/23 Manager Fine Relationship Specialty Start Date End Date Isamar Jenkins DO [address] [place] [address] PCP - General Family Medicine 12/02/23 Fide Royal, TEST CONSULTANT Clinical Staff Rn 12/09/23 Manager Fine Relationship Specialty Start Date End Date Isamar Jenkins DO [address] [place] [address] PCP - General Family Medicine 12/02/23 Fide Royal, TEST CONSULTANT Clinical Staff Rn 12/09/23 Manager Fine Relationship Specialty Start Date End Date Isamar Jenkins, DO [address] [place] [address] PCP - General Family Medicine 12/02/23 Fide Royal, TEST CONSULTANT Clinical Staff Rn 12/09/23 Manager Fine Relationship Specialty Start Date End Date Isamar Jenkins DO [address] [place] [address] PCP - General Family Medicine 12/02/23 Fide Royal TEST CONSULTANT Clinical Staff Rn 12/09/23 Manager Fine Relationship Specialty Start Date End Date Isamar Jenkins, DO [address] [place] [address] PCP - General Family Medicine 12/02/23 Fide Royal, TEST CONSULTANT Clinical Staff Rn 12/09/23 Manager Fine Relationship Specialty Start Date End Date Isamar Jenkins DO [address] [place] [address] PCP - General Family Medicine 12/02/23 Fide Royal, JERRY Clinical Staff Rn 12/09/23 Manager Fine Relationship Specialty Start Date End Date Isamar Jenkins DO [address] [place] [address] PCP - General Family Medicine 12/02/23 Fide Royal LSW Clinical Staff Rn 12/09/23 Team Status: Inactive Member Role Status Dates Isamar Jenkins DO Primary Care Provider Active Start: May 31, 2024 End: May 31, 2024 Chaz Styles MD Attending Provider Active Sta rt: May 31, 2024 End: May 31, 2024 Manager Fine Relationship Specialty Start Date End Date Isamar Jenkins DO [address] [place] [address] PCP - General Family Medicine 12/02/23 Fide Royal LSW Clinical Staff Rn 12/09/23 Manager Fine Relationship Specialty Start Date End Date Isamar Jenkins DO [address] [place] [address] PCP - General Family Medicine 12/02/23 Fide Royal LSW Clinical Staff Rn 12/09/23 Manager Fine Relationship Specialty Start Date End Date Isamar Jenkins DO [address] [place] [address] PCP - General Family Medicine 12/02/23 Fide Royal LSW Clinical Staff Rn 12/09/23 Manager Fine Relationship Specialty Start Date End Date Isamar Jenkins DO [address] [place] [address] PCP - General Family Medicine 03/08/23 Goals (unrecognized section and content) Goals may be documented in a n alternate section Source Comments (unrecognize d section and content) In the event this informatio n is protected by the Federal Confidentiality of Alcohol and Drug Abuse Patient Records regulations: The Federal rules restrict any use of the information to criminally investigate or prosecute any alcohol or drug abuse patient.[facility] the event this information is protected by the Federal Confidentiality of Alcohol and Drug Abuse Patient Records regulations: The Federal rules restrict any use of the information to criminally investigate or prosecute any alcohol or drug abuse patient.[facility] the event this information is protected by the Federal Confidentiality of Alcohol and Drug Abuse Patient Records regulations: The Federal rules restrict any use of the information to criminally investigate or prosecute any alcohol or drug abuse patient.[facility] HospitalIn the event this information is protected by the Federal Confidentiality of Alcohol and Drug Abuse Patient Records regulations: The Federal rules restrict any use of the information to criminally investigate or prosecute any alcohol or drug abuse patient.[facility] HospitalIn the event this information is protected by the Federal Confidentiality of Alcohol and Drug Abuse Patient Records regulations: The Federal rules restrict any use of the information to criminally investigate or prosecute any alcohol or drug abuse patient.[facility] HospitalIn the event this information is protected by the Federal Confidentiality of Alcohol and Drug Abuse Patient Records regulations: The Federal rules restrict any use of the information to criminally investigate or prosecute any alcohol or drug abuse patient.[facility] HospitalIn the event this information is protected by the Federal Confidentiality of Alcohol and Drug Abuse Patient Records regulations: The Federal rules restrict any use of the information to criminally investigate or prosecute any alcohol or drug abuse patient.[facility] HospitalIn the event this information is protected by the Federal Confidentiality of Alcohol and Drug Abuse Patient Records regulations: The Federal rules restrict any use of the information to criminally investigate or prosecute any alcohol or drug abuse patient.[facility] HospitalIn the event this information is protected by the Federal Confidentiality of Alcohol and Drug Abuse Patient Records regulations: The Federal rules restrict any use of the information to criminally investigate or prosecute any alcohol or drug abuse patient.[facility] HospitalIn the event this information is protected by the Federal Confidentiality of Alcohol and Drug Abuse Patient Records regulations: The Federal rules restrict any use of the information to criminally investigate or prosecute any alcohol or drug abuse patient.[facility] HospitalIn the event this information is protected by the Federal Confidentiality of Alcohol and Drug Abuse Patient Records regulations: The Federal rules restrict any use of the information to criminally investigate or prosecute any alcohol or drug abuse patient.[facility] HospitalIn the event this information is protected by the Federal Confidentiality of Alcohol and Drug Abuse Patient Records regulations: The Federal rules restrict any use of the information to criminally investigate or prosecute any alcohol or drug abuse patient.[facility] HospitalIn the event this information is protected by the Federal Confidentiality of Alcohol and Drug Abuse Patient Records regulations: The Federal rules restrict any use of the information to criminally investigate or prosecute any alcohol or drug abuse patient.[facility] HospitalIn the event this information is protected by the Federal Confidentiality of Alcohol and Drug Abuse Patient Records regulations: The Federal rules restrict any use of the information to criminally investigate or prosecute any alcohol or drug abuse patient.[facility] HospitalIn the event this information is protected by the Federal Confidentiality of Alcohol and Drug Abuse Patient Records regulations: The Federal rules restrict any use of the information to criminally investigate or prosecute any alcohol or drug abuse patient.[facility] HospitalIn the event this information is protected by the Federal Confidentiality of Alcohol and Drug Abuse Patient Records regulations: The Federal rules restrict any use of the information to criminally investigate or prosecute any alcohol or drug abuse patient.[facility] HospitalIn the event this information is protected by the Federal Confidentiality of Alcohol and Drug Abuse Patient Records regulations: The Federal rules restrict any use of the information to criminally investigate or prosecute any alcohol or drug abuse patient.[facility] HospitalIn the event this information is protected by the Federal Confidentiality of Alcohol and Drug Abuse Patient Records regulations: The Federal rules restrict any use of the information to criminally investigate or prosecute any alcohol or drug abuse patient.[facility] HospitalIn the event this information is protected by the Federal Confidentiality of Alcohol and Drug Abuse Patient Records regulations: The Federal rules restrict any use of the information to criminally investigate or prosecute any alcohol or drug abuse patient.[facility] HospitalIn the event this information is protected by the Federal Confidentiality of Alcohol and Drug Abuse Patient Records regulations: The Federal rules restrict any use of the information to criminally investigate or prosecute any alcohol or drug abuse patient.[facility] HospitalIn the event this information is protected by the Federal Confidentiality of Alcohol and Drug Abuse Patient Records regulations: The Federal rules restrict any use of the information to criminally investigate or prosecute any alcohol or drug abuse patient.[facility] HospitalIn the event this information is protected by the Federal Confidentiality of Alcohol and Drug Abuse Patient Records regulations: The Federal rules restrict any use of the information to criminally investigate or prosecute any alcohol or drug abuse patient.[facility] HospitalIn the event this information is protected by the Federal Confidentiality of Alcohol and Drug Abuse Patient Records regulations: The Federal rules restrict any use of the information to criminally investigate or prosecute any alcohol or drug abuse patient.[facility] HospitalIn the event this information is protected by the Federal Confidentiality of Alcohol and Drug Abuse Patient Records regulations: The Federal rules restrict any use of the information to criminally investigate or prosecute any alcohol or drug abuse patient.[facility] Inactive Administered Medications - up to 3 most recent administrations Administered Medications (un recognized section and content) Medication Order MAR Action Action Date Dose Rate Site bcg 50 mg in NaCl 0.9% 50 mL 50 mg, INTRAVESICAL, ONCE, 1 dose, On Tue12/02/23 at 0900, Instill into bladder via catheter and retain for 120 minutes, followed by bladder drainage Hazardous Chemotherapy Drug: Use appropriate PPE. Protect from Light., AMB MED ORDERS Given 12/02/2023 9:19 AM EST 50 mg lidocaine urojet 2 % 11 mL topical gel (GLYDO) 11 mL, OTHER, ONCE, 1 dose, On Tue12/02/23 at 0900, FOR EXTERNAL USE ONLY Intravesical administration, AMB MED ORDERS Given 12/02/2023 9:07 AM EST 11 mL Inactive Administered Medications - up to 3 most recent administrations Medication Order MAR Action Action Date Dose Rate Site bcg 50 mg in NaCl 0.9% 50 mL 50 mg, INTRAVESICAL, ONCE, 1 dose, On Tue12/09/23 at 0900, Instill into bladder via catheter and retain for 120 minutes, followed by bladder drainage Hazardous Chemotherapy Drug: Use appropriate PPE. Protect from Light., AMB MED ORDERS Given 12/09/2023 9:08 AM EST 50 mg lidocaine urojet 2 % 11 mL topical gel (GLYDO) 11 mL, OTHER, ONCE, 1 dose, On Tue12/09/23 at 0900, FOR EXTERNAL USE ONLY Intravesical administration, AMB MED ORDERS Given 12/09/2023 8:45 AM EST 11 mL Inactive Administered Medications - up to 3 most recent administrations Medication Order MAR Action Action Date Dose Rate Site bcg 50 mg in NaCl 0.9% 50 mL 50 mg, INTRAVESICAL, ONCE, 1 dose, On Tue12/16/23 at 0900, Instill into bladder via catheter and retain for 120 minutes, followed by bladder drainage Hazardous Chemotherapy Drug: Use appropriate PPE. Protect from Light., AMB MED ORDERS Given 12/16/2023 9:10 AM EST 50 mg lidocaine urojet 2 % 11 mL topical gel (GLYDO) 11 mL, OTHER, ONCE, 1 dose, On Tue12/16/23 at 0900, FOR EXTERNAL USE ONLY Intravesical administration, AMB MED ORDERS Given 12/16/2023 8:40 AM EST 11 mL Inactive Administered Medications - up to 3 most recent administrations Medication Order MAR Action Action Date Dose Rate Site ciprofloxacin HCl 500 mg tab(s) (CIPRO) 500 mg, ORAL, ONCE (UP TO 30 DAYS AMB), 1 dose, On Tue02/15/24 at 1100, Administer 2 hours before or 4 hours after medications containing calcium, magnesium, aluminum, iron, or zinc (including antacids and sucralfate), and sevelamer. May be administered without regard to meals. Tube feedings should be held 1 hour before and 1 hour after administration., Antimicrobial indication: Empiric Given 02/15/2024 10:35 AM EDT 500 mg FOR RECORDS PERTAINING TO PATIENTS WHO ARE OR HAVE BEEN ENROLLED IN A CHEMICAL DEPENDENCY/SUBSTANCEABUSE PROGRAM, SOME INFORMATION MAY BE OMITTED. This clinical summary was aggregated from multiple sources. Caution should be exercised in using it in the provision of clinical care. This summary normalizes information from multiple sources, and as a consequence, information in this document may materially change the coding, format and clinical context of patient data. In addition, data may be omitted in some cases. CLINICAL DECISIONS SHOULD BE BASED ON THE PRIMARY CLINICAL RECORDS. [email or web address] [facility]. provides no warranty or guarantee of the accuracy or completeness of information in this document.
[2024-09-19] MEDS: LACTATED RINGER'S SOLUTION 1,000 ML 50 ML IV (13:44)
[2024-09-19] MEDS: CEFAZOLIN SODIUM 2 GM/50 ML D5W PREMIX IV (14:45)
--- NOTE | 2024-09-19 16:45 | PM.URSON ---
Urology Surgery Operative Note Operative Note Procedure Date: 09/19/24 Time Out Performed: yes Pre-op Diagnosis: 1. Bladder lesion 2. Benign prostatic hyperplasia with obstruction Post-op Diagnosis: same as pre-op Procedures performed: 1. Cystoscopy, transurethral resection of prostate 2. Transurethral resection of bladder tumor (2-5 cm) Anesthesia: General-ET (Dr. Garvey) Primary Surgeon: Shazia Garcia Complications: none Estimated blood loss (mL): 3 Findings: Severe bilobar prostatic hyperplasia with significant fusion of lateral lobes, elevated bladder neck. Release of inflammatory exudates within prostate Mild erythema/inflammation in center of prior resection sites/scar on bladder dome, transected (~ 3x4 cm area). Very thin underlying bladder. 1-2+ trabeculated bladder LIZZIE: Firm nodule right apex Specimens: 1. bladder lesion, 2. prostate chips Drains: 22Fr 3way coude catheter, 35 cc in balloon Indications for Procedures: 64 year old male with BPH with LUTS and high risk bladder cancer s/p multiple TURBTs and BCG who was found to have healing prior resection site on last surveillance cystoscopy but atypical urine cytology. 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 After discussion of risks/benefits of management options, he elected to proceed with resection of bladder lesions and prostate to relieve blockage. Risks were discussed including but not limited to bleeding, pain, infection, damage to surrounding structures, stricture, incontinence, erectile dysfunction, retention, recurrence, and need for additional procedures Detailed description of Procedure: Prior to the operating room, informed consent was obtained for the procedures described above. The patient was then taken to the operating suite, transferred to the operating table and received the appropriate dose of preoperative IV antibiotics. Gen. anesthesia ETT was administered and the patient was positioned in the lithotomy position, sterilely prepped and draped in the usual sterile fashion for this procedure. A final timeout was performed confirming the patient's identity, procedure and all present were in agreement to proceed. I began by inserting a 22 Bengali rigid cystoscope into the patient's bladder and performed a thorough cystoscopy with the 30 degree lens with the findings as above. Bilateral ureteral orifices were seen in orthotopic position effluxing urine. The cystoscope was removed and a 26 Bengali resectoscope was inserted with visual obturator. Mucosal irregularities on bladder dome of prior resection site were resected with bipolar loop. Specimens sent for pathology. Resection bed and surrounding margin was cauterized. The UOs were identified and bipolar loop electrocautery was used to resect the prostate starting at the 5 o'clock position until the UO was in view. This was repeated on the right side and the intervening lobe was taken down to bladder neck. The resection was continued distally, taking care to not resect distal to the verumontanum. The left lateral lobe was resected to create an open channel. This was repeated on the right. Minimal anterior lobe resection was done. Specimens were sent for pathology. Pinpoint hemostasis was obtained with loop electrocautery. Next, plasma button was used to fulgurate the resection bed and excellent hemostasis was achieved. The bladder was drained and inspected. There was no evidence of any bleeding from the resection beds. The UOs remained intact. A 22-Bengali [address] Coude catheter was inserted without difficulty, 35 cc in balloon, irrigated until clear, normal saline continuous bladder irrigation started. The patient tolerated the procedure well without complication. LIZZIE with findings as above. Patient was extubated and sent to PACU for recovery. Plan: Admit for observation on CBI, wean to off in AM. Follow up in office in 5 days or once urine is clear for adair removal/voiding trial and pathology review once available. Urinary Catheter Management Urinary Catheter Management 3-way Urethral: Cath placed during this visit: no
[2024-09-19] MEDS: LEVOFLOXACIN IN DEXTROSE 5 % 500 MG/100 ML PREMIX 100 MG IV (17:15)
[2024-09-19] MEDS: SODIUM CHLORIDE IRRIG SOLUTION 3,000 ML 3000 ML IRR ×5 (17:33→21:41)
[2024-09-20] MEDS: SODIUM CHLORIDE IRRIG SOLUTION 3,000 ML 3000 ML IRR (00:39)
[2024-09-20 04:02] VITALS: BP 172/96; PULSE 66; TEMP 36.6; O2SAT 95
[2024-09-20 08:00] VITALS: BP 179/82; PULSE 62; TEMP 36.8; O2SAT 97
== END 2024-09-20 09:30 | disposition home or self-care (01) ==
LOC: SURGOUT 16:43 → MS 17:04
PROVIDERS: PCP Family Medicine; Visit Provider Urology
PROC: (CPT 52235; principal; 2024-09-19 13:40)
DX: N30.20 Other chronic cystitis without hematuria (principal); N40.0 Benign prostatic hyperplasia without lower urinary tract symptoms
CPT/HCPCS: 52235; 52601; 36415; 88305; J0690; J1100; J1171; J2250; J2704; J3010